=== PATIENT | female | born 1935 | race Caucasian/White ===

== ENCOUNTER → 2016-03-11 | Outpatient (CLI) | payer OTHER, BC ==
[~2016-03-11] MED LIST: ALLO1TAB51 PO; AMLO5TAB2 PO; ANAS1TAB6 PO; ASPI81TA28 PO; CALC0.2510 PO; CHOL1TAB2 PO; CLOP1TAB15 PO; DIPH-437 PO; FERR325T51 PO; INSU1INJ17 SC; LABE200T24 PO; MULT-190 PO; MULT1CHW42 PO; OXYC-57 PO; PRT/40 PO; ZCR40 PO; [UNRECOGNIZED DRUG - CODE] SC
[2016-03-11 13:28] LABS: HEMATOCRIT 26.2 % (37-47)
== END | disposition home or self-care (01) ==
LOC: C.LAB1850 13:05
PROVIDERS: ATTEND Internal Medicine Nephrology
DX: D64.9 Anemia, unspecified (principal); N18.5 Chronic kidney disease, stage 5

== ENCOUNTER → 2016-04-12 | Outpatient (CLI) | payer OTHER, BC ==
[2016-04-12 15:10] LABS: BLOOD UREA NITROGEN 53 mg/dl (7-18); CALCIUM 8.8 mg/dl (8.5-10.1); CARBON DIOXIDE 23 mmol/L (21-32); CHLORIDE 108 mmol/L (98-107); GLUCOSE 178 mg/dl (70-99); MAGNESIUM 1.7 mg/dl (1.8-2.4); PHOSPHORUS 4.6 mg/dl (2.5-4.9); POTASSIUM 4.4 mmol/L (3.5-5.1); SODIUM 139 mmol/L (136-145)
== END | disposition home or self-care (01) ==
LOC: C.LAB1850 13:40
PROVIDERS: ATTEND Internal Medicine Nephrology
DX: Z00.00 Encounter for general adult medical examination without abnormal findings (principal); D64.9 Anemia, unspecified

== ENCOUNTER → 2016-05-25 | Outpatient (CLI) | payer OTHER, BC ==
[~2016-05-25] MED LIST changes: +ALL100 PO; +ARM1 PO; +CALC1CAP36 PO; +CHOLCAP5 PO; +FERR325T5 PO; +LBT200 PO; +MULT60CA PO; +PANT40TA2 PO; +PLV75 PO; -PRT/40 PO; +SODI650T8 PO
[2016-05-25 14:03] VITALS: BP 164/67; PULSE 64; TEMP 36.6; O2SAT 96
--- NOTE | 2016-05-25 15:36 | Radiation Oncology Follow-Up ---
Radiation Oncology Follow-Up Date of Visit May 25, 2016. 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 Last Edited By: Holly Stoddard on Nov 03, 2015 14:09 History of Present Illness Ms. Farr is an 80-year-old female without a family history of breast cancer. She is undergone intermittent bilateral screening mammogram. Her most recent was on 07/10/2015. This showed possible spiculated 10 mm mass in the right upper-outer quadrant. Spot compression to most censuses fuse and breast ultrasound are recommended. Additionally there was a 6 mm mass in the right lower inner quadrant which does not appear to be significantly changed compared to prior study in 2009. On 07/22/2015 the patient underwent unilateral right digital diagnostic mammogram and targeted right breast ultrasound. In the lower inner posterior right breast a lobulated circumscribed 6.5 x 6.2 mm oval mass was noted. There was no architectural distortion or associated clustered microcalcifications. When comparing back to prior mammograms this is slightly increased in size compared to the 01/30/2009 mammogram. In the 9 to 10:00 middle one third of the right breast there was a spiculated mass with associated architectural distortion and adjacent vascular calcification. Ultrasound of these areas were performed. Real-time high- resolution sonographic evaluation was performed in the lower inner and upper outer quadrants of the right breast as well as the right axilla. At the 5 o'clock position of the right breast 1 cm from the nipple there was a lobulated circumscribed predominantly anechoic cystic mass with a few internal septations that measures 4.8 x 4.1 x 6.6 mm. This correlates well with the slowly increasing mammographic mass and is likely benign. In the adjacent 6 o'clock position of the right breast 1 cm from the nipple are 2 abutting cysts versus a single cyst with thin internal nonvascular septation measuring 3.8 x 2.7 x 3.0 mm also likely benign. At the 9 o'clock position of the right breast 2 cm from the nipple is a spiculated angular hypoechoic solid vascular mass measuring 8.5 x 7.0 x 9.0 mm that correlates with the mammographic abnormality. This was suspicious. Several morphologically normalappearing lymph nodes were appreciated with no suspicious adenopathy. This was given a BI- RADS Category 5: Highly suggestive of malignancy with biopsy recommended. On 08/01/2015 an ultrasound-guided biopsy of the right breast 9 o'clock position was performed along with biopsy marker placement. This revealed an invasive ductal carcinoma [place] grade 1 of 3. No lymphovascular invasion was identified. Estrogen receptors were positive (100%, strong intensity, H score 300). Estrogen receptors were positive (95% , intermediate to strongly intensity, each score 235). HER-2/mariia overexpression was negative and negative by FISH analysis. Ki-67 proliferation index was 4%, low). Case: [id number]. Patient met with Dr. Benedicto Finch to discuss surgical treatment options. The patient opted to proceed with breast conserving therapy. Therefore on 08/27/2015 the patient underwent a right sentinel node biopsy and right partial breast mastectomy. The sentinel node was negative. The lumpectomy specimen revealed residual infiltrating adenocarcinoma Fito grade 1 measuring 1.0 x 0.9 x 0.5 cm. No DCIS is identified however there was atypical intraductal hyperplasia adjacent to the infiltrative component. The margins were evaluated. The adenocarcinoma focally extended to the superior margin at the lateral aspect. The infiltrative component failed to extend all other margins. Additional superior breast tissue was taken and this margin was negative. Additional inferior breast tissue was taken and this was also negative. There was no lymphovascular invasion or perineural invasion identified. The final stage was [id number] pN0(sn-) ER positive, CA positive and HER-2/mariia negative. Case: [id number]. Patient has recovered well from her surgery. She was seen by Dr. Juve Chew who discussed the use of adjuvant antiestrogen therapy. We were also asked to see the patient in referral and it is for this reason the patient is being seen in referral. She underwent CT simulation was found to be a candidate for accelerated partial breast irradiation. Radiation was completed 10/23/2015. She received 3850 cGy Interim History The patient has had continued improvement in the fibrous changes of the breast since the completion of treatment. There is a firm area over the incision which is steadily become smaller. She has no associated pain. She has noted no redness or swelling. She has had no swelling of her arm. She has had follow -up mammography. She had a mammogram 01/28/2016. This was of right breast. This showed expected postsurgical changes in the right breast status post lumpectomy, with a 4.1 cm fluid collection at the lumpectomy bed consistent with postsurgical seroma/hematoma. Recommend bilateral diagnostic mammogram in 6 months, to evaluate the right breast postsurgical changes and for routine mammography of the left breast. She is on anastrozole and denies side effects. She has been followed closely by her primary care physician and is now being followed by Dr. Juárez due to her chronic renal disease. She is going to be having a AV fistula placed. This will be in preparation for future dialysis. This now has related issues with anemia. She is receiving injections through Dr. Juárez office to help improve the anemia. She does have fatigue. She also recently underwent Mohs procedure to lesions on her forehead, cheek, and chin. Allergies Coded Allergies: No Known Allergies (Unverified , 08/27/15) Home Medications Scheduled Acetaminophen/Diphenhydramine (Tylenol Pm), 1 TAB PO HS Allopurinol (Allopurinol), 100 MG PO QAM Amlodipine Besylate (Norvasc), 5 MG PO QAM Anastrozole (Anastrozole), 1 TAB PO DAILY Aspirin (Aspirin Ec), 81 MG PO QAM Calcitriol (Rocaltrol Cap), 0.25 MCG PO 3XWK Cholecalciferol (Vitamin D-3), 5,000 UNITS PO QAM Clopidogrel (Plavix), 75 MG PO Q2D Darbepoetin Migue-Polysorbate 8 (Aranesp Albumin Free), 100 MCG SC UD Ferrous Sulfate (Iron Supplement), 1 TAB PO QAM Insulin Isophane & Reg (Human) (Novolin 70/30 Relion), 55 UNITS SC QAM Insulin Isophane & Reg (Human) (Novolin 70/30 Relion), 35 UNITS SC QPM Labetalol Hcl (Labetalol Hcl), 200 MG PO TID Multiple Vitamins W/ Minerals (Centrum Multigummies Adul), 1 TAB PO DAILY Ocuvite Preservision (Ocuvite Preservision), 1 TAB PO BID Pantoprazole (Pantoprazole Sodium), 40 MG PO QAM Simvastatin (Simvastatin), 40 MG PO QPM Review of Systems Gastrointestinal: Symptoms: Ostomy GI Comments: Ileostomy with normal output; Oral: Symptoms: Scant Saliva/Dry Mouth, Mild Soreness Other Oral Symptoms: Using biotene for dry mouth; Respiratory: Symptoms: SOB With Exertion Other Respiratory: SOB w/exertion such as stairs and resolves quickly; Urinary: Symptoms: Nocturia Comments: 3 voids/night; Skin: Symptoms: No Problems Breast: Right Upper Arm Measurement: 31.8 Right Mid Arm Measurement: 27.0 Right Wrist Measurement: 16.3 Left Upper Arm Measurement: 32.5 Left Mid Arm Measurement: 27.0 Left Wrist Measurement: 16.5 Arm Dominence: Right Physical Exam Vital Signs Date Time Temp Pulse Resp B/P Pulse Ox O2 Delivery O2 Flow Rate FiO2 05/25/16 14:03 36.6 64 20 164/67 96 Fatigue: None General Appearance: no apparent distress, + pertinent finding (well-healed incisions are noted of her forehead, cheek, and chin from her Mohs procedures.) Eyes: normal inspection, EOMI ENT: normal ENT inspection, hearing grossly normal Neck: no adenopathy, thyroid normal Respiratory/Chest: lungs clear, no respiratory distress, no accessory muscle use Breast: Breast examination reveals well-healed incisions of the right breast. She does have palpable fibrous changes in the upper outer quadrant. The seroma is noted. There is no tenderness. She has no erythema or edema. She has no nipple changes or skin retractions. Using the Cayce score cosmesis she has a excellent outcome. The left breast showed no masses or tenderness no axillary adenopathy. Cardiovascular: regular rate, rhythm, no gallop, no murmur Abdomen: non tender, soft, no organomegaly Extremities: no pedal edema Neurologic/Psychiatric: no motor/sensory deficits, alert, normal mood/affect Skin: warm/dry Lymphatic: no adenopathy Laboratory Studies Test 04/12/16 13:42 04/29/16 14:08 05/17/16 12:37 Sodium Level 139 mmol/L (136-145) 142 mmol/L (136-145) Potassium Level 4.4 mmol/L (3.5-5.1) 4.8 mmol/L (3.5-5.1) Chloride Level 108 mmol/L (98-107) 111 mmol/L (98-107) Carbon Dioxide Level 23 mmol/L (21-32) 21 mmol/L (21-32) Anion Gap 8.0 mmol/L (3-11) 10.0 mmol/L (3-11) Blood Urea Nitrogen 53 mg/dl (7-18) 47 mg/dl (7-18) Creatinine 4.10 mg/dl (0.60-1.20) 5.20 mg/dl (0.60-1.20) Estimated GFR () 11.0 8.3 Estimated GFR (Non- 9.5 7.1 BUN/Creatinine Ratio 13.0 (10-20) 9.0 (10-20) Random Glucose 178 mg/dl (70-99) 249 mg/dl (70-99) Calcium Level 8.8 mg/dl (8.5-10.1) 8.7 mg/dl (8.5-10.1) Phosphorus Level 4.6 mg/dl (2.5-4.9) 4.3 mg/dl (2.5-4.9) Magnesium Level 1.7 mg/dl (1.8-2.4) 1.7 mg/dl (1.8-2.4) Albumin 3.3 gm/dl (3.4-5.0) 3.4 gm/dl (3.4-5.0) Hemoglobin 9.2 g/dL (12.0-16.0) 9.1 g/dL (12.0-16.0) Hematocrit 27.2 % (37-47) 26.7 % (37-47) White Blood Count 4.52 K/uL (4.8-10.8) Red Blood Count 3.12 M/uL (4.2-5.4) Mean Corpuscular Volume 85.6 fL (80-100) Mean Corpuscular Hemoglobin 29.2 pg (25-34) Mean Corpuscular Hemoglobin Concent 34.1 g/dl (32-36) Platelet Count 156 K/uL (130-400) Mean Platelet Volume 9.4 fL (7.4-10.4) Neutrophils (%) (Auto) 72.0 % Lymphocytes (%) (Auto) 16.8 % Monocytes (%) (Auto) 6.6 % Eosinophils (%) (Auto) 4.0 % Basophils (%) (Auto) 0.4 % Neutrophils # (Auto) 3.25 K/uL (1.4-6.5) Lymphocytes # (Auto) 0.76 K/uL (1.2-3.4) Monocytes # (Auto) 0.30 K/uL (0.11-0.59) Eosinophils # (Auto) 0.18 K/uL (0-0.5) Basophils # (Auto) 0.02 K/uL (0-0.2) RDW Standard Deviation 47.6 fL (36.4-46.3) RDW Coefficient of Variation 15.1 % (11.5-14.5) Immature Granulocyte % (Auto) 0.2 % Immature Granulocyte # (Auto) 0.01 K/uL (0.00-0.02) Iron Level 56 mcg/dl (35-150) Total Iron Binding Capacity 310 mcg/dl (250-450) Transferrin 251 mg/dl (200-360) Transferrin % Saturation 16 % (15-50) Ferritin 64.2 ng/ml (8.0-388.0) Additional Studies UNILATERAL RIGHT DIGITAL DIAGNOSTIC MAMMOGRAM TOMOSYNTHESIS AND TARGETED RIGHT ULTRASOUND: 01/28/2016 CLINICAL HISTORY: History of right breast cancer status post right lumpectomy August 2015 as well as radiation therapy. The patient reports a lump at the surgical bed which has decreased significantly since her surgery; she massages the area routinely. TECHNIQUE: Breast tomosynthesis in addition to standard 2D mammography was performed. Right CC and MLO 2-D and tomosynthesis images and spot magnification right cc and ML views were obtained. COMPARISON: Comparison is made to exams dated: 08/01/2015 ultrasound biopsy, mammogram, 07/22/2015 mammogram, and 07/10/2015 mammogram - [facility] BREAST COMPOSITION: There are scattered areas of fibroglandular density in the right breast. FINDINGS: There are new post surgical changes in the right breast from prior lumpectomy, including surgical clips as well as a round circumscribed 3.7 cm mass at the lumpectomy bed, which likely represents postsurgical seroma. The remainder of the right breast demonstrates no suspicious masses, calcifications , or areas of architectural distortion. The previously seen small mass in the right lower inner quadrant is no longer evident. Targeted ultrasound was performed of the surgical bed at the site of the mammographic mass as well as palpable lump. At the lumpectomy bed in the right breast at approximately 8:00, 2 cm from the nipple, there is an oval circumscribed mixed echogenicity fluid collection with multiple septations, which measures 4.1 x 2.8 x 3.1 cm. This corresponds with the mammographic mass and is most compatible with a postsurgical seroma/hematoma. Targeted ultrasound was performed of the right 5 to 6:00 breast, 1 cm from the nipple, at the site of the previously seen complicated cysts. The previously seen complicated cysts were no longer evident, and are therefore benign. IMPRESSION: ACR-BI-RADS CATEGORY 3: PROBABLY BENIGN, TARGETED ULTRASOUND ACR-BI -RADS CATEGORY 3: PROBABLY BENIGN Expected postsurgical changes in the right breast status post lumpectomy, with a 4.1 cm fluid collection at the lumpectomy bed consistent with a postsurgical seroma/hematoma. Recommend bilateral diagnostic mammograms in 6 months, to reevaluate the right breast postsurgical changes and for routine mammography of the left breast. The patient has been verbally notified of the results. Approximately 10% of breast cancers are not detected with mammography. A negative mammographic report should not delay biopsy if a clinically suggestive mass is present. Evy Mckeon M.D. ah/:01/28/2016 12:13:21 [employer] Plant Operator: Jemima HURD(Sofía)(Marylin), [facility] letter sent: Personal History 3 BI-RADS Code: ACR-BI-RADS Category 3: Probably Benign Ultrasound BI-RADS: ACR- BI-RADS Category 3: Probably Benign Dictated by: Evy Mckeon MD Signed by: Evy Mckeon MD Assessment & Plan Plan: Continue regular follow-up with her primary care physician and Dr. Jeevan. She continues on anastrozole. Continue with current schedule of mammography. She continues follow-up with nephrology. We asked her to return to our office in 1 year. She may call if she has any questions or concerns in the interim. Total Time In Follow-Up I spent 20 minutes speaking to the patient forming examination. I spent 15 minutes reviewing information in completing this note. Copy To Danielito Henley M.D.; Benedicto Finch M.D.; Marc Chew D.O.; Andrew Juárez D.O.
== END | disposition home or self-care (01) ==
LOC: C.ONC 13:57
PROVIDERS: ATTEND Physician Assistant Medical
DX: Z08 Encounter for follow-up examination after completed treatment for malignant neoplasm (principal); Z92.3 Personal history of irradiation; Z85.3 Personal history of malignant neoplasm of breast

== ENCOUNTER → 2016-06-09 | Outpatient (CLI) | payer OTHER, BC ==
[2016-06-09 13:56] LABS: ESTIMATED AVERAGE GLUCOSE 160 mg/dl; HA1C FLAG Normal (Normal)
[2016-06-09 14:38] LABS: CALCIUM 9.3 mg/dl (8.5-10.1)
[2016-06-09 14:53] LABS: BLOOD UREA NITROGEN 53 mg/dl (7-18); BUN/CREATININE RATIO 10.4 (10-20); CARBON DIOXIDE 20 mmol/L (21-32); CHLORIDE 112 mmol/L (98-107); CHOLESTEROL 129 mg/dl (0-200); CHOLESTEROL/HDL RATIO 3.7; GLUCOSE 167 mg/dl (70-99); HDL CHOLESTEROL 35 mg/dl; LDL CHOLESTEROL CALCULATED 53 mg/dl; POTASSIUM 4.7 mmol/L (3.5-5.1); SODIUM 141 mmol/L (136-145); TRIGLYCERIDES 207 mg/dl (0-150); VERY LOW DENSITY LIPOPROT CALC 41 mg/dl
== END | disposition home or self-care (01) ==
LOC: C.LABSPEC 12:36
PROVIDERS: ATTEND Internal Medicine
DX: E78.5 Hyperlipidemia, unspecified (principal); I10 Essential (primary) hypertension; E11.65 Type 2 diabetes mellitus with hyperglycemia

== ENCOUNTER → 2016-06-10 | Outpatient (CLI) | payer OTHER, BC | END | disposition home or self-care (01) | LOC: C.LABSPEC 14:37 | PROVIDERS: ATTEND Internal Medicine | DX: E11.9 Type 2 diabetes mellitus without complications (principal) ==

== ENCOUNTER → 2016-06-29 | Day surgery (SDC) | payer OTHER, BC ==
[2016-06-21 13:13] VITALS: BMI 31.0
--- NOTE | 2016-06-21 13:57 | PAT Medication Instructions ---
Service Date June 21, 2016. Current Home Medication List Acetaminophen/Diphenhydramine (Tylenol Pm), 1 TAB PO HS Allopurinol (Allopurinol), 100 MG PO QAM Amlodipine Besylate (Norvasc), 5 MG PO QAM Anastrozole (Anastrozole), 1 TAB PO QAM Aspirin (Aspirin Ec), 81 MG PO QAM Calcitriol (Rocaltrol Cap), 0.25 MCG PO 3XWK Cholecalciferol (Vitamin D-3), 5,000 UNITS PO QAM Clopidogrel (Plavix), 75 MG PO Q2D Darbepoetin Migue-Polysorbate 8 (Aranesp Albumin Free), 100 MCG SC UD Ferrous Sulfate (Iron Supplement), 1 TAB PO QAM Insulin Isophane & Reg (Human) (Novolin 70/30 Relion), 55 UNITS SC QAM Insulin Isophane & Reg (Human) (Novolin 70/30 Relion), 35 UNITS SC QPM Labetalol Hcl (Labetalol Hcl), 200 MG PO TID Multiple Vitamins W/ Minerals (Centrum Multigummies Adul), 1 TAB PO QAM Ocuvite Preservision (Ocuvite Preservision), 1 TAB PO BID Pantoprazole (Pantoprazole Sodium), 40 MG PO QAM Simvastatin (Simvastatin), 40 MG PO QPM Medication Instructions For Your Scheduled Surgery Anastrozole (Anastrozole), 1 TAB PO QAM (per surgeon instructions, continue as usual) Aspirin (Aspirin Ec), 81 MG PO QAM (per surgeon instructions, continue as usual) Clopidogrel (Plavix), 75 MG PO Q2D (per surgeon instructions, continue as usual ) Darbepoetin Migue-Polysorbate 8 (Aranesp Albumin Free), 100 MCG SC UD (continue as usual) - Hold the following medications the morning of surgery: Ocuvite Preservision (Ocuvite Preservision), 1 TAB PO BID Multiple Vitamins W/ Minerals (Centrum Multigummies Adul), 1 TAB PO QAM Ferrous Sulfate (Iron Supplement), 1 TAB PO QAM Cholecalciferol (Vitamin D-3), 5,000 UNITS PO QAM Calcitriol (Rocaltrol Cap), 0.25 MCG PO 3XWK - Take the following medications the morning of surgery with a sip of water: Pantoprazole (Pantoprazole Sodium), 40 MG PO QAM Labetalol Hcl (Labetalol Hcl), 200 MG PO TID Amlodipine Besylate (Norvasc), 5 MG PO QAM Allopurinol (Allopurinol), 100 MG PO QAM - Take the following medications as scheduled the night before surgery: Simvastatin (Simvastatin), 40 MG PO QPM Ocuvite Preservision (Ocuvite Preservision), 1 TAB PO BID Labetalol Hcl (Labetalol Hcl), 200 MG PO TID Insulin Isophane & Reg (Human) (Novolin 70/30 Relion), 35 UNITS SC QPM Acetaminophen/Diphenhydramine (Tylenol Pm), 1 TAB PO HS - For Insulin Dependent Diabetic patients: Test blood sugar A.M. of surgery. - If blood sugar is greater than 150, take half of your morning insulin dose: Novolin 70/30 Relion, 26 UNITS - If blood sugar is less than 150, do not take any: Novolin 70/30 If you have any questions please call us at [phone] or [phone] ( [place]) or [phone]
[2016-06-21 14:21] LABS: BASO % 0.6 %; BASO ABS # 0.03 K/uL (0-0.2); COMPLETE YES; EOS % 3.2 %; HEMATOCRIT 27.9 % (37-47); IG% 0.2 %; LYMPH % 12.5 %; LYMPH ABS # 0.66 K/uL (1.2-3.4); MEAN CELL VOLUME 88.9 fL (80-100); MEAN CORPUSCULAR HGB CONC 32.6 g/dl (32-36); MEAN PLATELET VOLUME 8.9 fL (7.4-10.4); MONO % 6.4 %; NEUT % 77.1 %; PLATELET COUNT 133 K/uL (130-400); RED BLOOD COUNT 3.14 M/uL (4.2-5.4); WHITE BLOOD COUNT 5.29 K/uL (4.8-10.8)
--- NOTE | 2016-06-21 14:22 | DIAGNOSTIC IMAGING REPORT ---
CHEST 2 VIEWS ROUTINE CLINICAL HISTORY: Preoperative chest COMPARISON STUDY: 04/23/2015 FINDINGS: The heart is mildly enlarged. There is mild interstitial thickening similar to the prior study. There is no lobar consolidation. There is no failure. There are no pleural effusions. Surgical clips project over the right breast.[ IMPRESSION: Mild cardiomegaly. No acute findings. Electronically signed by: Bryce Rodriguez M.D. 06/21/2016 2:21 PM Dictated Date/Time: 06/21/2016 2:20 PM
[2016-06-21 14:30] LABS: PARTIAL THROMBOPLASTIN RATIO 0.9; PROTHROMBIN TIME (PATIENT) 10.7 SECONDS (9.0-12.0)
[2016-06-21 15:48] LABS: BUN/CREATININE RATIO 10.8 (10-20); CALCIUM 8.7 mg/dl (8.5-10.1); CREATININE 4.8 mg/dl (0.60-1.20); POTASSIUM 5.2 mmol/L (3.5-5.1)
[2016-06-21 16:06] LABS: BETA-HYDROXYBUTYRATE 1.32 mg/dL (0.2-2.81)
[~2016-06-29] VITALS: Ht 157.5 cm; Wt 78.7 kg
[~2016-06-29] MED LIST changes: +ATROPINE SULFATE 0.1 MG/ML 5ML SYR IV PRN; +BUPIVACAINE/EPINEPHRINE 0.5% MPF 1:200,000 30 ML VIAL ONE; +CEFAZOLIN 1000MG/55 ML D5W IV SCH; +EpHEDrine SULFATE INJ 50 MG/ML AMP IV PRN; +FENTANYL CITRATE INJ 50 MCG/1 ML 2 ML VIAL ONE; +FLUMAZENIL 0.1 MG/1 ML 10 ML VIAL IV PRN; +GELATIN SPONGE 12-7MM ONE; +HEPARIN SOD (PORCINE) 1000 UNIT/ML 10 ML VIAL ONE; +LABETALOL HCL IV 5 MG/ML 20ML IV PRN; +LIDOCAINE HCL 1% 20 ML VIAL ONE; +LIDOCAINE HCL 2% 2 ML VIAL (20MG/ML) ONE; +MIDAZOLAM HCL 1 MG/ML 2ML VIAL ONE; +NALOXONE HCL 0.4 MG/1 ML VIAL/CARP IV PRN; +ONDANSETRON INJ 2 MG/ML 2 ML VIAL IV PRN; +PROMETHAZINE HCL INJ 12.5 MG in SODIUM CHLORIDE 0.9% 50ML 50 ML IV PRN; +PROPOFOL IV EMULSION 10 MG/ML 20 ML VIAL IV ONE; +SODIUM CHLORIDE 0.9% 1000ML 1,000 ML IV SCH; +SODIUM CHLORIDE 0.9% 1000ML IV SCH; +THROMBIN FOR SOLN 20000 UNIT KIT ONE
--- NOTE | 2016-06-29 06:02 | History and Physical ---
History & Physical Date of Service June 29, 2016. 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 Pt states that she was initially unwilling to move forward with hemodialysis but has since decided to pursue further treatment. At this time she notes that she is feeling well and is hopeful that she will not require hemodialysis. She denies recent sxs of TIA, numbness or weakness in the arms, or sxs of claudication with ambulation. 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 Allergies NKDA Social History: Lives at home with daughter who requires her care. Has another daughter that lives in [place]. Physical Exam General: Well Developed Well Nourished in no acute distress Cardiovascular: Regular Rhythm, Bradycardia, no murmurs. No Carotid Bruits Respiratory: Lungs clear to auscultation bilaterally. No wheezes or rhonchi Extremeties: 2+ Radial, DP and PT pulses bilaterally. Integumentary: Warm and Dry Psych: Approrpiate mood and affect Assessment and Plan: End stage renal disease Plan: Patient is admitted for a left antecubital vein fistula. I have discussed the risks options and benefits of the procedure with the patient. The patient understands the risks options and benefits and agrees to the procedure.
[2016-06-29 09:15] VITALS: BP 169/75; PULSE 64; TEMP 36.7; O2SAT 95; Ht 157.5 cm; Wt 78.7 kg
--- NOTE | 2016-06-29 09:44 | History & Physical Bridge Note ---
H&P Re-Evaluation Bridge Note: I have examined the patient, reviewed the History & Physical and in the interval since the performance of the History & Physical I have noted the following changes of clinical significance: No changes noted
[2016-06-29 09:46] LABS: BUN/CREATININE RATIO 9.2 (10-20); CALCIUM 9.1 mg/dl (8.5-10.1); CREATININE 5.6 mg/dl (0.60-1.20); POTASSIUM 4.3 mmol/L (3.5-5.1)
--- NOTE | 2016-06-29 11:57 | [facility] Post Operative Brief Note ---
Immediate Operative Summary Operative Date June 29, 2016. Pre-Operative Diagnosis End stage renal disease Post-Operative Diagnosis Same as preoperative diagnosis Procedure(s) Performed Left Antecubital Cephalic Vein Arteriovenous Fistula Surgeon Dr. Figueroa Torres Oyster Grader Surgeon(s) None Estimated Blood Loss 10 mL Findings good thrill Specimens No pathology specimens per surgeon Anesthesia MAC Complication(s) None Disposition Recovery Room / PACU
--- NOTE | 2016-06-29 12:00 | Discharge Instructions ---
Discharge Instructions Date of Service June 29, 2016. Visit Reason for Visit: End Stage Renal Disease Discharge Discharge Diagnosis / Problem: End stage renal disease Discharge Goals Goal(s): Therapeutic intervention Activity Recommendations Activity Limitations: per Instructions/Follow-up section Anesthesia . Post Anesthesia Instructions: If you have had General Anesthesia or IV Sedation: * Do not drive today. * Resume driving when surgeon permits. * Do not make important decisions or sign legal documents today. * Call surgeon for: 1. Temperature elevations greater than 101 degrees F. 2. Uncontrollable pain. 3. Excessive bleeding. 4. Persistent nausea and vomiting. 5. Medication intolerance (nausea, vomiting or rash). * For nausea and vomiting use only clear liquids such as: tea, soda, bouillon until nausea subsides, then gradually increase diet as tolerated. * If you have any concerns or questions, call your surgeon's office. If physician is unavailable and it is an emergency, call 911 or go to the nearest emergency room. . Instructions / Follow-Up Instructions / Follow-Up Call [phone] to schedule a follow up appointment if one not already scheduled. ACTIVITY RECOMMENDATIONS: See Above SPECIAL CARE INSTRUCTIONS: Call your doctor if: * Temperature above 101 degrees * Pain not relieved by pain medicine ordered * There is increased drainage or redness from any incision * You have any unanswered questions or concerns. Diet Recommendations Recommended Home Diet: resume previous diet Procedures Procedures Performed: Left Antecubital Cephalic Vein Arteriovenous Fistula Pending Studies Studies pending at discharge: no Medical Emergencies . Who to Call and When: Medical Emergencies: If at any time you feel your situation is an emergency, please call 911 immediately. . Non-Emergent Contact Non-Emergency issues call your: Surgeon . . "Provider Documentation" section prepared by Figueroa Torres. .
--- NOTE | 2016-06-29 12:35 | OPERATIVE REPORT ---
DATE OF OPERATION: 06/29/2016 PREOPERATIVE DIAGNOSIS: Endstage renal disease. POSTOPERATIVE DIAGNOSIS: Same. PROCEDURE: Left antecubital cephalic vein AV fistula creation. SURGEON: Dr. Torres. ANESTHETIC: MAC. PROCEDURE INDICATIONS: The patient is an 80-year-old female with end-stage renal disease in need of a permanent access. A left antecubital cephalic vein AV fistula was recommended. She understood the risks, options and benefits and agreed to have this procedure. The patient was taken to the operating room and placed in supine position. After the left arm was prepped and draped in a sterile manner, local anesthetic was administered. A transverse incision was made inferior to the antecubital crease on the left side. The dissection was carried down. The median, cubital, and cephalic vein were identified. Dissection was carried down below the fascia and the brachial artery was identified at the antecubital crease. The brachial artery was isolated for a short segment. The median cephalic vein was divided distally. It was then transected appropriate length. Clamps were placed on the proximal and distal brachial artery. Longitudinal arteriotomy was then made. The artery was of good size, approximately 3 mm in size. The vein was approximately 2.5 to 3. It dilated up nicely with heparinized saline. An end-to-side anastomosis was then accomplished using a 7-0 Prolene suture in the usual vascular fashion. Prior to completing the closure, backbleeding and forward bleeding was allowed to occur and the final few sutures were then placed and securely tied. Clamps were removed. There was a good thrill felt in the cephalic vein in the upper arm. At that point, adequate hemostasis was noted of the wound. The wound was then closed in the usual fashion using a running 3-0 Vicryl suture for the subcutaneous layer and running 4-0 subcuticular suture for the skin edges. Dermabond was used for a dressing. The patient had nice pink fingers at the end with a good palpable radial pulse. The patient left the operating room in satisfactory condition and tolerated the procedure well. Again, there was a good thrill in the cephalic vein in the upper arm. I attest to the content of the Intraoperative Record and any orders documented therein. Any exceptio ns are noted below.
[2016-06-29 12:40] VITALS: BP 167/62; PULSE 61; TEMP 36.5; O2SAT 92
--- NOTE | 2016-06-29 12:40 | Anesthesiology Progress Note ---
Anesthesia Post Op Note Date & Time June 29, 2016 at 12:40 Vital Signs Pain Intensity: 0 Vital Signs Past 12 Hours Date Time Temp Pulse Resp B/P Pulse Ox O2 Delivery O2 Flow Rate FiO2 06/29/16 12:25 36.2 63 16 171/64 91 Room Air 06/29/16 12:15 63 14 159/60 92 Room Air 06/29/16 12:08 36.3 67 14 166/60 94 Room Air 06/29/16 09:15 36.7 64 18 169/75 95 Room Air Notes Mental Status: alert / awake / arousable, participated in evaluation Pt Amnestic to Procedure: Yes Nausea / Vomiting: adequately controlled Pain: adequately controlled Airway Patency, RR, SpO2: stable & adequate BP & HR: stable & adequate Hydration State: stable & adequate Anesthetic Complications: no major complications apparent
[2016-06-29 13:10] VITALS: BP 160/54; PULSE 67; TEMP 36.6; O2SAT 95
== END | disposition home or self-care (01) ==
LOC: C.ACU 08:43
PROVIDERS: ATTEND Surgery Vascular Surgery
DX: N18.6 End stage renal disease (principal); I12.0 Hypertensive chronic kidney disease with stage 5 chronic kidney disease or end stage renal disease; D50.9 Iron deficiency anemia, unspecified; Z85.3 Personal history of malignant neoplasm of breast; N25.81 Secondary hyperparathyroidism of renal origin; E55.9 Vitamin D deficiency, unspecified; Z86.73 Personal history of transient ischemic attack (TIA), and cerebral infarction without residual deficits; Z87.442 Personal history of urinary calculi; Z79.82 Long term (current) use of aspirin; Z82.49 Family history of ischemic heart disease and other diseases of the circulatory system; Z83.3 Family history of diabetes mellitus; E78.00 Pure hypercholesterolemia, unspecified; Z79.4 Long term (current) use of insulin; Z90.11 Acquired absence of right breast and nipple; E66.9 Obesity, unspecified; Z90.49 Acquired absence of other specified parts of digestive tract; E11.21 Type 2 diabetes mellitus with diabetic nephropathy

== ENCOUNTER → 2016-07-28 | Outpatient (CLI) | payer OTHER, BC ==
[~2016-07-28] MED LIST changes: -ATROPINE SULFATE 0.1 MG/ML 5ML SYR IV PRN; -BUPIVACAINE/EPINEPHRINE 0.5% MPF 1:200,000 30 ML VIAL ONE; -CEFAZOLIN 1000MG/55 ML D5W IV SCH; -EpHEDrine SULFATE INJ 50 MG/ML AMP IV PRN; -FENTANYL CITRATE INJ 50 MCG/1 ML 2 ML VIAL ONE; -FLUMAZENIL 0.1 MG/1 ML 10 ML VIAL IV PRN; -GELATIN SPONGE 12-7MM ONE; -HEPARIN SOD (PORCINE) 1000 UNIT/ML 10 ML VIAL ONE; -LABETALOL HCL IV 5 MG/ML 20ML IV PRN; -LIDOCAINE HCL 1% 20 ML VIAL ONE; -LIDOCAINE HCL 2% 2 ML VIAL (20MG/ML) ONE; -MIDAZOLAM HCL 1 MG/ML 2ML VIAL ONE; -NALOXONE HCL 0.4 MG/1 ML VIAL/CARP IV PRN; -ONDANSETRON INJ 2 MG/ML 2 ML VIAL IV PRN; -PROMETHAZINE HCL INJ 12.5 MG in SODIUM CHLORIDE 0.9% 50ML 50 ML IV PRN; -PROPOFOL IV EMULSION 10 MG/ML 20 ML VIAL IV ONE; -SODIUM CHLORIDE 0.9% 1000ML 1,000 ML IV SCH; -SODIUM CHLORIDE 0.9% 1000ML IV SCH; -THROMBIN FOR SOLN 20000 UNIT KIT ONE
--- NOTE | 2016-07-28 13:28 | MAMMOGRAPHY REPORT ---
BILATERAL DIGITAL DIAGNOSTIC MAMMOGRAM TOMOSYNTHESIS WITH CAD: 07/28/2016 CLINICAL HISTORY: 1 year follow-up status post breast conservation treatment for right breast cancer. Annual bilateral screening exam. TECHNIQUE: Bilateral breast spot magnification right CC and ML views were also obtained. Tomosynthes is in addition to standard 2D mammography was performed. Current study was also evaluated with a Comp uter Aided Detection (CAD) system. COMPARISON: Comparison is made to exams dated: 01/28/2016 ultrasound, 01/28/2016 mammogram, 07/22/2015 mammogram, 07/10/2015 mammogram, 02/16/2012 mammogram, and 02/10/2011 mammogram - [facility]. BREAST COMPOSITION: There are scattered areas of fibroglandular density in both breasts. FINDINGS: There is evidence of prior treatment in the right breast. There is a dense 3.0 x 4.1 cm ma ss in the upper outer posterior right breast, at the site of prior lumpectomy. This has slightly dec reased in size compared to the prior mammograms, and most likely represents an evolving post surgical seroma and/or hematoma. There are moderate vascular calcifications bilaterally. No new suspicious mass, architectural distortion or cluster of microcalcifications is seen. IMPRESSION: ACR-BI-RADS CATEGORY 3: PROBABLY BENIGN 1. Expected posttreatment changes in the right breast, without definite mammographic evidence of mal ignancy. Another six-month follow-up diagnostic right mammogram and possible ultrasound is recommend ed to ensure longer stability after treatment. 2. Stable mammographic appearance of the left breast, without mammographic evidence of malignancy. Advise follow up in one year. These results and recommendations were discussed with the patient at the time of the exam. Approximately 10% of breast cancers are not detected with mammography. A negative mammographic report should not delay biopsy if a clinically suggestive mass is present. Meena Chou M.D. ay/:07/28/2016 11:40:47 Ball Thread Machine Tender: Marii HURD(Sofía)(M), [facility] letter sent: Follow Up Recommended 3 BI-RADS Code: ACR-BI-RADS Category 3: Probably Benign
== END | disposition home or self-care (01) ==
LOC: C.MAMM 10:29
PROVIDERS: ATTEND Physician Assistant Medical
DX: Z85.3 Personal history of malignant neoplasm of breast (principal); Z08 Encounter for follow-up examination after completed treatment for malignant neoplasm

== ENCOUNTER → 2016-08-19 | Outpatient (CLI) | payer OTHER, BC ==
[~2016-08-19] MED LIST changes: -PANT40TA2 PO; +PRT/40 PO
[2016-08-19 15:37] LABS: BLOOD UREA NITROGEN 60 mg/dl (7-18); BUN/CREATININE RATIO 12.2 (10-20); CALCIUM 8.7 mg/dl (8.5-10.1); CARBON DIOXIDE 20 mmol/L (21-32); CHLORIDE 112 mmol/L (98-107); GLUCOSE 244 mg/dl (70-99); PHOSPHORUS 5.3 mg/dl (2.5-4.9); POTASSIUM 5.2 mmol/L (3.5-5.1); SODIUM 140 mmol/L (136-145)
== END | disposition home or self-care (01) ==
LOC: C.LAB1850 13:14
PROVIDERS: ATTEND Internal Medicine Nephrology
DX: N18.5 Chronic kidney disease, stage 5 (principal); D64.9 Anemia, unspecified

== ENCOUNTER → 2016-09-01 | Outpatient (CLI) | payer OTHER, BC ==
[2016-09-01 17:31] LABS: BLOOD UREA NITROGEN 52 mg/dl (7-18); BUN/CREATININE RATIO 10.3 (10-20); CALCIUM 8.8 mg/dl (8.5-10.1); CARBON DIOXIDE 21 mmol/L (21-32); CHLORIDE 113 mmol/L (98-107); GLUCOSE 209 mg/dl (70-99); PHOSPHORUS 4.8 mg/dl (2.5-4.9); POTASSIUM 4.8 mmol/L (3.5-5.1); SODIUM 143 mmol/L (136-145)
== END | disposition home or self-care (01) ==
LOC: C.LAB1850 15:20
PROVIDERS: ATTEND Internal Medicine Nephrology
DX: N18.5 Chronic kidney disease, stage 5 (principal); D64.9 Anemia, unspecified

== ENCOUNTER → 2016-09-27 | Day surgery (SDC) | payer OTHER, BC ==
[~2016-09-27] VITALS: Ht 157.5 cm; Wt 76.5 kg
[~2016-09-27] MED LIST changes: +CEFAZOLIN 1000MG/55 ML D5W IV SCH; +D5W AND 1/4NSS 1,000 ML IV SCH
[2016-09-27 07:02] VITALS: BP 162/69; PULSE 67; TEMP 36.6; O2SAT 95; Ht 157.5 cm; Wt 76.5 kg
== END | disposition home or self-care (01) ==
LOC: C.ACU 06:28
PROVIDERS: ATTEND Surgery Vascular Surgery
DX: N18.6 End stage renal disease (principal); Z53.8 Procedure and treatment not carried out for other reasons

== ENCOUNTER → 2016-10-12 | Outpatient (CLI) | payer OTHER, BC ==
[~2016-10-12] MED LIST changes: -CEFAZOLIN 1000MG/55 ML D5W IV SCH; -D5W AND 1/4NSS 1,000 ML IV SCH
[2016-10-12 13:20] LABS: ESTIMATED AVERAGE GLUCOSE 180 mg/dl; HA1C FLAG Normal (Normal)
[2016-10-12 13:49] LABS: BLOOD UREA NITROGEN 61 mg/dl (7-18); BUN/CREATININE RATIO 11.6 (10-20); CALCIUM 9.1 mg/dl (8.5-10.1); CARBON DIOXIDE 21 mmol/L (21-32); CHLORIDE 114 mmol/L (98-107); CHOLESTEROL < 50 mg/dl (0-200); GLUCOSE 150 mg/dl (70-99); HDL CHOLESTEROL 36 mg/dl; POTASSIUM 4.7 mmol/L (3.5-5.1); SODIUM 144 mmol/L (136-145); TRIGLYCERIDES 199 mg/dl (0-150); VERY LOW DENSITY LIPOPROT CALC 40 mg/dl
== END | disposition home or self-care (01) ==
LOC: C.LABSPEC 12:23
PROVIDERS: ATTEND Internal Medicine
DX: N17.9 Acute kidney failure, unspecified (principal); E78.5 Hyperlipidemia, unspecified; E11.65 Type 2 diabetes mellitus with hyperglycemia; I10 Essential (primary) hypertension

== ENCOUNTER 2016-10-25 06:30 | Day surgery (SDC) | payer OTHER, BC ==
[~2016-10-25] VITALS: Ht 157.5 cm; Wt 77.5 kg
--- NOTE | 2016-10-25 06:03 | History and Physical ---
History & Physical Date of Service Oct 25, 2016. History & Physical CC: End stage renal disease, stenosis and nonmaturation of left arm av fistula HPI: Ms Farr is an 80 yo F with a PMH of T2DM, HTN, iron deficiency anemia, Breast Cancer and UC s/p total colectomy who presented for evaluation of AV fistula creation for HD for Stage V CKD likely 2/2 diabetic nephropathy. She had a left arm fistula created which has a large branch and is not maturing as it should, She denies recent sxs of TIA, numbness or weakness in the arms, or sxs of claudication with ambulation. 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 Allergies NKDA Social History: Lives at home with daughter who requires her care. Has another daughter that lives in [place]. Physical Exam General: Well Developed Well Nourished in no acute distress Cardiovascular: Regular Rhythm, Bradycardia, no murmurs. No Carotid Bruits Respiratory: Lungs clear to auscultation bilaterally. No wheezes or rhonchi Extremeties: 2+ Radial, DP and PT pulses bilaterally. Good thrill in proximal fistula Integumentary: Warm and Dry Psych: Approrpiate mood and affect Assessment and Plan: End stage renal disease Non maturing fistula left arm Plan: Patient is admitted for a left antecubital vein fistulogram with possible intervention. I have discussed the risks options and benefits of the procedure with the patient. The patient understands the risks options and benefits and agrees to the procedure.
[~2016-10-25 06:30] MED LIST changes: -ALL100 PO; -AMLO5TAB2 PO; -ARM1 PO; -ASPI81TA28 PO; -CALC1CAP36 PO; +CEFAZOLIN 1000MG/55 ML D5W IV SCH; -CHOLCAP5 PO; +D5W AND 1/4NSS 1000 ML IV SCH; -FERR325T5 PO; -INSU1INJ17 SC; -LBT200 PO; -MULT1CHW42 PO; -MULT60CA PO; -PLV75 PO; -PRT/40 PO; -SODI650T8 PO; -ZCR40 PO
[2016-10-25] MEDS ORDERED: OXYC-57 PO (07:09)
[2016-10-25 07:13] VITALS: BP 184/93; PULSE 72; TEMP 36.7; O2SAT 96; Ht 157.5 cm; Wt 77.5 kg
--- NOTE | 2016-10-25 07:46 | Procedure Note ---
Pre-Mod Sedation Assessment General Date of Moderate Sedation: Oct 25, 2016. Vital Signs: Vital Signs Past 12 Hours Date Time Temp Pulse Resp B/P (MAP) Pulse Ox O2 Delivery O2 Flow Rate FiO2 10/25/16 07:13 36.7 72 18 184/93 (123) 96 Room Air Pre-Sedation Airway Assessment Oral Cavity: WNL Hx of Sleep Apnea: No Smoking Status: Never Smoker Mallampati Classification: Class I ASA Classification: Class II Notes The planned sedation has been discussed with the patient and consent obtained. I have identified the patient, determined the appropriateness of sedation and have assessed the patient immediately prior to the procedure. All medicine(s) and interventions are by my order.
[2016-10-25] MEDS ORDERED: FENTANYL CITRATE INJ 50 MCG/1 ML 2 ML VIAL ONE (07:48)
[2016-10-25] MEDS ORDERED: MIDAZOLAM HCL 1 MG/ML 2ML VIAL ONE (07:48)
[2016-10-25 07:51] VITALS: BP 184/93; PULSE 72; TEMP 36.7; O2SAT 96
[2016-10-25] MEDS ORDERED: FENTANYL CITRATE INJ 50 MCG/1 ML 2 ML VIAL IV ONE (08:16)
[2016-10-25] MEDS ORDERED: LIDOCAINE HCL 1% 20 ML VIAL INJ ONE (08:16)
[2016-10-25] MEDS ORDERED: MIDAZOLAM HCL 1 MG/ML 2ML VIAL IV ONE (08:16)
[2016-10-25] MEDS ORDERED: IODIXANOL (VISIPAQUE) 270 MG/ML 50ML FLUSH ONE (08:31)
--- NOTE | 2016-10-25 08:39 | Procedure Note ---
Post-Moderate Sedation Plan General Date of Moderate Sedation Oct 25, 2016. Vital Signs: Vital Signs Past 12 Hours Date Time Temp Pulse Resp B/P (MAP) Pulse Ox O2 Delivery O2 Flow Rate FiO2 10/25/16 08:35 67 13 176/75 95 Room Air 10/25/16 07:51 36.7 72 18 184/93 96 Room Air 10/25/16 07:13 36.7 72 18 184/93 (123) 96 Room Air Review - Discharge Plan Post Moderate Sedation Plan: On clinical assessment, the patient appears to have tolerated the conscious sedation without complications. Patient is recovering as anticipated. Patient will continue to be monitored by nursing and may be discharged when conscious sedation discharge criteria are met.
--- NOTE | 2016-10-25 08:39 | [facility] Post Operative Brief Note ---
Immediate Operative Summary Operative Date Oct 25, 2016. Pre-Operative Diagnosis non maturing fistula left arm Post-Operative Diagnosis same Procedure(s) Performed Fistulogram, Moderate Concious Sedation [address] Torres Hot Metal Car Operator Surgeon(s) none Estimated Blood Loss 5 ml Findings occluded distal cephalic vein Specimens none Anesthesia Local with sedation Complication(s) None Disposition
--- NOTE | 2016-10-25 08:41 | Discharge Instructions ---
Discharge Instructions Date of Service Oct 25, 2016. Visit Reason for Visit: Stenosis Of Left Arm Fistula, Non-Maturing Discharge Discharge Diagnosis / Problem: Non maturing fistula Discharge Goals Goal(s): Diagnostic testing Activity Recommendations Activity Limitations: resume your previous activity Anesthesia . Post Anesthesia Instructions: If you have had General Anesthesia or IV Sedation: * Do not drive today. * Resume driving when surgeon permits. * Do not make important decisions or sign legal documents today. * Call surgeon for: 1. Temperature elevations greater than 101 degrees F. 2. Uncontrollable pain. 3. Excessive bleeding. 4. Persistent nausea and vomiting. 5. Medication intolerance (nausea, vomiting or rash). * For nausea and vomiting use only clear liquids such as: tea, soda, bouillon until nausea subsides, then gradually increase diet as tolerated. * If you have any concerns or questions, call your surgeon's office. If physician is unavailable and it is an emergency, call 911 or go to the nearest emergency room. . Instructions / Follow-Up Instructions / Follow-Up Call [phone] to schedule a follow up appointment if one not already scheduled. SPECIAL CARE INSTRUCTIONS: Medications: * Continue to take your medications as directed. If you have been given a prescription for Plavix, please fill it immediately and take as directed. Incision Care: * Your puncture site may have some bruising and minor swelling for about one week. * You will have a small dressing covering your puncture site. You may remove the dressing after 24 hours and shower. You may let the warm soapy water run over it, but be sure to dry the puncture site well and keep it dry. * DO NOT IMMERSE THE INCISION IN A TUB/POOL/etc. UNTIL HEALED. * Puncture sites should be kept covered with a band-aid until it begins to heal. Restrictions: * Depending on whether you leg or arm was punctured to access the arteries, you will be required to lay flat, hold your arm still, or both, for about 4 hours after the procedure to prevent bleeding. * Limit your activity for the first 48 hours. You may walk and go up and down steps. Avoid excessive bending or movement at the puncture site. Possible Complications: * Excessive Swelling - after blood flow is improved you may notice increased swelling in the lower legs. This is a normal response. This usually depends on the amount of blockages in the leg, how long they have been there prior to your procedure and how much blood flow was restored. Elevating your legs will help to improve this. Please notify our office ([phone] ) if the swelling does not go away after lying in bed overnight. * Infection/Drainage/Bleeding - Drainage or bleeding from the puncture site should be minimal. If you have excessive bleeding or drainage, call our office ([phone]) right away. * Pain - You may experience some mild pain or soreness at your puncture site. If your pain does not improve, please contact our office ([phone]). Call your doctor and seek emergent treatment if you develop: * Temperature above 101 degrees * Any fever or chills * Any redness or purulent drainage from the puncture site * Any new dusky/blue colored toes or feet with coolness or sharp or aching pain. SKIN IRRITATION: * You may experience some redness and/or swelling in the area where radiation was administered. If any skin irritation occurs, please contact your family physician. FOLLOW UP VISIT: Keep any scheduled doctor appointments. Diet Recommendations Recommended Home Diet: resume previous diet Procedures Procedures Performed: Fistulogram, Moderate Concious Sedation 0816 to 0834 Pending Studies Studies pending at discharge: no Medical Emergencies . Who to Call and When: Medical Emergencies: If at any time you feel your situation is an emergency, please call 911 immediately. . Non-Emergent Contact Non-Emergency issues call your: Surgeon . . "Provider Documentation" section prepared by Figueroa Torres. .
--- NOTE | 2016-10-25 08:48 | [facility] Operative Report ---
Operative Report Operative Date Oct 25, 2016. Pre-Operative Diagnosis non maturing fistula left arm Post-Operative Diagnosis same Procedure(s) Performed Fistulogram, Moderate Concious Sedation [address] Torres Pharm Tech Surgeon(s) none Estimated Blood Loss 5 ml Findings occluded distal cephalic vein Specimens none Anesthesia Local with sedation Complication(s) None Disposition Description of Procedure The patient was taken to the angiogram suite and placed in the supine position. The left arm was then prepped and draped in a sterile manner. Local anesthetic was administered and a percutaneous puncture was then made of the proximal portion of the left upper arm AV fistula using micropuncture technique. Micropuncture wire and sheath were then inserted. A fistulogram was then performed. the proximal portion of the fistula was widely patent and maturing nicely. The cephalic vein distally however was occluded at the mid upper arm level. There was a large branch present which fed the basilic vein in the upper arm. At that point we switched out the sheath from a micropuncture sheath to a 5 [place] sheath. Using an 035 alidewire and a quick cross catheter we tried to find the channel through the occluded vein. This was not successful. I managed to pass the wire and a quick cross catheter approximately care home through the lesion at which point there was small perforation of a branch of the vein. The wire and quick cross were then pulled. The final injection of contrast prior to pulling the sheath showed no extravasation of contrast. The sheath was then pulled and pressure was applied. Adequate hemostasis was obtained. The patient left the angiogram suite in good condition and tolerated the procedure well. I attest to the content of the Intraoperative Record and any orders documented therein. Any exceptions are noted below.
[2016-10-25 08:50] VITALS: BP 179/84; PULSE 71; TEMP 36.8; O2SAT 97
[2016-10-25 09:20] VITALS: BP 175/85; PULSE 66; O2SAT 99
[2016-11-20] MEDS ORDERED: AMLO5TAB2 PO (07:25)
[2016-11-20] MEDS ORDERED: MULT1CHW42 PO (14:56)
[2016-11-20] MEDS ORDERED: INSU1INJ17 SC ×2 (17:54)
[2016-11-20] MEDS ORDERED: ZCR40 PO (17:54)
[2016-11-20] MEDS ORDERED: PRT/40 PO (17:54)
== END 2016-10-25 09:50 | disposition home or self-care (01) ==
LOC: C.ACU 06:30
PROVIDERS: ATTEND Surgery Vascular Surgery
DX: N18.6 End stage renal disease (principal); I12.0 Hypertensive chronic kidney disease with stage 5 chronic kidney disease or end stage renal disease; I82.612 Acute embolism and thrombosis of superficial veins of left upper extremity; D50.9 Iron deficiency anemia, unspecified; N25.81 Secondary hyperparathyroidism of renal origin; E11.21 Type 2 diabetes mellitus with diabetic nephropathy; E55.9 Vitamin D deficiency, unspecified; Z90.11 Acquired absence of right breast and nipple; Z85.3 Personal history of malignant neoplasm of breast

== ENCOUNTER → 2016-10-28 | Outpatient (CLI) | payer OTHER, BC ==
[~2016-10-28] MED LIST changes: +ALL100 PO; +AMLO5TAB2 PO; +ARM1 PO; +ASPI81TA28 PO; +CALC1CAP36 PO; -CEFAZOLIN 1000MG/55 ML D5W IV SCH; +CHOLCAP5 PO; -D5W AND 1/4NSS 1000 ML IV SCH; +FERR325T5 PO; +INSU1INJ17 SC; +LBT200 PO; +MULT1CHW42 PO; +MULT60CA PO; +PLV75 PO; +PRT/40 PO; +SODI650T8 PO; +ZCR40 PO; -[UNRECOGNIZED DRUG - CODE] SC
--- NOTE | 2016-10-28 15:22 | DIAGNOSTIC IMAGING REPORT ---
CHEST 2 VIEWS ROUTINE CLINICAL HISTORY: 81 years-old Female presenting with BREAST CA, partial mastectomy one year ago, lower right breast discomfort. TECHNIQUE: PA and lateral views of the chest were obtained. COMPARISON: 06/21/2016. FINDINGS: Surgical clips project over the right lung, likely within the right breast. Atherosclerosis of the aortic arch. Cardiac silhouette mildly enlarged, unchanged. Obscuration of the left hemidiaphragm, unchanged. Apparent nodularity in the right mid lung may have been present on prior exam but is now more prominent. Additional nodularity noted elsewhere. No large effusion or pneumothorax. Osseous structures normal. Upper abdomen normal. IMPRESSION: 1. Nodularity in the right lung better demonstrated on nondiagnostic CT from 10/01/2015. In the setting of a breast cancer, metastatic disease cannot be excluded. Further evaluation with dedicated chest CT recommended. Electronically signed by: Mau Nunez M.D. 10/28/2016 3:21 PM Dictated Date/Time: 10/28/2016 3:18 PM
== END | disposition home or self-care (01) ==
LOC: C.RAD 14:53
PROVIDERS: ATTEND Nurse Practitioner Family
DX: C50.811 Malignant neoplasm of overlapping sites of right female breast (principal); R91.1 Solitary pulmonary nodule; D64.9 Anemia, unspecified; N18.5 Chronic kidney disease, stage 5

== ENCOUNTER 2016-11-20 19:36 | Inpatient (IN) | payer OTHER, BC ==
[~2016-11-20] VITALS: Ht 157.5 cm; Wt 72.7 kg
[~2016-11-20 19:36] MED LIST changes: -ALL100 PO; -ARM1 PO; -ASPI81TA28 PO; -CALC1CAP36 PO; -CHOLCAP5 PO; -FERR325T5 PO; -LBT200 PO; -MULT60CA PO; +PANT40TA2 PO; -PLV75 PO; -PRT/40 PO; -SODI650T8 PO
[2016-11-20] MEDS ORDERED: AMLODIPINE BESYLATE 5 MG TAB PO ONE (20:00)
[2016-11-20] MEDS ORDERED: LABETALOL HCL 100 MG TAB PO ONE (20:00)
[2016-11-20] MEDS ORDERED: ASPI81TA28 PO (20:00)
[2016-11-20 20:05] LABS: BASO % 0.2 %; BASO ABS # 0.02 K/uL (0-0.2); EOS % 0.4 %; HEMATOCRIT 23.8 % (37-47); IG% 0.8 %; LYMPH % 6.4 %; LYMPH ABS # 0.53 K/uL (1.2-3.4); MEAN CELL VOLUME 87.2 fL (80-100); MEAN CORPUSCULAR HEMOGLOBIN 29.7 pg (25-34); MEAN PLATELET VOLUME 8.7 fL (7.4-10.4); NEUT % 86.2 %; PLATELET COUNT 186 K/uL (130-400); RED BLOOD COUNT 2.73 M/uL (4.2-5.4); WHITE BLOOD COUNT 8.34 K/uL (4.8-10.8)
[2016-11-20 20:16] LABS: PROTHROMBIN TIME (PATIENT) 11.2 SECONDS (9.0-12.0)
[2016-11-20] MEDS ORDERED: PLV75 PO (20:24)
[2016-11-20] MEDS ORDERED: CALC1CAP36 PO (20:24)
[2016-11-20] MEDS ORDERED: LBT200 PO (20:24)
[2016-11-20] MEDS ORDERED: ALL100 PO (20:24)
[2016-11-20] MEDS ORDERED: ARM1 PO (20:24)
--- NOTE | 2016-11-20 20:24 | DIAGNOSTIC IMAGING REPORT ---
CHEST ONE VIEW PORTABLE HISTORY: 81 years-old Female EVALUATE RESPIRATORY DISTRESS.DYSPNEA acute respiratory distress COMPARISON: Chest radiograph 10/28/2016 TECHNIQUE: Portable upright AP view of the chest FINDINGS: Cardiac silhouette is mildly enlarged. There is atherosclerosis of the aorta. Mild nodularity of the right midlung redemonstrated. Patchy midlung and bibasilar alveolar opacities are present. Blunting of the left costophrenic angle suggests small pleural effusion. There is mild pulmonary vascular congestion. No pneumothorax. The bones are grossly intact. IMPRESSION: 1. Cardiomegaly with pulmonary vascular congestion and new hazy perihilar and bibasilar opacities, suspicious for pulmonary edema or less likely pneumonia. 2. Nodularity of the right midlung redemonstrated, suspicious for possible metastatic disease as described on comparison study. The above report was generated using voice recognition software. It may contain grammatical, syntax or spelling errors. Electronically signed by: Bright Márquez M.D. 11/20/2016 8:22 PM Dictated Date/Time: 11/20/2016 8:20 PM
[2016-11-20 20:27] LABS: ANISOCYTOSIS PRESENT; COMPLETE YES
[2016-11-20] MEDS ORDERED: FERR325T5 PO (20:28)
[2016-11-20] MEDS ORDERED: MULT60CA PO (20:28)
--- NOTE | 2016-11-20 20:29 | EMERGENCY ROOM VISIT NOTE ---
History Report prepared by [place]rette: Haim Wagoner Under the Supervision of: Dr. Noel Grissom M.D. First contact with patient: 19:46 Chief Complaint: SHORTNESS OF BREATH Stated Complaint: NAUSEA, SOB, History of Present Illness The patient is a 81 year old female who presents to the Emergency Room with complaints of worsening shortness of breath earlier today. She was 85% on room air for the EMS. The patient additionally is complaining of nausea which has been improving. The patient states that she has a history of stage 5 chronic kidney disease and is getting a fistula placed, and she has been having troubles with her hemoglobin. She notes that she has been getting Epogen shots for the past nine months every two weeks. Then, two weeks ago, she states that she was got her blood check and her hemoglobin dropped from 11 to 8.9, and then a week later it had dropped to 8. The patient states that she does not wear oxygen at home, though she feels better with it on. She additionally states that she has an ileostomy for ulcerative colitis. The patient states that she has missed the labetalol and her Norvasc this morning. Pt denies LOC, headache, fevers, chills, diaphoresis, visual changes, neck pain, chest pain, vomiting, abdominal pain, back pain, melena, hematochezia, urinary symptoms, numbness, weakness, lymphadenopathy, rash, or other complaints. Source of History: patient Onset: this morning Position: other (global) Quality: other (shortness) Timing: worsening Associated Symptoms: + nausea Review of Systems See HPI for pertinent positives and negatives. A total of ten systems were reviewed and were otherwise negative. Past Medical & Surgical Medical Problems: (1) ACUTE CHF, CKD STAGE 4,DM2 (2) Acute kidney injury (3) Breast cancer (4) Carcinoma of upper-outer quadrant of right female breast (5) Chronic ulcerative colitis (6) Dehydration (7) Diabetes (8) Kidney stones (9) Small bowel obstruction (10) Small bowel obstruction (11) TIA, DM2,ART.HTN,PAF, CKD (12) Vomiting Surgical Problems: (1) H/O ileostomy Family History Diabetes mellitus Hypertension Social History Smoking Status: Never Smoker Alcohol Use: none Drug Use: none Marital Status: Occupation Status: retired Current/Historical Medications Scheduled Allopurinol (Allopurinol), 100 MG PO QAM Amlodipine Besylate (Norvasc), 5 MG PO QAM Anastrozole (Anastrozole), 1 MG PO QAM Aspirin (Aspirin Ec), 81 MG PO QAM Calcitriol (Calcitriol), 0.25 MCG PO QAM Cholecalciferol (Vitamin D3), 5,000 INTER.UNIT PO QAM Clopidogrel Bisulfate (Clopidogrel), 75 MG PO QPM Ferrous Sulfate (Ferrous Sulfate), 325 MG PO QAM Insulin Isophane & Reg (Human) (Novolin 70/30 Relion), 55 UNITS SC QAM Insulin Isophane & Reg (Human) (Novolin 70/30 Relion), 35 UNITS SC QPM Labetalol HCl (Labetalol HCl), 200 MG PO TID Multiple Vitamins W/ Minerals (Centrum Multigummies Adul), 1 TAB PO QAM Multiple Vitamins W/ Minerals (Preservision Areds 2), 1 CAP PO BID Pantoprazole (Pantoprazole Sodium), 40 MG PO QAM Simvastatin (Simvastatin), 40 MG PO QPM Sodium Bicarbonate (Sodium Bicarbonate), 650 MG PO UD Allergies Coded Allergies: No Known Allergies (Unverified , 10/25/16) Physical Exam Vital Signs Date Time Temp Pulse Resp B/P (MAP) Pulse Ox O2 Delivery O2 Flow Rate FiO2 11/20/16 21:00 77 18 163/72 95 Nasal Cannula 3.0 11/20/16 20:58 79 20 163/72 95 Nasal Cannula 2.0 11/20/16 19:49 93 Nasal Cannula 3.0 11/20/16 19:47 85 Room Air 11/20/16 19:46 87 11/20/16 19:44 85 11/20/16 19:44 37.0 88 22 220/64 85 Room Air Physical Exam GENERAL: Awake, alert, tired appearing, in no distress HENT: Normocephalic, atraumatic. Oropharynx unremarkable. EYES: Pale conjunctiva. Sclera non-icteric. NECK: Supple. No nuchal rigidity. FROM. No JVD. RESPIRATORY: Mildly dyspneic. Clear to auscultation. CARDIAC: Regular rate, normal rhythm. Extremities warm and well perfused. Pulses equal. ABDOMEN: Soft, non-distended. No tenderness to palpation. No rebound or guarding. No masses. RECTAL: Deferred. MUSCULOSKELETAL: Chest examination reveals no tenderness. The back is symmetrical on inspection without obvious abnormality. There is no CVA tenderness to palpation. No joint edema. LOWER EXTREMITIES: Calves are equal size bilaterally and non-tender. No edema. No discoloration. NEURO: Normal sensorium. No sensory or motor deficits noted. SKIN: No rash or jaundice noted. Medical Decision & Procedures ER Provider Diagnostic Interpretation: Radiology results as stated below per my review and radiologist interpretation: CHEST ONE VIEW PORTABLE HISTORY: 81 years-old Female EVALUATE RESPIRATORY DISTRESS.DYSPNEA acute respiratory distress COMPARISON: Chest radiograph 10/28/2016 TECHNIQUE: Portable upright AP view of the chest FINDINGS: Cardiac silhouette is mildly enlarged. There is atherosclerosis of the aorta. Mild nodularity of the right midlung redemonstrated. Patchy midlung and bibasilar alveolar opacities are present. Blunting of the left costophrenic angle suggests small pleural effusion. There is mild pulmonary vascular congestion. No pneumothorax. The bones are grossly intact. IMPRESSION: 1. Cardiomegaly with pulmonary vascular congestion and new hazy perihilar and bibasilar opacities, suspicious for pulmonary edema or less likely pneumonia. 2. Nodularity of the right midlung redemonstrated, suspicious for possible metastatic disease as described on comparison study. The above report was generated using voice recognition software. It may contain grammatical, syntax or spelling errors. Electronically signed by: Bright Márquez M.D. 11/20/2016 8:22 PM Dictated Date/Time: 11/20/2016 8:20 PM Laboratory Results 11/20/16 19:30 Red Blood Count 2.73, Mean Corpuscular Volume 87.2, Mean Corpuscular Hemoglobin 29.7, Mean Corpuscular Hemoglobin Concent 34.0, Mean Platelet Volume 8.7, Neutrophils (%) (Auto) 86.2, Lymphocytes (%) (Auto) 6.4, Monocytes (%) (Auto) 6.0, Eosinophils (%) (Auto) 0.4, Basophils (%) (Auto) 0.2, Neutrophils # (Auto) 7.19, Lymphocytes # (Auto) 0.53, Monocytes # (Auto) 0.50, Eosinophils # (Auto) 0.03, Basophils # (Auto) 0.02 11/20/16 19:30 Test 11/20/16 19:30 White Blood Count 8.34 K/uL (4.8-10.8) Red Blood Count 2.73 M/uL (4.2-5.4) Hemoglobin 8.1 g/dL (12.0-16.0) Hematocrit 23.8 % (37-47) Mean Corpuscular Volume 87.2 fL (80-100) Mean Corpuscular Hemoglobin 29.7 pg (25-34) Mean Corpuscular Hemoglobin Concent 34.0 g/dl (32-36) Platelet Count 186 K/uL (130-400) Mean Platelet Volume 8.7 fL (7.4-10.4) Neutrophils (%) (Auto) 86.2 % Lymphocytes (%) (Auto) 6.4 % Monocytes (%) (Auto) 6.0 % Eosinophils (%) (Auto) 0.4 % Basophils (%) (Auto) 0.2 % Neutrophils # (Auto) 7.19 K/uL (1.4-6.5) Lymphocytes # (Auto) 0.53 K/uL (1.2-3.4) Monocytes # (Auto) 0.50 K/uL (0.11-0.59) Eosinophils # (Auto) 0.03 K/uL (0-0.5) Basophils # (Auto) 0.02 K/uL (0-0.2) RDW Standard Deviation 52.3 fL (36.4-46.3) RDW Coefficient of Variation 16.5 % (11.5-14.5) Immature Granulocyte % (Auto) 0.8 % Immature Granulocyte # (Auto) 0.07 K/uL (0.00-0.02) Anisocytosis PRESENT Prothrombin Time 11.2 SECONDS (9.0-12.0) Prothromb Time International Ratio 1.0 (0.9-1.1) Activated Partial Thromboplast Time 27.0 SECONDS (21.0-31.0) Partial Thromboplastin Ratio 1.0 Anion Gap 8.0 mmol/L (3-11) Est Creatinine Clear Calc Drug Dose 7.6 ml/min Estimated GFR () 7.9 Estimated GFR (Non- 6.8 BUN/Creatinine Ratio 10.7 (10-20) Calcium Level 9.6 mg/dl (8.5-10.1) Magnesium Level 1.9 mg/dl (1.8-2.4) Total Bilirubin 0.8 mg/dl (0.2-1) Aspartate Amino Transf (AST/SGOT) 11 U/L (15-37) Alanine Aminotransferase (ALT/SGPT) 10 U/L (12-78) Alkaline Phosphatase 69 U/L (45-117) Pro-B-Type Natriuretic Peptide 8913 pg/ml (0-1800) Total Protein 7.8 gm/dl (6.4-8.2) Albumin 3.4 gm/dl (3.4-5.0) Globulin 4.4 gm/dl (2.5-4.0) Albumin/Globulin Ratio 0.8 (0.9-2) Thyroid Stimulating Hormone (TSH) 2.050 uIu/ml (0.300-4.500) Thyroxine (T4) 7.8 mcg/dl (4.5-10.9) Laboratory results reviewed by me Medications Administered Medications (Trade) Dose Ordered Sig/Camilo Route Start Time Stop Time Status Last Admin Dose Admin Amlodipine Besylate (Norvasc Tab) 5 mg NOW ONCE PO 11/20/16 20:00 11/20/16 20:01 DC 11/20/16 20:13 5 MG Labetalol HCl (Normodyne Tab) 200 mg NOW ONCE PO 11/20/16 20:00 11/20/16 20:01 DC 11/20/16 20:14 200 MG Nitroglycerin (Nitroglycerin 2% Oint) 0.5 inch NOW ONCE EXT 11/20/16 20:45 11/20/16 20:46 DC 11/20/16 20:45 0.5 INCH Furosemide (Lasix Inj) 40 mg NOW STAT IV 11/20/16 20:40 11/20/16 20:41 DC 11/20/16 21:00 40 MG Furosemide 80 mg/ Syringe 8 ml @ 4 mls/min NOW STAT IV 11/20/16 21:40 11/20/16 21:41 DC 11/20/16 21:59 4 MLS/MIN ECG Indication: SOB/dyspnea Rate (beats per minute): 69 Rhythm: normal sinus Findings: no acute ischemic change, no ectopy ED Course 1955: The patient was evaluated in room B8. A complete history and physical exam was performed. 2000: Labetalol HCl 200mg PO, Norvasc Tab 5mg PO 2039: Lasix Inj 40mg IV 2044: Upon reexamination, the patient was doing well. I discussed the test results and treatment plan with her. The patient will be evaluated for further management. I ordered Nitroglycerin 2% Oint EXT 2050: Discussed the patient's case with Dr. Demar Ryan. The patient will be evaluated for further treatment and disposition. Medical Decision Triage Nursing notes reviewed. The patient's presentation and history were concerning for SOB. Etiologies such as symptomatic anemia, CHF, cardiac ischemia, pulmonary embolism, pneumonia, COPD, reactive airway disease, pneumothorax, musculoskeletal, infections, gastrointestinal, as well as others were entertained. The patient was evaluated. She appeared pale. Chest x-ray was performed. ECG was done. The patient was noted to be hypoxic for EMS but responded nicely to nasal cannula oxygen. She was feeling better with this. Her history is concerning for anemia. The patient had Nitropaste applied. She was given her oral antihypertensives which she did not take today. Chest x-ray was concerning for pulmonary edema. The patient had an moderate anemia but stable on CBC. The patient's chemistry panel was unremarkable. Troponin was negative. The patient's creatinine was significantly elevated but stable. The patient also was found to have a markedly elevated BNP. I suspect the patient is dealing with a component of fluid overload and CHF. She will need further evaluation and management in the hospital. I did consult with his primary physician, Dr. Danielito Rojas. He presented to the Emergency Room and evaluated for further management. Medication Reconcilliation Current Medication List: was personally reviewed by me Blood Pressure Screening Patient's blood pressure: Elevated blood pressure Referred to the hospitalist Consults Time Called: 2040 Consulting Physician: Dr. Demar Ryan Returned Call: 2050 Discussed the patient's case with Dr. Demar Ryan. The patient will be evaluated for further treatment and disposition. Impression Primary Impression: Hypoxia Additional Impressions: CHF (congestive heart failure) End stage renal disease Anemia Scribe Attestation The scribe's documentation has been prepared under my direction and personally reviewed by me in its entirety. I confirm that the note above accurately reflects all work, treatment, procedures, and medical decision making performed by me. Departure Information Dispostion Being Evaluated By Hospitalist Referrals Danielito Henley M.D. (PCP) Patient Instructions My [facility] Problem Qualifiers
[2016-11-20] MEDS ORDERED: CHOLCAP5 PO (20:30)
[2016-11-20] MEDS ORDERED: SODI650T8 PO (20:30)
[2016-11-20 20:37] LABS: ALB/GLOB RATIO 0.8 (0.9-2); BUN/CREATININE RATIO 10.7 (10-20); CALCIUM 9.6 mg/dl (8.5-10.1); CKMB/CK RATIO 3.1 (0-3.0); POTASSIUM 4.7 mmol/L (3.5-5.1)
[2016-11-20 20:38] LABS: CREATININE 5.4 mg/dl (0.60-1.20)
[2016-11-20] MEDS ORDERED: FUROSEMIDE 40 MG/4 ML VIAL IV STA (20:40)
[2016-11-20] MEDS ORDERED: NITROGLYCERIN OINT 2% 1GM PACKET EXT ONE (20:45)
[2016-11-20] MEDS ORDERED: FUROSEMIDE INJ 80 MG in SYRINGE 0 ML IV STA (21:40)
[2016-11-20 22:10] VITALS: BMI 31.5
[2016-11-20] MEDS ORDERED: DEXTROSE 50% 50 ML SYR IV PRN (22:30)
[2016-11-20] MEDS ORDERED: GLUCOSE 10 TABS/TUBE PO PRN (22:30)
[2016-11-20] MEDS ORDERED: GLUCAGON FOR INJ 1 MG VIAL SQ PRN (22:30)
[2016-11-20] MEDS ORDERED: GLUCOSE 40% GEL 15 GM TUBE PO PRN (22:30)
[2016-11-20 22:35] LABS: MAGNESIUM 1.9 mg/dl (1.8-2.4); THYROID STIMULATING HORMONE 2.05 uIu/ml (0.300-4.500)
[2016-11-20 22:37] LABS: URINE APPEARANCE CLEAR (CLEAR); URINE BILIRUBIN NEG (NEG); URINE COLOR YELLOW; URINE EPITHELIAL CELL AUTO >30 /lpf (0-5); URINE NITRITE NEG (NEG); UROBILINOGEN NEG (NEG)
[2016-11-20 22:43] LABS: MANUAL MICROSCOPIC REQUIRED? NO; REVIEW REQ? NO
[2016-11-20 22:56] VITALS: BP 171/66; PULSE 75; TEMP 36.7; O2SAT 92
--- NOTE | 2016-11-20 23:14 | History and Physical ---
History & Physical Date of Service Nov 20, 2016. History & Physical ADMISSION DATE : 11/20/2016 CHIEF COMPLAINT : 81-year-old female admitted through the emergency room with rapidly progressive shortness of breath and evidence of acute congestive heart failure. She was also complaining of nausea. PRESENT ILLNESS : Patient with an extensive medical history including arterial hypertension, type 2 diabetes mellitus on insulin, multiple diabetic complications including retinopathy and nephropathy and peripheral neuropathy, hyperlipidemia, gout, atherosclerotic vascular disease with history of TIA, chronic kidney disease stage IV anticipate can start of dialysis, paroxysmal atrial fibrillation, prior episode of diastolic congestive heart failure, remote history of ulcerative colitis she is status post total colectomy and has an ileostomy for over 45 years. Patient was at home. Yesterday she was feeling fine. Today she started complaining of shortness of breath. Her shortness of breath worsened during the day. She was markedly dyspneic whenever she got up and walked even 10 steps inside her house. She denied any associated headache or dizziness or lightheadedness. Did not experience any chest pain. No cough or sputum. No hemoptysis. She was feeling nauseous. No vomiting. No diarrhea. She insisted on staying home all day. Her sister visited her. She called her daughter in [place]. Her daughter called back and insisted that an ambulance be called and she was brought to the emergency room. On arrival to the emergency room she was markedly hypertensive. She did not take her medications today. She was also hypoxic. She was treated in the emergency room with oxygen and given 1 dose of IV Lasix 40 mg. She was given her oral medications. Her oxygenation improved. Her blood pressure is also improving. Her last echocardiogram was in 2013 and at that time she had hyperdynamic left ventricle with an ejection fraction of 70%. She did have diastolic dysfunction. I saw the patient in the emergency room. She was resting. She was not having any additional problems. Her dyspnea have subsided. She was on oxygen at 3 L/ m by nasal cannula. She is being admitted to PCU with telemetry for further evaluation and treatment. PAST MEDICAL HISTORY : * Type 2 diabetes mellitus. First diagnosed in the 1970s. She is now on insulin. * Multiple diabetic complications including retinopathy, nephropathy, neuropathy. * Chronic kidney disease stage IV prior to 2015 her creatinine was in the range of 2.5 but then over the course of last year and this year it has been increasing. It is now 5.4. She does see Dr. Serafin Juárez in nephrology. She is being prepared for dialysis initiation. She has an AV fistula in the left arm which was first established on 06/29/2016. It was occluded and it was revised on 10/23/2015. Now the fistula is still not adequate. She is scheduled for another revision on 11/29/2016 * Arterial hypertension. Long-standing. Requiring multiple medications for control * Hyperlipidemia. Long-standing. Treated. * Invasive right breast carcinoma underwent a right partial mastectomy and sentinel lymph node biopsy last year. She did complete the full course of radiation therapy on 10/23/2015. She is on anastrozole * History of gout. She is on allopurinol * Ulcerative colitis diagnosed over 40 years ago. She does have a permanent ileostomy. * History of acquired digital fibrokeratoma of both hands. Treated. * In August 2013 she was admitted with bowel obstruction. She did require surgery. She had extensive adhesions. * Paroxysmal atrial fibrillation. First episode was in 2013. No recently documented recurrence. * Hospitalization in May 2014 with gastroenteritis and dehydration * Hospitalization in March 2015 with a TIA manifested by numbness in her right arm and right side of her face. At that point she was on aspirin. Plavix was added to her regimen. * Her last Pneumovax was in 2007 * She had a Zostavax in 2009 * She does receive yearly influenza vaccination SOCIAL HISTORY : She is a . Had 2 daughters. No history of any smoking or alcohol or drugs. No excessive coffee tea or soft drinks. 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 She lives at home. Her daughter lives with her. FAMILY HISTORY : Her mother age 74. She was diabetic. Had a cardiac arrest. Her father in his 60s had coronary artery disease. She had 2 sisters. One sister is diabetic and hypertensive. One daughter had an ASD repair many years ago. She is also treated for paroxysmal atrial fibrillation and arterial hypertension. ALLERGIES : None CURRENT MEDICATIONS : As noted on her home medication list REVIEW OF SYSTEMS : At this point she denied any headache. No dizziness no lightheadedness. No chest pain. No pressure or tightness. She is not dyspneic at rest with her oxygen. No pain in her breasts. No abdominal pain. She was feeling nauseous. She was treated. Her nausea is now subsided. No vomiting. Has not had any problem with her stool output in her ileostomy. No problem urinating. She was urinating at home every 2 hours. Denied any pain in her back or extremities. Did not notice any leg edema. PHYSICAL EXAMINATION : She is well-developed. No acute distress at this point. Her recorded weight is 78.1 kg, height 157.5 cm, BMI 31.5 On arrival to the emergency room her blood pressure was 220/64, pulse 88, respiration 22, temperature 37, oxygen saturation 85% on room air. Since then her blood pressure has improved. 163/72. Her oxygen saturation is 95% on 3 L oxygen by nasal cannula Skin is warm and dry. No rash. Pale HEENT she usually wears glasses. Oxygen cannula in place. As noted she is treated for diabetic retinopathy. Neck is supple. Nontender. No lymph node or thyroid enlargement. No JVD. Normal cardiac pulses. No evident carotid bruit. Heart regular heart sounds with 1/6 systolic murmur. No rub no gallop. Lungs bilateral rales consistent with her congestive heart failure Axilla no adenopathy Breasts status post partial mastectomy right side Abdomen is soft nontender without organomegaly or masses. Ileostomy in place. Good bowel sounds. Back no spine or CVA tenderness Extremities no edema clubbing or cyanosis. No joint or muscle tenderness. Absent dorsalis pedis pulses. Serial tibialis pulses were positive. She does have an AV fistula in the left arm but it is not functionally yet. She does have a minimal thrill. Bruit noted. Neurological examination: She is awake alert and oriented without evidence of any deficit LABORATORY TESTS : WBC count 8340, hemoglobin 8.1, hematocrit 23.8, platelet count 186,000. Sodium 141, potassium 4.7, chloride 112, CO2 21, BU and 58, creatinine 5.4, glucose 176, calcium 9.6, magnesium 1.9, total protein 0.8, AST 11, AST 10, alkaline phosphatase 69, total protein 7.8, albumin 3.4, total CK 62, MB fraction 1.9, troponin I 0.074. Prothrombin time 11.2, INR 1.0, PTT 27. Chest x-ray showed cardiomegaly and evidence of acute congestive heart failure Electrocardiogram showed a sinus rhythm. No acute changes ASSESSMENT : * Acute congestive heart failure. * Chronic kidney disease stage IV * Arterial hypertension * Type 2 diabetes mellitus * Diabetic complications with retinopathy and nephropathy and neuropathy * Paroxysmal atrial fibrillation no documented recent episodes * Hyperlipidemia * Gout * History of ulcerative colitis status post colectomy and has a permanent ileostomy * Chronic anemia related to her chronic kidney disease * History of nephrolithiasis * Fistula left arm but not functionally yet. Anticipating revision later this month PLAN : In the emergency room patient was given a dose of Lasix 40 mg intravenously. She did not have immediate response. I gave her a second dose of Lasix 80 mg IV. She is on oxygen at 3 L/m by nasal cannula. She is also on topical nitrates. Patient is admitted to PCU with telemetry. Resuscitation level I. This was discussed with her. In the past she had a living will that stated that she did not want to be resuscitated as she tells me that at this point she wants to be resuscitated if needed. Cardiac enzymes were ordered. Echocardiogram was ordered. Serial electrocardiograms ordered. Will continue diuresis attempt with IV Lasix. Resume her oral medications. Place her on coverage for her diabetes. Nephrology consultation was requested. I did speak tonight with Dr. Chris. The main issue at this time is to determine the cause of her congestive heart failure. I'm suspecting that it is mostly renal. We'll see what her ejection fraction is. I am hoping that she will response to IV Lasix and we would be able to control her congestive heart failure. Otherwise she will need dialysis.
[2016-11-20] MEDS ORDERED: INFLUENZA ADMINISTRATION CHARGE ONE (23:30)
[2016-11-20] MEDS ORDERED: INFLUENZA VACCINE HIGH DOSE 65+ 0.5 ML SYR IM. ONE (23:30)
[2016-11-21] VITALS (12 sets, daily range): BP systolic 147–182; BP diastolic 58–77; PULSE 65–72; TEMP 36.6–37.1; O2SAT 92–97
[2016-11-21 01:00] LABS: CKMB/CK RATIO 3.4 (0-3.0)
[2016-11-21] MEDS: FUROSEMIDE INJ 80 MG in SYRINGE 0 ML IV SCH ×3 (03:30→20:37)
[2016-11-21 06:59] LABS: BASO % 0.1 %; BASO ABS # 0.01 K/uL (0-0.2); EOS % 0.7 %; IG% 0.7 %; LYMPH % 15.2 %; LYMPH ABS # 1.08 K/uL (1.2-3.4); MEAN CELL VOLUME 89.1 fL (80-100); MEAN CORPUSCULAR HEMOGLOBIN 28.3 pg (25-34); MEAN CORPUSCULAR HGB CONC 31.7 g/dl (32-36); MEAN PLATELET VOLUME 8.9 fL (7.4-10.4); MONO % 6.6 %; NEUT % 76.7 %; PLATELET COUNT 187 K/uL (130-400); RED BLOOD COUNT 2.58 M/uL (4.2-5.4); WHITE BLOOD COUNT 7.11 K/uL (4.8-10.8)
--- NOTE | 2016-11-21 07:34 | DIAGNOSTIC IMAGING REPORT ---
CHEST ONE VIEW PORTABLE CLINICAL HISTORY: 81 years-old Female presenting with CHF. TECHNIQUE: Portable upright AP view of the chest was obtained. COMPARISON: 11/20/2016. FINDINGS: Atherosclerosis of aortic arch. Cardiac silhouette remains enlarged. Calcified right hilar lymph nodes noted. Prominence of pulmonary vasculature unchanged. Hazy bibasilar opacities, greater on the left. Nodularity in the right mid lung unchanged. Blunting of the left costophrenic angle. No pneumothorax. Osseous structures normal. Upper abdomen normal. IMPRESSION: 1. Cardiomegaly with volume overload and mild pulmonary edema not significant changed from prior. 2. Possible small left pleural effusion. 3. Persistent right midlung nodularity, which given the history of breast cancer remains concerning for metastatic disease. Dedicated chest CT again recommended. The report will be called/faxed according to standard departmental protocol. Electronically signed by: Mau Nunez M.D. 11/21/2016 7:33 AM Dictated Date/Time: 11/21/2016 7:29 AM
[2016-11-21 07:38] LABS: COMPLETE YES; POLYCHROMASIA 1+
[2016-11-21 07:50] LABS: BUN/CREATININE RATIO 11.5 (10-20); CALCIUM 8.8 mg/dl (8.5-10.1); CKMB/CK RATIO 3.1 (0-3.0); CREATININE 5.7 mg/dl (0.60-1.20); POTASSIUM 4.7 mmol/L (3.5-5.1)
[2016-11-21] MEDS: PRESERVISION AREDS~ORDER AWAITING ACTION SCH ×3 (07:50→16:00)
[2016-11-21] MEDS: CEROVITE ADV FORMULA TAB PO SCH (07:52)
[2016-11-21] MEDS: ASPIRIN 81 MG ECTAB PO SCH (07:52)
[2016-11-21] MEDS: LABETALOL HCL 200 MG TAB PO SCH ×3 (07:52→20:40)
[2016-11-21] MEDS: FERROUS SULFATE 325 MG TAB PO SCH (07:52)
[2016-11-21] MEDS: PANTOprazole SOD 40 MG TAB PO SCH (07:52)
[2016-11-21] MEDS: CHOLECALCIFEROL 1000 INTER.UNIT TAB PO SCH (07:56)
[2016-11-21] MEDS: ANASTROZOLE 1 MG TAB PO SCH (07:56)
[2016-11-21] MEDS: CALCITRIOL 0.25 MCG CAP PO SCH (07:56)
[2016-11-21] MEDS: ALLOPURINOL 100 MG TAB PO SCH (07:57)
[2016-11-21] MEDS: AMLODIPINE BESYLATE 5 MG TAB PO SCH (07:57)
[2016-11-21] MEDS ORDERED: NURSING VERBAL MED ORDER ONE (08:00)
[2016-11-21] MEDS ORDERED: ACETAMINOPHEN 500 MG TAB PO PRN (08:00)
[2016-11-21] MEDS ORDERED: LORAZEPAM 0.5 MG TAB PO PRN (08:00)
[2016-11-21] MEDS: INSULIN ASPART 100 UNITS/ML 3 ML PEN SC SCH ×4 (08:09→20:53)
[2016-11-21] MEDS: ONDANSETRON INJ 8 MG in DEXTROSE 5% 50ML 50 ML IV PRN (08:44)
[2016-11-21] MEDS: SODIUM BICARBONATE 650 MG TAB PO SCH (08:44)
[2016-11-21] MEDS: NITROGLYCERIN OINT 2% 1GM PACKET EXT SCH ×3 (08:44→20:55)
--- NOTE | 2016-11-21 09:50 | ECHOCARDIOGRAM REPORT ---
*NOTICE TO RECEIVING [facility] This information is strictly Confidential and protected under [place] law. [place] law prohibits you from making any further disclosure of this information unless further disclosure is expressly permitted by the written consent of the person to whom it pertains or is authorized by law. A general authorization for the release of medical or other information is not sufficient for this purpose. Hospital accepts no responsibility if the information is made available to any other person, INCLUDING THE PATIENT. Interpretation Summary * Name: SAMEER FREIRE Study Date: 11/21/2016 07:10 AM BP: 158/67 mmHg * Patient Location: C.2T\S\S231\S\1 HR: 74 * : 1935 (M/d/yyyy) Gender: Female Height: 62 in * Age: 81 yrs Ethnicity: [place] Weight: 172 lb * Ordering Physician: Danielito Henley * Referring Physician: Self, Referred * Performed By: Lianet Boston R[facility] * * Reason For Study: CHF * BSA: 1.8 m2 * -- Conclusions -- * Mild to moderate concentric left ventricular hypertrophy * The left ventricle is hyperdynamic. * Grade I diastolic dysfunction, (abnormal relaxation pattern). * The left ventricular wall motion is normal. * The left atrium is moderately dilated. * The right atrium is mildly dilated. * There is mild to moderate mitral annular calcification. * There is mild mitral regurgitation. * Right ventricular systolic pressure is elevated at >60mmHg. * Compared to study performed on 04/06/2015, there is no evidence of regional wall motion abnormalities, but the estimated pulmonary pressures are higher. Procedure Details * A complete two-dimensional transthoracic echocardiogram was performed (2D, M-mode, Doppler and color flow Doppler). Left Ventricle * The left ventricle is normal in size. * Mild to moderate concentric left ventricular hypertrophy * The left ventricle is hyperdynamic. * Ejection Fraction = 65-70%. * Grade I diastolic dysfunction, (abnormal relaxation pattern). * The left ventricular wall motion is normal. Right Ventricle * The right ventricle is normal in size and function. Atria * The left atrium is moderately dilated. * The right atrium is mildly dilated. Mitral Valve * There is mild to moderate mitral annular calcification. * There is mild mitral regurgitation. Tricuspid Valve * The tricuspid valve is not well visualized. * There is mild tricuspid regurgitation. * Right ventricular systolic pressure is elevated at >60mmHg. Aortic Valve * The aortic valve is not well visualized. * No hemodynamically significant valvular aortic stenosis. * There is no significant aortic regurgitation. Great Vessels * The aortic root is normal size. Pericardium/Pleural * There is no pericardial effusion. Great Vessels * Normal inferior vena cava diameter and respiratory variation suggests normal central venous pressure. MMode 2D Measurements and Calculations IVSd 1.6 cm IVSs 2.0 cm LVIDd 4.7 cm LVIDs 2.9 cm LVPWd 1.4 cm LVPWs 1.5 cm IVS/LVPW 1.1 FS 38.5 % EDV(Teich) 103.8 ml ESV(Teich) 32.4 ml EF(Teich) 68.8 % EDV(cubed) 105.7 ml ESV(cubed) 24.6 ml EF(cubed) 76.8 % % IVS thick 24.6 % % LVPW thick 7.3 % LV mass(C)d 299.6 grams LV mass(C)dI 167.1 grams/m\S\2 LV mass(C)s 200.8 grams LV mass(C)sI 112.0 grams/m\S\2 SV(Teich) 71.4 ml SI(Teich) 39.8 ml/m\S\2 SV(cubed) 81.1 ml SI(cubed) 45.2 ml/m\S\2 Ao root diam 2.7 cm Ao root area 5.6 cm\S\2 LA dimension 4.6 cm LA/Ao 1.7 LVOT diam 2.0 cm LVOT area 3.2 cm\S\2 Doppler Measurements and Calculations MV E max joel 120.8 cm/sec MV A max joel 133.2 cm/sec MV E/A 0.91 MV P1/2t max joel 154.4 cm/sec MV P1/2t 90.5 msec MVA(P1/2t) 2.4 cm\S\2 MV dec slope 499.8 cm/sec\S\2 MV dec time 0.16 sec Ao V2 max 172.3 cm/sec Ao max PG 11.9 mmHg Ao max PG (full) 4.5 mmHg PRIMITIVO(V,A) 2.5 cm\S\2 PRIMITIVO(V,D) 2.5 cm\S\2 LV V1 max PG 7.4 mmHg LV V1 max 135.9 cm/sec MR max joel 499.8 cm/sec MR max PG 99.9 mmHg PA V2 max 132.9 cm/sec PA max PG 7.1 mmHg TR max joel 377.5 cm/sec
[2016-11-21] MEDS: CALCIUM CARBONATE 500 MG CHEWABLE PO SCH ×2 (11:49→17:17)
--- NOTE | 2016-11-21 12:57 | Nephrology Consultation ---
Nephrology Consultation Date & Providers Date of Consultation: Nov 21, 2016. Primary Care Provider: Danielito Henley M.D. Referring Provider: Reason for Consultation Evaluation management for end-stage renal disease and assessment for need for dialysis. History of Present Illness Bethany is a 81-year-old female with past medical history significant for hypertension, diabetes, stage 5 chronic kidney disease, history of prior breast cancer treated with lumpectomy and radiation therapy admitted to the hospital with CHF exacerbation and volume overload. Nephrologic consult was requested to manage end-stage renal disease and assess for need for dialysis. Electronic medical records including labs and imaging are reviewed in detail during patient 's visit. Bethany has stage 5 chronic kidney disease secondary to diabetic nephropathy and hypertensive nephrosclerosis, her primary shrimp peeler is Dr. Juárez. Baseline creatinine lately has been running around 5.0, She has left arm AV fistula placed before which needs transposition. Has anemia, secondary hyperparathyroidism and metabolic acidosis. She has been getting Aranesp. However, recently her hemoglobin has been dropping despite getting Aranesp, last hemoglobin was 8.1. She was getting short of breath with minimum exertion and overall just feeling drained and have no energy to do anything. Patient and her family became concerned and she presented to the emergency room yesterday for further evaluation. She was found to have further drop in her hemoglobin to 7.5. Chest x-ray showed pulmonary congestion. She was started initially on Lasix 40 IV with minimum response, received another dose of Lasix 80 IV last night however she made only 500 mL of urine. She reports normal voiding pattern at home and this morning she voided after she received Lasix. Currently she is getting 1 unit of blood transfusion. Troponins on admission was mildly elevated however no significant EKG changes. She had 2D echo done this morning showing EF 60-65 percent, no significant valvular abnormality, has moderate concentric LVH and grade 1 diastolic dysfunction. She has no history of GI bleeding, has high ileostomy since 1974. Recent iron study showed iron deficiency. Has history of breast cancer previously treated with lumpectomy, radiation therapy and hormone therapy. She gets easily short of breath with minimum exertion but denies any shortness of breath at rest, chest pain. Has been having nausea for last few days but denies any vomiting or abdominal pain. Allergies Coded Allergies: No Known Allergies (Unverified , 10/25/16) Inpatient Medications Current Inpatient Medications Medications (Trade) Dose Ordered Sig/Camilo Route Start Time Stop Time Status Last Admin Dose Admin Allopurinol (Zyloprim Tab) 100 mg QAM PO 11/21/16 09:00 12/21/16 08:59 11/21/16 07:57 100 MG Amlodipine Besylate (Norvasc Tab) 5 mg QAM PO 11/21/16 09:00 12/21/16 08:59 11/21/16 07:57 5 MG Anastrozole (Arimidex Tab) 1 mg QAM PO 11/21/16 09:00 12/21/16 08:59 11/21/16 07:56 1 MG Aspirin (Ecotrin Tab) 81 mg QAM PO 11/21/16 09:00 12/21/16 08:59 11/21/16 07:52 81 MG Calcitriol (Rocaltrol Cap) 0.25 mcg QAM PO 11/21/16 09:00 12/21/16 08:59 11/21/16 07:56 0.25 MCG Ferrous Sulfate (Feosol Tab) 325 mg QAM PO 11/21/16 09:00 12/21/16 08:59 11/21/16 07:52 325 MG Labetalol HCl (Normodyne Tab) 200 mg TID PO 11/21/16 09:00 12/21/16 08:59 11/21/16 07:52 200 MG Pantoprazole Sodium (Protonix Tab) 40 mg QAM PO 11/21/16 09:00 12/21/16 08:59 11/21/16 07:52 40 MG Simvastatin (Zocor Tab) 40 mg QPM PO 11/21/16 21:00 12/21/16 20:59 Cholecalciferol (Vitamin D Tab) 5,000 inter.unit QAM PO 11/21/16 09:00 12/21/16 08:59 11/21/16 07:56 5,000 INTER.UNIT Multivitamins/ Minerals (Multivitamin W/ Minerals Tab) 1 tab QAM PO 11/21/16 09:00 12/21/16 08:59 11/21/16 07:52 1 TAB Miscellaneous Information (Order Awaiting Action) 1 ea QS N/A 11/21/16 00:00 12/21/16 00:00 Insulin Aspart (novoLOG ASPART) SLIDING SCALE G... ACHS SC 11/21/16 07:00 12/21/16 06:59 11/21/16 11:56 7 UNITS Furosemide 80 mg/ Syringe 8 ml @ 4 mls/min Q8H IV 11/21/16 04:00 12/21/16 03:59 11/21/16 11:49 4 MLS/MIN Glucose (Glucose 40% Gel) 15-30 GRAMS 15 GRAMS... UD PRN PO 11/20/16 22:30 12/20/16 22:29 Glucose (Glucose Chew Tab) 4-8 Tablets 4 Tabl... UD PRN PO 11/20/16 22:30 12/20/16 22:29 Dextrose (Dextrose 50% 50ML Syringe) 25-50ML OF 50% DW IV FOR... UD PRN IV 11/20/16 22:30 12/20/16 22:29 Glucagon (Glucagon Inj) 1 mg UD PRN SQ 11/20/16 22:30 12/20/16 22:29 Ondansetron HCl 8 mg/Dextrose 54 ml @ 200 mls/hr Q4H PRN IV 11/21/16 08:00 12/21/16 07:59 11/21/16 08:44 200 MLS/HR Nitroglycerin (Nitroglycerin 2% Oint) 1 inch Q6H EXT 11/21/16 08:00 12/21/16 07:59 11/21/16 08:44 1 INCH Acetaminophen (Tylenol Tab) 500 mg Q4H PRN PO 11/21/16 08:00 12/21/16 07:59 Lorazepam (Ativan Tab) 0.5 mg Q6H PRN PO 11/21/16 08:00 12/21/16 07:59 Sodium Bicarbonate (Sodium Bicarbonate Tab) 650 mg QAM PO 11/21/16 09:00 12/21/16 08:59 11/21/16 08:44 650 MG Calcium Carbonate (Tums Chew Tab) 500 mg AC PO 11/21/16 11:00 12/21/16 10:59 11/21/16 11:49 500 MG Iron Sucrose 200 mg/Sodium Chloride 110 ml @ 420 mls/hr Q2D@1400 IV 11/21/16 14:00 11/29/16 14:16 Family History Diabetes mellitus Hypertension Social History Smoking Status: Never Smoker Drug Use: none Marital Status: Occupation: retired Review of Systems A complete review of systems was performed. Pertinent positives are noted above. All other systems are negative. Physical Exam Date Time Temp Pulse Resp B/P (MAP) Pulse Ox O2 Delivery O2 Flow Rate FiO2 11/21/16 11:00 36.6 70 18 178/71 96 11/21/16 11:00 37.0 72 18 182/77 94 11/21/16 10:00 37.0 69 18 167/77 97 11/21/16 09:31 36.9 68 20 164/71 97 3.0 11/21/16 09:19 36.7 70 18 158/62 96 3.0 11/21/16 08:00 Nasal Cannula 3.0 11/21/16 07:40 36.8 68 22 181/64 (103) 92 Nasal Cannula 2.0 11/21/16 04:07 94 Nasal Cannula 2.0 11/21/16 03:05 36.8 67 19 158/67 (97) 97 Nasal Cannula 3.0 11/21/16 00:00 94 Nasal Cannula 2.0 11/20/16 22:56 36.7 75 21 171/66 (101) 92 Nasal Cannula 2.0 11/20/16 22:34 74 22 154/62 94 11/20/16 22:10 Nasal Cannula 3.0 11/20/16 21:00 77 18 163/72 95 Nasal Cannula 3.0 11/20/16 20:58 79 20 163/72 95 Nasal Cannula 2.0 11/20/16 19:49 93 Nasal Cannula 3.0 11/20/16 19:47 85 Room Air 11/20/16 19:46 87 11/20/16 19:44 85 11/20/16 19:44 37.0 88 22 220/64 85 Room Air GENERAL: Elderly female, AAA x 3, pleasant, in mild respiratory distress while talking. HEENT: Atraumatic, normocephalic. NECK: Supple, no JVD, no carotid bruit appreciated. ENT: No sinus tenderness MOUTH and THROAT: Moist oral mucosa, no oral ulcer or pharyngeal erythema RESPIRATORY: Bibasilar rales CARDIOVASCULAR: S1, S2 normal, rate rhythm regular. ABDOMEN: Soft, nontender, positive bowel sound. MUSCULOSKELETAL: No CVA tenderness. No joint swelling, erythema or tenderness. Normal range of motion. SKIN: No skin rash EXTREMITY: No lower extremity edema NEURO: No gross focal neurological deficit, speech fluent. PSYCHIATRY: Normal mood and judgment Laboratory Results Last 24 Hours Test 11/20/16 19:30 11/20/16 22:20 11/21/16 00:13 11/21/16 06:25 White Blood Count 8.34 K/uL 7.11 K/uL Red Blood Count 2.73 M/uL 2.58 M/uL Hemoglobin 8.1 g/dL 7.3 g/dL Hematocrit 23.8 % 23.0 % Mean Corpuscular Volume 87.2 fL 89.1 fL Mean Corpuscular Hemoglobin 29.7 pg 28.3 pg Mean Corpuscular Hemoglobin Concent 34.0 g/dl 31.7 g/dl Platelet Count 186 K/uL 187 K/uL Mean Platelet Volume 8.7 fL 8.9 fL Neutrophils (%) (Auto) 86.2 % 76.7 % Lymphocytes (%) (Auto) 6.4 % 15.2 % Monocytes (%) (Auto) 6.0 % 6.6 % Eosinophils (%) (Auto) 0.4 % 0.7 % Basophils (%) (Auto) 0.2 % 0.1 % Neutrophils # (Auto) 7.19 K/uL 5.45 K/uL Lymphocytes # (Auto) 0.53 K/uL 1.08 K/uL Monocytes # (Auto) 0.50 K/uL 0.47 K/uL Eosinophils # (Auto) 0.03 K/uL 0.05 K/uL Basophils # (Auto) 0.02 K/uL 0.01 K/uL RDW Standard Deviation 52.3 fL 54.8 fL RDW Coefficient of Variation 16.5 % 16.8 % Immature Granulocyte % (Auto) 0.8 % 0.7 % Immature Granulocyte # (Auto) 0.07 K/uL 0.05 K/uL Anisocytosis PRESENT Prothrombin Time 11.2 SECONDS Prothromb Time International Ratio 1.0 Activated Partial Thromboplast Time 27.0 SECONDS Partial Thromboplastin Ratio 1.0 Sodium Level 141 mmol/L 142 mmol/L Potassium Level 4.7 mmol/L 4.7 mmol/L Chloride Level 112 mmol/L 111 mmol/L Carbon Dioxide Level 21 mmol/L 20 mmol/L Anion Gap 8.0 mmol/L 11.0 mmol/L Blood Urea Nitrogen 58 mg/dl 67 mg/dl Creatinine 5.40 mg/dl 5.70 mg/dl Est Creatinine Clear Calc Drug Dose 7.6 ml/min 7.2 ml/min Estimated GFR () 7.9 7.4 Estimated GFR (Non- 6.8 6.3 BUN/Creatinine Ratio 10.7 11.5 Random Glucose 176 mg/dl 154 mg/dl Calcium Level 9.6 mg/dl 8.8 mg/dl Magnesium Level 1.9 mg/dl Total Bilirubin 0.8 mg/dl Aspartate Amino Transf (AST/SGOT) 11 U/L Alanine Aminotransferase (ALT/SGPT) 10 U/L Alkaline Phosphatase 69 U/L Total Creatine Kinase 62 U/L 56 U/L 51 U/L Creatine Kinase MB 1.9 ng/ml 1.9 ng/ml 1.6 ng/ml Creatine Kinase MB Ratio 3.1 3.4 3.1 Troponin I 0.074 ng/ml 0.140 ng/ml 0.104 ng/ml Pro-B-Type Natriuretic Peptide 8913 pg/ml Total Protein 7.8 gm/dl Albumin 3.4 gm/dl 3.0 gm/dl Globulin 4.4 gm/dl Albumin/Globulin Ratio 0.8 Thyroid Stimulating Hormone (TSH) 2.050 uIu/ml Thyroxine (T4) 7.8 mcg/dl Urine Color YELLOW Urine Appearance CLEAR Urine pH 5.0 Urine Specific [place] 1.010 Urine Protein 4+ Urine Glucose (UA) TRACE Urine Ketones NEG Urine Occult Blood 1+ Urine Nitrite NEG Urine Bilirubin NEG Urine Urobilinogen NEG Urine Leukocyte Esterase NEG Urine WBC (Auto) 5-10 /hpf Urine RBC (Auto) 0-4 /hpf Urine Hyaline Casts (Auto) 1-5 /lpf Urine Epithelial Cells (Auto) >30 /lpf Urine Bacteria (Auto) NEG Polychromasia 1+ Phosphorus Level 6.0 mg/dl Test 11/21/16 06:28 11/21/16 12:00 11/21/16 12:15 Bedside Glucose 157 mg/dl Creatine Kinase MB Ratio Impression (1) End stage renal disease (2) Anemia (3) CHF (congestive heart failure) (4) Secondary hyperparathyroidism of renal origin (5) Metabolic acidosis (6) Diabetes (7) Nausea 81-year-old female with 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 Chest x-ray showed pulmonary congestion, on admission creatinine was 5.4 which worsened to 5.7 this morning, hemoglobin low at 7.5, has metabolic acidosis. She has been on IV Lasix with suboptimal response. Getting blood transfusion for drop in hemoglobin. Renal function overall worsening, with worsening volume status and electrolyte abnormality and anemia. Recommendations -- with progressive impairment of renal function, electrolyte abnormality, anemia and worsening volume status, looks like patient wrist end-stage renal disease and need to be started on dialysis as soon as possible to improve volume status and electrolyte abnormality -- discussed in detail with the patient and her primary care physician Dr. Demar Ryan, patient is agreeable to start on dialysis --she has AV fistula however the fistula is did not ready to be used and need transposition --will continue her on high dose IV diuretics today as she is still respond to it although suboptimally --plan for tunnel dialysis catheter tomorrow morning and 1st dialysis treatment after --will try to arrange for the transposition of AV fistula during this admission --will request social service to start processing for outpatient dialysis unit at [facility] --start on Venofer 200 milligram IV every other day for 5 doses --Epogen 2000 units with dialysis tomorrow --start on Tums 1 tablet with each meal, continue on sodium bicarb for now, will discontinue once we start patient dialysis --avoid further IV fluid, avoid nephrotoxic medications and continue on renal diet Thank you for allowing me to participate in your patient's care. It was a pleasure to see Bethany
[2016-11-21 12:58] LABS: CKMB/CK RATIO 2.3 (0-3.0)
[2016-11-21] MEDS: IRON SUCROSE INJ 200 MG in SODIUM CHLORIDE 0.9% 100ML 100 ML IV SCH (13:34)
[2016-11-21] MEDS ORDERED: BOOST VANILLA PO SCH ×2 (16:15)
--- NOTE | 2016-11-21 17:12 | Progress Note ---
Progress Note Date of Service Nov 21, 2016. Progress Note 81-year-old female admitted through the emergency room with: * acute congestive heart failure. Diastolic in nature. * Advanced chronic kidney disease. Patient was being prepared for dialysis. * Type 2 diabetes mellitus * Multiple diabetic complications including neuropathy, nephropathy, retinopathy. * Arterial hypertension * Paroxysmal atrial fibrillation Patient was admitted. Her troponin I was slightly elevated. This has decreased gradually. Her electrocardiogram did not show any acute changes. Her echocardiogram done today showed evidence of hyperdynamic left ventricle. Her ejection fraction is between 65 and 70%. No wall motion abnormal is noted. Patient was given IV Lasix. Her response has been poor as far as diuresis because of her kidney disease. She is on oxygen at 3 L per minute by nasal cannula. She is maintaining adequate saturation. She is feeling tired. Denied any headache or dizziness. Denied any chest pain. No shortness of breath at rest. No abdominal pain. She was complaining of nausea. No vomiting. No problems with her ileostomy output. She is able to urinate. No ankle edema. EXAMINATION: GENERAL : Well developed. Well nourished. No acute distress. VITAL SIGNS : Blood Pressure : 158/62, pulse 70, respiration 18, temperature 36.7, oxygen saturation 96% on 3 L oxygen by nasal cannula SKIN : Warm and dry. No rash. HEENT :wears glasses. Oxygen cannula in place. NECK : Supple. No adenopathy. No thyromegaly. No JVD. HEART: Regular heart tones with 1/6 systolic murmur. No rub no gallop. LUNGS: bilateral rales. Occasional wheezing. ABDOMEN: Soft nontender. No organomegaly or masses. Good bowel sounds.Ileostomy in place EXTREMITIES : No edema clubbing or cyanosis. No joint or muscle tenderness. absent dorsalis pedis pulses LABORATORY TESTS : WBC count 7110, hemoglobin 7.3, hematocrit 23%, platelet count 187,000. Sodium 142, potassium 4.7, chloride 111, CO2 20, BUN 67, creatinine 5.7, glucose 154, calcium 8.8, phosphorus 6.0, albumin 3.0. Total CK 51, MB fraction 1.6, troponin I 0.104 chest x-ray continues to show congestive heart failure. She also has a suspected nodule is on the right side. We will check that further with a CT scan of the chest without contrast once she is stable. ASSESSMENT: * acute congestive heart failure. Diastolic. * Advanced renal failure. Being prepared f * Type 2 diabetes mellitus with multiple complications * Hyperlipidemia * remote history of ulcerative colitis. Has a permanent ileostomy. PLAN: * transfuse one unit of packed RBCs * Continue her other medications * Nephrology consultation. Patient was seen today by Dr. Chris. * Her fistula is not ready to be used. Planning for dialysis catheter to be placed by Dr. Torres and proceed with dialysis tomorrow. * Monitoring her laboratory tests * Additional diuresis attempt with higher dose of Lasix as ordered by Dr. Chris.
[2016-11-21] MEDS: BOOST GLUCOSE CONTROL PO SCH (17:16)
[2016-11-21] MEDS: SIMVASTATIN 40 MG TAB PO SCH (20:38)
[2016-11-21] MEDS ORDERED: CLOPIDOGREL BISULFATE 75 MG TAB PO SCH (21:00)
[2016-11-22] VITALS (26 sets, daily range): BP systolic 140–184; BP diastolic 54–66; PULSE 61–72; TEMP 36.6–37.3; O2SAT 91–96
[2016-11-22] MEDS: NITROGLYCERIN OINT 2% 1GM PACKET EXT SCH ×4 (02:00→20:30)
[2016-11-22] MEDS: FUROSEMIDE INJ 80 MG in SYRINGE 0 ML IV SCH (04:13)
[2016-11-22] MEDS: ONDANSETRON INJ 8 MG in DEXTROSE 5% 50ML 50 ML IV PRN ×3 (04:33→21:05)
[2016-11-22 06:22] LABS: BASO % 0.5 %; BASO ABS # 0.04 K/uL (0-0.2); EOS % 1.2 %; HEMATOCRIT 24.7 % (37-47); IG% 1.6 %; LYMPH % 8.5 %; MEAN CELL VOLUME 89.2 fL (80-100); MEAN CORPUSCULAR HEMOGLOBIN 29.6 pg (25-34); MEAN CORPUSCULAR HGB CONC 33.2 g/dl (32-36); MEAN PLATELET VOLUME 8.6 fL (7.4-10.4); MONO % 6.8 %; NEUT % 81.4 %; PLATELET COUNT 167 K/uL (130-400); RED BLOOD COUNT 2.77 M/uL (4.2-5.4); WHITE BLOOD COUNT 8.25 K/uL (4.8-10.8)
[2016-11-22] MEDS: CALCIUM CARBONATE 500 MG CHEWABLE PO SCH ×3 (07:00→18:29)
[2016-11-22 07:06] LABS: COMPLETE YES; HYPERSEGMENTED POLYS 1+
[2016-11-22 07:07] LABS: BUN/CREATININE RATIO 11.9 (10-20); CALCIUM 8.8 mg/dl (8.5-10.1); POTASSIUM 4.7 mmol/L (3.5-5.1)
[2016-11-22 07:10] LABS: PHOSPHORUS 7.8 mg/dl (2.5-4.9)
[2016-11-22] MEDS: BOOST GLUCOSE CONTROL PO SCH ×3 (07:30→16:45)
[2016-11-22] MEDS: INSULIN ASPART 100 UNITS/ML 3 ML PEN SC SCH ×4 (07:50→20:31)
[2016-11-22] MEDS: PRESERVISION AREDS~ORDER AWAITING ACTION SCH ×4 (08:00→22:17)
[2016-11-22] MEDS ORDERED: EPOETIN ALFA 20,000 UNITS/ML VIAL IV SCH (08:00)
--- NOTE | 2016-11-22 08:07 | Medical Consult ---
Consultation Note Date of Service Nov 22, 2016. Consultation Note CC: End stage renal disease, congestive heart failure HPI: Ms Farr is an 80 yo F with a PMH of T2DM, HTN, iron deficiency anemia, Breast Cancer and UC s/p total colectomy who presented for evaluation of AV fistula creation for HD for Stage V CKD likely 2/2 diabetic nephropathy. She had a left arm fistula created which has a large branch and is not maturing as it should, She was scheduled for a revision with transposition of the basilic vein. She was now admitted with congestive heart failure. She denies recent sxs of TIA, numbness or weakness in the arms, or sxs of claudication with ambulation. 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 Allergies NKDA Social History: Lives at home with daughter who requires her care. Has another daughter that lives in [place]. Physical Exam General: Well Developed Well Nourished in no acute distress Cardiovascular: Regular Rhythm, Bradycardia, 1/6 AYAN. No Carotid Bruits Respiratory: Lungs with rales bilaterally. No wheezes or rhonchi Extremeties: 2+ Radial, DP and PT pulses bilaterally. Good thrill in proximal fistula Integumentary: Warm and Dry Psych: Approrpiate mood and affect Assessment and Plan: End stage renal disease Congestive heart failure Plan: It is recommended we place a permcath for dialysis at this time being the fistula is non useable at present. I have discussed the risks options and benefits of the procedure with the patient. The patient understands the risks options and benefits and agrees to the procedure.
[2016-11-22] MEDS ORDERED: MIDAZOLAM HCL 1 MG/ML 2ML VIAL ONE (08:55)
[2016-11-22] MEDS ORDERED: HEPARIN SOD (PORCINE) 5000 UNIT/ML 1 ML VIAL ONE (08:55)
[2016-11-22] MEDS ORDERED: FENTANYL CITRATE INJ 50 MCG/1 ML 2 ML VIAL ONE (08:55)
[2016-11-22] MEDS: CEFAZOLIN IV 1,000 MG in DEXTROSE 5% 50ML 50 ML IV SCH (09:00)
[2016-11-22] MEDS: ASPIRIN 81 MG ECTAB PO SCH (09:00)
[2016-11-22] MEDS: ANASTROZOLE 1 MG TAB PO SCH (09:00)
[2016-11-22] MEDS ORDERED: CEFAZOLIN SOD 1000MG/55 ML D5W IV ONE (09:02)
--- NOTE | 2016-11-22 09:18 | Procedure Note ---
Pre-Mod Sedation Assessment General Date of Moderate Sedation: Nov 22, 2016. Vital Signs: Vital Signs Past 12 Hours Date Time Temp Pulse Resp B/P (MAP) Pulse Ox O2 Delivery O2 Flow Rate FiO2 11/22/16 08:18 Nasal Cannula 2.0 11/22/16 08:07 36.9 72 20 174/66 94 Nasal Cannula 2.0 94 11/22/16 07:41 36.9 72 20 174/66 (102) 94 Nasal Cannula 2.0 11/22/16 04:00 36.9 72 20 164/55 (91) 95 Nasal Cannula 3.0 11/22/16 04:00 95 Nasal Cannula 3.0 11/22/16 01:59 167/61 (96) 146/54 (84) 11/22/16 00:01 95 Nasal Cannula 3.0 11/21/16 23:53 36.7 65 22 172/67 (102) 95 Nasal Cannula 3.0 Pre-Sedation Airway Assessment Oral Cavity: WNL Short Thick Neck: No Hx of Sleep Apnea: No Smoking Status: Never Smoker Mallampati Classification: Class I ASA Classification: Class IV Notes The planned sedation has been discussed with the patient and consent obtained. I have identified the patient, determined the appropriateness of sedation and have assessed the patient immediately prior to the procedure. All medicine(s) and interventions are by my order.
[2016-11-22] MEDS ORDERED: FENTANYL CITRATE INJ 50 MCG/1 ML 2 ML VIAL IV ONE (09:41)
[2016-11-22] MEDS ORDERED: MIDAZOLAM HCL 1 MG/ML 2ML VIAL IV ONE (09:41)
[2016-11-22] MEDS ORDERED: LIDOCAINE HCL 1% 20 ML VIAL INJ ONE ×2 (09:42→09:48)
[2016-11-22] MEDS ORDERED: HEPARIN SOD (PORCINE) 5000 UNIT/ML 1 ML VIAL IV ONE (09:48)
--- NOTE | 2016-11-22 10:07 | Procedure Note ---
Post-Moderate Sedation Plan General Date of Moderate Sedation Nov 22, 2016. Vital Signs: Vital Signs Past 12 Hours Date Time Temp Pulse Resp B/P (MAP) Pulse Ox O2 Delivery O2 Flow Rate FiO2 11/22/16 10:00 68 10 230/74 97 Nasal Cannula 6 11/22/16 08:18 Nasal Cannula 2.0 11/22/16 08:07 36.9 72 20 174/66 94 Nasal Cannula 2.0 94 11/22/16 07:41 36.9 72 20 174/66 (102) 94 Nasal Cannula 2.0 11/22/16 04:00 36.9 72 20 164/55 (91) 95 Nasal Cannula 3.0 11/22/16 04:00 95 Nasal Cannula 3.0 11/22/16 01:59 167/61 (96) 146/54 (84) 11/22/16 00:01 95 Nasal Cannula 3.0 11/21/16 23:53 36.7 65 22 172/67 (102) 95 Nasal Cannula 3.0 Review - Discharge Plan Post Moderate Sedation Plan: On clinical assessment, the patient appears to have tolerated the conscious sedation without complications. Patient is recovering as anticipated. Patient will continue to be monitored by nursing and may be discharged when conscious sedation discharge criteria are met.
--- NOTE | 2016-11-22 10:07 | [facility] Operative Report ---
Operative Report Operative Date Nov 22, 2016. Pre-Operative Diagnosis end stage renal disease Post-Operative Diagnosis same Procedure(s) Performed Insertion Of Perm Catheter, Right Internal Jugular Approach, Ultrasound Localization Of Right Internal Jugular Vein, Fluoroscopy For Positioning, Moderate Concious Sedation [id number] Torres Project Control Officer Surgeon(s) none Estimated Blood Loss 5 ml Findings tip in distal SVC Specimens none Anesthesia Local with sedation Complication(s) None Disposition Indications This is an 81-year-old female with end-stage renal disease. She has a fistula in place which is not mature enough to use. The patient was admitted with congestive heart failure and in need of dialysis. A PermCath was recommended for dialysis. I have discussed the risks options and benefits of the procedure with the patient. The patient understands the risks options and benefits and agrees to the procedure. Description of Procedure Patient was takent to the angio suite and placed in the supine position. The right side of the neck and chest wall were prepped and draped in a sterile manner. Local anesthesia was then administered to the appropriate areas of the neck and chest wall. Ultrasound was then used to locate the right internal jugular vein. The vein compressed easily, had no filing defects, and was patent. The vein was then punctured under direct ultrasound imaging. A guidewire was then passed centrally under fluoroscopic imaging. A stab wound was then made in the anterior chest wall and a 19 cm permcath was passed from the stab wound on the chest wall to the puncture site on the neck. The puncture site was then dilated till the 14Fr peel away sheath was inserted. The permcath was then inserted through the sheath to a central position in the distal superior vena cava. The peel away sheath was then removed. The catheter was then sutured in place using nylon sutures. The puncture was then closed using a 4-0 Vicryl subcuticular suture. Dermabond was used for a dressing on the puncture site. Both ports aspirated and flushed easily and were then packed with heparin. A sterile dressing was applied to the catheter. The patient left the angio suite in good condition and tolerated the procedure well. I attest to the content of the Intraoperative Record and any orders documented therein. Any exceptions are noted below.
[2016-11-22] MEDS ORDERED: NURSING VERBAL MED ORDER ONE (12:00)
[2016-11-22] MEDS: FERROUS SULFATE 325 MG TAB PO SCH (12:06)
[2016-11-22] MEDS: LABETALOL HCL 200 MG TAB PO SCH ×3 (12:07→20:30)
[2016-11-22] MEDS: CEROVITE ADV FORMULA TAB PO SCH (12:07)
[2016-11-22] MEDS: SODIUM BICARBONATE 650 MG TAB PO SCH (12:08)
[2016-11-22] MEDS: CHOLECALCIFEROL 1000 INTER.UNIT TAB PO SCH (12:08)
[2016-11-22] MEDS: ALLOPURINOL 100 MG TAB PO SCH (12:08)
[2016-11-22] MEDS: PANTOprazole SOD 40 MG TAB PO SCH (12:08)
[2016-11-22] MEDS: AMLODIPINE BESYLATE 5 MG TAB PO SCH (12:08)
[2016-11-22] MEDS: CALCITRIOL 0.25 MCG CAP PO SCH (12:08)
--- NOTE | 2016-11-22 12:39 | Nephrology Progress Note ---
Nephrology Progress Note Date of Service Nov 22, 2016. Chief Complaint F/U for end-stage renal disease. Subjective Went to see the patient in her room and in the PACU however could not reach patient as she was already in OR getting her tunnel dialysis catheter. Renal function worsened further creatinine 7 this morning, other electrolyte acceptable. Urine output remained low. Review of Systems A complete review of systems was performed. Pertinent positives are noted above. All other systems are negative. Vital Signs Last 8 Hrs Date Time Temp Pulse Resp B/P (MAP) Pulse Ox O2 Delivery O2 Flow Rate FiO2 11/22/16 08:18 Nasal Cannula 2.0 11/22/16 08:07 36.9 72 20 174/66 94 Nasal Cannula 2.0 94 11/22/16 07:41 36.9 72 20 174/66 (102) 94 Nasal Cannula 2.0 11/22/16 04:00 36.9 72 20 164/55 (91) 95 Nasal Cannula 3.0 11/22/16 04:00 95 Nasal Cannula 3.0 11/22/16 01:59 167/61 (96) 146/54 (84) Last Recorded Weight Weight (Kilograms): 76.300 Family History Diabetes mellitus Hypertension Social History Drug Use: none Marital Status: Occupation: retired Laboratory Results Past 24 Hours 11/22/16 05:57 Red Blood Count 2.77, Mean Corpuscular Volume 89.2, Mean Corpuscular Hemoglobin 29.6, Mean Corpuscular Hemoglobin Concent 33.2, Mean Platelet Volume 8.6, Neutrophils (%) (Auto) 81.4, Lymphocytes (%) (Auto) 8.5, Monocytes (%) (Auto) 6.8, Eosinophils (%) (Auto) 1.2, Basophils (%) (Auto) 0.5, Neutrophils # (Auto) 6.72, Lymphocytes # (Auto) 0.70, Monocytes # (Auto) 0.56, Eosinophils # (Auto) 0.10, Basophils # (Auto) 0.04 11/22/16 05:57 Test 11/21/16 11:10 11/21/16 12:15 11/21/16 16:12 11/21/16 20:12 Bedside Glucose 214 mg/dl (70-90) 190 mg/dl (70-90) 191 mg/dl (70-90) Total Creatine Kinase 56 U/L (26-192) Creatine Kinase MB 1.3 ng/ml (0.5-3.6) Creatine Kinase MB Ratio 2.3 (0-3.0) Troponin I 0.077 ng/ml (0-0.045) Test 11/22/16 05:57 11/22/16 06:50 White Blood Count 8.25 K/uL (4.8-10.8) Red Blood Count 2.77 M/uL (4.2-5.4) Hemoglobin 8.2 g/dL (12.0-16.0) Hematocrit 24.7 % (37-47) Mean Corpuscular Volume 89.2 fL (80-100) Mean Corpuscular Hemoglobin 29.6 pg (25-34) Mean Corpuscular Hemoglobin Concent 33.2 g/dl (32-36) Platelet Count 167 K/uL (130-400) Mean Platelet Volume 8.6 fL (7.4-10.4) Neutrophils (%) (Auto) 81.4 % Lymphocytes (%) (Auto) 8.5 % Monocytes (%) (Auto) 6.8 % Eosinophils (%) (Auto) 1.2 % Basophils (%) (Auto) 0.5 % Neutrophils # (Auto) 6.72 K/uL (1.4-6.5) Lymphocytes # (Auto) 0.70 K/uL (1.2-3.4) Monocytes # (Auto) 0.56 K/uL (0.11-0.59) Eosinophils # (Auto) 0.10 K/uL (0-0.5) Basophils # (Auto) 0.04 K/uL (0-0.2) RDW Standard Deviation 51.8 fL (36.4-46.3) RDW Coefficient of Variation 16.0 % (11.5-14.5) Immature Granulocyte % (Auto) 1.6 % Immature Granulocyte # (Auto) 0.13 K/uL (0.00-0.02) Hypersegmented Polys 1+ Basophilic Stippling 1+ Anion Gap 13.0 mmol/L (3-11) Est Creatinine Clear Calc Drug Dose 5.8 ml/min Estimated GFR () 5.7 Estimated GFR (Non- 5.0 BUN/Creatinine Ratio 11.9 (10-20) Calcium Level 8.8 mg/dl (8.5-10.1) Phosphorus Level 7.8 mg/dl (2.5-4.9) Albumin 3.0 gm/dl (3.4-5.0) Bedside Glucose 249 mg/dl (70-90) Allergies Coded Allergies: No Known Allergies (Unverified , 10/25/16) Medications Current Inpatient Medications Medications (Trade) Dose Ordered Sig/Camilo Route Start Time Stop Time Status Last Admin Dose Admin Allopurinol (Zyloprim Tab) 100 mg QAM PO 11/21/16 09:00 12/21/16 08:59 11/21/16 07:57 100 MG Amlodipine Besylate (Norvasc Tab) 5 mg QAM PO 11/21/16 09:00 12/21/16 08:59 11/21/16 07:57 5 MG Anastrozole (Arimidex Tab) 1 mg QAM PO 11/21/16 09:00 12/21/16 08:59 11/21/16 07:56 1 MG Aspirin (Ecotrin Tab) 81 mg QAM PO 11/21/16 09:00 12/21/16 08:59 11/21/16 07:52 81 MG Calcitriol (Rocaltrol Cap) 0.25 mcg QAM PO 11/21/16 09:00 12/21/16 08:59 11/21/16 07:56 0.25 MCG Ferrous Sulfate (Feosol Tab) 325 mg QAM PO 11/21/16 09:00 12/21/16 08:59 11/21/16 07:52 325 MG Labetalol HCl (Normodyne Tab) 200 mg TID PO 11/21/16 09:00 12/21/16 08:59 11/21/16 20:40 200 MG Pantoprazole Sodium (Protonix Tab) 40 mg QAM PO 11/21/16 09:00 12/21/16 08:59 11/21/16 07:52 40 MG Simvastatin (Zocor Tab) 40 mg QPM PO 11/21/16 21:00 12/21/16 20:59 11/21/16 20:38 40 MG Cholecalciferol (Vitamin D Tab) 5,000 inter.unit QAM PO 11/21/16 09:00 12/21/16 08:59 11/21/16 07:56 5,000 INTER.UNIT Multivitamins/ Minerals (Multivitamin W/ Minerals Tab) 1 tab QAM PO 11/21/16 09:00 12/21/16 08:59 11/21/16 07:52 1 TAB Miscellaneous Information (Order Awaiting Action) 1 ea QS N/A 11/21/16 00:00 12/21/16 00:00 Insulin Aspart (novoLOG ASPART) SLIDING SCALE G... ACHS SC 11/21/16 07:00 12/21/16 06:59 11/22/16 07:50 8 UNITS Furosemide 80 mg/ Syringe 8 ml @ 4 mls/min Q8H IV 11/21/16 04:00 12/21/16 03:59 11/22/16 04:13 4 MLS/MIN Glucose (Glucose 40% Gel) 15-30 GRAMS 15 GRAMS... UD PRN PO 11/20/16 22:30 12/20/16 22:29 Glucose (Glucose Chew Tab) 4-8 Tablets 4 Tabl... UD PRN PO 11/20/16 22:30 12/20/16 22:29 Dextrose (Dextrose 50% 50ML Syringe) 25-50ML OF 50% DW IV FOR... UD PRN IV 11/20/16 22:30 12/20/16 22:29 Glucagon (Glucagon Inj) 1 mg UD PRN SQ 11/20/16 22:30 12/20/16 22:29 Ondansetron HCl 8 mg/Dextrose 54 ml @ 200 mls/hr Q4H PRN IV 11/21/16 08:00 12/21/16 07:59 11/22/16 04:33 200 MLS/HR Nitroglycerin (Nitroglycerin 2% Oint) 1 inch Q6H EXT 11/21/16 08:00 12/21/16 07:59 11/22/16 07:51 1 INCH Acetaminophen (Tylenol Tab) 500 mg Q4H PRN PO 11/21/16 08:00 12/21/16 07:59 Lorazepam (Ativan Tab) 0.5 mg Q6H PRN PO 11/21/16 08:00 12/21/16 07:59 Sodium Bicarbonate (Sodium Bicarbonate Tab) 650 mg QAM PO 11/21/16 09:00 12/21/16 08:59 10/8/17 08:44 650 MG Calcium Carbonate (Tums Chew Tab) 500 mg AC PO 11/21/16 11:00 12/21/16 10:59 11/21/16 17:17 500 MG Iron Sucrose 200 mg/Sodium Chloride 110 ml @ 420 mls/hr Q2D@1400 IV 11/21/16 14:00 11/29/16 14:16 11/21/16 13:34 420 MLS/HR Epoetin Migue (Procrit Inj) 20,000 units TODAY@0800 IV 11/22/16 08:00 11/22/16 18:00 Enteral Nutritional Formula (Boost Glucose Control) 1 can TIDM PO 11/21/16 16:45 12/21/16 16:44 11/21/16 17:16 1 CAN Cefazolin Sodium 1000 mg/Dextrose 55 ml @ 100 mls/hr PREOP IV 11/22/16 09:00 11/23/16 08:59 Impression (1) End stage renal disease (2) Anemia (3) CHF (congestive heart failure) (4) Secondary hyperparathyroidism of renal origin (5) Metabolic acidosis (6) Diabetes (7) Nausea 81-year-old female with 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 Chest x-ray showed pulmonary congestion, on admission creatinine was 5.4 which worsened to 5.7 this morning, hemoglobin low at 7.5, has metabolic acidosis. She has been on IV Lasix with suboptimal response. Getting blood transfusion for drop in hemoglobin. Renal function overall worsening, with worsening volume status and electrolyte abnormality and anemia. Recommendations --did discuss with the dialysis nurses and gave the dialysis order, will do 2 hours dialysis today with UF 1-2 liters as possible, with 2 K bath --she will need transposition off AV fistula hopefully will be able to get it done during this admission --social service to start processing for outpatient dialysis unit at [facility] --continue on Venofer 200 milligram IV every other day for 5 doses --Epogen 2000 units with dialysis today, on Tums 1 tablet with each meal, continue on sodium bicarb for now, will discontinue once we start patient dialysis --avoid further IV fluid, avoid nephrotoxic medications and continue on renal diet Will follow
[2016-11-22 13:28] LABS: HEPATITIS B AB NEG
--- NOTE | 2016-11-22 13:46 | Progress Note ---
Progress Note Date of Service Nov 22, 2016. Progress Note 81-year-old female admitted with multiple problems including * Acute congestive heart failure * Advanced chronic kidney disease * Atherosclerotic vascular disease * Arterial hypertension * Hyperlipidemia * Remote history of ulcerative colitis has a permanent ileostomy Patient was admitted. Cardiac isoenzymes did not show any pattern consistent with acute myocardial infarction. Her troponin I was slightly elevated. Her echocardiogram did not show any wall motion abnormality. She had a hyperdynamic left ventricle. Her renal function has deteriorated. She was started on IV Lasix. She did have some response but not adequately enough to relieve her congestive heart failure. She was placed on oxygen. Her oxygen saturations are in good range with 3 L per minute by nasal cannula. Patient was seen in nephrology consultation by Dr. Chris. Arrangements were initiated to place a dialysis catheter and start dialysis. She has a fistula in the left arm but is not ready to be used yet. Yesterday she was markedly anemic with a hemoglobin down to 7.3. She was transfused one unit of packed RBCs over 4 hours which was tolerated. EXAMINATION: General : Well developed. No distress. she is resting comfortably in bed Vital Signs : Blood [id number]/66, pulse 72, respiration 20, temperature 36.9, oxygen saturation 94% on 2 L oxygen by nasal cannula. Skin : Warm and dry. No rash. HEENT :She usually wears glasses. Oxygen cannula in place. Neck : Supple. No adenopathy. No thyromegaly. No JVD. Normal carotid pulses. No carotid bruit. Heart : Regular heart sounds. 2/6 systolic murmur. No rub or gallop. PMI is not displaced. Lungs : Bilateral rales Abdomen : Soft nontender without any organomegaly or masses. Active bowel sounds.Ileostomy in place Back : No spinal or CVA tenderness. Extremities : No edema clubbing or cyanosis. No joint or muscle tenderness. fistula left arm LABORATORY TESTS: WBC count 8250, hemoglobin 8.2, hematocrit 24.7, platelet count 167,000. Sodium 139, potassium 4.7, chloride 105, CO2 21, BUN 84, creatinine 7.0, glucose 232, calcium 8.8, phosphorus 7.8. ASSESSMENT: * acute congestive heart failure most likely diastolic in nature and also related to her end-stage renal disease * End-stage renal disease will be initiated on dialysis * Type 2 diabetes mellitus * Arterial hypertension * Anemia PLAN: * patient is scheduled for placement of a dialysis catheter today by Dr. Torres. * Anticipating her first dialysis today * Her Lasix was discontinued since she is going to be dialyzed * Continuing to monitor her laboratory parameters * The patient had an abnormality on her chest x-ray and she needs a CT scan of the chest which will be done before discharge. * Will order physical and occupational therapy.
[2016-11-22] MEDS: SIMVASTATIN 40 MG TAB PO SCH (20:30)
[2016-11-23] VITALS (25 sets, daily range): BP systolic 111–177; BP diastolic 55–70; PULSE 61–80; TEMP 36.5–37.2; O2SAT 76–95; Ht 157.5 cm; Wt 72.7 kg
[2016-11-23] MEDS: NITROGLYCERIN OINT 2% 1GM PACKET EXT SCH ×4 (02:16→20:37)
[2016-11-23] MEDS: CEFAZOLIN IV 1,000 MG in DEXTROSE 5% 50ML 50 ML IV SCH (02:27)
[2016-11-23 06:37] LABS: BASO % 0.3 %; BASO ABS # 0.03 K/uL (0-0.2); EOS % 1.8 %; HEMATOCRIT 25.6 % (37-47); IG% 0.9 %; LYMPH % 8.7 %; LYMPH ABS # 0.75 K/uL (1.2-3.4); MEAN CELL VOLUME 88.3 fL (80-100); MEAN CORPUSCULAR HGB CONC 32.8 g/dl (32-36); MEAN PLATELET VOLUME 8.9 fL (7.4-10.4); MONO % 10.4 %; NEUT % 77.9 %; PLATELET COUNT 190 K/uL (130-400); WHITE BLOOD COUNT 8.65 K/uL (4.8-10.8)
--- NOTE | 2016-11-23 06:58 | DIAGNOSTIC IMAGING REPORT ---
CHEST ONE VIEW PORTABLE CLINICAL HISTORY: 81 years-old Female presenting with CHF. TECHNIQUE: Portable upright AP view of the chest was obtained. COMPARISON: 11/21/2016. FINDINGS: Tunneled right internal jugular dialysis catheter new from prior and terminates within the lower SVC. Atherosclerosis of the aortic arch. Mild prominence of the cardiac silhouette, unchanged. Minimal hazy bibasilar opacities not significant changed from prior. Potential nodularity in the right lung better seen on prior CT from 10/01/2015. Small left pleural effusion. No pneumothorax. Osseous structures normal. Upper abdomen normal. IMPRESSION: 1. Interval placement of a tunneled right IJ dialysis catheter, which terminates in the lower SVC. No pneumothorax. 2. Mild cardiomegaly. 3. Minimal bibasilar opacities, not significantly changed, possibly atelectasis or mild pulmonary edema. 4. Possible small left pleural effusion. Electronically signed by: Mau Nunez M.D. 11/23/2016 6:57 AM Dictated Date/Time: 11/23/2016 6:54 AM
[2016-11-23 07:00] LABS: COMPLETE YES
[2016-11-23 07:23] LABS: BUN/CREATININE RATIO 10.9 (10-20); CALCIUM 7.8 mg/dl (8.5-10.1); CREATININE 5.8 mg/dl (0.60-1.20); PHOSPHORUS 5.9 mg/dl (2.5-4.9); POTASSIUM 3.7 mmol/L (3.5-5.1)
[2016-11-23] MEDS: BOOST GLUCOSE CONTROL PO SCH ×3 (07:30→16:45)
[2016-11-23] MEDS: CALCIUM CARBONATE 500 MG CHEWABLE PO SCH ×3 (08:01→20:47)
[2016-11-23] MEDS: INSULIN ASPART 100 UNITS/ML 3 ML PEN SC SCH ×4 (08:01→20:43)
[2016-11-23] MEDS: ANASTROZOLE 1 MG TAB PO SCH (08:01)
[2016-11-23] MEDS: AMLODIPINE BESYLATE 5 MG TAB PO SCH (08:05)
[2016-11-23] MEDS: ALLOPURINOL 100 MG TAB PO SCH (08:05)
[2016-11-23] MEDS: CALCITRIOL 0.25 MCG CAP PO SCH (08:05)
[2016-11-23] MEDS: ASPIRIN 81 MG ECTAB PO SCH (08:05)
[2016-11-23] MEDS: LABETALOL HCL 200 MG TAB PO SCH ×3 (08:06→20:40)
[2016-11-23] MEDS: CHOLECALCIFEROL 1000 INTER.UNIT TAB PO SCH (08:06)
[2016-11-23] MEDS: CEROVITE ADV FORMULA TAB PO SCH (08:06)
[2016-11-23] MEDS: FERROUS SULFATE 325 MG TAB PO SCH (08:06)
[2016-11-23] MEDS: PANTOprazole SOD 40 MG TAB PO SCH (08:07)
--- NOTE | 2016-11-23 12:03 | Nephrology Progress Note ---
Nephrology Progress Note Date of Service Nov 23, 2016. Chief Complaint F/U for end-stage renal disease. Goldy Sims was seen and examined in her room this am. She has been overall feeling well, denies any shortness of breath or chest pain. Had right IJ tunnel dialysis catheter placed yesterday and had 2 hours dialysis treatment. She tolerated the treatment well, no episode of hypotension, tachycardia like cramps , dizziness or lightheadedness. Had 1.2 L ultra filtration. Review of Systems A complete review of systems was performed. Pertinent positives are noted above. All other systems are negative. Vital Signs Last 8 Hrs Date Time Temp Pulse Resp B/P (MAP) Pulse Ox O2 Delivery O2 Flow Rate FiO2 11/23/16 07:15 37.1 68 16 166/55 (92) 93 Nasal Cannula 2.0 11/23/16 04:18 37.1 72 20 176/65 (102) 95 Nasal Cannula 2.0 11/23/16 04:00 Nasal Cannula 2.0 11/23/16 02:17 80 164/70 (101) Last Recorded Weight Weight (Kilograms): 75.200 Physical Exam GENERAL: Elderly female, AAA x 3, pleasant, healthy-appearing, not in any distress. NECK: Supple, no JVD. Right IJ tunnel dialysis catheter area mildly tender, no active bleeding or it erythema, dressing dry. RESPIRATORY: rales at left base CARDIOVASCULAR: S1, S2 normal, rate rhythm regular. EXTREMITY: No lower extremity edema NEURO: speech fluent. PSYCHIATRY: Normal mood and judgment Family History Diabetes mellitus Hypertension Social History Drug Use: none Marital Status: Occupation: retired Laboratory Results Past 24 Hours 11/23/16 05:52 Red Blood Count 2.90, Mean Corpuscular Volume 88.3, Mean Corpuscular Hemoglobin 29.0, Mean Corpuscular Hemoglobin Concent 32.8, Mean Platelet Volume 8.9, Neutrophils (%) (Auto) 77.9, Lymphocytes (%) (Auto) 8.7, Monocytes (%) (Auto) 10.4, Eosinophils (%) (Auto) 1.8, Basophils (%) (Auto) 0.3, Neutrophils # (Auto ) 6.73, Lymphocytes # (Auto) 0.75, Monocytes # (Auto) 0.90, Eosinophils # (Auto ) 0.16, Basophils # (Auto) 0.03 11/23/16 05:52 Test 11/22/16 11:00 11/22/16 11:46 11/22/16 18:28 11/22/16 19:23 Bedside Glucose 173 mg/dl (70-90) 147 mg/dl (70-90) Hepatitis B Surface Antigen NEG (NEG) Hepatitis B Surface Antibody NEG Test 11/22/16 20:17 11/23/16 05:52 Bedside Glucose 272 mg/dl (70-90) White Blood Count 8.65 K/uL (4.8-10.8) Red Blood Count 2.90 M/uL (4.2-5.4) Hemoglobin 8.4 g/dL (12.0-16.0) Hematocrit 25.6 % (37-47) Mean Corpuscular Volume 88.3 fL (80-100) Mean Corpuscular Hemoglobin 29.0 pg (25-34) Mean Corpuscular Hemoglobin Concent 32.8 g/dl (32-36) Platelet Count 190 K/uL (130-400) Mean Platelet Volume 8.9 fL (7.4-10.4) Neutrophils (%) (Auto) 77.9 % Lymphocytes (%) (Auto) 8.7 % Monocytes (%) (Auto) 10.4 % Eosinophils (%) (Auto) 1.8 % Basophils (%) (Auto) 0.3 % Neutrophils # (Auto) 6.73 K/uL (1.4-6.5) Lymphocytes # (Auto) 0.75 K/uL (1.2-3.4) Monocytes # (Auto) 0.90 K/uL (0.11-0.59) Eosinophils # (Auto) 0.16 K/uL (0-0.5) Basophils # (Auto) 0.03 K/uL (0-0.2) RDW Standard Deviation 50.1 fL (36.4-46.3) RDW Coefficient of Variation 15.7 % (11.5-14.5) Immature Granulocyte % (Auto) 0.9 % Immature Granulocyte # (Auto) 0.08 K/uL (0.00-0.02) Nucleated RBC Absolute Count (auto) 0.04 K/uL (0-0) Nucleated Red Blood Cells % 0.5 % Red Blood Cell Morphology Unremarkable Anion Gap 10.0 mmol/L (3-11) Est Creatinine Clear Calc Drug Dose 7.0 ml/min Estimated GFR () 7.2 Estimated GFR (Non- 6.2 BUN/Creatinine Ratio 10.9 (10-20) Calcium Level 7.8 mg/dl (8.5-10.1) Phosphorus Level 5.9 mg/dl (2.5-4.9) Pro-B-Type Natriuretic Peptide 5868 pg/ml (0-1800) Albumin 2.9 gm/dl (3.4-5.0) Allergies Coded Allergies: No Known Allergies (Unverified , 10/25/16) Medications Current Inpatient Medications Medications (Trade) Dose Ordered Sig/Camilo Route Start Time Stop Time Status Last Admin Dose Admin Allopurinol (Zyloprim Tab) 100 mg QAM PO 11/21/16 09:00 12/21/16 08:59 11/23/16 08:05 100 MG Amlodipine Besylate (Norvasc Tab) 5 mg QAM PO 11/21/16 09:00 12/21/16 08:59 11/23/16 08:05 5 MG Anastrozole (Arimidex Tab) 1 mg QAM PO 11/21/16 09:00 12/21/16 08:59 11/23/16 08:01 1 MG Aspirin (Ecotrin Tab) 81 mg QAM PO 11/21/16 09:00 12/21/16 08:59 11/23/16 08:05 81 MG Calcitriol (Rocaltrol Cap) 0.25 mcg QAM PO 11/21/16 09:00 12/21/16 08:59 11/23/16 08:05 0.25 MCG Ferrous Sulfate (Feosol Tab) 325 mg QAM PO 11/21/16 09:00 12/21/16 08:59 11/23/16 08:06 325 MG Labetalol HCl (Normodyne Tab) 200 mg TID PO 11/21/16 09:00 12/21/16 08:59 11/23/16 08:06 200 MG Pantoprazole Sodium (Protonix Tab) 40 mg QAM PO 11/21/16 09:00 12/21/16 08:59 11/23/16 08:07 40 MG Simvastatin (Zocor Tab) 40 mg QPM PO 11/21/16 21:00 12/21/16 20:59 11/22/16 20:30 40 MG Cholecalciferol (Vitamin D Tab) 5,000 inter.unit QAM PO 11/21/16 09:00 12/21/16 08:59 11/23/16 08:06 5,000 INTER.UNIT Multivitamins/ Minerals (Multivitamin W/ Minerals Tab) 1 tab QAM PO 11/21/16 09:00 12/21/16 08:59 11/23/16 08:06 1 TAB Insulin Aspart (novoLOG ASPART) SLIDING SCALE G... ACHS SC 11/21/16 07:00 12/21/16 06:59 11/23/16 08:01 6 UNITS Glucose (Glucose 40% Gel) 15-30 GRAMS 15 GRAMS... UD PRN PO 11/20/16 22:30 12/20/16 22:29 Glucose (Glucose Chew Tab) 4-8 Tablets 4 Tabl... UD PRN PO 11/20/16 22:30 12/20/16 22:29 Dextrose (Dextrose 50% 50ML Syringe) 25-50ML OF 50% DW IV FOR... UD PRN IV 11/20/16 22:30 12/20/16 22:29 Glucagon (Glucagon Inj) 1 mg UD PRN SQ 11/20/16 22:30 12/20/16 22:29 Ondansetron HCl 8 mg/Dextrose 54 ml @ 200 mls/hr Q4H PRN IV 11/21/16 08:00 12/21/16 07:59 11/22/16 21:05 200 MLS/HR Nitroglycerin (Nitroglycerin 2% Oint) 1 inch Q6H EXT 11/21/16 08:00 12/21/16 07:59 11/23/16 08:02 1 INCH Acetaminophen (Tylenol Tab) 500 mg Q4H PRN PO 11/21/16 08:00 12/21/16 07:59 Lorazepam (Ativan Tab) 0.5 mg Q6H PRN PO 11/21/16 08:00 12/21/16 07:59 Calcium Carbonate (Tums Chew Tab) 500 mg AC PO 11/21/16 11:00 12/21/16 10:59 11/23/16 08:01 500 MG Iron Sucrose 200 mg/Sodium Chloride 110 ml @ 420 mls/hr Q2D@1400 IV 11/21/16 14:00 11/29/16 14:16 11/21/16 13:34 420 MLS/HR Enteral Nutritional Formula (Boost Glucose Control) 1 can TIDM PO 11/21/16 16:45 12/21/16 16:44 11/22/16 16:45 1 CAN Amino Acids/ Minerals/Vitamins (Preservision Areds 2) 1 cap BID PO 11/23/16 09:00 12/23/16 08:59 UNV Impression (1) End stage renal disease (2) Anemia (3) CHF (congestive heart failure) (4) Secondary hyperparathyroidism of renal origin (5) Metabolic acidosis (6) Diabetes (7) Nausea 81-year-old female with 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 Chest x-ray showed pulmonary congestion, on admission creatinine was 5.4 which worsened to 5.7 this morning, hemoglobin low at 7.5, has metabolic acidosis. She has been on IV Lasix with suboptimal response. Getting blood transfusion for drop in hemoglobin. Renal function overall worsening, with worsening volume status and electrolyte abnormality and anemia. Recommendations --plan for 3 hours dialysis today with UF 1-2 liters as possible, with 2 K bath --she will need transposition of AV fistula hopefully will be able to get it done during this admission, appreciate vascular surgery help with getting that transposition done during this admission --social service already started processing for outpatient dialysis unit at [facility] --continue on Venofer 200 milligram IV every other day for 5 doses ( started on 11/21/16 ) --received Epogen 2000 units on 11/22/16, on Tums 1 tablet with each meal --avoid further IV fluid, avoid nephrotoxic medications and continue on renal diet --can be discharged once outpatient dialysis schedule is setup Will follow
[2016-11-23] MEDS ORDERED: INSULIN GLARGINE SOLOSTAR 100 UNITS/ML 3 ML PEN SC SCH (13:00)
--- NOTE | 2016-11-23 13:31 | Progress Note ---
Progress Note Date of Service Nov 23, 2016. Progress Note Pt had been scheduled outpt for LUE AVF revision next week. Pt agreeable to having procedure while inpatient instead, so will reschedule procedure for tomorrow in OR. Pt understands and is agreeable.
[2016-11-23] MEDS: MULTIPLE VITAMINS PO SCH ×2 (13:59→20:39)
[2016-11-23] MEDS: MINERALS PO SCH ×2 (13:59→20:39)
[2016-11-23] MEDS: IRON SUCROSE INJ 200 MG in SODIUM CHLORIDE 0.9% 100ML 100 ML IV SCH (13:59)
--- NOTE | 2016-11-23 15:55 | Anesthesiology Progress Note ---
Pre-OP Anesthesia Assessment Date of Note Nov 23, 2016. Review patient information reviewed, chart reviewed, labs reviewed, acceptable for surgery Notes 81 yo female scheduled for AV fistula revision. PMH includes DM, HTN, hypercholesterolemia, anemia, breast cancer, gout, TIA, colitis, ileostomy. She has had GA in the past and MAC without problems. MAC with local anesthesia discussed. She expressed understanding and signed informed consent
--- NOTE | 2016-11-23 18:06 | Progress Note ---
Progress Note Date of Service Nov 23, 2016. Progress Note 81-year-old female admitted with multiple medical problems including acute congestive heart failure, end-stage renal disease, arterial hypertension, type 2 diabetes mellitus, anemia. Patient was admitted. Cardiac isoenzymes did not show evidence of acute myocardial infarction. Echocardiogram showed a hyperdynamic left ventricle. She was seen in nephrology consultation. Patient has an AV fistula in her left arm but it is not usable yet. A PermCath was placed. Dialysis was initiated. Her condition improved. She is resting comfortably. Denied any headache or dizziness or lightheadedness. No chest pain. No shortness of breath. No abdominal pain no nausea no vomiting. Poor appetite. No problem with her bowel movements. She still having some urine output. EXAMINATION : GENERAL: Well-developed in no distress VITAL SIGNS: Blood pressure 166/55, pulse 68, respirations 16, temperature 37.1 , oxygen saturation 93% on 2 L oxygen by nasal cannula SKIN: Warm and dry. No rash. HEENT: Oxygen cannula in place. NECK: Supple. Nontender. No lymph node or thyroid enlargement. No JVD. HEART: Regular heart sounds with 2/6 systolic murmur LUNGS: Minimal basilar rales ABDOMEN: Soft nontender without organomegaly or masses BACK: No spinal tenderness EXTREMITIES: No edema clubbing or cyanosis. AV fistula left arm. PermCath in place. LABORATORY TESTS : WBC count 8650, hemoglobin 8.4, hematocrit 25.6, platelet count 190,000. Sodium 137, potassium 3.7, chloride 98, CO2 29, BUNs 63, creatinine 5.8, glucose 181, calcium 7.8, phosphorus 5.9, albumin 2.9, pro BNP 5868. Chest x-ray showed minimal left basilar opacities. Cardiomegaly. ASSESSMENT : * Acute congestive heart failure * End-stage renal disease * Type 2 diabetes mellitus * Arterial hypertension * Anemia required transfusion of 1 unit of packed RBCs * Hyperlipidemia * Remote history of ulcerative colitis. Has a permanent ileostomy PLAN : * Dr. Torres is planning on taking the patient to the operating room tomorrow to revise her fistula. * Patient is receiving dialysis today. * Overall her condition is improved. * Continuing all her medications * Her blood sugar was elevated with a day and I did start her on Lantus insulin in addition to the coverage. * Will be planning for outpatient dialysis. Anticipating that the patient will go home after her acute illness.
[2016-11-23] MEDS: SIMVASTATIN 40 MG TAB PO SCH (20:40)
[2016-11-23] MEDS: INSULIN GLARGINE SOLOSTAR 100 UNITS/ML 3 ML PEN SC SCH (20:44)
[2016-11-24] MEDS: NITROGLYCERIN OINT 2% 1GM PACKET EXT SCH ×4 (02:37→20:39)
[2016-11-24 03:56] VITALS: BP 165/66; PULSE 68; TEMP 36.9; O2SAT 96
[2016-11-24] MEDS ORDERED: CEFAZOLIN 1000MG/55 ML D5W 55 ML IV SCH (06:00)
[2016-11-24 06:49] LABS: BASO % 0.6 %; BASO ABS # 0.05 K/uL (0-0.2); COMPLETE YES; EOS % 1.6 %; HEMATOCRIT 28.6 % (37-47); IG% 1.2 %; LYMPH ABS # 0.78 K/uL (1.2-3.4); MEAN CELL VOLUME 89.7 fL (80-100); MEAN CORPUSCULAR HEMOGLOBIN 29.2 pg (25-34); MEAN CORPUSCULAR HGB CONC 32.5 g/dl (32-36); MEAN PLATELET VOLUME 9.1 fL (7.4-10.4); MONO % 10.5 %; NEUT % 77.1 %; PLATELET COUNT 204 K/uL (130-400); RED BLOOD COUNT 3.19 M/uL (4.2-5.4); WHITE BLOOD COUNT 8.64 K/uL (4.8-10.8)
[2016-11-24] MEDS: CALCIUM CARBONATE 500 MG CHEWABLE PO SCH ×3 (07:00→16:15)
[2016-11-24] MEDS: BOOST GLUCOSE CONTROL PO SCH ×3 (07:30→17:22)
[2016-11-24 07:33] LABS: CREATININE 5.1 mg/dl (0.60-1.20)
[2016-11-24 07:34] LABS: CALCIUM 8.6 mg/dl (8.5-10.1); PHOSPHORUS 5.8 mg/dl (2.5-4.9); POTASSIUM 3.9 mmol/L (3.5-5.1)
[2016-11-24 07:43] VITALS: BP 154/63; PULSE 65; TEMP 37; O2SAT 97
[2016-11-24] MEDS: FERROUS SULFATE 325 MG TAB PO SCH (08:13)
[2016-11-24] MEDS: INSULIN ASPART 100 UNITS/ML 3 ML PEN SC SCH ×4 (08:23→20:41)
[2016-11-24] MEDS: ANASTROZOLE 1 MG TAB PO SCH (08:23)
[2016-11-24] MEDS: CEROVITE ADV FORMULA TAB PO SCH (08:26)
[2016-11-24] MEDS: CHOLECALCIFEROL 1000 INTER.UNIT TAB PO SCH (08:27)
[2016-11-24] MEDS: ALLOPURINOL 100 MG TAB PO SCH (08:28)
[2016-11-24] MEDS: LABETALOL HCL 200 MG TAB PO SCH ×3 (08:28→20:38)
[2016-11-24] MEDS: CALCITRIOL 0.25 MCG CAP PO SCH (08:28)
[2016-11-24] MEDS: ASPIRIN 81 MG ECTAB PO SCH (08:29)
[2016-11-24] MEDS: PANTOprazole SOD 40 MG TAB PO SCH (08:29)
[2016-11-24] MEDS: MINERALS PO SCH ×2 (08:29→20:37)
[2016-11-24] MEDS: AMLODIPINE BESYLATE 5 MG TAB PO SCH (08:29)
[2016-11-24] MEDS: MULTIPLE VITAMINS PO SCH ×2 (08:29→20:37)
[2016-11-24] MEDS: INSULIN GLARGINE SOLOSTAR 100 UNITS/ML 3 ML PEN SC SCH ×2 (08:41→20:42)
[2016-11-24] MEDS: ONDANSETRON INJ 8 MG in DEXTROSE 5% 50ML 50 ML IV PRN (08:49)
[2016-11-24] MEDS ORDERED: ONDANSETRON INJ 2 MG/ML 2 ML VIAL IV PRN (10:30)
[2016-11-24] MEDS ORDERED: MEPERIDINE HCL 25 MG/ML CARP IV PRN (10:30)
[2016-11-24] MEDS ORDERED: ATROPINE SULFATE 0.1 MG/ML 5ML SYR IV PRN (10:30)
[2016-11-24] MEDS ORDERED: HYDROmorphone INJ 1 MG/ML SYR IV PRN (10:30)
[2016-11-24] MEDS ORDERED: EpHEDrine SULFATE INJ 50 MG/ML AMP IV PRN (10:30)
[2016-11-24] MEDS ORDERED: FENTANYL CITRATE INJ 50 MCG/1 ML 2 ML VIAL IV PRN (10:30)
[2016-11-24] MEDS ORDERED: LABETALOL HCL IV 5 MG/ML 20ML IV PRN (10:30)
--- NOTE | 2016-11-24 10:33 | Nephrology Progress Note ---
Nephrology Progress Note Date of Service Nov 24, 2016. Chief Complaint F/U for end-stage renal disease. Goldy Sims was seen and examined in her room this am. She has been overall feeling well, denies any shortness of breath or chest pain. Had 3 hours dialysis treatment yesterday, tolerated well, no episode of hypotension, tachycardia, leg cramps, dizziness or lightheadedness. Had 1.2 L ultra filtration. Review of Systems A complete review of systems was performed. Pertinent positives are noted above. All other systems are negative. Vital Signs Last 8 Hrs Date Time Temp Pulse Resp B/P (MAP) Pulse Ox O2 Delivery O2 Flow Rate FiO2 11/24/16 07:43 37.0 65 20 154/63 (93) 97 Nasal Cannula 2.0 11/24/16 04:00 Nasal Cannula 2.0 11/24/16 03:56 36.9 68 20 165/66 (99) 96 Nasal Cannula 3.0 Last Recorded Weight Weight (Kilograms): 72.300 Physical Exam GENERAL: Elderly female, AAA x 3, pleasant, healthy-appearing, not in any distress. NECK: Supple, no JVD. Right IJ tunnel dialysis catheter area mildly tender, no active bleeding or erythema, dressing dry. RESPIRATORY: rales at left base CARDIOVASCULAR: S1, S2 normal, rate rhythm regular. EXTREMITY: No lower extremity edema NEURO: speech fluent. PSYCHIATRY: Normal mood and judgment Family History Diabetes mellitus Hypertension Social History Drug Use: none Marital Status: Occupation: retired Laboratory Results Past 24 Hours 11/24/16 05:55 Red Blood Count 3.19, Mean Corpuscular Volume 89.7, Mean Corpuscular Hemoglobin 29.2, Mean Corpuscular Hemoglobin Concent 32.5, Mean Platelet Volume 9.1, Neutrophils (%) (Auto) 77.1, Lymphocytes (%) (Auto) 9.0, Monocytes (%) (Auto) 10.5, Eosinophils (%) (Auto) 1.6, Basophils (%) (Auto) 0.6, Neutrophils # (Auto ) 6.66, Lymphocytes # (Auto) 0.78, Monocytes # (Auto) 0.91, Eosinophils # (Auto ) 0.14, Basophils # (Auto) 0.05 11/24/16 05:55 Test 11/23/16 11:23 11/23/16 11:33 11/23/16 12:55 11/23/16 20:20 Bedside Glucose 314 mg/dl (70-90) 311 mg/dl (70-90) 279 mg/dl (70-90) 270 mg/dl (70-90) Test 11/24/16 05:55 11/24/16 06:48 White Blood Count 8.64 K/uL (4.8-10.8) Red Blood Count 3.19 M/uL (4.2-5.4) Hemoglobin 9.3 g/dL (12.0-16.0) Hematocrit 28.6 % (37-47) Mean Corpuscular Volume 89.7 fL (80-100) Mean Corpuscular Hemoglobin 29.2 pg (25-34) Mean Corpuscular Hemoglobin Concent 32.5 g/dl (32-36) Platelet Count 204 K/uL (130-400) Mean Platelet Volume 9.1 fL (7.4-10.4) Neutrophils (%) (Auto) 77.1 % Lymphocytes (%) (Auto) 9.0 % Monocytes (%) (Auto) 10.5 % Eosinophils (%) (Auto) 1.6 % Basophils (%) (Auto) 0.6 % Neutrophils # (Auto) 6.66 K/uL (1.4-6.5) Lymphocytes # (Auto) 0.78 K/uL (1.2-3.4) Monocytes # (Auto) 0.91 K/uL (0.11-0.59) Eosinophils # (Auto) 0.14 K/uL (0-0.5) Basophils # (Auto) 0.05 K/uL (0-0.2) RDW Standard Deviation 50.8 fL (36.4-46.3) RDW Coefficient of Variation 15.9 % (11.5-14.5) Immature Granulocyte % (Auto) 1.2 % Immature Granulocyte # (Auto) 0.10 K/uL (0.00-0.02) Nucleated RBC Absolute Count (auto) 0.04 K/uL (0-0) Nucleated Red Blood Cells % 0.5 % Anion Gap 9.0 mmol/L (3-11) Est Creatinine Clear Calc Drug Dose 7.8 ml/min Estimated GFR () 8.4 Estimated GFR (Non- 7.3 BUN/Creatinine Ratio 8.0 (10-20) Calcium Level 8.6 mg/dl (8.5-10.1) Phosphorus Level 5.8 mg/dl (2.5-4.9) Albumin 3.0 gm/dl (3.4-5.0) Bedside Glucose 215 mg/dl (70-90) Allergies Coded Allergies: No Known Allergies (Unverified , 10/25/16) Medications Current Inpatient Medications Medications (Trade) Dose Ordered Sig/Camilo Route Start Time Stop Time Status Last Admin Dose Admin Allopurinol (Zyloprim Tab) 100 mg QAM PO 11/21/16 09:00 12/21/16 08:59 11/24/16 08:28 100 MG Amlodipine Besylate (Norvasc Tab) 5 mg QAM PO 11/21/16 09:00 12/21/16 08:59 11/24/16 08:29 5 MG Anastrozole (Arimidex Tab) 1 mg QAM PO 11/21/16 09:00 12/21/16 08:59 11/24/16 08:23 1 MG Aspirin (Ecotrin Tab) 81 mg QAM PO 11/21/16 09:00 12/21/16 08:59 11/24/16 08:29 81 MG Calcitriol (Rocaltrol Cap) 0.25 mcg QAM PO 11/21/16 09:00 12/21/16 08:59 11/24/16 08:28 0.25 MCG Ferrous Sulfate (Feosol Tab) 325 mg QAM PO 11/21/16 09:00 12/21/16 08:59 11/23/16 08:06 325 MG Labetalol HCl (Normodyne Tab) 200 mg TID PO 11/21/16 09:00 12/21/16 08:59 11/24/16 08:28 200 MG Pantoprazole Sodium (Protonix Tab) 40 mg QAM PO 11/21/16 09:00 12/21/16 08:59 11/24/16 08:29 40 MG Simvastatin (Zocor Tab) 40 mg QPM PO 11/21/16 21:00 12/21/16 20:59 11/23/16 20:40 40 MG Cholecalciferol (Vitamin D Tab) 5,000 inter.unit QAM PO 11/21/16 09:00 12/21/16 08:59 11/23/16 08:06 5,000 INTER.UNIT Multivitamins/ Minerals (Multivitamin W/ Minerals Tab) 1 tab QAM PO 11/21/16 09:00 12/21/16 08:59 11/23/16 08:06 1 TAB Insulin Aspart (novoLOG ASPART) SLIDING SCALE G... ACHS SC 11/21/16 07:00 12/21/16 06:59 11/24/16 08:23 5 UNITS Glucose (Glucose 40% Gel) 15-30 GRAMS 15 GRAMS... UD PRN PO 11/20/16 22:30 12/20/16 22:29 Glucose (Glucose Chew Tab) 4-8 Tablets 4 Tabl... UD PRN PO 11/20/16 22:30 12/20/16 22:29 Dextrose (Dextrose 50% 50ML Syringe) 25-50ML OF 50% DW IV FOR... UD PRN IV 11/20/16 22:30 12/20/16 22:29 Glucagon (Glucagon Inj) 1 mg UD PRN SQ 11/20/16 22:30 12/20/16 22:29 Ondansetron HCl 8 mg/Dextrose 54 ml @ 200 mls/hr Q4H PRN IV 11/21/16 08:00 12/21/16 07:59 11/24/16 08:49 200 MLS/HR Nitroglycerin (Nitroglycerin 2% Oint) 1 inch Q6H EXT 11/21/16 08:00 12/21/16 07:59 11/24/16 08:26 1 INCH Acetaminophen (Tylenol Tab) 500 mg Q4H PRN PO 11/21/16 08:00 12/21/16 07:59 Lorazepam (Ativan Tab) 0.5 mg Q6H PRN PO 11/21/16 08:00 12/21/16 07:59 Calcium Carbonate (Tums Chew Tab) 500 mg AC PO 11/21/16 11:00 12/21/16 10:59 11/23/16 20:47 500 MG Iron Sucrose 200 mg/Sodium Chloride 110 ml @ 420 mls/hr Q2D@1400 IV 11/21/16 14:00 11/29/16 14:16 11/23/16 13:59 420 MLS/HR Enteral Nutritional Formula (Boost Glucose Control) 1 can TIDM PO 11/21/16 16:45 12/21/16 16:44 11/22/16 16:45 1 CAN Amino Acids/ Minerals/Vitamins (Preservision Areds 2) 1 cap BID PO 11/23/16 12:00 12/23/16 11:59 11/24/16 08:29 1 CAP Insulin Glargine (Lantus Solostar Pen) 15 units BID SC 11/23/16 21:00 12/23/16 20:59 11/23/16 20:44 15 UNITS Cefazolin Sodium 55 ml @ 100 mls/hr PREOP IV 11/24/16 06:00 11/24/16 18:00 Impression (1) End stage renal disease (2) Anemia (3) CHF (congestive heart failure) (4) Secondary hyperparathyroidism of renal origin (5) Metabolic acidosis (6) Diabetes (7) Nausea 81-year-old female with 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 Chest x-ray showed pulmonary congestion, on admission creatinine was 5.4 which worsened to 5.7 this morning, hemoglobin low at 7.5, has metabolic acidosis. She has been on IV Lasix with suboptimal response. Getting blood transfusion for drop in hemoglobin. Renal function overall worsening, with worsening volume status and electrolyte abnormality and anemia. Started on HD via TDC, has been tolerating well. Getting transposition of AVF. Recommendations --plan for 4 hours dialysis today with UF 1-2 liters as possible, with 3 K bath --she is scheduled for transposition of AV fistula today --she is tentatively scheduled for outpatient dialysis at [facility] [place], has spot available for Tuesday second shift ( starts approximately around 10 to 11 am). --continue on Venofer 200 milligram IV every other day for 5 doses ( started on 11/21/16 ) --received Epogen 2000 units on 11/22/16, on Tums 1 tablet with each meal --avoid further IV fluid, avoid nephrotoxic medications and continue on renal diet can be discharged tomorrow if otherwise clinically stable Will follow
[2016-11-24 11:20] VITALS: BP 137/65; PULSE 63; TEMP 36.6; O2SAT 93
--- NOTE | 2016-11-24 13:28 | Progress Note ---
Progress Note Date of Service Nov 24, 2016. Progress Note Patient for revision of left arm fistula. I have discussed the risks options and benefits of the procedure with the patient. The patient understands the risks options and benefits and agrees to the procedure. I have examined the patient, reviewed the History & Physical and in the interval since the performance of the History & Physical I have noted the following changes of clinical significance: No changes noted
[2016-11-24] MEDS ORDERED: HEPARIN SOD (PORCINE) 1000 UNIT/ML 10 ML VIAL ONE (13:29)
[2016-11-24] MEDS ORDERED: LIDOCAINE HCL 1% 20 ML VIAL ONE ×2 (13:29→14:23)
[2016-11-24] MEDS ORDERED: GELATIN SPONGE 12-7MM ONE (13:29)
[2016-11-24] MEDS ORDERED: BUPIVACAINE/EPINEPHRINE 0.5% MPF 1:200,000 30 ML VIAL ONE ×2 (13:29→14:23)
[2016-11-24] MEDS ORDERED: THROMBIN FOR SOLN 20000 UNIT KIT ONE (13:29)
[2016-11-24] MEDS ORDERED: LIDOCAINE HCL 2% 2 ML VIAL (20MG/ML) ONE (13:44)
[2016-11-24] MEDS ORDERED: PROPOFOL IV EMULSION 10 MG/ML 20 ML VIAL IV ONE ×2 (13:45→15:47)
[2016-11-24] MEDS ORDERED: FENTANYL CITRATE INJ 50 MCG/1 ML 2 ML VIAL ONE (13:45)
[2016-11-24] MEDS ORDERED: MIDAZOLAM HCL 1 MG/ML 2ML VIAL ONE (13:45)
--- NOTE | 2016-11-24 15:49 | [facility] Post Operative Brief Note ---
Immediate Operative Summary Operative Date Nov 24, 2016. Pre-Operative Diagnosis End Stage Renal Disease Post-Operative Diagnosis Same as preop Procedure(s) Performed Left upper extremity basilic vein transposition to cephalic vein Surgeon Dr. Torres Resident Intern Surgeon(s) None Estimated Blood Loss 75ml Findings good thrill Specimens None per Surgeon Anesthesia MAC Complication(s) None Disposition Recovery Room / PACU
--- NOTE | 2016-11-24 16:30 | Anesthesiology Progress Note ---
Anesthesia Post Op Note Date & Time Nov 24, 2016 at 16:30 Vital Signs Pain Intensity: 0 Vital Signs Past 12 Hours Date Time Temp Pulse Resp B/P (MAP) Pulse Ox O2 Delivery O2 Flow Rate FiO2 11/24/16 16:20 63 18 165/68 98 Nasal Cannula 2 11/24/16 16:10 62 18 156/67 98 Nasal Cannula 2 11/24/16 16:00 36.2 62 16 152/42 99 Nasal Cannula 2 11/24/16 12:00 Nasal Cannula 3.0 11/24/16 11:20 36.6 63 18 137/65 (89) 93 Nasal Cannula 3.0 11/24/16 08:00 Nasal Cannula 2.0 11/24/16 07:43 37.0 65 20 154/63 (93) 97 Nasal Cannula 2.0 Notes Mental Status: alert / awake / arousable, participated in evaluation Pt Amnestic to Procedure: Yes Nausea / Vomiting: adequately controlled Pain: adequately controlled Airway Patency, RR, SpO2: stable & adequate BP & HR: stable & adequate Hydration State: stable & adequate Anesthetic Complications: no major complications apparent
--- NOTE | 2016-11-24 16:35 | OPERATIVE REPORT ---
DATE OF OPERATION: 11/24/2016 PREOPERATIVE DIAGNOSIS: Endstage renal disease. POSTOPERATIVE DIAGNOSIS: Same. PROCEDURE: Left upper arm basilic vein transposition. SURGEON: Dr. Torres. ANESTHETIC: MAC. PROCEDURE INDICATIONS: The patient is an 81-year-old female who had a cephalic vein fistula done in the antecubital fossa left arm. The cephalic vein in the upper half of the arm was occluded. This did not mature. It was recommended that we transpose the basilic vein to the cephalic vein stump. She understood the risks, options and benefits and agreed to have this procedure. OPERATION AND FINDINGS: The patient was taken to the operating room and placed in supine position. After left arm was prepped and draped in a sterile manner, local anesthetic was administered along the longitudinal incision was made in the anterior axillary line down to approximately 4 fingerbreadths above the elbow. The basilic vein was identified. It was freed up its entire length. The incision was then made over the cephalic vein in the mid portion of the upper arm. It was of good caliber. The basilic vein was then ligated distally and divided. Heparinized saline was used to dilate the basilic vein. It dilated up nicely to approximately 5-6 mm. Subcutaneous tunnel was then made from the incision over the cephalic vein to the incision on the medial aspect of the arm and the basilic vein was passed through this tunnel. The cephalic vein was then clamped proximally and distally. It was transected and beveled. The basilic vein was then beveled and an end-to-side anastomosis was accomplished. The cephalic vein at that level was slightly thickened but usable. Once anastomosis was done in the usual vascular fashion clamps were removed. I did not like the flow going through the anastomosis. I thought that the thickening of the cephalic vein was more than what could be appreciated in the transected portion. I did take down the anastomosis and bevelled the cephalic vein higher up. Once I got up another centimeter it was a much nicer vein with no sclerotic scar tissue present. This was then beveled at that level. The end-to-end anastomosis was then redone with 7-0 Prolene suture. This was done in the usual vascular fashion. Prior to completing the closure, backbleeding and forward bleeding was allowed to occur and final few sutures were then placed and securely tied. Once the clamps were removed the fistula had a good thrill instead of a thump. Adequate hemostasis was noted of the wounds and the anastomosis. The wounds were then closed in the usual fashion using running 3-0 Vicryl suture for the subcutaneous layer and afua for the skin. Sterile dressings were applied to the wound and patient left the operating room in satisfactory condition and tolerated the procedure well. I attest to the content of the Intraoperative Record and any orders documented therein. Any exception s are noted below.
[2016-11-24 16:52] VITALS: BP 168/52; PULSE 65; TEMP 36.3; O2SAT 95
[2016-11-24 17:52] VITALS: BP 155/60; PULSE 71; TEMP 36.5; O2SAT 94
[2016-11-24 18:45] VITALS: BP 157/63; PULSE 65; TEMP 36.4; O2SAT 92
[2016-11-24] MEDS: SIMVASTATIN 40 MG TAB PO SCH (20:39)
--- NOTE | 2016-11-24 21:47 | Progress Note ---
Progress Note Date of Service Nov 24, 2016. Progress Note 81-year-old female admitted with * Acute congestive heart failure * End-stage renal disease * Type 2 diabetes mellitus * Particular hypertension * History of paroxysmal atrial fibrillation * Chronic anemia Patient was admitted. She was started on IV Lasix. She had poor response. She was seen in nephrology consultation. A dialysis tunneled catheter was placed by Dr. Torres. Dialysis was initiated. Has been well tolerated. Her condition improved. She denied any headache or dizziness. No chest pain. No shortness of breath. She does have recurrent nausea. But her appetite is improving. No abdominal pain. No problems with her bowel movements. She does have residual urine output. EXAMINATION: GENERAL : Well developed. Well nourished. No acute distress. VITAL SIGNS : Blood Pressure : 154/63, pulse 65, respiration 20, temperature 37 , oxygen saturation 97% on 2 L oxygen SKIN : Warm and dry. No rash. HEENT :Oxygen cannula in place NECK : Supple. No adenopathy. No thyromegaly. No JVD. CHEST : dialysis catheter right side HEART: Regular heart tones with 2/6 systolic murmur. No rub no gallop. LUNGS: minimal basilar rales ABDOMEN: Soft nontender. No organomegaly or masses. ileostomy in place BACK: No spine or CVA tenderness. EXTREMITIES : No edema clubbing or cyanosis. No joint or muscle tenderness. fistula left arm. surgical dressing. Her fistula was revised today LABORATORY TESTS: WBC count 8640, hemoglobin 9.3, hematocrit 28.6, platelet count 2 40,000. Sodium 134, potassium 3.9, chloride 96, CO2 29, BUN 40, creatinine 5.1, glucose 202, calcium 8.6, phosphorus 5.8, albumin 3.0. ASSESSMENT: * acute congestive heart failure * End-stage renal disease * Type 2 diabetes mellitus with multiple complications * Arterial hypertension * AV fistula left arm. * Anemia required transfusion of one unit of packed RBCs PLAN: * her AV fistula was revised today * Continuing dialysis through her catheter * Because of the abnormality noted on her chest x-ray a CT scan without contrast was ordered for tomorrow * Physical and occupational therapies * Outpatient dialysis on a Tuesday, and Tuesday schedule * Anticipated that she will return home
[2016-11-25] VITALS (26 sets, daily range): BP systolic 92–153; BP diastolic 42–74; PULSE 58–75; TEMP 36.8–37.5; O2SAT 93–98
[2016-11-25] MEDS: NITROGLYCERIN OINT 2% 1GM PACKET EXT SCH ×4 (02:15→20:55)
[2016-11-25 06:07] LABS: BASO % 0.2 %; BASO ABS # 0.02 K/uL (0-0.2); COMPLETE YES; EOS % 2.6 %; HEMATOCRIT 27.8 % (37-47); IG% 0.7 %; LYMPH % 9.7 %; LYMPH ABS # 0.86 K/uL (1.2-3.4); MEAN CELL VOLUME 89.4 fL (80-100); MEAN CORPUSCULAR HEMOGLOBIN 28.9 pg (25-34); MEAN CORPUSCULAR HGB CONC 32.4 g/dl (32-36); MEAN PLATELET VOLUME 9.2 fL (7.4-10.4); MONO % 9.6 %; NEUT % 77.2 %; PLATELET COUNT 192 K/uL (130-400); RED BLOOD COUNT 3.11 M/uL (4.2-5.4); WHITE BLOOD COUNT 8.87 K/uL (4.8-10.8)
[2016-11-25 06:38] LABS: CREATININE 7.6 mg/dl (0.60-1.20)
[2016-11-25 06:39] LABS: BUN/CREATININE RATIO 8.4 (10-20); CALCIUM 8.3 mg/dl (8.5-10.1); PHOSPHORUS 7.9 mg/dl (2.5-4.9)
[2016-11-25] MEDS: BOOST GLUCOSE CONTROL PO SCH (07:30)
[2016-11-25] MEDS: CALCIUM CARBONATE 500 MG CHEWABLE PO SCH ×3 (07:41→16:09)
[2016-11-25] MEDS: LABETALOL HCL 200 MG TAB PO SCH ×3 (07:51→20:55)
[2016-11-25] MEDS: FERROUS SULFATE 325 MG TAB PO SCH (07:52)
[2016-11-25] MEDS: ALLOPURINOL 100 MG TAB PO SCH (07:52)
[2016-11-25] MEDS: CHOLECALCIFEROL 1000 INTER.UNIT TAB PO SCH (07:52)
--- NOTE | 2016-11-25 07:52 | Progress Note ---
Progress Note Date of Service: Nov 25, 2016. Subjective Mild incisional pain Problem List Medical Problems: (1) Anemia Status: Acute (2) CHF (congestive heart failure) Status: Acute (3) Chronic anemia Status: Acute (4) Chronic renal disease Status: Acute (5) End stage renal disease Status: Acute (6) Hypoxia Status: Acute (7) TIA (transient ischemic attack) Status: Acute (8) Uncontrolled diabetes mellitus Status: Acute Objective Vital Signs Vital Signs Past 12 Hours Date Time Temp Pulse Resp B/P (MAP) Pulse Ox O2 Delivery O2 Flow Rate FiO2 11/25/16 06:56 37.2 68 16 152/67 (95) 94 Nasal Cannula 2.0 11/25/16 04:21 36.8 75 18 147/64 (91) 96 Nasal Cannula 2.0 11/25/16 04:00 Nasal Cannula 3.0 11/25/16 00:20 37.5 69 20 148/62 (90) 94 Nasal Cannula 2.0 11/25/16 00:00 Nasal Cannula 3.0 11/24/16 20:00 Nasal Cannula 2.0 Exam VSS Afebrile Incision clean Good thrill in fistula Laboratory and Microbiology Results Past 24 Hours Test 11/24/16 11:22 11/24/16 16:06 11/24/16 20:15 11/25/16 02:17 Range/Units Bedside Glucose 204 197 305 198 70-90 mg/dl Test 11/25/16 05:54 11/25/16 06:40 Range/Units White Blood Count 8.87 4.8-10.8 K/uL Red Blood Count 3.11 4.2-5.4 M/uL Hemoglobin 9.0 12.0-16.0 g/dL Hematocrit 27.8 37-47 % Mean Corpuscular Volume 89.4 80-100 fL Mean Corpuscular Hemoglobin 28.9 25-34 pg Mean Corpuscular Hemoglobin Concent 32.4 32-36 g/dl Platelet Count 192 130-400 K/uL Mean Platelet Volume 9.2 7.4-10.4 fL Neutrophils (%) (Auto) 77.2 % Lymphocytes (%) (Auto) 9.7 % Monocytes (%) (Auto) 9.6 % Eosinophils (%) (Auto) 2.6 % Basophils (%) (Auto) 0.2 % Neutrophils # (Auto) 6.85 1.4-6.5 K/uL Lymphocytes # (Auto) 0.86 1.2-3.4 K/uL Monocytes # (Auto) 0.85 0.11-0.59 K/uL Eosinophils # (Auto) 0.23 0-0.5 K/uL Basophils # (Auto) 0.02 0-0.2 K/uL RDW Standard Deviation 51.1 36.4-46.3 fL RDW Coefficient of Variation 16.4 11.5-14.5 % Immature Granulocyte % (Auto) 0.7 % Immature Granulocyte # (Auto) 0.06 0.00-0.02 K/uL Nucleated RBC Absolute Count (auto) 0.03 0-0 K/uL Nucleated Red Blood Cells % 0.3 % Sodium Level 135 136-145 mmol/L Potassium Level 4.0 3.5-5.1 mmol/L Chloride Level 97 98-107 mmol/L Carbon Dioxide Level 28 21-32 mmol/L Anion Gap 10.0 3-11 mmol/L Blood Urea Nitrogen 64 7-18 mg/dl Creatinine 7.60 0.60-1.20 mg/dl Est Creatinine Clear Calc Drug Dose 5.2 ml/min Estimated GFR () 5.2 Estimated GFR (Non- 4.5 BUN/Creatinine Ratio 8.4 10-20 Random Glucose 190 70-99 mg/dl Calcium Level 8.3 8.5-10.1 mg/dl Phosphorus Level 7.9 2.5-4.9 mg/dl Albumin 2.8 3.4-5.0 gm/dl Bedside Glucose 193 70-90 mg/dl Imp: Post basilic vein transposition Plan: Will follow up in the office.
[2016-11-25] MEDS: PANTOprazole SOD 40 MG TAB PO SCH (07:53)
[2016-11-25] MEDS: ASPIRIN 81 MG ECTAB PO SCH (07:53)
[2016-11-25] MEDS: AMLODIPINE BESYLATE 5 MG TAB PO SCH (07:53)
[2016-11-25] MEDS: CALCITRIOL 0.25 MCG CAP PO SCH (07:53)
[2016-11-25] MEDS: MULTIPLE VITAMINS PO SCH ×2 (07:54→20:55)
[2016-11-25] MEDS: CEROVITE ADV FORMULA TAB PO SCH (07:54)
[2016-11-25] MEDS: MINERALS PO SCH ×2 (07:54→20:55)
[2016-11-25] MEDS: INSULIN GLARGINE SOLOSTAR 100 UNITS/ML 3 ML PEN SC SCH ×2 (07:57→20:58)
[2016-11-25] MEDS: INSULIN ASPART 100 UNITS/ML 3 ML PEN SC SCH ×4 (07:57→20:57)
[2016-11-25] MEDS: ANASTROZOLE 1 MG TAB PO SCH (07:58)
--- NOTE | 2016-11-25 08:09 | Anesthesiology Progress Note ---
Anesthesia Post Op Note Date & Time Nov 25, 2016 at 08:09 Vital Signs Pain Intensity: 0.0 Vital Signs Past 12 Hours Date Time Temp Pulse Resp B/P (MAP) Pulse Ox O2 Delivery O2 Flow Rate FiO2 11/25/16 06:56 37.2 68 16 152/67 (95) 94 Nasal Cannula 2.0 11/25/16 04:21 36.8 75 18 147/64 (91) 96 Nasal Cannula 2.0 11/25/16 04:00 Nasal Cannula 3.0 11/25/16 00:20 37.5 69 20 148/62 (90) 94 Nasal Cannula 2.0 11/25/16 00:00 Nasal Cannula 3.0 Notes Mental Status: alert / awake / arousable, participated in evaluation Pt Amnestic to Procedure: Yes Nausea / Vomiting: adequately controlled Pain: adequately controlled Airway Patency, RR, SpO2: stable & adequate BP & HR: stable & adequate Hydration State: stable & adequate Anesthetic Complications: no major complications apparent
--- NOTE | 2016-11-25 09:50 | Dialysis Progress Note ---
Hemodialysis Note Date of Service Nov 25, 2016. Chief Complaint F/U for end-stage renal disease. Goldy Sims was seen and examined during HD this morning. She has been tolerating HD well, BP stable, UO has been minimum. Denies any fever, significant pain at incision site or SOB. Review of Systems A complete review of systems was performed. Pertinent positives are noted above. All other systems are negative. Vital Signs Last 8 Hrs Date Time Temp Pulse Resp B/P (MAP) Pulse Ox O2 Delivery O2 Flow Rate FiO2 11/25/16 09:30 68 112/49 11/25/16 09:15 66 128/54 11/25/16 09:06 68 138/47 11/25/16 09:00 37.0 66 139/62 (87) 11/25/16 08:00 Nasal Cannula 2.0 11/25/16 06:56 37.2 68 16 152/67 (95) 94 Nasal Cannula 2.0 11/25/16 04:21 36.8 75 18 147/64 (91) 96 Nasal Cannula 2.0 11/25/16 04:00 Nasal Cannula 3.0 Last Recorded Weight Weight (Kilograms): 74.100 Physical Exam GENERAL: Elderly female, AAA x 3, pleasant, healthy-appearing, not in any distress. NECK: Supple, no JVD. Right IJ tunnel dialysis catheter area non tender, no active bleeding or erythema, dressing dry. RESPIRATORY: rales at left base CARDIOVASCULAR: S1, S2 normal, rate rhythm regular. EXTREMITY: No lower extremity edema, dressing dry at left arm AVF site. NEURO: speech fluent. PSYCHIATRY: Normal mood and judgment Social History Drug Use: none Marital Status: Occupation: retired Laboratory Results Past 24 Hours 11/25/16 05:54 Red Blood Count 3.11, Mean Corpuscular Volume 89.4, Mean Corpuscular Hemoglobin 28.9, Mean Corpuscular Hemoglobin Concent 32.4, Mean Platelet Volume 9.2, Neutrophils (%) (Auto) 77.2, Lymphocytes (%) (Auto) 9.7, Monocytes (%) (Auto) 9.6, Eosinophils (%) (Auto) 2.6, Basophils (%) (Auto) 0.2, Neutrophils # (Auto) 6.85, Lymphocytes # (Auto) 0.86, Monocytes # (Auto) 0.85, Eosinophils # (Auto) 0.23, Basophils # (Auto) 0.02 11/25/16 05:54 Test 11/24/16 11:22 11/24/16 16:06 11/24/16 20:15 11/25/16 02:17 Bedside Glucose 204 mg/dl (70-90) 197 mg/dl (70-90) 305 mg/dl (70-90) 198 mg/dl (70-90) Test 11/25/16 05:54 11/25/16 06:40 White Blood Count 8.87 K/uL (4.8-10.8) Red Blood Count 3.11 M/uL (4.2-5.4) Hemoglobin 9.0 g/dL (12.0-16.0) Hematocrit 27.8 % (37-47) Mean Corpuscular Volume 89.4 fL (80-100) Mean Corpuscular Hemoglobin 28.9 pg (25-34) Mean Corpuscular Hemoglobin Concent 32.4 g/dl (32-36) Platelet Count 192 K/uL (130-400) Mean Platelet Volume 9.2 fL (7.4-10.4) Neutrophils (%) (Auto) 77.2 % Lymphocytes (%) (Auto) 9.7 % Monocytes (%) (Auto) 9.6 % Eosinophils (%) (Auto) 2.6 % Basophils (%) (Auto) 0.2 % Neutrophils # (Auto) 6.85 K/uL (1.4-6.5) Lymphocytes # (Auto) 0.86 K/uL (1.2-3.4) Monocytes # (Auto) 0.85 K/uL (0.11-0.59) Eosinophils # (Auto) 0.23 K/uL (0-0.5) Basophils # (Auto) 0.02 K/uL (0-0.2) RDW Standard Deviation 51.1 fL (36.4-46.3) RDW Coefficient of Variation 16.4 % (11.5-14.5) Immature Granulocyte % (Auto) 0.7 % Immature Granulocyte # (Auto) 0.06 K/uL (0.00-0.02) Nucleated RBC Absolute Count (auto) 0.03 K/uL (0-0) Nucleated Red Blood Cells % 0.3 % Anion Gap 10.0 mmol/L (3-11) Est Creatinine Clear Calc Drug Dose 5.2 ml/min Estimated GFR () 5.2 Estimated GFR (Non- 4.5 BUN/Creatinine Ratio 8.4 (10-20) Calcium Level 8.3 mg/dl (8.5-10.1) Phosphorus Level 7.9 mg/dl (2.5-4.9) Albumin 2.8 gm/dl (3.4-5.0) Bedside Glucose 193 mg/dl (70-90) Allergies Coded Allergies: No Known Allergies (Unverified , 10/25/16) Medications Current Inpatient Medications Medications (Trade) Dose Ordered Sig/Camilo Route Start Time Stop Time Status Last Admin Dose Admin Allopurinol (Zyloprim Tab) 100 mg QAM PO 11/21/16 09:00 12/21/16 08:59 11/25/16 07:52 100 MG Amlodipine Besylate (Norvasc Tab) 5 mg QAM PO 11/21/16 09:00 12/21/16 08:59 11/25/16 07:53 5 MG Anastrozole (Arimidex Tab) 1 mg QAM PO 11/21/16 09:00 12/21/16 08:59 11/25/16 07:58 1 MG Aspirin (Ecotrin Tab) 81 mg QAM PO 11/21/16 09:00 12/21/16 08:59 11/25/16 07:53 81 MG Calcitriol (Rocaltrol Cap) 0.25 mcg QAM PO 11/21/16 09:00 12/21/16 08:59 11/25/16 07:53 0.25 MCG Ferrous Sulfate (Feosol Tab) 325 mg QAM PO 11/21/16 09:00 12/21/16 08:59 11/25/16 07:52 325 MG Labetalol HCl (Normodyne Tab) 200 mg TID PO 11/21/16 09:00 12/21/16 08:59 11/25/16 07:51 200 MG Pantoprazole Sodium (Protonix Tab) 40 mg QAM PO 11/21/16 09:00 12/21/16 08:59 11/25/16 07:53 40 MG Simvastatin (Zocor Tab) 40 mg QPM PO 11/21/16 21:00 12/21/16 20:59 11/24/16 20:39 40 MG Cholecalciferol (Vitamin D Tab) 5,000 inter.unit QAM PO 11/21/16 09:00 12/21/16 08:59 11/25/16 07:52 5,000 INTER.UNIT Multivitamins/ Minerals (Multivitamin W/ Minerals Tab) 1 tab QAM PO 11/21/16 09:00 12/21/16 08:59 11/23/16 08:06 1 TAB Insulin Aspart (novoLOG ASPART) SLIDING SCALE G... ACHS SC 11/21/16 07:00 12/21/16 06:59 11/25/16 07:57 7 UNITS Glucose (Glucose 40% Gel) 15-30 GRAMS 15 GRAMS... UD PRN PO 11/20/16 22:30 12/20/16 22:29 Glucose (Glucose Chew Tab) 4-8 Tablets 4 Tabl... UD PRN PO 11/20/16 22:30 12/20/16 22:29 Dextrose (Dextrose 50% 50ML Syringe) 25-50ML OF 50% DW IV FOR... UD PRN IV 11/20/16 22:30 12/20/16 22:29 Glucagon (Glucagon Inj) 1 mg UD PRN SQ 11/20/16 22:30 12/20/16 22:29 Ondansetron HCl 8 mg/Dextrose 54 ml @ 200 mls/hr Q4H PRN IV 11/21/16 08:00 12/21/16 07:59 11/24/16 08:49 200 MLS/HR Nitroglycerin (Nitroglycerin 2% Oint) 1 inch Q6H EXT 11/21/16 08:00 12/21/16 07:59 11/25/16 07:54 1 INCH Acetaminophen (Tylenol Tab) 500 mg Q4H PRN PO 11/21/16 08:00 12/21/16 07:59 Lorazepam (Ativan Tab) 0.5 mg Q6H PRN PO 11/21/16 08:00 12/21/16 07:59 Calcium Carbonate (Tums Chew Tab) 500 mg AC PO 11/21/16 11:00 12/21/16 10:59 11/25/16 07:41 500 MG Iron Sucrose 200 mg/Sodium Chloride 110 ml @ 420 mls/hr Q2D@1400 IV 11/21/16 14:00 11/29/16 14:16 11/23/16 13:59 420 MLS/HR Amino Acids/ Minerals/Vitamins (Preservision Areds 2) 1 cap BID PO 11/23/16 12:00 12/23/16 11:59 11/25/16 07:54 1 CAP Insulin Glargine (Lantus Solostar Pen) 15 units BID SC 11/23/16 21:00 12/23/16 20:59 11/25/16 07:57 15 UNITS Enteral Nutritional Formula (Boost) 1 can AC PO 11/25/16 11:00 12/25/16 10:59 Impression (1) End stage renal disease (2) Anemia (3) CHF (congestive heart failure) (4) Secondary hyperparathyroidism of renal origin (5) Metabolic acidosis (6) Diabetes (7) Nausea 81-year-old female with 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 Chest x-ray showed pulmonary congestion, on admission creatinine was 5.4 which worsened to 5.7 this morning, hemoglobin low at 7.5, has metabolic acidosis. She has been on IV Lasix with suboptimal response. Getting blood transfusion for drop in hemoglobin. Renal function overall worsening, with worsening volume status and electrolyte abnormality and anemia. Started on HD via TDC, has been tolerating well. Getting transposition of AVF. Recommendations --plan for 4 hours dialysis today with UF 1-2 liters as possible, with 2 K bath via TDC, had transposition of AV fistula on 11/24/16 --she is tentatively scheduled for outpatient dialysis on MWF at [facility] [place], second shift ( starts approximately around 10 to 11 am). --continue on Venofer 200 milligram IV every other day for 5 doses ( started on 11/21/16 ) --received Epogen 2000 units on 11/22/16, on Tums 1 tablet with each meal --avoid further IV fluid, avoid nephrotoxic medications and continue on renal diet --plan to have HD on Tuesday morning to transition to MWF schedule can be discharged tomorrow if otherwise clinically stable Will follow
[2016-11-25] MEDS: BOOST VANILLA PO SCH ×4 (11:00→16:07)
[2016-11-25] MEDS: IRON SUCROSE INJ 200 MG in SODIUM CHLORIDE 0.9% 100ML 100 ML IV SCH (14:37)
--- NOTE | 2016-11-25 18:04 | Progress Note ---
Progress Note Date of Service Nov 25, 2016. Progress Note 81-year-old female admitted with * Acute congestive heart failure * End-stage renal disease * Type 2 diabetes mellitus with triopathy * Arterial hypertension * Hyperlipidemia * Remote history of ulcerative colitis has a permanent ileostomy Patient was admitted. Given IV Lasix. Response was not adequate. She was seen in nephrology consultation. A tunneled dialysis catheter was placed by Dr. Torres. Dialysis was initiated. She was markedly anemic. She required transfusion of 1 unit of packed RBCs. Her condition started to improve. She denied any headache. No dizziness. No chest pain. No shortness of breath. No abdominal pain. Her appetite was poor. There was no problem with her ileostomy output. She does have residual urine output. Denied any pain in her back or extremities. Yesterday her AV fistula in the left arm was revised. EXAMINATION She is well-developed. No distress. Vital signs blood pressure 152/67, pulse 68, respirations 16, temperature 37.2. Oxygen saturation 94% on 2 L oxygen by nasal cannula. Skin is warm and dry. No rash. HEENT no mucosal abnormality Neck is supple without lymph node or thyroid enlargement. No JVD. Chest tunneled dialysis catheter right side Heart regular heart sounds Lungs are clear decreased breath sounds at the bases Abdomen is soft nontender. Ileostomy in place Extremities no edema clubbing or cyanosis. Fistula left arm. LABORATORY TESTS WBC count 8870, hemoglobin 9, hematocrit 27.8, platelet count 1 92,000. Sodium 135, potassium 4.0, chloride 97, carbon dioxide 28, BUN 64, creatinine 7.6, glucose 190, calcium 8.3, phosphorus 7.9, albumin 2.8. ASSESSMENT * Acute congestive heart failure * End-stage renal disease * Initiation of hemodialysis * Arterial hypertension * Type 2 diabetes mellitus * Multiple diabetic complications with the triopathy * Revision of left arm AV fistula * Insertion of a tunneled dialysis catheter PLAN * Continue all her medications * Dialyzed today * Checking a CT scan of the chest without contrast because of the finding on her chest x-ray with suspected nodularity in the mid lung field * Physical and Occupational Therapy * Working on discharge planning * She will be dialyzed as an outpatient but the schedule is Tuesday and Tuesday * Will check a two-step test to make sure that she is oxygenating adequately
--- NOTE | 2016-11-25 18:35 | DIAGNOSTIC IMAGING REPORT ---
CT OF THE CHEST WITHOUT IV CONTRAST CLINICAL HISTORY: Abnormal chest radiograph. Right lung nodularity. Acute congestive heart failure. COMPARISON STUDY: Chest radiograph November 23, [address] October 01, [address] of the abdomen and pelvis September 06, 2013. CT DOSE: 845.29 mGy.cm TECHNIQUE: Axial images of the chest were obtained without IV contrast. Images were reviewed in the axial, sagittal, and coronal planes. IV contrast was not administered for this examination. A dose lowering technique was utilized adhering to the principles of ALARA. FINDINGS: A right internal jugular dual-lumen dialysis catheter is in place. The heart is moderately enlarged. No pericardial effusion is present. A right breast seroma cavity is noted. There are trace bilateral pleural effusions with no pneumothorax. Mild groundglass opacities are noted within the lungs. There are multiple calcified and noncalcified pulmonary nodules. The noncalcified nodules within the lower lungs are unchanged from earlier abdominal CT of September 06, 2013 consistent with a benign etiology. These include a 1.3 x 0.5 cm right lower lobe nodule shown image 30 of 60 and a 7 mm left lower lobe nodule shown image 33. Additional pulmonary nodules are unchanged since a CT of October 01, 2015. There are no new pulmonary nodules. The central airways are patent. Calcified subcarinal and right hilar lymph nodes indicate a prior granulomatous process. A 1.3 cm sclerotic lesion within the left posterior aspect of the T4 vertebral body is unchanged since exam of October 01, 2015. This is likely benign. Postoperative findings within the left upper extremity are partially imaged with skin afua and soft tissue gas. Upper abdomen is unremarkable on this unenhanced exam. There are calcified granulomas within the spleen. IMPRESSION: 1. No change in multiple pulmonary nodules since earlier CT exams. Stability over this time period is consistent with a benign etiology and likely related to a granulomatous process. 2. No evidence of metastatic disease within the chest. 3. Mild ground glass opacities within the lungs which favor mild pulmonary edema. An infectious process could appear similar although is considered less likely. 4. Trace bilateral pleural effusions. Electronically signed by: Pardeep Barth M.D. 11/25/2016 6:34 PM Dictated Date/Time: 11/25/2016 6:00 PM
[2016-11-25] MEDS ORDERED: NITROGLYCERIN OINT 2% 1GM PACKET ONE (20:51)
[2016-11-25] MEDS: SIMVASTATIN 40 MG TAB PO SCH (20:55)
[2016-11-26] VITALS (20 sets, daily range): BP systolic 121–156; BP diastolic 53–70; PULSE 63–74; TEMP 36.5–37; O2SAT 91–97
[2016-11-26] MEDS: NITROGLYCERIN OINT 2% 1GM PACKET EXT SCH ×4 (02:28→20:21)
[2016-11-26] MEDS: BOOST VANILLA PO SCH ×6 (07:58→16:15)
[2016-11-26] MEDS: INSULIN ASPART 100 UNITS/ML 3 ML PEN SC SCH ×4 (07:59→20:42)
[2016-11-26] MEDS: MULTIPLE VITAMINS PO SCH ×2 (08:00→20:21)
[2016-11-26] MEDS: INSULIN GLARGINE SOLOSTAR 100 UNITS/ML 3 ML PEN SC SCH ×2 (08:00→20:42)
[2016-11-26] MEDS: MINERALS PO SCH ×2 (08:00→20:21)
[2016-11-26] MEDS: ANASTROZOLE 1 MG TAB PO SCH (08:00)
[2016-11-26] MEDS: ALLOPURINOL 100 MG TAB PO SCH (08:01)
[2016-11-26] MEDS: CALCIUM CARBONATE 500 MG CHEWABLE PO SCH ×3 (08:01→16:15)
[2016-11-26] MEDS: PANTOprazole SOD 40 MG TAB PO SCH (08:01)
[2016-11-26] MEDS: AMLODIPINE BESYLATE 5 MG TAB PO SCH (08:02)
[2016-11-26] MEDS: ASPIRIN 81 MG ECTAB PO SCH (08:02)
[2016-11-26] MEDS: CHOLECALCIFEROL 1000 INTER.UNIT TAB PO SCH (08:02)
[2016-11-26] MEDS: CEROVITE ADV FORMULA TAB PO SCH (08:02)
[2016-11-26] MEDS: CALCITRIOL 0.25 MCG CAP PO SCH (08:02)
[2016-11-26] MEDS: FERROUS SULFATE 325 MG TAB PO SCH (08:02)
[2016-11-26 08:15] LABS: BASO % 0.5 %; BASO ABS # 0.04 K/uL (0-0.2); EOS % 2.3 %; HEMATOCRIT 26.4 % (37-47); IG% 0.9 %; LYMPH % 11.5 %; LYMPH ABS # 0.86 K/uL (1.2-3.4); MEAN CELL VOLUME 90.4 fL (80-100); MEAN CORPUSCULAR HEMOGLOBIN 29.5 pg (25-34); MEAN CORPUSCULAR HGB CONC 32.6 g/dl (32-36); MEAN PLATELET VOLUME 8.9 fL (7.4-10.4); MONO % 11.1 %; NEUT % 73.7 %; PLATELET COUNT 212 K/uL (130-400); RED BLOOD COUNT 2.92 M/uL (4.2-5.4); WHITE BLOOD COUNT 7.47 K/uL (4.8-10.8)
[2016-11-26 08:36] LABS: COMPLETE YES; POLYCHROMASIA 1+
[2016-11-26 08:55] LABS: BUN/CREATININE RATIO 6.2 (10-20); CALCIUM 8.5 mg/dl (8.5-10.1); CREATININE 5.7 mg/dl (0.60-1.20); PHOSPHORUS 5.8 mg/dl (2.5-4.9); POTASSIUM 3.9 mmol/L (3.5-5.1)
[2016-11-26] MEDS: LABETALOL HCL 200 MG TAB PO SCH ×3 (09:00→20:21)
--- NOTE | 2016-11-26 10:52 | Nephrology Progress Note ---
Nephrology Progress Note Date of Service Nov 26, 2016. Chief Complaint ESRD Subjective Bethany was seen and evaluated during HD this morning. Qb appropriate via TDC. BP normotensive. She is tolerating 1 L UF goal. Bethany had no complaints or concerns about treatment. She expressed that she will be comfortable going home tomorrow. Activity tolerance remains slightly limited by dyspnea. Appetite is fair. She denies chest pain or palpitations. She denies significant orthopnea. She has minimal pain in her left UE at the surgical site and incision appears to be healing well. She has been out of bed and ambulating in the [place]. Review of Systems A complete review of systems was performed. Pertinent positives are noted above. All other systems are negative. Vital Signs Last 8 Hrs Date Time Temp Pulse Resp B/P (MAP) Pulse Ox O2 Delivery O2 Flow Rate FiO2 11/26/16 09:30 37.0 67 141/56 (84) 11/26/16 08:00 Nasal Cannula 2.0 11/26/16 06:50 36.8 64 17 153/66 (95) 91 Nasal Cannula 1.0 11/26/16 04:00 Nasal Cannula 2.0 11/26/16 03:53 36.9 70 20 156/62 (93) 94 2.0 Last Recorded Weight Weight (Kilograms): 74.200 Physical Exam General Appearance: WD/WN, no apparent distress Head: normocephalic, atraumatic Eyes: normal inspection, sclerae normal ENT: normal ENT inspection, pharynx normal Neck: supple, no JVD, + pertinent finding (RIJ TDC) Respiratory/Chest: lungs clear, no respiratory distress, no accessory muscle use Cardiovascular: regular rate, rhythm, no gallop Abdomen/GI: non tender, soft Extremities/Musculoskelatal: normal inspection, no pedal edema, + pertinent finding (LUE with incision well approximated with afua intact, no significant erthema or bruising) Neurologic/Psych: alert, oriented x 3 Family History Diabetes mellitus Hypertension Social History Drug Use: none Marital Status: Occupation: retired Laboratory Results Past 24 Hours 11/26/16 07:47 Red Blood Count 2.92, Mean Corpuscular Volume 90.4, Mean Corpuscular Hemoglobin 29.5, Mean Corpuscular Hemoglobin Concent 32.6, Mean Platelet Volume 8.9, Neutrophils (%) (Auto) 73.7, Lymphocytes (%) (Auto) 11.5, Monocytes (%) (Auto) 11.1, Eosinophils (%) (Auto) 2.3, Basophils (%) (Auto) 0.5, Neutrophils # (Auto ) 5.50, Lymphocytes # (Auto) 0.86, Monocytes # (Auto) 0.83, Eosinophils # (Auto ) 0.17, Basophils # (Auto) 0.04 11/26/16 07:47 Test 11/25/16 13:41 11/25/16 15:54 11/25/16 20:16 11/26/16 06:35 Bedside Glucose 124 mg/dl (70-90) 211 mg/dl (70-90) 260 mg/dl (70-90) 180 mg/dl (70-90) Test 11/26/16 07:47 White Blood Count 7.47 K/uL (4.8-10.8) Red Blood Count 2.92 M/uL (4.2-5.4) Hemoglobin 8.6 g/dL (12.0-16.0) Hematocrit 26.4 % (37-47) Mean Corpuscular Volume 90.4 fL (80-100) Mean Corpuscular Hemoglobin 29.5 pg (25-34) Mean Corpuscular Hemoglobin Concent 32.6 g/dl (32-36) Platelet Count 212 K/uL (130-400) Mean Platelet Volume 8.9 fL (7.4-10.4) Neutrophils (%) (Auto) 73.7 % Lymphocytes (%) (Auto) 11.5 % Monocytes (%) (Auto) 11.1 % Eosinophils (%) (Auto) 2.3 % Basophils (%) (Auto) 0.5 % Neutrophils # (Auto) 5.50 K/uL (1.4-6.5) Lymphocytes # (Auto) 0.86 K/uL (1.2-3.4) Monocytes # (Auto) 0.83 K/uL (0.11-0.59) Eosinophils # (Auto) 0.17 K/uL (0-0.5) Basophils # (Auto) 0.04 K/uL (0-0.2) RDW Standard Deviation 52.4 fL (36.4-46.3) RDW Coefficient of Variation 16.7 % (11.5-14.5) Immature Granulocyte % (Auto) 0.9 % Immature Granulocyte # (Auto) 0.07 K/uL (0.00-0.02) Polychromasia 1+ Anion Gap 11.0 mmol/L (3-11) Est Creatinine Clear Calc Drug Dose 7.0 ml/min Estimated GFR () 7.4 Estimated GFR (Non- 6.3 BUN/Creatinine Ratio 6.2 (10-20) Calcium Level 8.5 mg/dl (8.5-10.1) Phosphorus Level 5.8 mg/dl (2.5-4.9) Albumin 2.9 gm/dl (3.4-5.0) Allergies Coded Allergies: No Known Allergies (Unverified , 10/25/16) Medications Current Inpatient Medications Medications (Trade) Dose Ordered Sig/Camilo Route Start Time Stop Time Status Last Admin Dose Admin Allopurinol (Zyloprim Tab) 100 mg QAM PO 11/21/16 09:00 12/21/16 08:59 11/26/16 08:01 100 MG Amlodipine Besylate (Norvasc Tab) 5 mg QAM PO 11/21/16 09:00 12/21/16 08:59 11/26/16 08:02 5 MG Anastrozole (Arimidex Tab) 1 mg QAM PO 11/21/16 09:00 12/21/16 08:59 11/26/16 08:00 1 MG Aspirin (Ecotrin Tab) 81 mg QAM PO 11/21/16 09:00 12/21/16 08:59 11/26/16 08:02 81 MG Calcitriol (Rocaltrol Cap) 0.25 mcg QAM PO 11/21/16 09:00 12/21/16 08:59 11/26/16 08:02 0.25 MCG Ferrous Sulfate (Feosol Tab) 325 mg QAM PO 11/21/16 09:00 12/21/16 08:59 11/26/16 08:02 325 MG Labetalol HCl (Normodyne Tab) 200 mg TID PO 11/21/16 09:00 12/21/16 08:59 11/25/16 20:55 200 MG Pantoprazole Sodium (Protonix Tab) 40 mg QAM PO 11/21/16 09:00 12/21/16 08:59 11/26/16 08:01 40 MG Simvastatin (Zocor Tab) 40 mg QPM PO 11/21/16 21:00 12/21/16 20:59 11/25/16 20:55 40 MG Cholecalciferol (Vitamin D Tab) 5,000 inter.unit QAM PO 11/21/16 09:00 12/21/16 08:59 11/26/16 08:02 5,000 INTER.UNIT Multivitamins/ Minerals (Multivitamin W/ Minerals Tab) 1 tab QAM PO 11/21/16 09:00 12/21/16 08:59 11/26/16 08:02 1 TAB Insulin Aspart (novoLOG ASPART) SLIDING SCALE G... ACHS SC 11/21/16 07:00 12/21/16 06:59 11/26/16 07:59 6 UNITS Glucose (Glucose 40% Gel) 15-30 GRAMS 15 GRAMS... UD PRN PO 11/20/16 22:30 12/20/16 22:29 Glucose (Glucose Chew Tab) 4-8 Tablets 4 Tabl... UD PRN PO 11/20/16 22:30 12/20/16 22:29 Dextrose (Dextrose 50% 50ML Syringe) 25-50ML OF 50% DW IV FOR... UD PRN IV 11/20/16 22:30 12/20/16 22:29 Glucagon (Glucagon Inj) 1 mg UD PRN SQ 11/20/16 22:30 12/20/16 22:29 Ondansetron HCl 8 mg/Dextrose 54 ml @ 200 mls/hr Q4H PRN IV 11/21/16 08:00 12/21/16 07:59 11/24/16 08:49 200 MLS/HR Nitroglycerin (Nitroglycerin 2% Oint) 1 inch Q6H EXT 11/21/16 08:00 12/21/16 07:59 11/26/16 08:01 1 INCH Acetaminophen (Tylenol Tab) 500 mg Q4H PRN PO 11/21/16 08:00 12/21/16 07:59 Lorazepam (Ativan Tab) 0.5 mg Q6H PRN PO 11/21/16 08:00 12/21/16 07:59 Calcium Carbonate (Tums Chew Tab) 500 mg AC PO 11/21/16 11:00 12/21/16 10:59 11/26/16 08:01 500 MG Iron Sucrose 200 mg/Sodium Chloride 110 ml @ 420 mls/hr Q2D@1400 IV 11/21/16 14:00 11/29/16 14:16 11/25/16 14:37 420 MLS/HR Amino Acids/ Minerals/Vitamins (Preservision Areds 2) 1 cap BID PO 11/23/16 12:00 12/23/16 11:59 11/26/16 08:00 1 CAP Insulin Glargine (Lantus Solostar Pen) 15 units BID SC 11/23/16 21:00 12/23/16 20:59 11/26/16 08:00 15 UNITS Enteral Nutritional Formula (Boost) 1 can AC PO 11/25/16 11:00 12/25/16 10:59 Impression (1) End stage renal disease (2) Anemia (3) CHF (congestive heart failure) (4) Secondary hyperparathyroidism of renal origin (5) Metabolic acidosis (6) Diabetes (7) Nausea Bethany is an 81-year-old female with 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 She started on hemodialysis on Tuesday via a TDC. AVF was intact but had not matured to use. Medical history is notable for anemia, metabolic acidosis and secondary hyperparathyroidism. She was admitted to the hospital with CHF exacerbation with diastolic dysfunction and anemia. She did receive a PRBC transfusion for anemia. Clinically, she has improved well with HD and improvement of anemia. UF appropriate. Third dialysis treatment completed yesterday with adequate Qb Bethany was evaluated during HD this morning. Catheter functioning well. BP and volume status are appropriate. I spoke with Lissette Crisostomo PA-C regarding AVF. Recommendations -- HD today: 3 hrs, Qb 400/Qd 600. 3K bath. UF goal 1 kg. -- s/p transposition of AV fistula on 11/24/16 -- Scheduled for outpatient dialysis on MWF at [facility]. She has instructions for Tuesday morning (9:30 AM). She has made arrangements for transportation on Tuesday. She plans on using [facility] in the future. -- Venofer 200 milligram with HD (may stop oral FeSO4) -- Epogen 4000 QHD -- Tums 1 tablet with each meal -- D3 and calcitriol as Rx -- Medications are appropriately dosed for renal function -- Discharge home when medically stable
[2016-11-26] MEDS: ONDANSETRON INJ 8 MG in DEXTROSE 5% 50ML 50 ML IV PRN (13:26)
--- NOTE | 2016-11-26 17:43 | Progress Note ---
Progress Note Date of Service Nov 26, 2016. Progress Note 81-year-old female with * Acute congestive heart failure * End-stage renal disease * Type 2 diabetes mellitus * Multiple diabetic complications with the triopathy * Arterial hypertension * History of nephrolithiasis * History of ulcerative colitis has a permanent ileostomy * AV fistula which required revision Patient did not respond to IV Lasix. A tunneled dialysis catheter was placed. Hemodialysis was initiated. Her left arm fistula was revised during her hospitalization. She did not have evidence of any myocardial infarction. She had a normal hyperdynamic left ventricular ejection fraction. There was some abnormality on her chest x-ray and a CT scan of the chest was done without contrast. There was no evidence of any metastatic disease as suspected initially. Today she has been doing quite well. She tolerated her dialysis without any problem. She has been out of bed. She ambulated. She had a two-step test done. She will not need home oxygen. EXAMINATION She is well-developed. No distress. Her condition has markedly improved Vital signs blood pressure 153/66, pulse 64, respirations 17, temperature 36.8, oxygen saturation 91% on 1 L oxygen by nasal cannula. Now her oxygen saturation is 92% on room air skin is warm and dry. No rash HEENT she does have known macular degeneration also diabetic complications Neck is supple without adenopathy or thyromegaly. No JVD. Chest tunneled dialysis catheter in place on the right side Heart regular heart sounds. Lungs are clear. Abdomen is soft nontender. Ileostomy in place. Back no spinal tenderness. Extremities fistula left arm. Was advised. LABORATORY TESTS WBC count 7470, hemoglobin 8.6, hematocrit 26.4, platelet count 212,000. Sodium 136, potassium 3.9, chloride 100, CO2 25, BUN 36, creatinine 5.7, glucose 160, calcium 8.5, phosphorus 5.8, albumin 2.9 ASSESSMENT * Acute congestive heart failure * End-stage renal disease * Initiation of dialysis * Revision of AV fistula * Type 2 diabetes mellitus * Arterial hypertension * History of SVT * History of gout * History of ulcerative colitis has a permanent ileostomy PLAN * Her condition has markedly improved. Her congestive heart failure resolved. She is tolerating dialysis. * Continuing her medications * She is doing well with ambulation * She would not need home oxygen * Arrangements already made for her for outpatient dialysis starting Tuesday * If her condition remains stable tonight without any problems I anticipate discharging her tomorrow
[2016-11-26] MEDS: SIMVASTATIN 40 MG TAB PO SCH (20:22)
[2016-11-27 00:02] VITALS: BP 133/71; PULSE 70; TEMP 37.7; O2SAT 90
[2016-11-27] MEDS: NITROGLYCERIN OINT 2% 1GM PACKET EXT SCH ×2 (01:52→07:33)
[2016-11-27 04:09] VITALS: BP 130/61; PULSE 67; TEMP 36.7; O2SAT 93
[2016-11-27] MEDS: CALCIUM CARBONATE 500 MG CHEWABLE PO SCH (07:33)
[2016-11-27] MEDS: BOOST VANILLA PO SCH ×2 (07:45)
[2016-11-27 07:54] VITALS: BP 175/71; PULSE 71; TEMP 36.8; O2SAT 91
[2016-11-27 08:06] LABS: BASO % 0.3 %; BASO ABS # 0.02 K/uL (0-0.2); COMPLETE YES; EOS % 2.5 %; HEMATOCRIT 28.1 % (37-47); IG% 0.4 %; LYMPH ABS # 0.98 K/uL (1.2-3.4); MEAN CELL VOLUME 88.9 fL (80-100); MEAN CORPUSCULAR HEMOGLOBIN 30.4 pg (25-34); MEAN CORPUSCULAR HGB CONC 34.2 g/dl (32-36); MEAN PLATELET VOLUME 8.8 fL (7.4-10.4); MONO % 9.9 %; NEUT % 73.9 %; PLATELET COUNT 198 K/uL (130-400); RED BLOOD COUNT 3.16 M/uL (4.2-5.4); WHITE BLOOD COUNT 7.54 K/uL (4.8-10.8)
[2016-11-27 08:42] LABS: CALCIUM 8.9 mg/dl (8.5-10.1); CREATININE 5.2 mg/dl (0.60-1.20); PHOSPHORUS 5.2 mg/dl (2.5-4.9); POTASSIUM 3.7 mmol/L (3.5-5.1)
--- NOTE | 2016-11-27 08:48 | Discharge Instructions ---
Discharge Instructions Date of Service Nov 27, 2016. Admission Reason for Admission: ACUTE CONGESTIVE HEART FAILURE END-STAGE RENAL FAILURE INITIATION OF HEMODIALYSIS TYPE 2 DIABETES MELLITUS MULTIPLE DIABETIC COMPLICATIONS WITH TRIOPATHY ARTERIAL HYPERTENSION HYPERLIPIDEMIA GOUT AV FISTULA REVISION Discharge Discharge Diagnosis / Problem: ACUTE CONGESTIVE HEART FAILURE, ENDSTAGE RENAL FAILURE Discharge Goals Goal(s): Decrease discomfort, Improve function, Increase independence, Improve disease control, Improve nutritional status Activity Recommendations Activity Limitations: resume your previous activity . Instructions / Follow-Up Instructions / Follow-Up DIALYSIS SCHEDULED ON TUESDAY DR THOR DRIVER IN ONE WEEK DR WILEY Current Hospital Diet Patient's current hospital diet: Renal Diet, Diabetes Type 2 Diet Discharge Diet Recommended Diet: Diabetes Type 2 Diet, Renal Diet Procedures Procedures Performed: Left upper extremity basilic vein transposition to cephalic vein Pending Studies Studies pending at discharge: no Laboratory Results Hemoglobin A1c Test 10/12/16 08:50 Range/Units Estimated Average Glucose 180 mg/dl Hemoglobin A1c 7.9 H 4.5-5.6 % Lipid Panel Test 10/12/16 08:50 Range/Units Triglycerides Level 199 H 0-150 mg/dl Cholesterol Level < 50 0-200 mg/dl HDL Cholesterol 36 mg/dl LDL Cholesterol Direct 76 mg/dl Cholesterol/HDL Ratio LDL Cholesterol, Calculated mg/dl Medical Emergencies . Who to Call and When: Medical Emergencies: If at any time you feel your situation is an emergency, please call 911 immediately. . Non-Emergent Contact Non-Emergency issues call your: Primary Care Provider . . "Provider Documentation" section prepared by Danielito Driver. . VTE Core Measure Inpt VTE Proph given/why not?: Treatment not indicated
[2016-11-27] MEDS: CHOLECALCIFEROL 1000 INTER.UNIT TAB PO SCH (08:59)
[2016-11-27] MEDS: AMLODIPINE BESYLATE 5 MG TAB PO SCH (08:59)
[2016-11-27] MEDS: ALLOPURINOL 100 MG TAB PO SCH (08:59)
[2016-11-27] MEDS: ASPIRIN 81 MG ECTAB PO SCH (08:59)
[2016-11-27] MEDS: CEROVITE ADV FORMULA TAB PO SCH (08:59)
[2016-11-27] MEDS: CALCITRIOL 0.25 MCG CAP PO SCH (08:59)
[2016-11-27] MEDS: PANTOprazole SOD 40 MG TAB PO SCH (08:59)
[2016-11-27] MEDS: ANASTROZOLE 1 MG TAB PO SCH (09:03)
[2016-11-27] MEDS: INSULIN ASPART 100 UNITS/ML 3 ML PEN SC SCH (09:04)
[2016-11-27] MEDS: INSULIN GLARGINE SOLOSTAR 100 UNITS/ML 3 ML PEN SC SCH (09:05)
[2016-11-27] MEDS: LABETALOL HCL 200 MG TAB PO SCH (09:06)
[2016-11-27] MEDS: MULTIPLE VITAMINS PO SCH (09:06)
[2016-11-27] MEDS: MINERALS PO SCH (09:06)
[2016-11-27 09:57] VITALS: BP 175/71; PULSE 71; TEMP 36.8; O2SAT 91
--- NOTE | 2016-11-27 11:53 | Nephrology Progress Note ---
Nephrology Progress Note Date of Service Nov 27, 2016. Chief Complaint ESRD Goldy Sims was seen and evaluated this morning. She was feeling well and looking forward to returning home. She reported confidence in her support at home. She expressed an understanding of the plan of care. She denied significant pain. She denied shortness of breath. Appetite is good. Review of Systems A complete review of systems was performed. Pertinent positives are noted above. All other systems are negative. Vital Signs Last 8 Hrs Date Time Temp Pulse Resp B/P (MAP) Pulse Ox O2 Delivery O2 Flow Rate FiO2 11/27/16 09:57 36.8 71 16 91 Room Air 11/27/16 07:54 36.8 71 16 175/71 (105) 91 Room Air 11/27/16 04:09 36.7 67 17 130/61 (84) 93 Room Air 11/27/16 04:00 Room Air Last Recorded Weight Weight (Kilograms): 72.700 Physical Exam General Appearance: WD/WN, no apparent distress Head: normocephalic, atraumatic Eyes: normal inspection, sclerae normal ENT: normal ENT inspection, pharynx normal Neck: supple, no JVD, + pertinent finding (RIJ TDC intact) Cardiovascular: regular rate, rhythm, no gallop, no murmur Abdomen/GI: non tender, soft Extremities/Musculoskelatal: normal inspection, no pedal edema, + pertinent finding (LUE AVF with afua intact, incision well apprioximated and healing appropriately without significant surrounding eryhtema or bruising) Neurologic/Psych: alert, normal mood/affect Family History Diabetes mellitus Hypertension Social History Drug Use: none Marital Status: Occupation: retired Laboratory Results Past 24 Hours 11/27/16 07:56 Red Blood Count 3.16, Mean Corpuscular Volume 88.9, Mean Corpuscular Hemoglobin 30.4, Mean Corpuscular Hemoglobin Concent 34.2, Mean Platelet Volume 8.8, Neutrophils (%) (Auto) 73.9, Lymphocytes (%) (Auto) 13.0, Monocytes (%) (Auto) 9.9, Eosinophils (%) (Auto) 2.5, Basophils (%) (Auto) 0.3, Neutrophils # (Auto) 5.57, Lymphocytes # (Auto) 0.98, Monocytes # (Auto) 0.75, Eosinophils # (Auto) 0.19, Basophils # (Auto) 0.02 11/27/16 07:56 Test 11/26/16 13:17 11/26/16 16:31 11/26/16 20:36 11/27/16 06:23 Bedside Glucose 115 mg/dl (70-90) 244 mg/dl (70-90) 294 mg/dl (70-90) 174 mg/dl (70-90) Test 11/27/16 07:56 White Blood Count 7.54 K/uL (4.8-10.8) Red Blood Count 3.16 M/uL (4.2-5.4) Hemoglobin 9.6 g/dL (12.0-16.0) Hematocrit 28.1 % (37-47) Mean Corpuscular Volume 88.9 fL (80-100) Mean Corpuscular Hemoglobin 30.4 pg (25-34) Mean Corpuscular Hemoglobin Concent 34.2 g/dl (32-36) Platelet Count 198 K/uL (130-400) Mean Platelet Volume 8.8 fL (7.4-10.4) Neutrophils (%) (Auto) 73.9 % Lymphocytes (%) (Auto) 13.0 % Monocytes (%) (Auto) 9.9 % Eosinophils (%) (Auto) 2.5 % Basophils (%) (Auto) 0.3 % Neutrophils # (Auto) 5.57 K/uL (1.4-6.5) Lymphocytes # (Auto) 0.98 K/uL (1.2-3.4) Monocytes # (Auto) 0.75 K/uL (0.11-0.59) Eosinophils # (Auto) 0.19 K/uL (0-0.5) Basophils # (Auto) 0.02 K/uL (0-0.2) RDW Standard Deviation 52.0 fL (36.4-46.3) RDW Coefficient of Variation 16.7 % (11.5-14.5) Immature Granulocyte % (Auto) 0.4 % Immature Granulocyte # (Auto) 0.03 K/uL (0.00-0.02) Anion Gap 11.0 mmol/L (3-11) Est Creatinine Clear Calc Drug Dose 7.7 ml/min Estimated GFR () 8.2 Estimated GFR (Non- 7.1 BUN/Creatinine Ratio 6.0 (10-20) Calcium Level 8.9 mg/dl (8.5-10.1) Phosphorus Level 5.2 mg/dl (2.5-4.9) Albumin 2.9 gm/dl (3.4-5.0) Allergies Coded Allergies: No Known Allergies (Unverified , 10/25/16) Medications Current Inpatient Medications Medications (Trade) Dose Ordered Sig/Camilo Route Start Time Stop Time Status Last Admin Dose Admin Allopurinol (Zyloprim Tab) 100 mg QAM PO 11/21/16 09:00 12/21/16 08:59 11/27/16 08:59 100 MG Amlodipine Besylate (Norvasc Tab) 5 mg QAM PO 11/21/16 09:00 12/21/16 08:59 11/27/16 08:59 5 MG Anastrozole (Arimidex Tab) 1 mg QAM PO 11/21/16 09:00 12/21/16 08:59 11/27/16 09:03 1 MG Aspirin (Ecotrin Tab) 81 mg QAM PO 11/21/16 09:00 12/21/16 08:59 11/27/16 08:59 81 MG Calcitriol (Rocaltrol Cap) 0.25 mcg QAM PO 11/21/16 09:00 12/21/16 08:59 11/27/16 08:59 0.25 MCG Labetalol HCl (Normodyne Tab) 200 mg TID PO 11/21/16 09:00 12/21/16 08:59 11/27/16 09:06 200 MG Pantoprazole Sodium (Protonix Tab) 40 mg QAM PO 11/21/16 09:00 12/21/16 08:59 11/27/16 08:59 40 MG Simvastatin (Zocor Tab) 40 mg QPM PO 11/21/16 21:00 12/21/16 20:59 11/26/16 20:22 40 MG Cholecalciferol (Vitamin D Tab) 5,000 inter.unit QAM PO 11/21/16 09:00 12/21/16 08:59 11/27/16 08:59 5,000 INTER.UNIT Multivitamins/ Minerals (Multivitamin W/ Minerals Tab) 1 tab QAM PO 11/21/16 09:00 12/21/16 08:59 11/27/16 08:59 1 TAB Insulin Aspart (novoLOG ASPART) SLIDING SCALE G... ACHS SC 11/21/16 07:00 12/21/16 06:59 11/27/16 09:04 6 UNITS Glucose (Glucose 40% Gel) 15-30 GRAMS 15 GRAMS... UD PRN PO 11/20/16 22:30 12/20/16 22:29 Glucose (Glucose Chew Tab) 4-8 Tablets 4 Tabl... UD PRN PO 11/20/16 22:30 12/20/16 22:29 Dextrose (Dextrose 50% 50ML Syringe) 25-50ML OF 50% DW IV FOR... UD PRN IV 11/20/16 22:30 12/20/16 22:29 Glucagon (Glucagon Inj) 1 mg UD PRN SQ 11/20/16 22:30 12/20/16 22:29 Ondansetron HCl 8 mg/Dextrose 54 ml @ 200 mls/hr Q4H PRN IV 11/21/16 08:00 12/21/16 07:59 11/26/16 13:26 200 MLS/HR Nitroglycerin (Nitroglycerin 2% Oint) 1 inch Q6H EXT 11/21/16 08:00 12/21/16 07:59 11/27/16 07:33 1 INCH Acetaminophen (Tylenol Tab) 500 mg Q4H PRN PO 11/21/16 08:00 12/21/16 07:59 11/27/16 10:43 500 MG Lorazepam (Ativan Tab) 0.5 mg Q6H PRN PO 11/21/16 08:00 12/21/16 07:59 Calcium Carbonate (Tums Chew Tab) 500 mg AC PO 11/21/16 11:00 12/21/16 10:59 11/27/16 07:33 500 MG Iron Sucrose 200 mg/Sodium Chloride 110 ml @ 420 mls/hr Q2D@1400 IV 11/21/16 14:00 11/29/16 14:16 11/25/16 14:37 420 MLS/HR Amino Acids/ Minerals/Vitamins (Preservision Areds 2) 1 cap BID PO 11/23/16 12:00 12/23/16 11:59 11/27/16 09:06 1 CAP Insulin Glargine (Lantus Solostar Pen) 15 units BID SC 11/23/16 21:00 12/23/16 20:59 11/27/16 09:05 15 UNITS Enteral Nutritional Formula (Boost) 1 can AC PO 11/25/16 11:00 12/25/16 10:59 Impression (1) End stage renal disease (2) Anemia (3) CHF (congestive heart failure) (4) Secondary hyperparathyroidism of renal origin (5) Metabolic acidosis (6) Diabetes (7) Nausea Bethany is an 81-year-old female with 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 She started on hemodialysis on November 22 via a TDC. AVF has not matured to use. Medical history is notable for anemia, metabolic acidosis and secondary hyperparathyroidism. She was admitted to the hospital with CHF exacerbation with diastolic dysfunction and anemia. She did receive a PRBC transfusion for anemia. Clinically, she has improved well with HD and improvement of anemia. UF appropriate. She completed a complete HD treatment with Qb 400 yesterday without complications. Her weight following treatment ~ 72 kg. JoCatheter functioning well. BP and volume status are appropriate. Recommendations -- s/p transposition of AV fistula on 11/24/16 -- Scheduled for outpatient dialysis on MWF at [facility] [place]. She has instructions for Tuesday morning (9:30 AM). She has made arrangements for transportation on Tuesday. She plans on using [facility] in the future. -- Tums 1 tablet with each meal -- D3 and calcitriol as Rx -- Medications are appropriately dosed for renal function -- Discharge home today
--- NOTE | 2016-11-27 17:48 | Progress Note ---
Progress Note Date of Service Nov 27, 2016. Progress Note 81-year-old female admitted with acute congestive heart failure. She has end-stage kidney disease. Type 2 diabetes mellitus with multiple complications, arterial hypertension, hyperlipidemia. Patient was admitted. She was started on dialysis through a tunneled to dialysis catheter. She also had a revision of her AV fistula in the left arm. Her condition improved. Her congestive heart failure resolved. There was no evidence of myocardial infarction. Her echocardiogram showed a hyperdynamic left ventricle she was markedly anemic. She did require transfusion of one unit of packed RBCs. She denied any headaches. No dizziness no lightheadedness. No chest pain. No shortness of breath. Poor appetite but improving. No nausea no vomiting. No problem with her bowel movements. She does have residual urine output. No pain in her back. Some discomfort in the left arm the site of her AV fistula which was revised. EXAMINATION GENERAL : Well developed. Well nourished. No acute distress. VITAL SIGNS : Blood Pressure : 175/71, pulse 71, respiration 16, temperature 36.8, oxygen saturation 91% on room air. SKIN : Warm and dry. No rash. HEENT :No mucosal abnormalities. Known diabetic retinopathy NECK : Supple. No adenopathy. No thyromegaly. No JVD. CHEST: Tunneled right-sided dialysis catheter HEART: Regular heart tones with 2/6 systolic murmur. No rub no gallop. LUNGS: Clear. Normal breath sounds. ABDOMEN: Soft nontender. No organomegaly or masses.ileostomy in place EXTREMITIES: No edema. AV fistula left arm. Cinthia in place. LABORATORY TESTS : WBC count 7548, hemoglobin 9.6, hematocrit 28.1, platelet count 198,000. Sodium 133, potassium 3.7, chloride 99, CO2 24, BUN 31, creatinine 5.2, glucose 163, calcium 8.9, phosphorus 5.2, albumin 2.9. ASSESSMENT: * acute congestive heart failure * End-stage kidney disease * Initiation of dialysis * Type 2 diabetes mellitus with triopathy * Arterial hypertension * AV fistula left arm required revision PLAN * All arrangements have been made for her to have outpatient dialysis on Tuesday and Tuesday * Patient was discharged today * Followup in the office in one week * Followup with Dr. Torres * Nephrology followup
--- NOTE | 2016-12-09 21:35 | Discharge Summary ---
Discharge Summary Date of Service Dec 09, 2016. Discharge Summary ADMISSION DATE:11/20/2016 DISCHARGE DATE:11/27/2016 DISCHARGE DIAGNOSES: * acute congestive heart failure * End-stage renal disease * Initiation of hemodialysis * Type 2 diabetes mellitus with multiple complications including nephropathy, neuropathy, retinopathy. * Arterial hypertension * Hyperlipidemia * Revision of AV fistula * History of nephrolithiasis * History of ulcerative colitis status post total colectomy * breast carcinoma DISCHARGE MEDICATIONS: * allopurinol 100 mg daily * amlodipine 5 mg daily * Anastrozole 1 mg daily * Aspirin 81 mg daily * Calcitriol 0.25 mcg daily * Vitamin D 3 5000 units daily * Ferrous sulfate 325 mg daily * Novolin insulin 70/30 55 units in the morning and 35 units in the evening * Labetalol 200 mg 3 times a day * Multivitamin with minerals one daily * PreserVision one capsule twice a day * Pantoprazole 40 mg daily * Simvastatin 40 mg daily CONSULTATION: * Dr Annemarie Chris in nephrology * Dr. Figueroa Torres in vascular surgery PROCEDURES : * Placement of a tunneled dialysis catheter * Revision of left AV fistula * Initiation of hemodialysis 81-year-old female admitted through the emergency room with rapidly progressive shortness of breath and evidence of acute congestive heart failure. She was also complaining of nausea. Patient with an extensive medical history including chronic kidney disease, arterial hypertension, paroxysmal atrial fibrillation, type 2 diabetes mellitus with multiple complications, atherosclerotic vascular disease, remote history of ulcerative colitis. Patient does live at home. The day prior to her admission she was treated fine. On the day of admission she started complaining of shortness of breath. It did worsen throughout the day. She was markedly dyspneic. Even when she got up and walk 10 steps in her how with. She denied any associated headache or dizziness or lightheadedness. She did not experience any chest pain. No cough no sputum. No hemoptysis. She was feeling nauseous. No vomiting. She insisted on staying home. Her sister visited her. She called her daughter who lives in [place]. Her daughter called back and insisted that an ambulance because and she is brought to the emergency room. She was evaluated. She was found to be in congestive heart failure. She was given one dose of IV Lasix 40 mg. Her blood pressure was markedly elevated. After evaluation in the emergency room patient was admitted to PCU with telemetry. PAST MEDICAL HISTORY, SOCIAL HISTORY, FAMILY HISTORY: As noted on admission history and physical ALLERGIES: NONE ADMISSION MEDICATIONS: As noted on the home medication list PHYSICAL EXAMINATION AND LABORATORY TESTS ARE NOTED ON ADMISSION HITORY AND PHYSICAL HOSPITAL COURSE: as noted in the emergency room she was given the first dose of Lasix 40 mg IV. She did not have an adequate response. She was given a second dose of 80 mg of IV Lasix. She was given oxygen by nasal cannula. She was started on topical nitrates. Patient was admitted to PCU with telemetry. Resuscitation level I. All her laboratory tests were ordered. Echocardiogram was ordered. Cardiac isoenzymes and electrocardiograms were ordered. Nephrology consultation was requested. Her response to IV Lasix was not adequate. Patient was seen in nephrology consultation. Vascular surgery consultation was requested. Dr. Torres placed a tunneled dialysis catheter. Dialysis was initiated. It was very well tolerated. Her condition started to improve. Her congestive heart failure started to resolve. She did not have any evidence of myocardial infarction. Her echocardiogram showed a normal left ventricular ejection fraction. Patient had an AV fistula in her left arm but it was not adequate. Dr. Torres was able to do a revision of the fistula do not hospitalization. Her condition started to improve. Her appetite was poor. It did start to improve. She was tolerating her dialysis. Physical and occupational therapies were ordered. Her activity was increased. She was tolerating that. Her chest x-ray was normal. There was suspicion of nodular lesions. CT scan of the chest without contrast was done. She did have multiple pulmonary nodules. But they have been stable compared to prior studies. The prior CT scan was back in 2013. Given the interval between the [address] scans malignancy was not suspected. Because of severe anemia patient was transfused one unit of packed RBCs over 4 hours. This was prior to the initiation of her dialysis. Her condition stabilized. She tolerated dialysis without any problem. Her condition improved. She was tolerating her diet. She was ambulating. She was discharged home. Patient was to followup with Dr. Torres in vascular surgery. Her dialysis schedule was on Tuesday and Tuesday. She was to see me in the office for followup.
== END 2016-11-27 14:25 | disposition home or self-care (01) | DRG 252 ==
LOC: EDBD 19:36 → C.EDB 19:38 → C.2T 22:01 → ENRESERV 22:23
PROVIDERS: ADMIT Internal Medicine; ATTEND Internal Medicine
PROC: 05HM33Z Insertion of Infusion Device into Right Internal Jugular Vein, Percutaneous Approach (ICD-10-PCS; principal; 2016-11-22 09:00)
PROC: 051C0ZY Bypass Left Basilic Vein to Upper Vein, Open Approach (ICD-10-PCS; 2016-11-24)
DX: I13.2 Hypertensive heart and chronic kidney disease with heart failure and with stage 5 chronic kidney disease, or end stage renal disease (principal); I50.31 Acute diastolic (congestive) heart failure; N18.6 End stage renal disease; E87.2 Acidosis; N25.81 Secondary hyperparathyroidism of renal origin; T82.590A Other mechanical complication of surgically created arteriovenous fistula, initial encounter; E11.319 Type 2 diabetes mellitus with unspecified diabetic retinopathy without macular edema; E11.21 Type 2 diabetes mellitus with diabetic nephropathy; E11.40 Type 2 diabetes mellitus with diabetic neuropathy, unspecified; E78.5 Hyperlipidemia, unspecified; M10.9 Gout, unspecified; I70.90 Unspecified atherosclerosis; I48.0 Paroxysmal atrial fibrillation; E11.22 Type 2 diabetes mellitus with diabetic chronic kidney disease; Z90.49 Acquired absence of other specified parts of digestive tract; Z83.3 Family history of diabetes mellitus; Z85.3 Personal history of malignant neoplasm of breast; Z93.2 Ileostomy status; Z86.73 Personal history of transient ischemic attack (TIA), and cerebral infarction without residual deficits; Z82.49 Family history of ischemic heart disease and other diseases of the circulatory system; Z79.4 Long term (current) use of insulin; Z79.82 Long term (current) use of aspirin; D63.1 Anemia in chronic kidney disease

== ENCOUNTER → 2017-01-27 | Outpatient (CLI) | payer OTHER, BC ==
[~2017-01-27] MED LIST changes: +ALL100 PO; -ALLO1TAB51 PO; -ANAS1TAB6 PO; +ARM1 PO; +ASPI81TA28 PO; -CALC0.2510 PO; +CALC1CAP36 PO; -CHOL1TAB2 PO; +CHOLCAP5 PO; -CLOP1TAB15 PO; -DIPH-437 PO; +FERR325T5 PO; -FERR325T51 PO; -LABE200T24 PO; +LBT200 PO; -MULT-190 PO; +MULT60CA PO; -OXYC-57 PO
--- NOTE | 2017-01-27 14:28 | MAMMOGRAPHY REPORT ---
UNILATERAL RIGHT DIGITAL DIAGNOSTIC MAMMOGRAM TOMOSYNTHESIS WITH CAD: 01/27/2017 CLINICAL HISTORY: History right breast cancer status post lumpectomy August 2015. The patient had a re cent dialysis catheter placed while her AV fistula matures, and she is unsure when it will be removed . She denies any palpable lumps or other complaints. TECHNIQUE: Breast tomosynthesis in addition to standard 2D mammography was performed. Current study was also evaluated with a Computer Aided Detection (CAD) system. Right CC and MLO 2-D and tomosynthe sis images were obtained. COMPARISON: Comparison is made to exams dated: 07/28/2016 mammogram, 01/28/2016 ultrasound, 6 mammogram, 07/22/2015 mammogram, 07/10/2015 mammogram, and 02/16/2012 mammogram - [facility]. BREAST COMPOSITION: There are scattered areas of fibroglandular density in the right breast. FINDINGS: Note that the images are suboptimal as the dialysis catheter overlies the right breast and obscures portions of the right breast and degrades the images. Note that the lumpectomy bed is also not completely included on the images due to difficulties with positioning due to the catheter. Sp ot magnification views were not performed of the lumpectomy bed due to the dialysis catheter. Again n oted is a oval mass at the lumpectomy bed in the right lateral breast, compatible with a postsurgical fluid collection. The mass is decreased compared to the prior exam, previously measuring approximat jayson 4.2 cm, currently measuring approximately 3.1 cm when measuring in a similar fashion. There are no suspicious masses, calcifications, or areas of architectural distortion noted in the right breast, within the limitations of the exam. Scattered benign calcifications, predominantly vascular calcifi cations, are again noted. IMPRESSION: ACR-BI-RADS CATEGORY 3: PROBABLY BENIGN Markedly limited exam as described above due to the dialysis catheter overlying the right chest. Wit hin the limitations of the exam, there is no mammographic evidence of malignancy in the right breast. The post surgical fluid collection at the lumpectomy bed has decreased in size. Recommend bilatera l diagnostic tomosynthesis mammograms in 6 months, to reevaluate right breast posttreatment changes a nd for routine mammography of the left breast. The patient has been verbally notified of the results. Approximately 10% of breast cancers are not detected with mammography. A negative mammographic report should not delay biopsy if a clinically suggestive mass is present. Evy Mckeon M.D. ah/:01/27/2017 11:03:51 Electro Mechanic: Ena ARRIAZA)([place]lin), [facility] letter sent: Personal History 3 BI-RADS Code: ACR-BI-RADS Category 3: Probably Benign
== END | disposition home or self-care (01) ==
LOC: C.MAMM 10:25
PROVIDERS: ATTEND Nurse Practitioner Family
DX: Z85.3 Personal history of malignant neoplasm of breast (principal); Z08 Encounter for follow-up examination after completed treatment for malignant neoplasm

== ENCOUNTER → 2017-02-17 | Outpatient (CLI) | payer OTHER, BC ==
[~2017-02-17] MED LIST changes: +B-COCAP21 PO; +CALC667C4 PO; +CHOL1TAB46 PO; +COLC0.6T54 PO; -INSU1INJ17 SC; +INSU1INJ17 SQ; +LABE1TAB28 PO; +MRLP17 PO; +ONDA-170 PO; +ONDA4TAB46 PO; +PRD10 PO; +SODIUM BICARBONATE PO; +[UNRECOGNIZED DRUG - REMARK]
--- NOTE | 2017-02-17 11:05 | DIAGNOSTIC IMAGING REPORT ---
CT SCAN OF THE CHEST WITHOUT IV CONTRAST CLINICAL HISTORY: Breast cancer. COMPARISON STUDY: Chest CT scan dated 11/25/2016. Abdominal CT dated 12/13/2013. TECHNIQUE: CT scan of the thorax was performed from the thoracic inlet to the upper abdomen. Images are reviewed in the axial, sagittal, and coronal planes. IV contrast was not administered for this examination. A dose lowering technique was utilized adhering to the principles of ALARA. CT DOSE: 309.12 mGycm FINDINGS: Thyroid: Imaged portions of the thyroid gland are normal in size and attenuation. Thoracic aorta: There is atherosclerotic calcification of the thoracic aorta, which is normal in caliber and demonstrates standard 3-vessel arch anatomy. A right internal jugular central venous catheter is in place. Heart: The heart is mildly enlarged and without pericardial effusion. The coronary arteries are densely calcified. Lungs and pleural spaces: There is no airspace consolidation typical for pneumonia. A trace right pleural effusion persists. Foci of scarring versus atelectasis are noted at the lung bases. The trachea and central airways are clear. Scattered calcified granulomas are observed. There are numerous (at least 10) pulmonary nodules identified. The largest is located in the right lower lobe on image 167 and measures 1.4 cm. Lesions in the left lower lobe on images #191 and #182 measure up to 0.8 cm. Additional smaller nodules are identified. These are similar in size and distribution to the 11/25/2016 examination. Mediastinum: There is no pathologically enlarged mediastinal lymph nodes. Calcified mediastinal nodes are identified. Kya: There are calcified right hilar lymph nodes. No hilar adenopathy is seen. The kya are not well assessed without IV contrast. Axillae: There is no axillary lymphadenopathy. Upper abdomen: There is a tiny hiatal hernia. Numerous calcified granulomas are identified in the liver and spleen. Skeletal structures: The skeletal structures are osteopenic. Mild degenerative change is noted in the shoulders and thoracic spine. No lytic or blastic bony lesions are seen. There are healed right-sided rib fractures. Soft tissues: There is a 2.9 cm cystic structure identified in the right breast on image #148, likely representing a postoperative seroma. Surgical clips are seen in this region. IMPRESSION: 1. There is no definite evidence of intrathoracic metastatic disease. 2. A small fluid collection in the right breast likely represents a postoperative seroma. 3. There is a trace residual right pleural effusion. No airspace consolidation is seen typical for pneumonia. 4. There are numerous (at least 10) pulmonary nodules scattered throughout both lungs measuring up to 1.4 cm. The visualized nodules at the lung bases have not significantly changed dating back to 10/03/[address] and these are of low suspicion. No new pulmonary lesion is identified. 5. Mild cardiomegaly. 6. Additional findings as above. Electronically signed by: Lico Chance M.D. 02/17/2017 11:03 AM Dictated Date/Time: 02/17/2017 10:54 AM
== END | disposition home or self-care (01) ==
LOC: C.CTS 10:10
PROVIDERS: ATTEND Nurse Practitioner Family
DX: C50.811 Malignant neoplasm of overlapping sites of right female breast (principal)

== ENCOUNTER 2017-03-22 06:10 | Day surgery (SDC) | payer OTHER, BC ==
[2017-03-11 08:38] VITALS: BMI 29.0
[~2017-03-22] VITALS: Ht 157.5 cm; Wt 72.7 kg
--- NOTE | 2017-03-22 05:49 | History and Physical ---
History & Physical Date of Service Mar 22, 2017. History & Physical CC: End stage renal disease, malfunctioning of left arm av fistula HPI: Ms Farr is an 80 yo F with a PMH of T2DM, HTN, iron deficiency anemia, Breast Cancer and UC s/p total colectomy who is having difficulty at dialysis with her fistula. She had a left arm fistula created which had a large branch and wass not maturing as it should, The was treated endovascularly with good results. She now is having difficulty with the fistula. She denies recent sxs of TIA, numbness or weakness in the arms, or sxs of claudication with ambulation. 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 Allergies NKDA Social History: Lives at home with daughter who requires her care. Has another daughter that lives in [place]. Physical Exam General: Well Developed Well Nourished in no acute distress Cardiovascular: Regular Rhythm, Bradycardia, no murmurs. No Carotid Bruits Respiratory: Lungs clear to auscultation bilaterally. No wheezes or rhonchi Extremeties: 2+ Radial, DP and PT pulses bilaterally. Good thrill in proximal fistula Integumentary: Warm and Dry Psych: Appropriate mood and affect Assessment and Plan: End stage renal disease Malfunctioning fistula left arm Plan: Patient is admitted for a left antecubital vein fistulogram with possible intervention. I have discussed the risks options and benefits of the procedure with the patient. The patient understands the risks options and benefits and agrees to the procedure.
[~2017-03-22 06:10] MED LIST changes: -CALC1CAP36 PO; +CEFAZOLIN 1000MG IV PUSH 7.5 ML IV SCH; -CHOL1TAB46 PO; -CHOLCAP5 PO; -COLC0.6T54 PO; +D5W AND 1/4NSS 1000 ML IV SCH; +INSU1INJ17 SC; -INSU1INJ17 SQ; -LABE1TAB28 PO; -MRLP17 PO; -ONDA-170 PO; -ONDA4TAB46 PO; -PRD10 PO; -SODIUM BICARBONATE PO; +SODIUM CHLORIDE 0.9% 1000ML 1,000 ML IV SCH; -[UNRECOGNIZED DRUG - REMARK]
[2017-03-22 06:40] VITALS: BP 92/47; PULSE 79; TEMP 36.8; O2SAT 93; Ht 157.5 cm; Wt 72.7 kg
[2017-03-22] MEDS ORDERED: FENTANYL CITRATE INJ 50 MCG/1 ML 2 ML VIAL ONE (07:43)
[2017-03-22] MEDS ORDERED: MIDAZOLAM HCL 1 MG/ML 2ML VIAL ONE (07:43)
--- NOTE | 2017-03-22 07:46 | Pre Sedation Assessment ---
Pre Sedation Assessment General Date of Sedation: Mar 22, 2017. Vital Signs Past 12 Hours Date Time Temp Pulse Resp B/P (MAP) Pulse Ox O2 Delivery O2 Flow Rate FiO2 03/22/17 06:40 36.8 79 20 92/47 (62) 93 Room Air Review Cardiovascular: regular rate, rhythm Lungs: lungs clear Pre-Sedation Airway Assessment Smoking Status: Never Smoker Hx of Sleep Apnea: No Short Thick Neck: No Oral Cavity: Capped Teeth, WNL Mallampati Classification: Class I ASA Classification: Class III NPO Status Date of Last Intake of Fluids: Mar 21, 2017 Time of Last Intake of Fluids: 2100 Date of Last Intake of Solids: Mar 21, 2017 Time of Last Intake of Solids: 2099 Notes The planned sedation has been discussed with the patient. Informed Consent was obtained. I have identified the patient, determined the appropriateness of sedation and have assessed the patient immediately prior to the procedure. All medicine(s) and interventions are by my order.
--- NOTE | 2017-03-22 09:00 | [facility] Post Operative Brief Note ---
Immediate Operative Summary Operative Date Mar 22, 2017. Pre-Operative Diagnosis End Stage Renal Disease, Malfunctioning left arm fistula Post-Operative Diagnosis Venous stenosis Procedure(s) Performed Fistulogram left arm [employer] venous Surgeon Dr. Torres Promotions Intern Surgeon(s) Shalini Herrera MD Estimated Blood Loss 3 Findings Consistent with Post-Op Diagnosis Specimens none per surgeon Drains None Anesthesia Type IV Sedat Cons RN Only Complication(s) none Disposition Accompanied Pt To Recover: no Disposition:
--- NOTE | 2017-03-22 09:01 | Discharge Instructions ---
Discharge Instructions Date of Service Mar 22, 2017. Visit Reason for Visit: End Stage Renal Disease Discharge Discharge Diagnosis / Problem: stenosis of fistula Discharge Goals Goal(s): Therapeutic intervention Activity Recommendations Activity Limitations: per Instructions/Follow-up section Anesthesia . Post Anesthesia Instructions: If you have had General Anesthesia or IV Sedation: * Do not drive today. * Resume driving when surgeon permits. * Do not make important decisions or sign legal documents today. * Call surgeon for: 1. Temperature elevations greater than 101 degrees F. 2. Uncontrollable pain. 3. Excessive bleeding. 4. Persistent nausea and vomiting. 5. Medication intolerance (nausea, vomiting or rash). * For nausea and vomiting use only clear liquids such as: tea, soda, bouillon until nausea subsides, then gradually increase diet as tolerated. * If you have any concerns or questions, call your surgeon's office. If physician is unavailable and it is an emergency, call 911 or go to the nearest emergency room. . Instructions / Follow-Up Instructions / Follow-Up Call [phone] with any questions or concerns. SPECIAL CARE INSTRUCTIONS: Medications: * Continue to take your medications as directed. If you have been given a prescription for Plavix, please fill it immediately and take as directed. Incision Care: * Your puncture site may have some bruising and minor swelling for about one week. * You will have a small dressing covering your puncture site. You may remove the dressing after 24 hours and shower. You may let the warm soapy water run over it, but be sure to dry the puncture site well and keep it dry. * DO NOT IMMERSE THE INCISION IN A TUB/POOL/etc. UNTIL HEALED. * Puncture sites should be kept covered with a band-aid until it begins to heal. Restrictions: * Depending on whether you leg or arm was punctured to access the arteries, you will be required to lay flat, hold your arm still, or both, for about 4 hours after the procedure to prevent bleeding. * Limit your activity for the first 48 hours. You may walk and go up and down steps. Avoid excessive bending or movement at the puncture site. Possible Complications: * Excessive Swelling - after blood flow is improved you may notice increased swelling in the lower legs. This is a normal response. This usually depends on the amount of blockages in the leg, how long they have been there prior to your procedure and how much blood flow was restored. Elevating your legs will help to improve this. Please notify our office ([phone] ) if the swelling does not go away after lying in bed overnight. * Infection/Drainage/Bleeding - Drainage or bleeding from the puncture site should be minimal. If you have excessive bleeding or drainage, call our office ([phone]) right away. * Pain - You may experience some mild pain or soreness at your puncture site. If your pain does not improve, please contact our office ([phone]). Call your doctor and seek emergent treatment if you develop: * Temperature above 101 degrees * Any fever or chills * Any redness or purulent drainage from the puncture site * Any new dusky/blue colored toes or feet with coolness or sharp or aching pain. SKIN IRRITATION: * You may experience some redness and/or swelling in the area where radiation was administered. If any skin irritation occurs, please contact your family physician. FOLLOW UP VISIT: Keep any scheduled doctor appointments. Diet Recommendations Recommended Home Diet: resume previous diet Procedures Procedures Performed: Fistulogram left arm [employer] venous Pending Studies Studies pending at discharge: no Medical Emergencies . Who to Call and When: Medical Emergencies: If at any time you feel your situation is an emergency, please call 911 immediately. . Non-Emergent Contact Non-Emergency issues call your: Surgeon . . "Provider Documentation" section prepared by Figueroa Torres. .
--- NOTE | 2017-03-22 09:34 | DIAGNOSTIC IMAGING REPORT ---
DATE OF PROCEDURE: 03/22/2017 PREOPERATIVE DIAGNOSIS: Left arm arteriovenous fistula dysfunction. POSTOPERATIVE DIAGNOSIS: Left arm arteriovenous fistula dysfunction. PROCEDURE: Left arm fistulogram. ANESTHESIA: Local. SURGEON: Dr. Figueroa Torres. SENIOR PRODUCT MARKETING MANAGER: Dr. Shalini Herrera. BLOOD LOSS: 2 mL INDICATIONS: Mrs. Bethany Farr is an 81-year-old woman with history of end-stage renal disease, on hemodialysis. She has a left AV fistula with decreased thrill in the fistula. For this reason, she was recommended to undergo left arm fistulogram. The risks, benefits and alternatives were discussed with the patient and she consented to the procedure. DESCRIPTION OF PROCEDURE: The patient was taken to the operating room and placed in supine position. Her left arm was prepped and draped in the usual sterile fashion. A safety timeout was performed, and the patient, procedure and sidedness were correctly identified. Local anesthesia was used to anesthetize the skin overlying the AV fistula close to the antecubital fossa. Micropuncture needle was used to access the AV fistula, followed by a micropuncture wire and micropuncture sheath. A fistulogram was obtained and showed the portion of the fistula close to the shoulder and centrally appeared patent without any stenosis. Manual compression was held over the fistula on upper humerus and retrograde fistulogram was obtained. This showed a focal area of stenosis approximately 2 cm beyond the AV anastomosis within the venous portion of the fistula. Given the proximity to our access site, we felt that it was best to puncture into retrograde. Local anesthesia was used to anesthetize the skin at the level of the mid humerus. Micropuncture needle was again used to access the fistula and our catheter was directed toward the arteriovenous anastomosis. A 6-Yi sheath was placed. Angled Glidewire was used to cross the lesion. A 6 x 20 cm balloon was then advanced over the wire into the area of stenosis and inflated. Fistulogram was again obtained and showed that the lesion had not resolved. For this reason, an 8 x 20 mm balloon was then chosen and advanced over the wire to the area of stenosis. This was again inflated. Completion fistulogram was obtained following withdrawal of the balloon which showed resolution of the stenosis. All wires, catheters and sheaths were removed, and manual pressure was held over 2 access sites for approximately 5 minutes with good hemostasis. Sterile dressings were applied. The patient was transferred to the recovery area in stable condition. There were no immediate complications. Dr. Figueroa Torres was present for the entire procedure.
[2017-03-22 09:38] VITALS: BP 116/54; PULSE 73; TEMP 37; O2SAT 95
[2017-03-22 09:45] VITALS: BP 123/54; PULSE 80; TEMP 36.4; O2SAT 96
[2017-03-22 10:15] VITALS: BP 118/55; PULSE 80; TEMP 36.4; O2SAT 97
== END 2017-03-22 10:30 | disposition home or self-care (01) ==
LOC: C.ACU 06:10
PROVIDERS: ATTEND Surgery Vascular Surgery
DX: T82.858A Stenosis of other vascular prosthetic devices, implants and grafts, initial encounter (principal); Y84.8 Other medical procedures as the cause of abnormal reaction of the patient, or of later complication, without mention of misadventure at the time of the procedure; N18.6 End stage renal disease; Z99.2 Dependence on renal dialysis; E11.22 Type 2 diabetes mellitus with diabetic chronic kidney disease; I12.0 Hypertensive chronic kidney disease with stage 5 chronic kidney disease or end stage renal disease; D50.9 Iron deficiency anemia, unspecified; C50.911 Malignant neoplasm of unspecified site of right female breast; Z90.89 Acquired absence of other organs; N25.81 Secondary hyperparathyroidism of renal origin; E55.9 Vitamin D deficiency, unspecified; Z86.73 Personal history of transient ischemic attack (TIA), and cerebral infarction without residual deficits; N20.0 Calculus of kidney; Z90.11 Acquired absence of right breast and nipple; Z79.82 Long term (current) use of aspirin; Z79.899 Other long term (current) drug therapy; Z82.49 Family history of ischemic heart disease and other diseases of the circulatory system; Z83.3 Family history of diabetes mellitus

== ENCOUNTER → 2017-04-11 | Outpatient (CLI) | payer OTHER, BC ==
[~2017-04-11] MED LIST changes: -CEFAZOLIN 1000MG IV PUSH 7.5 ML IV SCH; -D5W AND 1/4NSS 1000 ML IV SCH; -SODIUM CHLORIDE 0.9% 1000ML 1,000 ML IV SCH
--- NOTE | 2017-04-11 16:37 | DIAGNOSTIC IMAGING REPORT ---
PELVIC ULTRASOUND, TRANSABDOMINAL AND TRANSVAGINAL HISTORY: VAGINAL BLEEDING COMPARISON: None. FINDINGS: Uterus: 9.6 x 5.2 x 5.7 cm. Heterogeneous area posterior to the uterus likely represents a bowel loop. Endometrial stripe: Abnormally thickened measuring up to 2.9 cm. There is fluid and a 3.7 x 1.9 cm heterogeneous area within the endometrium. This demonstrates minimal color flow and is highly suspicious for an endometrial mass. Right ovary: Obscured by overlying bowel gas. Left ovary: Normal in size and demonstrates normal color flow. Miscellaneous:Minimal pelvic free fluid. IMPRESSION: 1. A 3.7 x 1.9 cm heterogeneous area within the thickened endometrium which demonstrates minimal color flow. Therefore, this is highly suspicious for an endometrial mass. Gynecologic consultation is recommended. 2. Normal left ovary. The right ovary was not visualized. 3. Minimal pelvic free fluid. Electronically signed by: Mitesh Puga M.D. 04/11/2017 4:36 PM Dictated Date/Time: 04/11/2017 4:33 PM
== END | disposition home or self-care (01) ==
LOC: C.ULTR 15:39
PROVIDERS: ATTEND Internal Medicine
DX: N93.9 Abnormal uterine and vaginal bleeding, unspecified (principal)

== ENCOUNTER 2017-05-10 06:27 | Day surgery (SDC) | payer OTHER, BC ==
[~2017-05-10] VITALS: Ht 157.5 cm; Wt 73.0 kg
--- NOTE | 2017-05-10 05:59 | History and Physical ---
History & Physical Date of Service May 10, 2017. History & Physical CC: End stage renal disease, functioning left arm av fistula HPI: Ms Farr is an 80 yo F with a PMH of T2DM, HTN, iron deficiency anemia, Breast Cancer and UC s/p total colectomy who is having difficulty at dialysis with her fistula. She had a left arm fistula created which had a large branch and was not maturing as it should, The was treated endovascularly with good results. She had difficulty with the fistula. She underwent PROCESS MANUFACTURING ENGINEER of the fistula with good results and now is running well at dialysis. She is here today for a permcath removal. She denies recent sxs of TIA, numbness or weakness in the arms, or sxs of claudication with ambulation. 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 Allergies NKDA Social History: Lives at home with daughter who requires her care. Has another daughter that lives in [place]. Physical Exam General: Well Developed Well Nourished in no acute distress Cardiovascular: Regular Rhythm, Bradycardia, no murmurs. No Carotid Bruits Respiratory: Lungs clear to auscultation bilaterally. No wheezes or rhonchi Extremeties: 2+ Radial, DP and PT pulses bilaterally. Good thrill in fistula Integumentary: Warm and Dry Psych: Appropriate mood and affect Assessment and Plan: End stage renal disease Functioning fistula left arm Plan: Patient is admitted for removal of her permcath. I have discussed the risks options and benefits of the procedure with the patient. The patient understands the risks options and benefits and agrees to the procedure.
[~2017-05-10 06:27] MED LIST changes: +CEFAZOLIN 1000MG IV PUSH 7.5 ML IV SCH; +D5W AND 1/4NSS 1,000 ML IV SCH; -INSU1INJ17 SC; +INSU1INJ17 SQ
[2017-05-10 07:05] VITALS: BP 105/43; PULSE 79; TEMP 36.9; O2SAT 96; Ht 157.5 cm; Wt 73.0 kg
--- NOTE | 2017-05-10 07:43 | Pre Sedation Assessment ---
Pre Sedation Assessment General Date of Sedation: May 10, 2017. Vital Signs Past 12 Hours Date Time Temp Pulse Resp B/P (MAP) Pulse Ox O2 Delivery O2 Flow Rate FiO2 05/10/17 07:05 36.9 79 18 105/43 (63) 96 Room Air Review Cardiovascular: regular rate, rhythm Lungs: lungs clear Pre-Sedation Airway Assessment Smoking Status: Never Smoker Hx of Sleep Apnea: No Short Thick Neck: No Oral Cavity: WNL Mallampati Classification: Class III ASA Classification: Class III NPO Status Date of Last Intake of Fluids: May 10, 2017 Time of Last Intake of Fluids: 0000 Date of Last Intake of Solids: May 10, 2017 Time of Last Intake of Solids: 0000 Procedure Planning Contraindications for Sedation: None Current Medications Reviewed: Yes Notes The planned sedation has been discussed with the patient. Informed Consent was obtained. I have identified the patient, determined the appropriateness of sedation and have assessed the patient immediately prior to the procedure. All medicine(s) and interventions are by my order.
[2017-05-10] MEDS ORDERED: MIDAZOLAM HCL 1 MG/ML 2ML VIAL ONE (07:51)
[2017-05-10] MEDS ORDERED: FENTANYL CITRATE INJ 50 MCG/1 ML 2 ML VIAL ONE (07:51)
[2017-05-10] MEDS ORDERED: LIDOCAINE HCL 1% 20 ML VIAL ONE ×2 (08:06→08:21)
[2017-05-10] MEDS ORDERED: LIDOCAINE HCL 1% 20 ML VIAL SQ ONE (08:22)
--- NOTE | 2017-05-10 08:25 | [facility] Post Operative Brief Note ---
Immediate Operative Summary Operative Date May 10, 2017. Pre-Operative Diagnosis Functioning Fistula Post-Operative Diagnosis Functioning Fistula Procedure(s) Performed Removal of Perm Catheter Surgeon Dr. Torres Loan Servicing Representative Surgeon(s) Dr. Zaragoza Estimated Blood Loss 2cc Findings Consistent with Post-Op Diagnosis Specimens a: Explant Perm Catheter Drains None Anesthesia Type None Complication(s) none Disposition Accompanied Pt To Recover: no Disposition:
--- NOTE | 2017-05-10 08:27 | Discharge Instructions ---
Discharge Instructions Date of Service May 10, 2017. Visit Reason for Visit: End Stage Renal Disease, Functioning Fistula Discharge Discharge Diagnosis / Problem: Functioning fistula Discharge Goals Goal(s): Therapeutic intervention Activity Recommendations Activity Limitations: resume your previous activity Shower/Bathe: tomorrow Anesthesia . Post Anesthesia Instructions: If you have had General Anesthesia or IV Sedation: * Do not drive today. * Resume driving when surgeon permits. * Do not make important decisions or sign legal documents today. * Call surgeon for: 1. Temperature elevations greater than 101 degrees F. 2. Uncontrollable pain. 3. Excessive bleeding. 4. Persistent nausea and vomiting. 5. Medication intolerance (nausea, vomiting or rash). * For nausea and vomiting use only clear liquids such as: tea, soda, bouillon until nausea subsides, then gradually increase diet as tolerated. * If you have any concerns or questions, call your surgeon's office. If physician is unavailable and it is an emergency, call 911 or go to the nearest emergency room. . Instructions / Follow-Up Instructions / Follow-Up Call [phone] with any questions or concerns. SPECIAL CARE INSTRUCTIONS: Medications: * Continue to take your medications as directed. If you have been given a prescription for Plavix, please fill it immediately and take as directed. Incision Care: * Your puncture site may have some bruising and minor swelling for about one week. * You will have a small dressing covering your puncture site. You may remove the dressing after 24 hours and shower. You may let the warm soapy water run over it, but be sure to dry the puncture site well and keep it dry. * DO NOT IMMERSE THE INCISION IN A TUB/POOL/etc. UNTIL HEALED. * Puncture sites should be kept covered with a band-aid until it begins to heal. Restrictions: * Depending on whether you leg or arm was punctured to access the arteries, you will be required to lay flat, hold your arm still, or both, for about 4 hours after the procedure to prevent bleeding. * Limit your activity for the first 48 hours. You may walk and go up and down steps. Avoid excessive bending or movement at the puncture site. Possible Complications: * Excessive Swelling - after blood flow is improved you may notice increased swelling in the lower legs. This is a normal response. This usually depends on the amount of blockages in the leg, how long they have been there prior to your procedure and how much blood flow was restored. Elevating your legs will help to improve this. Please notify our office ([phone] ) if the swelling does not go away after lying in bed overnight. * Infection/Drainage/Bleeding - Drainage or bleeding from the puncture site should be minimal. If you have excessive bleeding or drainage, call our office ([phone]) right away. * Pain - You may experience some mild pain or soreness at your puncture site. If your pain does not improve, please contact our office ([phone]). Call your doctor and seek emergent treatment if you develop: * Temperature above 101 degrees * Any fever or chills * Any redness or purulent drainage from the puncture site * Any new dusky/blue colored toes or feet with coolness or sharp or aching pain. SKIN IRRITATION: * You may experience some redness and/or swelling in the area where radiation was administered. If any skin irritation occurs, please contact your family physician. FOLLOW UP VISIT: Keep any scheduled doctor appointments. Diet Recommendations Recommended Home Diet: resume previous diet Procedures Procedures Performed: Removal of Perm Catheter Pending Studies Studies pending at discharge: no Medical Emergencies . Who to Call and When: Medical Emergencies: If at any time you feel your situation is an emergency, please call 911 immediately. . Non-Emergent Contact Non-Emergency issues call your: Surgeon . . "Provider Documentation" section prepared by Figueroa Torres. .
--- NOTE | 2017-05-10 08:30 | [facility] Operative Report ---
Operative Report Operative Date May 10, 2017. Pre-Operative Diagnosis Functioning Fistula Post-Operative Diagnosis Functioning Fistula Procedure(s) Performed Removal of Perm Catheter Surgeon Dr. Torres Loan Supervisor Surgeon(s) Dr. Zaragoza Estimated Blood Loss 2cc Specimens a: Explant Perm Catheter Drains None Anesthesia Type None Complication(s) none Disposition no Indications Ms. Farr is an 81 y/o female with ESRD on HD via a left upper extremity fistula. This has been functioning well and she was recommended to have the removal of her tunnelled hemodialysis line. She was advised of the risk an benefits of the above procedure and agreed to undergo the procedure. Description of Procedure The patient was taken to the angio suite and placed in the supine position. The right side of the neck, chest wall and catheter were prepped and draped in a sterile manner. Local anesthesia was then accomplished. Using sharp and blunt dissection, the cuff of the permcath was freed up from the surrounding fibrous tissue. The permcath and cuff were completely removed. Pressure was then applied and adequate hemostasis was obtained. A sterile dressing was then applied. The patient left the angio suite in good condition and tolerated the procedure well. I, Dr. Torres was present and scrubbed for the entire procedure. I attest to the content of the Intraoperative Record and any orders documented therein. Any exceptions are noted below.
[2017-05-10 08:35] VITALS: BP 130/56; PULSE 72; TEMP 36.7; O2SAT 96
[2017-05-10 08:54] VITALS: BP 134/56; PULSE 75; TEMP 36.7; O2SAT 96
[2017-05-10 09:05] VITALS: BP 126/56; PULSE 73; TEMP 36.9; O2SAT 96
== END 2017-05-10 09:15 | disposition home or self-care (01) ==
LOC: C.ACU 06:27
PROVIDERS: ATTEND Surgery Vascular Surgery
DX: Z45.2 Encounter for adjustment and management of vascular access device (principal); E11.9 Type 2 diabetes mellitus without complications; I13.2 Hypertensive heart and chronic kidney disease with heart failure and with stage 5 chronic kidney disease, or end stage renal disease; N18.5 Chronic kidney disease, stage 5; N25.81 Secondary hyperparathyroidism of renal origin; D50.9 Iron deficiency anemia, unspecified; E55.9 Vitamin D deficiency, unspecified; Z85.3 Personal history of malignant neoplasm of breast; Z99.2 Dependence on renal dialysis; Z79.899 Other long term (current) drug therapy; Z90.49 Acquired absence of other specified parts of digestive tract; Z86.73 Personal history of transient ischemic attack (TIA), and cerebral infarction without residual deficits; Z79.82 Long term (current) use of aspirin; Z90.11 Acquired absence of right breast and nipple; Z79.4 Long term (current) use of insulin; Z79.02 Long term (current) use of antithrombotics/antiplatelets

== ENCOUNTER 2017-05-14 05:33 | Inpatient (IN) | payer OTHER, BC ==
[~2017-05-14] VITALS: Ht 157.5 cm; Wt 69.1 kg
[2017-05-14] VITALS (22 sets, daily range): BP systolic 83–179; BP diastolic 47–79; PULSE 71–110; TEMP 36.6–36.8; O2SAT 93–99; BMI 32.8
[~2017-05-14 05:33] MED LIST changes: -CEFAZOLIN 1000MG IV PUSH 7.5 ML IV SCH; -D5W AND 1/4NSS 1,000 ML IV SCH
[2017-05-14] MEDS ORDERED: ONDANSETRON INJ 2 MG/ML 2 ML VIAL ONE (05:57)
[2017-05-14] MEDS ORDERED: SODIUM CHLORIDE 0.9% 500ML 500 ML IV STA (06:00)
--- NOTE | 2017-05-14 06:05 | EMERGENCY ROOM VISIT NOTE ---
History Report prepared by Everette: Yasmine Monson Under the Supervision of: Dr. Priyanka Francis D.O. First contact with patient: 05:53 Chief Complaint: VOMITING Stated Complaint: VOMITING Nursing Triage Summary: pt has had nausea and vomiting for 2 days and decreased output in her ostomy bag. pt gets dialysis 3x per week and skipped yesterday because she was ill. pt denies pain. abdomen tender with palpation. History of Present Illness The patient is an 81 year old female who presents to the Emergency Room with complaints of episodes of vomiting starting 2 days ago. The patient complains of nausea and loss of appetite. The patient denies diarrhea, fevers, chills, chest pain, and abdominal pain. She notes that she is on dialysis that she attends Mondays, Wednesdays, and Fridays. She notes that she didn't go yesterday because she was not feeling well and had significant nausea. She made plans to have it done today. She notes that she has an ileostomy from ulcerative colitis. Source of History: patient Onset: 2 days ago Position: other (global) Quality: other (vomiting) Timing: other (episodes) Associated Symptoms: + nausea, No fevers, No chills, No chest pain, No abdominal pain, No diarrhea Note: The patient complains of loss of appetite. Review of Systems See HPI for pertinent positives & negatives. A total of 10 systems reviewed and were otherwise negative. Past Medical & Surgical Medical Problems: (1) ACUTE CHF, CKD STAGE 4,DM2 (2) Acute kidney injury (3) Breast cancer (4) Carcinoma of upper-outer quadrant of right female breast (5) Chronic ulcerative colitis (6) Dehydration (7) Diabetes (8) ESRD on dialysis (9) Hx of ulcerative colitis (10) Hyperkalemia, diminished renal excretion (11) Kidney stones (12) Metabolic acidosis (13) Secondary hyperparathyroidism of renal origin (14) Small bowel obstruction (15) Small bowel obstruction (16) TIA, DM2,ART.HTN,PAF, CKD (17) Vomiting (18) Vomiting Surgical Problems: (1) H/O ileostomy Family History Diabetes mellitus Hypertension Social History Smoking Status: Never Smoker Alcohol Use: none Drug Use: none Marital Status: Housing Status: lives alone Occupation Status: retired Current/Historical Medications Scheduled Allopurinol (Allopurinol), 100 MG PO QAM Amlodipine Besylate (Norvasc), 5 MG PO QAM Anastrozole (Anastrozole), 1 MG PO QAM Aspirin (Aspirin Ec), 81 MG PO QAM B-Complex W/ C & Folic Acid (Gianni Caps), 1 TAB PO QAM Calcium Acetate (Phoslo 667 Mg), 1 CAP PO TIDM Cholecalciferol (Vitamin D3), 5,000 UNITS PO DAILY Ferrous Sulfate (Ferrous Sulfate), 325 MG PO TIDM Insulin Isophane & Reg (Human) (Novolin 70/30 Relion), 60 UNITS SQ QAM Insulin Isophane & Reg (Human) (Novolin 70/30 Relion), 35 UNITS SQ QPM Labetalol HCl (Labetalol HCl), 200 MG PO TID Multiple Vitamins W/ Minerals (Centrum Multigummies Adul), 1 TAB PO QAM Multiple Vitamins W/ Minerals (Preservision Areds 2), 1 CAP PO BID Pantoprazole (Pantoprazole Sodium), 40 MG PO QAM Simvastatin (Simvastatin), 40 MG PO QPM Scheduled PRN Ondansetron Hcl (Zofran), 8 MG PO Q6H PRN for Nausea Allergies Coded Allergies: No Known Allergies (Unverified , 05/10/17) Physical Exam Vital Signs Date Time Temp Pulse Resp B/P (MAP) Pulse Ox O2 Delivery O2 Flow Rate FiO2 05/14/17 07:50 87 24 158/56 93 Room Air 05/14/17 07:00 79 20 139/57 93 Room Air 05/14/17 06:51 82 05/14/17 06:31 80 18 138/71 91 Room Air 05/14/17 05:40 36.9 86 20 136/58 94 Room Air Physical Exam HEENT: Head - normocephalic and atraumatic Pupils are equal, round, and reactive to light. Extraocular eye muscles are intact, and sclera are anicteric. Nose - moist nasal mucosa without discharge. Mouth - moist buccal mucosa. Oropharynx is nonerythematous and there is no tonsillar exudate or edema noted. Neck: Supple; no JVD, nuchal rigidity, cervical lymphadenopathy. Heart: Regular rate and rhythm. There is a normal S1 and S2 with no murmurs, clicks, or gallops appreciated. Lungs: Clear to auscultation bilaterally with no wheezes, rales, or rhonchi. Abdomen: Soft, completely nontender, slightly distended, with good bowel sounds. There are no palpable pulsatile masses or hepatosplenomegaly. There is no guarding, rigidity, or rebound noted. Extremities: No evidence of cyanosis, clubbing, or edema. There are easily palpable peripheral pulses. Skin: warm and dry with good turgor and no rashes. Medical Decision & Procedures Laboratory Results Test 05/14/17 06:05 Immature Granulocyte % (Auto) 0.3 % White Blood Count 9.58 K/uL (4.8-10.8) Red Blood Count 4.13 M/uL (4.2-5.4) Hemoglobin 13.9 g/dL (12.0-16.0) Hematocrit 41.2 % (37-47) Mean Corpuscular Volume 99.8 fL (80-100) Mean Corpuscular Hemoglobin 33.7 pg (25-34) Mean Corpuscular Hemoglobin Concent 33.7 g/dl (32-36) Platelet Count 217 K/uL (130-400) Mean Platelet Volume 9.2 fL (7.4-10.4) Neutrophils (%) (Auto) 84.0 % Lymphocytes (%) (Auto) 7.5 % Monocytes (%) (Auto) 7.8 % Eosinophils (%) (Auto) 0.3 % Basophils (%) (Auto) 0.1 % Neutrophils # (Auto) 8.04 K/uL (1.4-6.5) Lymphocytes # (Auto) 0.72 K/uL (1.2-3.4) Monocytes # (Auto) 0.75 K/uL (0.11-0.59) Eosinophils # (Auto) 0.03 K/uL (0-0.5) Basophils # (Auto) 0.01 K/uL (0-0.2) Immature Granulocyte # (Auto) 0.03 K/uL (0.00-0.02) Total Bilirubin 0.8 mg/dl (0.2-1) Direct Bilirubin 0.2 mg/dl (0-0.2) Aspartate Amino Transf (AST/SGOT) 19 U/L (15-37) Alanine Aminotransferase (ALT/SGPT) 11 U/L (12-78) Alkaline Phosphatase 76 U/L (45-117) Troponin I < 0.015 ng/ml (0-0.045) Total Protein 9.0 gm/dl (6.4-8.2) Albumin 4.0 gm/dl (3.4-5.0) Lipase 360 U/L (73-393) Hepatitis B Surface Antigen NEG (NEG) Hepatitis B Surface Antibody NEG Laboratory results per my review. Medications Administered Medications (Trade) Dose Ordered Sig/Camilo Route Start Time Stop Time Status Last Admin Dose Admin Ondansetron HCl (Zofran Inj) 4 mg STK-MED ONCE .ROUTE 05/14/17 05:57 05/14/17 05:58 DC 05/14/17 06:00 4 MG Sodium Chloride 500 ml @ 999 mls/hr Q31M STAT IV 05/14/17 06:00 05/14/17 06:30 DC 05/14/17 06:08 999 MLS/HR Ondansetron HCl (Zofran Inj) 4 mg NOW STAT IV 05/14/17 06:40 05/14/17 06:41 DC 05/14/17 06:57 4 MG Sodium Chloride 1,000 ml @ 200 mls/hr Q5H STAT IV 05/14/17 06:40 05/14/17 09:46 DC 05/14/17 06:58 200 MLS/HR Calcium Gluconate (Calcium Gluconate 10%) 1,000 mg NOW STAT IV 05/14/17 06:57 05/14/17 06:58 DC 05/14/17 07:05 1,000 MG Insulin Human Regular 5 units/ Dextrose 250.05 ml @ 500 mls/ hr Q30M IV 05/14/17 07:45 05/14/17 08:44 DC 05/14/17 07:55 500 MLS/HR Sodium Polystyrene Sulfonate (Kayexalate Susp) 15 gm NOW STAT PO 05/14/17 08:05 05/14/17 08:07 DC 05/14/17 08:12 15 GM Procedure 0557: Ordered Zofran Inj 4 mg IV. 0600: Ordered NSS 500 ml @ 999 mls/hr IV. 0640: Ordered NSS 1000 ml @ 200 mls/hr IV, Zofran Inj 4 mg IV. 0657: Ordered Calcium Gluconate 1000 mg IV. 0715: 10 units of IV insulin and 500 mL of 10% dextrose. ECG Per My Interpretation Indication: vomiting Rate (beats per minute): 84 Rhythm: normal sinus Findings: no ectopy, other (Peaked T waves) Comparison ECG Date: 11/22/2016, REPEAT Change: Peaked T waves are new. REPEAT: Normal sinus rhythm with a 1st degree heart block at a rate of 79 with increased peaked T waves. ED Course 0555: Past medical records reviewed. The patient was evaluated in room A10. A complete history and physical exam was performed. An IV lock was initiated and labs were drawn as above. A 12-lead EKG was obtained. 0557: Ordered Zofran Inj 4 mg IV. 0600: Ordered NSS 500 ml @ 999 mls/hr IV. 0634: I reevaluated the patient and she is still nauseated. 0640: Ordered NSS 1000 ml @ 200 mls/hr IV, Zofran Inj 4 mg IV. The patient was noted to be significantly hyperkalemic. A repeat 12-lead was obtained and showed increased peak T waves. 0657: Ordered Calcium Gluconate 1000 mg IV. 0715: Ordered Dextrose 500 ml @ 500 mls/hr IV, Insulin Human Regular 10 units/ Syringe 10 ml @ 30 mls/min IV. 0725: Discussed the patient's case with Dr. Ilya RUDD Hospitalist. The patient will be evaluated for further management. Medical Decision The patient is an 81 year old female who presents to the Emergency Room with complaints of episodes of vomiting starting 2 days ago. Differential diagnoses include cardiac ischemia, viral illness, electrolyte abnormality, sepsis. LABS: No leukocytosis Stable H&H Creatine 11 BUN 64 Sodium 126 Potassium 7.1 Glucose 216 Normal LFTs Negative Troponin Normal Lipase This is an 81-year-old female dialysis patient who presents to the emergency department with a 24-48 hour history of nausea and vomiting. The patient could not attend dialysis yesterday because she did not feel well. It was noted today that her potassium was greater than 7. She received IV calcium gluconate , IV insulin, and IV dextrose. I made multiple attempts to contact Dr. Mason her public works supervisor for emergent dialysis but was unsuccessful. I discussed the case with the hospitalist and may will evaluate the patient for further management. The patient remained hemodynamically stable. The second dose of IV Zofran seemed to help with the nausea. Medication Reconcilliation Current Medication List: was personally reviewed by me Blood Pressure Screening Patient's blood pressure: Normal blood pressure Blood pressure disposition: Did not require urgent referral Consults Time Called: 653 Consulting Physician: Dr. Maty KELLY Nuclear Supervising Operator Additional Consults: Time Called: 653 Consulted Physician: Dr. Ilya RUDD [facility] Returned Call: 0725 Additional Comments: Discussed the patient's case with Dr. Ilya RUDD Hospitalist. The patient will be evaluated for further management. Impression Primary Impression: Hyperkalemia Additional Impression: Nausea Critical Care I have personally spent greater than 45 minutes of critical care time in the direct management of this patient. This includes bedside care, interpretation of diagnostic studies, and testing, discussion with consultants, patient, and family members, and other required patient management activities. This 45 minutes is in excess of all separately billable procedures. Scribe Attestation The scribe's documentation has been prepared under my direction and personally reviewed by me in its entirety. I confirm that the note above accurately reflects all work, treatment, procedures, and medical decision making performed by me. Departure Information Dispostion Being Evaluated By Hospitalist Referrals Danielito Henley M.D. (PCP) Patient Instructions My [facility] Problem Qualifiers
[2017-05-14] MEDS ORDERED: ONDA-170 PO (06:11)
[2017-05-14] MEDS ORDERED: ONDA4TAB46 PO (06:11)
[2017-05-14] MEDS ORDERED: CHOL1TAB46 PO (06:13)
[2017-05-14 06:18] LABS: BASO % 0.1 %; BASO ABS # 0.01 K/uL (0-0.2); EOS % 0.3 %; EOS ABS # 0.03 K/uL (0-0.5); HEMATOCRIT 41.2 % (37-47); HEMOGLOBIN 13.9 g/dL (12.0-16.0); IG# 0.03 K/uL (0.00-0.02); LYMPH % 7.5 %; LYMPH ABS # 0.72 K/uL (1.2-3.4); MEAN CELL VOLUME 99.8 fL (80-100); MEAN CORPUSCULAR HEMOGLOBIN 33.7 pg (25-34); MEAN CORPUSCULAR HGB CONC 33.7 g/dl (32-36); MEAN PLATELET VOLUME 9.2 fL (7.4-10.4); MONO % 7.8 %; MONO ABS # 0.75 K/uL (0.11-0.59); NEUT ABS # 8.04 K/uL (1.4-6.5); PLATELET COUNT 217 K/uL (130-400); RED CELL DISTRIBUTION WIDTH CV 15.9 % (11.5-14.5); RED CELL DISTRIBUTION WIDTH SD 57.7 fL (36.4-46.3); WHITE BLOOD COUNT 9.58 K/uL (4.8-10.8)
[2017-05-14] MEDS ORDERED: ONDANSETRON INJ 2 MG/ML 2 ML VIAL IV STA (06:40)
[2017-05-14] MEDS ORDERED: SODIUM CHLORIDE 0.9% 1000ML 1,000 ML IV STA (06:40)
[2017-05-14 06:47] LABS: ALKALINE PHOSPHATASE 76 U/L (45-117); ALT/SGPT 11 U/L (12-78); AST/SGOT 19 U/L (15-37); BLOOD UREA NITROGEN 64 mg/dl (7-18); CALCIUM 9.8 mg/dl (8.5-10.1); CARBON DIOXIDE 21 mmol/L (21-32); GLUCOSE 206 mg/dl (70-99); LIPASE 360 U/L (73-393); SODIUM 126 mmol/L (136-145)
[2017-05-14] MEDS ORDERED: CALCIUM GLUCONATE 10% 10 ML VIAL IV STA (06:57)
[2017-05-14] MEDS ORDERED: INSULIN HUMAN REGULAR PER UNIT 10 UNITS in SYRINGE 9.9 ML IV SCH (07:15)
[2017-05-14] MEDS ORDERED: DEXTROSE 10% 500 ML IV ONE (07:15)
[2017-05-14 07:21] LABS: POTASSIUM 7.1 mmol/L (3.5-5.1)
[2017-05-14] MEDS: INSULIN REGULAR IV SCH ×2 (07:45→07:55)
[2017-05-14] MEDS: DEXTROSE 10% IV SCH ×2 (07:45→07:55)
[2017-05-14] MEDS ORDERED: SODIUM POLYST. SULF SUSP 15G/60ML PO STA (08:05)
[2017-05-14] MEDS ORDERED: ONDANSETRON 8 MG TAB PO PRN (08:15)
[2017-05-14] MEDS ORDERED: HEPARIN SOD (PORCINE) 1000 UNIT/ML 10 ML VIAL IV ONE (08:45)
[2017-05-14] MEDS ORDERED: MULTIPLE VITAMINS PO SCH (09:00)
[2017-05-14] MEDS ORDERED: [UNRECOGNIZED DRUG - OTHER] PO SCH (09:00)
[2017-05-14] MEDS ORDERED: MINERALS PO SCH (09:00)
[2017-05-14] MEDS: HEPARIN SOD (PORCINE) 1000 UNIT/ML 10 ML VIAL IV SCH ×3 (09:10→10:02)
--- NOTE | 2017-05-14 09:26 | History and Physical ---
History & Physical Date & Time of Service: May 14, 2017 at 09:21 Chief Complaint: Vomiting Primary Care Physician: Danielito Henley M.D. History of Present Illness Source: patient 81 yo female with ESRD since NOV 2016, missed her dialysis yesterday due to severe nausea and vomiting. Patient reports she has never missed dialysis in the past 6 months she has required it. She reports that she has been having worsening fatigue and generalized weakness and decided to go to the ER. In the ER, she was found to be hyperkalemici with potassium of 7.1. She had been treated with calcium, insulin dextrose. Patient currently denies nausea, vomiting, chest pain. Past Medical/Surgical History Type 2 diabetes mellitus. First diagnosed in the 1970s. She is now on insulin. * Multiple diabetic complications including retinopathy, nephropathy, neuropathy. * Chronic kidney disease stage IV prior to 2015 her creatinine was in the range of 2.5 but then over the course of last year and this year it has been increasing. It is now 5.4. She does see Dr. Serafin Juárez in nephrology. She is being prepared for dialysis initiation. She has an AV fistula in the left arm which was first established on 06/29/2016. It was occluded and it was revised on 10/23/2015. Now the fistula is still not adequate. She is scheduled for another revision on 11/29/2016 * Arterial hypertension. Long-standing. Requiring multiple medications for control * Hyperlipidemia. Long-standing. Treated. * Invasive right breast carcinoma underwent a right partial mastectomy and sentinel lymph node biopsy last year. She did complete the full course of radiation therapy on 10/23/2015. She is on anastrozole * History of gout. She is on allopurinol * Ulcerative colitis diagnosed over 40 years ago. She does have a permanent ileostomy. * History of acquired digital fibrokeratoma of both hands. Treated. * In August 2013 she was admitted with bowel obstruction. She did require surgery. She had extensive adhesions. * Paroxysmal atrial fibrillation. First episode was in 2013. No recently documented recurrence. * Hospitalization in May 2014 with gastroenteritis and dehydration * Hospitalization in March 2015 with a TIA manifested by numbness in her right arm and right side of her face. At that point she was on aspirin. Plavix was added to her regimen. * Her last Pneumovax was in 2007 * She had a Zostavax in 2009 * She does receive yearly influenza vaccination Family History Diabetes mellitus Hypertension She is a . Had 2 daughters. No history of any smoking or alcohol or drugs. No excessive coffee tea or soft drinks. 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 She lives at home. Her daughter lives with her. Social History Her mother age 74. She was diabetic. Had a cardiac arrest. Her father in his 60s had coronary artery disease. She had 2 sisters. One sister is diabetic and hypertensive. One daughter had an ASD repair many years ago. She is also treated for paroxysmal atrial fibrillation and arterial hypertension. Smoking Status: Never Smoker Drug Use: none Marital Status: Occupational Status: retired Immunizations History of Influenza Vaccine: Yes History of Tetanus Vaccine?: Unknown History of Pneumococcal: Yes History of Hepatitis B Vaccine: Unknown Allergies Coded Allergies: No Known Allergies (Unverified , 05/10/17) Home Medications Scheduled Allopurinol (Allopurinol), 100 MG PO QAM Amlodipine Besylate (Norvasc), 5 MG PO QAM Anastrozole (Anastrozole), 1 MG PO QAM Aspirin (Aspirin Ec), 81 MG PO QAM B-Complex W/ C & Folic Acid (Meagher Caps), 1 TAB PO QAM Calcium Acetate (Phoslo 667 Mg), 1 CAP PO TIDM Cholecalciferol (Vitamin D3), 5,000 UNITS PO DAILY Ferrous Sulfate (Ferrous Sulfate), 325 MG PO TIDM Insulin Isophane & Reg (Human) (Novolin 70/30 Relion), 60 UNITS SQ QAM Insulin Isophane & Reg (Human) (Novolin 70/30 Relion), 35 UNITS SQ QPM Labetalol HCl (Labetalol HCl), 200 MG PO TID Multiple Vitamins W/ Minerals (Centrum Multigummies Adul), 1 TAB PO QAM Multiple Vitamins W/ Minerals (Preservision Areds 2), 1 CAP PO BID Pantoprazole (Pantoprazole Sodium), 40 MG PO QAM Simvastatin (Simvastatin), 40 MG PO QPM Scheduled PRN Ondansetron Hcl (Zofran), 8 MG PO Q6H PRN for Nausea Review of Systems Constitutional: No fever, No chills Eyes: No worsening of vision ENT: No hearing loss Respiratory: No cough Cardiovascular: No chest pain Abdomen: + nausea, + vomiting, No pain Musculoskeletal: No joint pain Neurologic: No weakness Psychiatric: No depression symptoms Endocrine: + fatigue Hematologic / Lymphatic: No abnormal bleeding/bruising Integumentary: No rash Allergic / Immunologic: No environmental allergies Physical Exam Vital Signs Date Time Temp Pulse Resp B/P (MAP) Pulse Ox O2 Delivery O2 Flow Rate FiO2 05/14/17 07:50 87 24 158/56 93 Room Air 05/14/17 07:00 79 20 139/57 93 Room Air 05/14/17 06:51 82 05/14/17 06:31 80 18 138/71 91 Room Air 05/14/17 05:40 36.9 86 20 136/58 94 Room Air General Appearance: WD/WN, no apparent distress Head: normocephalic Eyes: normal inspection ENT: normal ENT inspection Neck: supple Respiratory/Chest: chest non-tender, lungs clear, normal breath sounds Cardiovascular: regular rate, rhythm, no edema Abdomen/GI: normal bowel sounds (Ileostomy in place. ), non tender, + pertinent finding (mildly distended) Back: no CVA tenderness Extremities/Musculoskelatal: normal capillary refill, no pedal edema Neurologic/Psych: alert, oriented x 3 Skin: normal color Lymphatic: no adenopathy Diagnostics Laboratory Results Results Past 24 Hours Test 05/14/17 05:49 05/14/17 06:05 Range/Units Bedside Glucose 216 70-90 mg/dl White Blood Count 9.58 4.8-10.8 K/uL Red Blood Count 4.13 4.2-5.4 M/uL Hemoglobin 13.9 12.0-16.0 g/dL Hematocrit 41.2 37-47 % Mean Corpuscular Volume 99.8 80-100 fL Mean Corpuscular Hemoglobin 33.7 25-34 pg Mean Corpuscular Hemoglobin Concent 33.7 32-36 g/dl Platelet Count 217 130-400 K/uL Mean Platelet Volume 9.2 7.4-10.4 fL Neutrophils (%) (Auto) 84.0 % Lymphocytes (%) (Auto) 7.5 % Monocytes (%) (Auto) 7.8 % Eosinophils (%) (Auto) 0.3 % Basophils (%) (Auto) 0.1 % Neutrophils # (Auto) 8.04 1.4-6.5 K/uL Lymphocytes # (Auto) 0.72 1.2-3.4 K/uL Monocytes # (Auto) 0.75 0.11-0.59 K/uL Eosinophils # (Auto) 0.03 0-0.5 K/uL Basophils # (Auto) 0.01 0-0.2 K/uL RDW Standard Deviation 57.7 36.4-46.3 fL RDW Coefficient of Variation 15.9 11.5-14.5 % Immature Granulocyte % (Auto) 0.3 % Immature Granulocyte # (Auto) 0.03 0.00-0.02 K/uL Sodium Level 126 136-145 mmol/L Potassium Level 7.1 3.5-5.1 mmol/L Chloride Level 90 98-107 mmol/L Carbon Dioxide Level 21 21-32 mmol/L Anion Gap 15.0 3-11 mmol/L Blood Urea Nitrogen 64 7-18 mg/dl Creatinine 11.00 0.60-1.20 mg/dl Est Creatinine Clear Calc Drug Dose 3.8 ml/min Estimated GFR () 3.3 Estimated GFR (Non- 2.9 BUN/Creatinine Ratio 5.9 10-20 Random Glucose 206 70-99 mg/dl Calcium Level 9.8 8.5-10.1 mg/dl Total Bilirubin 0.8 0.2-1 mg/dl Direct Bilirubin 0.2 0-0.2 mg/dl Aspartate Amino Transf (AST/SGOT) 19 15-37 U/L Alanine Aminotransferase (ALT/SGPT) 11 12-78 U/L Alkaline Phosphatase 76 45-117 U/L Troponin I < 0.015 0-0.045 ng/ml Total Protein 9.0 6.4-8.2 gm/dl Albumin 4.0 3.4-5.0 gm/dl Lipase 360 73-393 U/L EKG Sinus rhythm with 1st degree A-V block Non-specific intra-ventricular conduction block Abnormal ECG When compared with ECG of 14-MAY-2017 05:51, (unconfirmed) QRS duration has increased Confirmed by TYRON PURDY ([id number]) on 05/14/2017 9:58:56 AM Impression Assessment and Plan 81 year-old female with adult onset diabetes mellitus, hypertension, hyperlipidemia, diastolic CHF, history of nephrolithiasis and ulcerative colitis status post total colectomy with permanent ileostomy, 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 Hyperkalemia in a 81 yo female with ESRD She missed HD yesterday, normally on MWF. Will be admitted to ICU Patient received Insulin+dextrose Calcium IV Ordered kaylexalate D/W ER, Critical care, and Nephro Patient will obtain emergent dialysis Nausea, vomting Ileostomy bag in place. will monitor output. If patient does not have normal output. May need to see if patient has small bowel obstruction. may need to consult gen surg and place NG tube Diabetes 2 Placed on home regimen. Held oral meds HTN resumed home meds H/O CHF volume status appears euvolemic will continue to monitor. dyslipidemia will continue statin Spent 30 minutes of critcal care time in addition to the admission. Advanced Directives Existing Living Will: Yes Existing Power of Public Health Advisor: Yes Resuscitation Status VTE Prophylaxis Will order VTE Prophylaxis: Yes
--- NOTE | 2017-05-14 09:43 | Critical Care Consultation ---
Critical Care Consultation Date of Consultation: May 14, 2017. Attending Physician: Rosalino Caraballo M.D. Reason for Consultation: Hyperkalemia, potassium greater than 7 History of Present Illness Patient is an 81-year-old female who has end-stage renal disease on hemodialysis since November 2016 who normally gets her dialysis Tuesday, she missed yesterday secondary to nausea and vomiting. She became increasingly weak secondary to the nausea and vomiting and presented to the emergency department for further evaluation and management. Her original plan was to follow-up with the outpatient dialysis clinic today at 11 for her dialysis treatment. In the emergency department she was found to have a potassium level of 7.1, she was treated with calcium gluconate, insulin dextrose and was admitted to the hospital for further evaluation and management. During my evaluation she is very pleasant, denies nausea and vomiting at this time she feels better after receiving some nausea medication about 15 minutes prior. She denies chest pain shortness of breath and diarrhea. Past Medical/Surgical History Diabetes History of breast cancer End-stage renal disease dialysis dependent History of ileostomy Family History Diabetes mellitus Hypertension Social History Smoking Status: Never Smoker Drug Use: none Marital Status: Housing Status: lives alone Occupation Status: retired Allergies Coded Allergies: No Known Allergies (Unverified , 05/10/17) Home Medications Scheduled Allopurinol (Allopurinol), 100 MG PO QAM Amlodipine Besylate (Norvasc), 5 MG PO QAM Anastrozole (Anastrozole), 1 MG PO QAM Aspirin (Aspirin Ec), 81 MG PO QAM B-Complex W/ C & Folic Acid (Gianni Caps), 1 TAB PO QAM Calcium Acetate (Phoslo 667 Mg), 1 CAP PO TIDM Cholecalciferol (Vitamin D3), 5,000 UNITS PO DAILY Ferrous Sulfate (Ferrous Sulfate), 325 MG PO TIDM Insulin Isophane & Reg (Human) (Novolin 70/30 Relion), 60 UNITS SQ QAM Insulin Isophane & Reg (Human) (Novolin 70/30 Relion), 35 UNITS SQ QPM Labetalol HCl (Labetalol HCl), 200 MG PO TID Multiple Vitamins W/ Minerals (Centrum Multigummies Adul), 1 TAB PO QAM Multiple Vitamins W/ Minerals (Preservision Areds 2), 1 CAP PO BID Pantoprazole (Pantoprazole Sodium), 40 MG PO QAM Simvastatin (Simvastatin), 40 MG PO QPM Scheduled PRN Ondansetron Hcl (Zofran), 8 MG PO Q6H PRN for Nausea Current Inpatient Medications Current Inpatient Medications Medications (Trade) Dose Ordered Sig/Camilo Route Start Time Stop Time Status Last Admin Dose Admin Sodium Chloride 1,000 ml @ 200 mls/hr Q5H STAT IV 05/14/17 06:40 05/14/17 11:39 05/14/17 06:58 200 MLS/HR Heparin Sodium (Porcine) (Heparin Iv Bolus) 800 unit Q1H IV 05/14/17 08:45 05/14/17 10:46 Allopurinol (Zyloprim Tab) 100 mg QAM PO 05/14/17 09:00 06/13/17 08:59 UNV Amlodipine Besylate (Norvasc Tab) 5 mg QAM PO 05/14/17 09:00 06/13/17 08:59 UNV Anastrozole (Arimidex Tab) 1 mg QAM PO 05/14/17 09:00 06/13/17 08:59 UNV Aspirin (Ecotrin Tab) 81 mg QAM PO 05/14/17 09:00 06/13/17 08:59 UNV Vitamin B Complex/ Vit C/Folic Acid (Nephrocaps) 1 cap QAM PO 05/14/17 09:00 06/13/17 08:59 UNV Calcium Acetate (Phoslo Cap) 667 mg TIDM PO 05/14/17 12:00 06/13/17 11:59 UNV Ferrous Sulfate (Feosol Tab) 325 mg TIDM PO 05/14/17 12:00 06/13/17 11:59 UNV Insulin Human Isoph/Insulin Regular (novoLIN 70/30 REGULAR) 35 units QPM SQ 05/14/17 21:00 06/13/17 20:59 UNV Insulin Human Isoph/Insulin Regular (novoLIN 70/30 REGULAR) 60 units QAM SQ 05/14/17 09:00 06/13/17 08:59 UNV Labetalol HCl (Normodyne Tab) 200 mg TID PO 05/14/17 09:00 06/13/17 08:59 UNV Ondansetron HCl (Zofran Tab) 8 mg Q6H PRN PO 05/14/17 08:15 06/13/17 08:14 UNV Pantoprazole Sodium (Protonix Tab) 40 mg QAM PO 05/14/17 09:00 06/13/17 08:59 UNV Simvastatin (Zocor Tab) 40 mg QPM PO 05/14/17 21:00 06/13/17 20:59 UNV Non-Formulary Medication (Cholecalciferol (Vitamin D3)) 5,000 units DAILY PO 05/14/17 09:00 06/13/17 08:59 UNV Non-Formulary Medication (Multiple Vitamins W/ Minerals (Centrum Multigummies Adul)) 1 tab QAM PO 05/14/17 09:00 06/13/17 08:59 UNV Non-Formulary Medication (Multiple Vitamins W/ Minerals (Preservision Areds 2)) 1 cap BID PO 05/14/17 09:00 06/13/17 08:59 UNV Review of Systems As per the HPI A 10 point review of systems has been obtained and is otherwise negative. Constitutional: + weakness Respiratory: No cough, No sputum, No wheezing, No shortness of breath, No dyspnea on exertion, No dyspnea at rest, No hemoptysis, No problem reported Abdomen: + nausea, + vomiting, No diarrhea Physical Exam Date Time Temp Pulse Resp B/P (MAP) Pulse Ox O2 Delivery O2 Flow Rate FiO2 05/14/17 09:10 36.6 87 18 155/60 (91) 93 Room Air 05/14/17 08:46 86 18 139/53 93 05/14/17 08:20 93 Room Air 05/14/17 07:50 87 24 158/56 93 Room Air 05/14/17 07:00 79 20 139/57 93 Room Air 05/14/17 06:51 82 05/14/17 06:31 80 18 138/71 91 Room Air 05/14/17 05:40 36.9 86 20 136/58 94 Room Air General: Alert. nontoxic. Skin: Warm, dry, Head: Atraumatic Ears, nose, mouth and throat: airway patent Cardiovascular: Normal peripheral perfusion, S1-S2 Respiratory: no respiratory distress, lungs clear to auscultation Gastrointestinal: Non distended Musculoskeletal: No deformity, palpable thrill in the left upper extremity Chest: Ecchymoses in the right anterior chest, this is where the patient had a port removed a couple of days ago Laboratory Results Last 24 Hours Test 05/14/17 05:49 05/14/17 06:05 Bedside Glucose 216 mg/dl White Blood Count 9.58 K/uL Red Blood Count 4.13 M/uL Hemoglobin 13.9 g/dL Hematocrit 41.2 % Mean Corpuscular Volume 99.8 fL Mean Corpuscular Hemoglobin 33.7 pg Mean Corpuscular Hemoglobin Concent 33.7 g/dl Platelet Count 217 K/uL Mean Platelet Volume 9.2 fL Neutrophils (%) (Auto) 84.0 % Lymphocytes (%) (Auto) 7.5 % Monocytes (%) (Auto) 7.8 % Eosinophils (%) (Auto) 0.3 % Basophils (%) (Auto) 0.1 % Neutrophils # (Auto) 8.04 K/uL Lymphocytes # (Auto) 0.72 K/uL Monocytes # (Auto) 0.75 K/uL Eosinophils # (Auto) 0.03 K/uL Basophils # (Auto) 0.01 K/uL RDW Standard Deviation 57.7 fL RDW Coefficient of Variation 15.9 % Immature Granulocyte % (Auto) 0.3 % Immature Granulocyte # (Auto) 0.03 K/uL Sodium Level 126 mmol/L Potassium Level 7.1 mmol/L Chloride Level 90 mmol/L Carbon Dioxide Level 21 mmol/L Anion Gap 15.0 mmol/L Blood Urea Nitrogen 64 mg/dl Creatinine 11.00 mg/dl Est Creatinine Clear Calc Drug Dose 3.8 ml/min Estimated GFR () 3.3 Estimated GFR (Non- 2.9 BUN/Creatinine Ratio 5.9 Random Glucose 206 mg/dl Calcium Level 9.8 mg/dl Total Bilirubin 0.8 mg/dl Direct Bilirubin 0.2 mg/dl Aspartate Amino Transf (AST/SGOT) 19 U/L Alanine Aminotransferase (ALT/SGPT) 11 U/L Alkaline Phosphatase 76 U/L Troponin I < 0.015 ng/ml Total Protein 9.0 gm/dl Albumin 4.0 gm/dl Lipase 360 U/L Hepatitis B Surface Antibody NEG Assessment & Plan Impression: 1. End-stage renal disease on hemodialysis 2. Hyperkalemia 3. Nausea vomiting 4. History of breast cancer Plan: #1 urgent hemodialysis 2. Nausea medication as needed #3 likely downgrade out of ICU after hemodialysis today I reviewed the EKGs, there is no lengthening of the QRS complex, continue current management started in the emergency department I have personally spent 35 minutes of critical care time in the direct management of this patient. This is a life/limb threatening event. This includes time spent evaluating patient, direct bedside care, chart review, placing orders, interpretation of diagnostic studies, discussion with consultants, patient, and/or family members regarding treatment decisions, as well as other required patient management activities. This time is exclusive of all separately billable procedures, and teaching time and separate from and in addition to any other critical care service time.
--- NOTE | 2017-05-14 10:21 | Nephrology Consultation ---
Nephrology Consultation Date & Providers Date of Consultation: May 14, 2017. Primary Care Provider: Danielito Henley M.D. Referring Provider: Reason for Consultation ESRD, hyperkalemia History of Present Illness Mrs. Bethany Farr is a very pleasant 81-year-old female with adult onset diabetes mellitus, hypertension, hyperlipidemia, diastolic CHF, history of nephrolithiasis and ulcerative colitis status post total colectomy with permanent ileostomy who has ESRD attributed to diabetic nephropathy and small vessel disease. Bethany is on hemodialysis on a Tuesday, Tuesday, Tuesday schedule at [facility]. I saw Bethany during her dialysis treatment on Tuesday. She tolerated the treatment well. There have not been any recent complications with hemodialysis. Bethany started dialysis in November of 2016. She started with a permcath. At this time, AVF has been mature and functional. Permcath was removed by Dr. Torres earlier this month on the . The fistula has been used successfully for dialysis for over a month. The patient's laboratory studies have been within goal. She has not had a recent history of hyperkalemia while on treatment. Bethany unfortunately missed her dialysis treatment on Tuesday. She woke with nausea and vomiting. She denies abdominal pain or diarrhea. Ostomy output had been normal on and Bethany had been eating well. She has had similar episodes of nausea and vomiting in the past. She denies any sick contacts. symptoms persisted. Bethany became increasingly fatigued. She developed anorexia. She has not had anything to eat in >24 hours. She notes that she has not had any ostomy output in the past 24 hours. There is minimal gas in the ostomy. Her abdomen is increasingly distended. In the ED, laboratory studies were notable for hyperkalemia. This was treated with insulin and Kayexalate. EKG was personally reviewed. She denies high ostomy output but has had pre-renal azotemia from dehydration at least once in the past 2 years. Medical history is notable for a history of diastolic CHF. Diabetes mellitus was diagnosed over 20 years ago. Most recent A1c 8.5. She describes recurrent episodes of asymptomatic hypoglycemia with blood glucose of 70 regardless of changes made to her medications over the past several years. She has microvascular complications including retinopathy, neuropathy and nephropathy. She has a remote history of nephrolithiasis. She has an ileostomy with history of Crohn's disease. Bethany also has a history of SBO. Past Medical/Surgical History Medical: ESRD on HD Anemia of CKD Diabetic nephropathy Breast cancer, right Diabetes mellitus Diabetic neuropathy Diabetic retinopathy Gout History of nephrolithiasis Hyperlipidemia Macular degeneration Secondary hyperparathyroidism Small bowel obstruction History of Diastolic congestive heart failure History of transient cerebral ischemia History of ulcerative colitis History of Paroxysmal atrial fibrillation Bethany completed partial breast radiation treatments on 10/23/15. She was started on anti-estrogen therapy for a low-grade infiltrating ductal carcinoma ER and [place] positive. Surgical: History of cystoscopy with direct removal of calculus History of hemorrhoidectomy History of ileostomy History of right breast partial mastectomy History of sentinel lymph node biopsy History of small bowel resection History of total abdominal colectomy Allergies Coded Allergies: No Known Allergies (Unverified , 05/10/17) Inpatient Medications Current Inpatient Medications Medications (Trade) Dose Ordered Sig/Camilo Route Start Time Stop Time Status Last Admin Dose Admin Heparin Sodium (Porcine) (Heparin Iv Bolus) 800 unit Q1H IV 05/14/17 08:45 05/14/17 10:46 Allopurinol (Zyloprim Tab) 100 mg QAM PO 05/14/17 09:00 06/13/17 08:59 UNV Amlodipine Besylate (Norvasc Tab) 5 mg QAM PO 05/14/17 09:00 06/13/17 08:59 UNV Anastrozole (Arimidex Tab) 1 mg QAM PO 05/14/17 09:00 06/13/17 08:59 UNV Aspirin (Ecotrin Tab) 81 mg QAM PO 05/14/17 09:00 06/13/17 08:59 UNV Vitamin B Complex/ Vit C/Folic Acid (Nephrocaps) 1 cap QAM PO 05/14/17 09:00 06/13/17 08:59 UNV Calcium Acetate (Phoslo Cap) 667 mg TIDM PO 05/14/17 12:00 06/13/17 11:59 UNV Ferrous Sulfate (Feosol Tab) 325 mg TIDM PO 05/14/17 12:00 06/13/17 11:59 UNV Insulin Human Isoph/Insulin Regular (novoLIN 70/30 REGULAR) 35 units QPM SQ 05/14/17 21:00 06/13/17 20:59 UNV Insulin Human Isoph/Insulin Regular (novoLIN 70/30 REGULAR) 60 units QAM SQ 05/14/17 09:00 06/13/17 08:59 UNV Labetalol HCl (Normodyne Tab) 200 mg TID PO 05/14/17 09:00 06/13/17 08:59 UNV Ondansetron HCl (Zofran Tab) 8 mg Q6H PRN PO 05/14/17 08:15 06/13/17 08:14 UNV Pantoprazole Sodium (Protonix Tab) 40 mg QAM PO 05/14/17 09:00 06/13/17 08:59 UNV Simvastatin (Zocor Tab) 40 mg QPM PO 05/14/17 21:00 06/13/17 20:59 UNV Non-Formulary Medication (Cholecalciferol (Vitamin D3)) 5,000 units DAILY PO 05/14/17 09:00 06/13/17 08:59 UNV Non-Formulary Medication (Multiple Vitamins W/ Minerals (Centrum Multigummies Adul)) 1 tab QAM PO 05/14/17 09:00 06/13/17 08:59 UNV Non-Formulary Medication (Multiple Vitamins W/ Minerals (Preservision Areds 2)) 1 cap BID PO 05/14/17 09:00 06/13/17 08:59 UNV Family History Diabetes mellitus Hypertension Social History Smoking Status: Never Smoker Drug Use: none Marital Status: Occupation: retired Review of Systems A complete review of systems was performed. Pertinent positives are noted above. All other systems are negative. Physical Exam Date Time Temp Pulse Resp B/P (MAP) Pulse Ox O2 Delivery O2 Flow Rate FiO2 05/14/17 09:10 36.6 87 18 155/60 (91) 93 Room Air 05/14/17 08:46 86 18 139/53 93 05/14/17 08:20 93 Room Air 05/14/17 07:50 87 24 158/56 93 Room Air 05/14/17 07:00 79 20 139/57 93 Room Air 05/14/17 06:51 82 05/14/17 06:31 80 18 138/71 91 Room Air 05/14/17 05:40 36.9 86 20 136/58 94 Room Air General Appearance: + pertinent finding (Bethany is a frail, elderly female, she appears ill but in no acute distress) Head: normocephalic, atraumatic Eyes: normal inspection, sclerae normal ENT: normal ENT inspection, pharynx normal, + pertinent finding (oral mucosa slightly dry) Neck: supple, no JVD Respiratory/Chest: lungs clear, no respiratory distress, no accessory muscle use Cardiovascular: regular rate, rhythm, no gallop Abdomen/GI: non tender, + distended, + pertinent finding (hypoactive bowel sounds, no stool in ostomy bag) Extremities/Musculoskelatal: normal inspection, + pedal edema Neurologic/Psych: alert, normal mood/affect Laboratory Results Last 24 Hours Test 05/14/17 05:49 05/14/17 06:05 Bedside Glucose 216 mg/dl White Blood Count 9.58 K/uL Red Blood Count 4.13 M/uL Hemoglobin 13.9 g/dL Hematocrit 41.2 % Mean Corpuscular Volume 99.8 fL Mean Corpuscular Hemoglobin 33.7 pg Mean Corpuscular Hemoglobin Concent 33.7 g/dl Platelet Count 217 K/uL Mean Platelet Volume 9.2 fL Neutrophils (%) (Auto) 84.0 % Lymphocytes (%) (Auto) 7.5 % Monocytes (%) (Auto) 7.8 % Eosinophils (%) (Auto) 0.3 % Basophils (%) (Auto) 0.1 % Neutrophils # (Auto) 8.04 K/uL Lymphocytes # (Auto) 0.72 K/uL Monocytes # (Auto) 0.75 K/uL Eosinophils # (Auto) 0.03 K/uL Basophils # (Auto) 0.01 K/uL RDW Standard Deviation 57.7 fL RDW Coefficient of Variation 15.9 % Immature Granulocyte % (Auto) 0.3 % Immature Granulocyte # (Auto) 0.03 K/uL Sodium Level 126 mmol/L Potassium Level 7.1 mmol/L Chloride Level 90 mmol/L Carbon Dioxide Level 21 mmol/L Anion Gap 15.0 mmol/L Blood Urea Nitrogen 64 mg/dl Creatinine 11.00 mg/dl Est Creatinine Clear Calc Drug Dose 3.8 ml/min Estimated GFR () 3.3 Estimated GFR (Non- 2.9 BUN/Creatinine Ratio 5.9 Random Glucose 206 mg/dl Calcium Level 9.8 mg/dl Total Bilirubin 0.8 mg/dl Direct Bilirubin 0.2 mg/dl Aspartate Amino Transf (AST/SGOT) 19 U/L Alanine Aminotransferase (ALT/SGPT) 11 U/L Alkaline Phosphatase 76 U/L Troponin I < 0.015 ng/ml Total Protein 9.0 gm/dl Albumin 4.0 gm/dl Lipase 360 U/L Hepatitis B Surface Antigen NEG Hepatitis B Surface Antibody NEG Impression (1) Vomiting (2) Hyperkalemia (3) ESRD on dialysis (4) Diabetes (5) Nausea (6) Anemia Bethany is an 81 year-old female with adult onset diabetes mellitus, hypertension , hyperlipidemia, diastolic CHF, history of nephrolithiasis and ulcerative colitis status post total colectomy with permanent ileostomy, 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 She is on HD MWF via an AVF. 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 She is hyperkalemic requiring emergent dialysis. I reviewed the plan of care with the ICU attending and hospitalist this morning. Dialysis nurse was called to the bedside. I was present when dialysis was started. Volume status is acceptable. The cause of her nausea and vomiting is unclear. Bethany has received Kayexalate as well. I encourage Bethany to complete HD with close monitoring. She is anxious to return home for the but I encouraged her to monitor her GI symptoms with close follow up prior to discharge. Recommendations ESRD: -- Emergent dialysis, 3.5 hrs -- K bath 2-3 K -- 1.5 L UF -- AVF with appropriate Qb Hyperkalemia: -- Tele during HD -- Dialysis orders reviewed with nurse Nausea and vomiting: -- Symptoms improving -- Serial abdominal exams
--- NOTE | 2017-05-14 10:24 | Dialysis Progress Note ---
Hemodialysis Note Date of Service May 14, 2017. Chief Complaint ESRD, hyperkalemia Goldy Sims was seen and evaluated during HD. She was tolerating treatment well. She remains on monitoring and evaluation advisor (NSR @ 85, normal QRS). BP acceptable. Qb 400 Review of Systems A complete review of systems was performed. Pertinent positives are noted above. All other systems are negative. Vital Signs Last 8 Hrs Date Time Temp Pulse Resp B/P (MAP) Pulse Ox O2 Delivery O2 Flow Rate FiO2 05/14/17 09:10 36.6 87 18 155/60 (91) 93 Room Air 05/14/17 08:46 86 18 139/53 93 05/14/17 08:20 93 Room Air 05/14/17 07:50 87 24 158/56 93 Room Air 05/14/17 07:00 79 20 139/57 93 Room Air 05/14/17 06:51 82 05/14/17 06:31 80 18 138/71 91 Room Air 05/14/17 05:40 36.9 86 20 136/58 94 Room Air Last Recorded Weight Weight (Kilograms): 81.300 Social History Drug Use: none Marital Status: Occupation: retired Laboratory Results Past 24 Hours 05/14/17 06:05 Red Blood Count 4.13, Mean Corpuscular Volume 99.8, Mean Corpuscular Hemoglobin 33.7, Mean Corpuscular Hemoglobin Concent 33.7, Mean Platelet Volume 9.2, Neutrophils (%) (Auto) 84.0, Lymphocytes (%) (Auto) 7.5, Monocytes (%) (Auto) 7.8, Eosinophils (%) (Auto) 0.3, Basophils (%) (Auto) 0.1, Neutrophils # (Auto) 8.04, Lymphocytes # (Auto) 0.72, Monocytes # (Auto) 0.75, Eosinophils # (Auto) 0.03, Basophils # (Auto) 0.01 05/14/17 06:05 Test 05/14/17 05:49 05/14/17 06:05 Bedside Glucose 216 mg/dl (70-90) White Blood Count 9.58 K/uL (4.8-10.8) Red Blood Count 4.13 M/uL (4.2-5.4) Hemoglobin 13.9 g/dL (12.0-16.0) Hematocrit 41.2 % (37-47) Mean Corpuscular Volume 99.8 fL (80-100) Mean Corpuscular Hemoglobin 33.7 pg (25-34) Mean Corpuscular Hemoglobin Concent 33.7 g/dl (32-36) Platelet Count 217 K/uL (130-400) Mean Platelet Volume 9.2 fL (7.4-10.4) Neutrophils (%) (Auto) 84.0 % Lymphocytes (%) (Auto) 7.5 % Monocytes (%) (Auto) 7.8 % Eosinophils (%) (Auto) 0.3 % Basophils (%) (Auto) 0.1 % Neutrophils # (Auto) 8.04 K/uL (1.4-6.5) Lymphocytes # (Auto) 0.72 K/uL (1.2-3.4) Monocytes # (Auto) 0.75 K/uL (0.11-0.59) Eosinophils # (Auto) 0.03 K/uL (0-0.5) Basophils # (Auto) 0.01 K/uL (0-0.2) RDW Standard Deviation 57.7 fL (36.4-46.3) RDW Coefficient of Variation 15.9 % (11.5-14.5) Immature Granulocyte % (Auto) 0.3 % Immature Granulocyte # (Auto) 0.03 K/uL (0.00-0.02) Anion Gap 15.0 mmol/L (3-11) Est Creatinine Clear Calc Drug Dose 3.8 ml/min Estimated GFR () 3.3 Estimated GFR (Non- 2.9 BUN/Creatinine Ratio 5.9 (10-20) Calcium Level 9.8 mg/dl (8.5-10.1) Total Bilirubin 0.8 mg/dl (0.2-1) Direct Bilirubin 0.2 mg/dl (0-0.2) Aspartate Amino Transf (AST/SGOT) 19 U/L (15-37) Alanine Aminotransferase (ALT/SGPT) 11 U/L (12-78) Alkaline Phosphatase 76 U/L (45-117) Troponin I < 0.015 ng/ml (0-0.045) Total Protein 9.0 gm/dl (6.4-8.2) Albumin 4.0 gm/dl (3.4-5.0) Lipase 360 U/L (73-393) Hepatitis B Surface Antigen NEG (NEG) Hepatitis B Surface Antibody NEG Allergies Coded Allergies: No Known Allergies (Unverified , 05/10/17) Medications Current Inpatient Medications Medications (Trade) Dose Ordered Sig/Camilo Route Start Time Stop Time Status Last Admin Dose Admin Heparin Sodium (Porcine) (Heparin Iv Bolus) 800 unit Q1H IV 05/14/17 08:45 05/14/17 10:46 Allopurinol (Zyloprim Tab) 100 mg QAM PO 05/14/17 09:00 06/13/17 08:59 UNV Amlodipine Besylate (Norvasc Tab) 5 mg QAM PO 05/14/17 09:00 06/13/17 08:59 UNV Anastrozole (Arimidex Tab) 1 mg QAM PO 05/14/17 09:00 06/13/17 08:59 UNV Aspirin (Ecotrin Tab) 81 mg QAM PO 05/14/17 09:00 06/13/17 08:59 UNV Vitamin B Complex/ Vit C/Folic Acid (Nephrocaps) 1 cap QAM PO 05/14/17 09:00 06/13/17 08:59 UNV Calcium Acetate (Phoslo Cap) 667 mg TIDM PO 05/14/17 12:00 06/13/17 11:59 UNV Ferrous Sulfate (Feosol Tab) 325 mg TIDM PO 05/14/17 12:00 06/13/17 11:59 UNV Insulin Human Isoph/Insulin Regular (novoLIN 70/30 REGULAR) 35 units QPM SQ 05/14/17 21:00 06/13/17 20:59 UNV Insulin Human Isoph/Insulin Regular (novoLIN 70/30 REGULAR) 60 units QAM SQ 05/14/17 09:00 06/13/17 08:59 UNV Labetalol HCl (Normodyne Tab) 200 mg TID PO 05/14/17 09:00 06/13/17 08:59 UNV Ondansetron HCl (Zofran Tab) 8 mg Q6H PRN PO 05/14/17 08:15 06/13/17 08:14 UNV Pantoprazole Sodium (Protonix Tab) 40 mg QAM PO 05/14/17 09:00 06/13/17 08:59 UNV Simvastatin (Zocor Tab) 40 mg QPM PO 05/14/17 21:00 06/13/17 20:59 UNV Non-Formulary Medication (Cholecalciferol (Vitamin D3)) 5,000 units DAILY PO 05/14/17 09:00 06/13/17 08:59 UNV Non-Formulary Medication (Multiple Vitamins W/ Minerals (Centrum Multigummies Adul)) 1 tab QAM PO 05/14/17 09:00 06/13/17 08:59 UNV Non-Formulary Medication (Multiple Vitamins W/ Minerals (Preservision Areds 2)) 1 cap BID PO 05/14/17 09:00 06/13/17 08:59 UNV Impression (1) Vomiting (2) Hyperkalemia (3) ESRD on dialysis (4) Diabetes (5) Nausea (6) Anemia Patient is tolerating hemodialysis well. Current Rx appropriate. UF goal dropped to 1.5 L. Volume status acceptable. Nausea improved. No vomiting. Denies abdominal pain. 3.5 hrs, 180 dialyzer, Qb 400, 2K, 32 HCO3
[2017-05-14] MEDS ORDERED: GLUCAGON FOR INJ 1 MG VIAL SQ PRN (11:45)
[2017-05-14] MEDS ORDERED: GLUCOSE 40% GEL 15 GM TUBE PO PRN (11:45)
[2017-05-14] MEDS ORDERED: DEXTROSE 50% 50 ML SYR IV PRN (11:45)
[2017-05-14] MEDS ORDERED: GLUCOSE 10 TABS/TUBE PO PRN (11:45)
[2017-05-14] MEDS: CHOLECALCIFEROL 1000 INTER.UNIT TAB PO SCH ×2 (13:12→14:48)
[2017-05-14] MEDS: LABETALOL HCL 200 MG TAB PO SCH ×2 (13:13→20:47)
[2017-05-14] MEDS: ANASTROZOLE 1 MG TAB PO SCH ×2 (13:14→14:49)
[2017-05-14] MEDS: PANTOprazole SOD 40 MG TAB PO SCH (13:14)
[2017-05-14] MEDS: CALCIUM ACETATE 667MG GELCAP PO SCH ×2 (13:15→14:48)
[2017-05-14] MEDS: NEPHROCAPS PO SCH ×2 (13:15→14:48)
[2017-05-14] MEDS: FERROUS SULFATE 325 MG TAB PO SCH ×2 (13:15→14:48)
[2017-05-14] MEDS: AMLODIPINE BESYLATE 5 MG TAB PO SCH (13:16)
[2017-05-14] MEDS: ASPIRIN 81 MG ECTAB PO SCH ×2 (13:16→14:48)
[2017-05-14] MEDS: INSULIN ASPART 100 UNITS/ML 3 ML PEN SC SCH ×3 (13:24→20:46)
[2017-05-14] MEDS: ALLOPURINOL 100 MG TAB PO SCH ×2 (13:24→14:48)
[2017-05-14] MEDS: INSULIN HUMAN NPH SC SCH ×2 (13:26→20:46)
[2017-05-14] MEDS ORDERED: ICU PROTOCOL FOR HYPERGLYCEMIA PRN (15:15)
[2017-05-14] MEDS ORDERED: INSULIN HUMAN 70% NPH/30% REGULAR SQ SCH (16:30)
--- NOTE | 2017-05-14 19:37 | DIAGNOSTIC IMAGING REPORT ---
CT SCAN OF THE ABDOMEN AND PELVIS WITHOUT IV CONTRAST CLINICAL HISTORY: Generalized abdominal pain. Nausea and vomiting. COMPARISON STUDY: Abdominal CT dated 12/13/2013. Chest CT dated 11/25/2016. TECHNIQUE: CT scan of the abdomen and pelvis is performed from the lung bases to the proximal femora. Images are reviewed in the axial, sagittal, and coronal planes. IV contrast was not administered for this examination as per the referring clinician. Note that the examination was performed in significantly suboptimal fashion without oral and IV contrast. A dose lowering technique was utilized adhering to the principles of ALARA. CT DOSE: 686.37 mGy.cm FINDINGS: Lung bases: The heart is normal in size and without pericardial effusion. There are coronary artery calcifications. A tiny hiatal hernia is identified. Calcified mediastinal and hilar nodes are partially imaged. Facet linear atelectasis versus scarring are present both lung bases. No airspace consolidation or pleural effusion is identified. There are least 6 noncalcified pulmonary nodules present at both lung bases. The largest is in the left lower lobe seen on image #4 and measures 7 mm. Small calcified granulomas are observed. Postoperative change is seen in the right breast. There is a 2.9 cm cystic collection in the right breast seen on image #32. Liver: The unenhanced liver is normal in size, contour, and attenuation. There is no intrahepatic biliary ductal dilatation. There are numerous calcified hepatic granulomas. Gallbladder: Calcified gallstones are identified. There is no CT evidence of acute cholecystitis.. Spleen: Normal in size and attenuation. There are numerous calcified splenic granulomas. Pancreas: The unenhanced pancreas is atrophic and grossly unremarkable. Adrenal glands: Unremarkable. Kidneys: The unenhanced kidneys are atrophic and without hydronephrosis. Punctate nonobstructing right renal calculi are seen on image #196. No left renal calculi are Identified. There is no evidence of contour deforming renal mass lesion. Surgical concern noted medial to the right kidney. Abdominal vasculature: The abdominal aorta is normal in course and caliber noting advanced atherosclerotic calcification. Bowel: There are postoperative changes from colectomy with right lower quadrant ileostomy. The stomach and proximal small bowel distended and fluid-filled. Small bowel measure up to 4.9 cm in transverse diameter. This gradually tapers to relatively decompressed small bowel loops at the right lower quadrant ostomy. No discrete transition point is identified although there is mild kinking at the ostomy site. There is fecalization of the distal small bowel loops. No focally thick walled bowel identified. There is no pneumatosis intestinalis or portal venous gas. Peritoneum: There is no intraperitoneal free air or abdominal ascites. Lymphadenopathy: None. Pelvic viscera: The bladder is decompressed and not well evaluated. No adnexal lesion is seen. There is a 5.0 x 2 point centimeter low-attenuation lesion seen posterior to the uterine fundus on image #362. This is new from 12/13/2013. Skeletal structures: The skeletal structures are osteopenic. There is [id number] lumbosacral spondylosis. No lytic or blastic lesions are seen. IMPRESSION: 1. Suboptimal examination without oral and IV contrast. 2. There are postoperative changes from proctocolectomy with right lower quadrant ileostomy. 3. Findings are consistent with a small bowel obstruction. No discrete transition point is identified, and the distended fluid-filled loops of proximal small bowel gradually taper to more normal caliber distal loops of fecalized small bowel above the ostomy site. There is mild kinking at the ostomy itself which could potentially represent a site of obstruction. Clinical correlation will be required. 4. No focally thick walled bowel identified. There is no pneumatosis intestinalis, portal venous gas, or abdominal ascites. 5. Cholelithiasis. 6. There are numerous noncalcified pulmonary nodules present at both lung bases measuring up to 6 mm. These are pathologically indeterminant, and if there is a cancer history of metastatic disease is not excluded. These are similar in size and distribution to the 11/25/[address] 7. There is a 2.9 cm fluid collection identified in the right breast, possibly representing a seroma. Clinical correlation will be required. 8. There is a new low-attenuation structure seen posterior to the uterus. This is pathologically indeterminant, and this was not clearly seen on the 2014 examination. Consider pelvic ultrasound in follow-up for further assessment. 9. Additional findings as above. Electronically signed by: Lico Chance M.D. 05/14/2017 7:35 PM Dictated Date/Time: 05/14/2017 7:18 PM
[2017-05-14] MEDS: SIMVASTATIN 40 MG TAB PO SCH (20:47)
--- NOTE | 2017-05-14 20:53 | Critical Care Progress Note ---
Critical Care Progress Note Date of Service May 14, 2017. Critical Care Progress Note Bethany Farr is a 81yo female that presented to the ICU today for emergent HD due to K of > 7 and Cr > 11. Pt was dialyzed for 700mL. She reported nausea and vomitting x 2 days. No outpt has been noted in her ileostomy bag today. CT Abd scan was ordered by nephrology which was consistent with small bowel obstruction. Pt continues with nausea despite HD and treatment with Zofran. Repeat Labs to monitor prior hyperkalemia among other sings of small bowel obstruction. No leukocytosis and afebrile at this time. Insertion of NG tube was attempted and placement could not be verified via auscultation. She desaturated and became tachycardic. * NG Tube was removed * Pt refused to have it re-inserted. She states she will take her chances of worsening and possibly needing surgery. * Pt was advised that it is in her best interest to have NG tube to decompress her GI tract. I asked that she at a minimum alert staff is she begins to have abd pain or if nausea worsens. She agreed. * Repeat Labs: PRP, Mag and Phos Pending * Will continue to monitor * Will consult surgery if acute changes are noted Imaging: Bowel: There are postoperative changes from colectomy with right lower quadrant ileostomy. The stomach and proximal small bowel distended and fluid-filled. Small bowel measure up to 4.9 cm in transverse diameter. This gradually tapers to relatively decompressed small bowel loops at the right lower quadrant ostomy. No discrete transition point is identified although there is mild kinking at the ostomy site. There is fecalization of the distal small bowel loops. No focally thick walled bowel identified. There is no pneumatosis intestinalis or portal venous gas. Findings are consistent with a small bowel obstruction. No discrete transition point is identified, and the distended fluid-filled loops of proximal small bowel gradually taper to more normal caliber distal loops of fecalized small bowel above the ostomy site. There is mild kinking at the ostomy itself which could potentially represent a site of obstruction. Clinical correlation will be required. Additional Critical Care Time: 35 Minutes
[2017-05-14 21:14] LABS: HEMATOCRIT 39.6 % (37-47); HEMOGLOBIN 13.3 g/dL (12.0-16.0); MEAN CELL VOLUME 99.5 fL (80-100); MEAN CORPUSCULAR HEMOGLOBIN 33.4 pg (25-34); MEAN PLATELET VOLUME 9.4 fL (7.4-10.4); PLATELET COUNT 238 K/uL (130-400); WHITE BLOOD COUNT 7.29 K/uL (4.8-10.8)
[2017-05-14 21:23] LABS: MEAN CORPUSCULAR HGB CONC 33.6 g/dl (32-36)
[2017-05-14 21:27] LABS: CALCIUM 8.8 mg/dl (8.5-10.1); CREATININE 6.79 mg/dl (0.60-1.20); PHOSPHORUS 6.9 mg/dl (2.5-4.9); POTASSIUM 5.7 mmol/L (3.5-5.1)
[2017-05-15] VITALS (15 sets, daily range): BP systolic 114–173; BP diastolic 44–96; PULSE 76–89; TEMP 36.6–37.1; O2SAT 91–95
[2017-05-15] MEDS ORDERED: LABETALOL HCL IV 5 MG/ML 20ML IV STA (01:05)
[2017-05-15] MEDS ORDERED: LABETALOL HCL IV 5 MG/ML 20ML IV ONE (01:11)
[2017-05-15 05:47] LABS: BASO % 0.2 %; BASO ABS # 0.01 K/uL (0-0.2); EOS % 0.5 %; EOS ABS # 0.03 K/uL (0-0.5); HEMATOCRIT 38.4 % (37-47); HEMOGLOBIN 13.1 g/dL (12.0-16.0); IG# 0.01 K/uL (0.00-0.02); LYMPH % 7.1 %; MEAN CORPUSCULAR HEMOGLOBIN 33.8 pg (25-34); MEAN CORPUSCULAR HGB CONC 34.1 g/dl (32-36); MEAN PLATELET VOLUME 9.2 fL (7.4-10.4); MONO % 13.4 %; MONO ABS # 0.75 K/uL (0.11-0.59); NEUT % 78.6 %; NEUT ABS # 4.41 K/uL (1.4-6.5); PLATELET COUNT 225 K/uL (130-400); RED CELL DISTRIBUTION WIDTH CV 15.9 % (11.5-14.5); RED CELL DISTRIBUTION WIDTH SD 57.6 fL (36.4-46.3); WHITE BLOOD COUNT 5.61 K/uL (4.8-10.8)
[2017-05-15 06:28] LABS: ALBUMIN 3.6 gm/dl (3.4-5.0); CALCIUM 8.9 mg/dl (8.5-10.1); CREATININE 7.86 mg/dl (0.60-1.20); POTASSIUM 5.4 mmol/L (3.5-5.1)
[2017-05-15 06:39] LABS: PHOSPHORUS 8.6 mg/dl (2.5-4.9)
[2017-05-15] MEDS ORDERED: INSULIN HUMAN 70% NPH/30% REGULAR SQ SCH (07:15)
--- NOTE | 2017-05-15 07:56 | Critical Care Progress Note ---
Critical Care Progress Note Date of Service May 15, 2017. ICU Day ICU Day Number: [address] Gallego Subjective Denies nausea, vomiting, no chest pain no shortness of breath has not had bowel movement Objective General: Alert. nontoxic. Skin: Warm, dry, Head: Atraumatic Ears, nose, mouth and throat: airway patent Cardiovascular: Normal peripheral perfusion Respiratory: no respiratory distress Gastrointestinal: No tenderness to deep palpation, no stool in ostomy, soft, very mild distention Musculoskeletal: No deformity Assessment & Plan Impression: 1. End-stage renal disease on hemodialysis 2. Hyperkalemia: Resolved 3. Partial small bowel obstruction 4. History of breast cancer 5. Pulmonary nodules 6. Indeterminant lower intra-abdominal structure found on CT Plan: #1 Attempted NG tube placement -This was unsuccessful and patient refused additional attempts -Continue to await return of bowel function -Patient not experiencing significant pain, no vomiting: Nonoperative management at this time 2. Follow-up with nephrology for routine dialysis #3 Placed consult for pulmonary nodule follow-up #4 Follow-up with primary care physician regarding intra-abdominal structure as noted on CT. #5 stable for downgrade out of ICU today Data Medications: Current Inpatient Medications Medications (Trade) Dose Ordered Sig/Camilo Route Start Time Stop Time Status Last Admin Dose Admin Allopurinol (Zyloprim Tab) 100 mg QAM PO 05/14/17 09:00 06/13/17 08:59 Amlodipine Besylate (Norvasc Tab) 5 mg QAM PO 05/14/17 09:00 06/13/17 08:59 Anastrozole (Arimidex Tab) 1 mg QAM PO 05/14/17 09:00 06/13/17 08:59 Aspirin (Ecotrin Tab) 81 mg QAM PO 05/14/17 09:00 06/13/17 08:59 Vitamin B Complex/ Vit C/Folic Acid (Nephrocaps) 1 cap QAM PO 05/14/17 09:00 06/13/17 08:59 Calcium Acetate (Phoslo Cap) 667 mg TIDM PO 05/14/17 11:30 06/13/17 11:29 Ferrous Sulfate (Feosol Tab) 325 mg TIDM PO 05/14/17 11:30 06/13/17 11:29 Labetalol HCl (Normodyne Tab) 200 mg TID PO 05/14/17 14:00 06/13/17 13:59 05/14/17 20:47 200 MG Ondansetron HCl (Zofran Tab) 8 mg Q6H PRN PO 05/14/17 08:15 06/13/17 08:14 05/14/17 20:56 8 MG Pantoprazole Sodium (Protonix Tab) 40 mg QAM PO 05/14/17 09:00 06/13/17 08:59 05/14/17 13:14 40 MG Simvastatin (Zocor Tab) 40 mg QPM PO 05/14/17 21:00 06/13/17 20:59 05/14/17 20:47 40 MG Cholecalciferol (Vitamin D Tab) 5,000 inter.unit DAILY PO 05/14/17 11:00 06/13/17 10:59 Multivitamins/ Minerals (Multivitamin W/ Minerals Tab) 1 tab BID PO 05/15/17 11:30 06/14/17 11:29 Insulin Human NPH (novoLIN-N NPH) 24 units BID SC 05/14/17 12:00 06/13/17 11:59 05/14/17 20:46 24 UNITS Glucose (Glucose 40% Gel) 15-30 GRAMS 15 GRAMS... UD PRN PO 05/14/17 11:45 06/13/17 11:44 Glucose (Glucose Chew Tab) 4-8 Tablets 4 Tabl... UD PRN PO 05/14/17 11:45 06/13/17 11:44 Dextrose (Dextrose 50% 50ML Syringe) 25-50ML OF 50% DW IV FOR... UD PRN IV 05/14/17 11:45 06/13/17 11:44 Glucagon (Glucagon Inj) 1 mg UD PRN SQ 05/14/17 11:45 06/13/17 11:44 Insulin Aspart (novoLOG ASPART) SLIDING SCALE ACHS SC 05/14/17 11:00 06/13/17 10:59 05/14/17 20:46 3 UNITS Miscellaneous Information (Icu Protocol For Hyperglycemia) 1 ea PRN PRN N/A 05/14/17 15:15 05/16/17 15:14 Vital Signs: Date Time Temp Pulse Resp B/P (MAP) Pulse Ox O2 Delivery O2 Flow Rate FiO2 05/15/17 06:00 77 20 167/67 (100) 92 Room Air 05/15/17 04:00 93 Room Air 05/15/17 04:00 83 18 163/63 (96) 93 Room Air 05/15/17 03:01 89 134/96 (109) 94 05/15/17 03:00 85 93 05/15/17 02:01 84 169/60 (123) 92 05/15/17 02:00 81 92 05/15/17 00:01 36.8 82 18 173/67 (102) 92 Room Air 05/14/17 23:59 Room Air 05/14/17 22:00 80 20 179/79 (112) 94 Room Air 05/14/17 20:00 95 Room Air 05/14/17 20:00 36.8 90 18 174/65 (101) 95 Room Air 05/14/17 18:00 83 20 148/58 (88) 93 Room Air 05/14/17 16:00 36.7 81 20 145/57 (86) 93 Room Air 05/14/17 16:00 Room Air 05/14/17 13:23 36.6 73 144/52 (82) 05/14/17 13:15 72 99/52 05/14/17 13:15 73 99/52 (68) 99 05/14/17 13:00 74 94/63 (73) 97 05/14/17 13:00 75 94/63 05/14/17 12:45 74 104/56 05/14/17 12:30 74 111/51 05/14/17 12:15 74 83/47 05/14/17 12:00 Room Air 05/14/17 12:00 72 108/54 05/14/17 12:00 36.8 71 18 108/54 (72) 97 Room Air 05/14/17 11:45 76 110/52 05/14/17 11:30 75 85/48 05/14/17 11:15 80 95/51 05/14/17 11:00 85 93/55 05/14/17 10:45 85 109/62 05/14/17 10:30 110 109/52 05/14/17 10:15 83 139/57 05/14/17 10:00 84 18 146/52 (83) 95 Room Air 05/14/17 10:00 79 146/52 05/14/17 09:37 36.6 89 153/61 (91) 05/14/17 09:10 36.6 87 18 155/60 (91) 93 Room Air 05/14/17 08:46 86 18 139/53 93 05/14/17 08:20 93 Room Air 05/14/17 07:50 87 24 158/56 93 Room Air Laboratory Results: Last 24 Hours Test 05/14/17 11:23 05/14/17 13:23 05/14/17 16:04 05/14/17 20:40 Bedside Glucose 152 mg/dl 137 mg/dl 191 mg/dl 199 mg/dl Test 05/14/17 20:51 05/14/17 20:52 05/15/17 05:25 White Blood Count 7.29 K/uL 5.61 K/uL Red Blood Count 3.98 M/uL 3.88 M/uL Hemoglobin 13.3 g/dL 13.1 g/dL Hematocrit 39.6 % 38.4 % Mean Corpuscular Volume 99.5 fL 99.0 fL Mean Corpuscular Hemoglobin 33.4 pg 33.8 pg Mean Corpuscular Hemoglobin Concent 33.6 g/dl 34.1 g/dl RDW Standard Deviation 58.0 fL 57.6 fL RDW Coefficient of Variation 16.0 % 15.9 % Platelet Count 238 K/uL 225 K/uL Mean Platelet Volume 9.4 fL 9.2 fL Venous Blood pH 7.37 Venous Blood Partial Pressure CO2 36 mmHg Venous Blood Partial Pressure O2 52 mmHg Venous Blood HCO3 21 mmol/L Venous Blood Oxygen Saturation 83.5 % Venous Blood Base Excess -4.2 mEq/L Sodium Level 124 mmol/L 125 mmol/L Potassium Level 5.7 mmol/L 5.4 mmol/L Chloride Level 91 mmol/L 89 mmol/L Carbon Dioxide Level 21 mmol/L 23 mmol/L Anion Gap 11.0 mmol/L 13.0 mmol/L Blood Urea Nitrogen 32 mg/dl 44 mg/dl Creatinine 6.79 mg/dl 7.86 mg/dl Est Creatinine Clear Calc Drug Dose 6.2 ml/min 5.4 ml/min Estimated GFR () 6.0 5.0 Estimated GFR (Non- 5.1 4.3 BUN/Creatinine Ratio 4.8 5.5 Random Glucose 203 mg/dl 177 mg/dl Calcium Level 8.8 mg/dl 8.9 mg/dl Phosphorus Level 6.9 mg/dl 8.6 mg/dl Magnesium Level 2.0 mg/dl 2.1 mg/dl Neutrophils (%) (Auto) 78.6 % Lymphocytes (%) (Auto) 7.1 % Monocytes (%) (Auto) 13.4 % Eosinophils (%) (Auto) 0.5 % Basophils (%) (Auto) 0.2 % Neutrophils # (Auto) 4.41 K/uL Lymphocytes # (Auto) 0.40 K/uL Monocytes # (Auto) 0.75 K/uL Eosinophils # (Auto) 0.03 K/uL Basophils # (Auto) 0.01 K/uL Immature Granulocyte % (Auto) 0.2 % Immature Granulocyte # (Auto) 0.01 K/uL Albumin 3.6 gm/dl
[2017-05-15] MEDS ORDERED: PHARMACY GLYCEMIC MGMT CONSULT PRN (08:21)
[2017-05-15] MEDS: FERROUS SULFATE 325 MG TAB PO SCH (08:23)
[2017-05-15] MEDS: LABETALOL HCL 200 MG TAB PO SCH (08:24)
[2017-05-15] MEDS: PANTOprazole SOD 40 MG TAB PO SCH (08:24)
[2017-05-15] MEDS: AMLODIPINE BESYLATE 5 MG TAB PO SCH (08:24)
[2017-05-15] MEDS: CALCIUM ACETATE 667MG GELCAP PO SCH (08:24)
[2017-05-15] MEDS: INSULIN ASPART 100 UNITS/ML 3 ML PEN SC SCH ×4 (08:30→23:23)
[2017-05-15] MEDS: INSULIN HUMAN NPH SC SCH ×2 (08:33→20:53)
[2017-05-15] MEDS ORDERED: NURSING VERBAL MED ORDER ONE (09:15)
--- NOTE | 2017-05-15 09:18 | Progress Note ---
Subjective Date of Service: May 15, 2017. Subjective Pt evaluation today including: conversation w/ patient 81 yo female received emergent HD yesterday Patient today however continues to have lo out put via ileostomy and notes nausea and more distention. D/W night team. Patient did not tolerate NG tube. Patient currently refuses retrial. Problem List Medical Problems: (1) CHF (congestive heart failure) Status: Acute (2) Chronic anemia Status: Acute (3) Chronic renal disease Status: Acute (4) End stage renal disease Status: Acute (5) Hyperkalemia Status: Acute (6) Hypoxia Status: Acute (7) Nausea Status: Acute (8) TIA (transient ischemic attack) Status: Acute (9) Uncontrolled diabetes mellitus Status: Acute Review of Systems Constitutional: No fever, No chills Eyes: No worsening of vision Respiratory: No cough Cardiac: No chest pain Abdomen: + pain, + nausea Musculoskeletal: No joint pain Neurologic: No memory loss Psychiatric: No depression symptoms Heme: No abnormal bleeding/bruising Endo: No fatigue Skin: No rash All Other Systems: Reviewed and Negative Objective Vital Signs Date Time Temp Pulse Resp B/P (MAP) Pulse Ox O2 Delivery O2 Flow Rate FiO2 05/15/17 08:00 Room Air 05/15/17 08:00 36.6 76 18 143/55 (84) 94 Room Air 05/15/17 06:00 77 20 167/67 (100) 92 Room Air 05/15/17 04:00 93 Room Air 05/15/17 04:00 83 18 163/63 (96) 93 Room Air 05/15/17 03:01 89 134/96 (109) 94 05/15/17 03:00 85 93 05/15/17 02:01 84 169/60 (123) 92 05/15/17 02:00 81 92 05/15/17 00:01 36.8 82 18 173/67 (102) 92 Room Air 05/14/17 23:59 Room Air 05/14/17 22:00 80 20 179/79 (112) 94 Room Air 05/14/17 20:00 95 Room Air 05/14/17 20:00 36.8 90 18 174/65 (101) 95 Room Air 05/14/17 18:00 83 20 148/58 (88) 93 Room Air 05/14/17 16:00 36.7 81 20 145/57 (86) 93 Room Air 05/14/17 16:00 Room Air 05/14/17 13:23 36.6 73 144/52 (82) 05/14/17 13:15 72 99/52 05/14/17 13:15 73 99/52 (68) 99 05/14/17 13:00 74 94/63 (73) 97 05/14/17 13:00 75 94/63 05/14/17 12:45 74 104/56 05/14/17 12:30 74 111/51 05/14/17 12:15 74 83/47 05/14/17 12:00 Room Air 05/14/17 12:00 72 108/54 05/14/17 12:00 36.8 71 18 108/54 (72) 97 Room Air 05/14/17 11:45 76 110/52 05/14/17 11:30 75 85/48 05/14/17 11:15 80 95/51 05/14/17 11:00 85 93/55 05/14/17 10:45 85 109/62 05/14/17 10:30 110 109/52 05/14/17 10:15 83 139/57 05/14/17 10:00 84 18 146/52 (83) 95 Room Air 05/14/17 10:00 79 146/52 05/14/17 09:37 36.6 89 153/61 (91) Physical Exam Comments: General Appearance: WD/WN, no apparent distress Head: normocephalic Eyes: normal inspection ENT: normal ENT inspection Neck: supple Respiratory/Chest: chest non-tender, lungs clear, normal breath sounds Cardiovascular: regular rate, rhythm, no edema Abdomen/GI: normal bowel sounds (Ileostomy in place. ), non tender, + pertinent finding (more distention today) Back: no CVA tenderness Extremities/Musculoskelatal: normal capillary refill, no pedal edema Neurologic/Psych: alert, oriented x 3 Skin: normal color Lymphatic: no adenopathy Laboratory Results Last 24 Hours Test 05/14/17 11:23 05/14/17 13:23 05/14/17 16:04 05/14/17 20:40 Bedside Glucose 152 mg/dl 137 mg/dl 191 mg/dl 199 mg/dl Test 05/14/17 20:51 05/14/17 20:52 4/1/18 05:25 White Blood Count 7.29 K/uL 5.61 K/uL Red Blood Count 3.98 M/uL 3.88 M/uL Hemoglobin 13.3 g/dL 13.1 g/dL Hematocrit 39.6 % 38.4 % Mean Corpuscular Volume 99.5 fL 99.0 fL Mean Corpuscular Hemoglobin 33.4 pg 33.8 pg Mean Corpuscular Hemoglobin Concent 33.6 g/dl 34.1 g/dl RDW Standard Deviation 58.0 fL 57.6 fL RDW Coefficient of Variation 16.0 % 15.9 % Platelet Count 238 K/uL 225 K/uL Mean Platelet Volume 9.4 fL 9.2 fL Venous Blood pH 7.37 Venous Blood Partial Pressure CO2 36 mmHg Venous Blood Partial Pressure O2 52 mmHg Venous Blood HCO3 21 mmol/L Venous Blood Oxygen Saturation 83.5 % Venous Blood Base Excess -4.2 mEq/L Sodium Level 124 mmol/L 125 mmol/L Potassium Level 5.7 mmol/L 5.4 mmol/L Chloride Level 91 mmol/L 89 mmol/L Carbon Dioxide Level 21 mmol/L 23 mmol/L Anion Gap 11.0 mmol/L 13.0 mmol/L Blood Urea Nitrogen 32 mg/dl 44 mg/dl Creatinine 6.79 mg/dl 7.86 mg/dl Est Creatinine Clear Calc Drug Dose 6.2 ml/min 5.4 ml/min Estimated GFR () 6.0 5.0 Estimated GFR (Non- 5.1 4.3 BUN/Creatinine Ratio 4.8 5.5 Random Glucose 203 mg/dl 177 mg/dl Calcium Level 8.8 mg/dl 8.9 mg/dl Phosphorus Level 6.9 mg/dl 8.6 mg/dl Magnesium Level 2.0 mg/dl 2.1 mg/dl Neutrophils (%) (Auto) 78.6 % Lymphocytes (%) (Auto) 7.1 % Monocytes (%) (Auto) 13.4 % Eosinophils (%) (Auto) 0.5 % Basophils (%) (Auto) 0.2 % Neutrophils # (Auto) 4.41 K/uL Lymphocytes # (Auto) 0.40 K/uL Monocytes # (Auto) 0.75 K/uL Eosinophils # (Auto) 0.03 K/uL Basophils # (Auto) 0.01 K/uL Immature Granulocyte % (Auto) 0.2 % Immature Granulocyte # (Auto) 0.01 K/uL Albumin 3.6 gm/dl Assessment and Plan 81 year-old female with adult onset diabetes mellitus, hypertension, hyperlipidemia, diastolic CHF, history of nephrolithiasis and ulcerative colitis status post total colectomy with permanent ileostomy, 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 Hyperkalemia in a 81 yo female with ESRD Improved. Received HD yesterday. will transfer to tele Patient received Insulin+dextrose Calcium IV Kaylexalete was given prior to HD D/W ER, Critical care, and Nephro Nausea, vomiting Ileostomy bag in place. worsening distention today will continue with bowel rest. imaging showed possible SBO. Patient refuses NG TUBE placement will need to consult surge. so they are aware of case if patient does not imprvoe conservatively Diabetes 2 Placed on home regimen. Held oral meds HTN held oral meds will convert to IV H/O CHF volume status appears euvolemic will continue to monitor. dyslipidemia will hold statin Spent 30 minutes of critcal care time in addition to the admission.
--- NOTE | 2017-05-15 09:53 | Nephrology Progress Note ---
Nephrology Progress Note Date of Service May 15, 2017. Chief Complaint ESRD, hyperkalemia Subjective No acute events overnight. CT scan consistent with SBO. No ostomy output overnight. Abdomen remains distended and uncomfortable. Bethany denies abdominal pain. Nausea persists. No vomiting this morning. Bethany also reports some reflux. She did not tolerate NGT placement. Bethany is breathing comfortably. Dialysis was completed yesterday without complications. Bethany tolerated HD well. Review of Systems A complete review of systems was performed. Pertinent positives are noted above. All other systems are negative. Vital Signs Last 8 Hrs Date Time Temp Pulse Resp B/P (MAP) Pulse Ox O2 Delivery O2 Flow Rate FiO2 05/15/17 08:00 Room Air 05/15/17 08:00 36.6 76 18 143/55 (84) 94 Room Air 05/15/17 06:00 77 20 167/67 (100) 92 Room Air 05/15/17 04:00 93 Room Air 05/15/17 04:00 83 18 163/63 (96) 93 Room Air 05/15/17 03:01 89 134/96 (109) 94 05/15/17 03:00 85 93 05/15/17 02:01 84 169/60 (123) 92 05/15/17 02:00 81 92 Last Recorded Weight Weight (Kilograms): 81.300 Physical Exam General Appearance: no apparent distress, + pertinent finding (frail) Head: normocephalic, atraumatic Eyes: normal inspection, sclerae normal ENT: normal ENT inspection, pharynx normal Neck: supple, no JVD Respiratory/Chest: no respiratory distress, no accessory muscle use, + decreased breath sounds Cardiovascular: no gallop, + tachycardia Abdomen/GI: + distended, + pertinent finding (minimal high pitched bowel sounds , no guarding, no ostomy output with minimal air in the bag) Extremities/Musculoskelatal: normal inspection, no pedal edema Neurologic/Psych: alert, + depressed affect Family History Diabetes mellitus Hypertension Social History Drug Use: none Marital Status: Occupation: retired Laboratory Results Past 24 Hours 05/14/17 20:51 05/15/17 05:25 Red Blood Count 3.88, Mean Corpuscular Volume 99.0, Mean Corpuscular Hemoglobin 33.8, Mean Corpuscular Hemoglobin Concent 34.1, Mean Platelet Volume 9.2, Neutrophils (%) (Auto) 78.6, Lymphocytes (%) (Auto) 7.1, Monocytes (%) (Auto) 13.4, Eosinophils (%) (Auto) 0.5, Basophils (%) (Auto) 0.2, Neutrophils # (Auto ) 4.41, Lymphocytes # (Auto) 0.40, Monocytes # (Auto) 0.75, Eosinophils # (Auto ) 0.03, Basophils # (Auto) 0.01 05/14/17 20:52 05/15/17 05:25 Test 05/14/17 11:23 05/14/17 13:23 05/14/17 16:04 05/14/17 20:40 Bedside Glucose 152 mg/dl (70-90) 137 mg/dl (70-90) 191 mg/dl (70-90) 199 mg/dl (70-90) Test 05/14/17 20:51 05/14/17 20:52 05/15/17 05:25 05/15/17 09:26 Red Blood Count 3.98 M/uL (4.2-5.4) 3.88 M/uL (4.2-5.4) Mean Corpuscular Volume 99.5 fL (80-100) 99.0 fL (80-100) Mean Corpuscular Hemoglobin 33.4 pg (25-34) 33.8 pg (25-34) Mean Corpuscular Hemoglobin Concent 33.6 g/dl (32-36) 34.1 g/dl (32-36) RDW Standard Deviation 58.0 fL (36.4-46.3) 57.6 fL (36.4-46.3) RDW Coefficient of Variation 16.0 % (11.5-14.5) 15.9 % (11.5-14.5) Mean Platelet Volume 9.4 fL (7.4-10.4) 9.2 fL (7.4-10.4) Venous Blood pH 7.37 (7.36-7.41) Venous Blood Partial Pressure CO2 36 mmHg (38.0-50.0) Venous Blood Partial Pressure O2 52 mmHg Venous Blood HCO3 21 mmol/L Venous Blood Oxygen Saturation 83.5 % Venous Blood Base Excess -4.2 mEq/L Anion Gap 11.0 mmol/L (3-11) 13.0 mmol/L (3-11) Est Creatinine Clear Calc Drug Dose 6.2 ml/min 5.4 ml/min Estimated GFR () 6.0 5.0 Estimated GFR (Non- 5.1 4.3 BUN/Creatinine Ratio 4.8 (10-20) 5.5 (10-20) Calcium Level 8.8 mg/dl (8.5-10.1) 8.9 mg/dl (8.5-10.1) Phosphorus Level 6.9 mg/dl (2.5-4.9) 8.6 mg/dl (2.5-4.9) Magnesium Level 2.0 mg/dl (1.8-2.4) 2.1 mg/dl (1.8-2.4) White Blood Count 5.61 K/uL (4.8-10.8) Hemoglobin 13.1 g/dL (12.0-16.0) Hematocrit 38.4 % (37-47) Platelet Count 225 K/uL (130-400) Neutrophils (%) (Auto) 78.6 % Lymphocytes (%) (Auto) 7.1 % Monocytes (%) (Auto) 13.4 % Eosinophils (%) (Auto) 0.5 % Basophils (%) (Auto) 0.2 % Neutrophils # (Auto) 4.41 K/uL (1.4-6.5) Lymphocytes # (Auto) 0.40 K/uL (1.2-3.4) Monocytes # (Auto) 0.75 K/uL (0.11-0.59) Eosinophils # (Auto) 0.03 K/uL (0-0.5) Basophils # (Auto) 0.01 K/uL (0-0.2) Immature Granulocyte % (Auto) 0.2 % Immature Granulocyte # (Auto) 0.01 K/uL (0.00-0.02) Albumin 3.6 gm/dl (3.4-5.0) Date/Time Source Procedure Growth Status 05/14/17 10:12 Nasal MRSA DNA Surveillance Screen - Final Specimen Negative for MRSA by DNA Probe Complete Allergies Coded Allergies: No Known Allergies (Unverified , 05/10/17) Medications Current Inpatient Medications Medications (Trade) Dose Ordered Sig/Camilo Route Start Time Stop Time Status Last Admin Dose Admin Allopurinol (Zyloprim Tab) 100 mg QAM PO 05/14/17 09:00 06/13/17 08:59 Future Hold Amlodipine Besylate (Norvasc Tab) 5 mg QAM PO 05/14/17 09:00 06/13/17 08:59 Future Hold Anastrozole (Arimidex Tab) 1 mg QAM PO 05/14/17 09:00 06/13/17 08:59 Future Hold Aspirin (Ecotrin Tab) 81 mg QAM PO 05/14/17 09:00 06/13/17 08:59 Future Hold Vitamin B Complex/ Vit C/Folic Acid (Nephrocaps) 1 cap QAM PO 05/14/17 09:00 06/13/17 08:59 Future Hold Calcium Acetate (Phoslo Cap) 667 mg TIDM PO 05/14/17 11:30 06/13/17 11:29 Future Hold Ferrous Sulfate (Feosol Tab) 325 mg TIDM PO 05/14/17 11:30 06/13/17 11:29 Future Hold Labetalol HCl (Normodyne Tab) 200 mg TID PO 05/14/17 14:00 06/13/17 13:59 Future Hold 05/14/17 20:47 200 MG Ondansetron HCl (Zofran Tab) 8 mg Q6H PRN PO 05/14/17 08:15 06/13/17 08:14 Future Hold 05/14/17 20:56 8 MG Pantoprazole Sodium (Protonix Tab) 40 mg QAM PO 05/14/17 09:00 06/13/17 08:59 Future Hold 05/14/17 13:14 40 MG Simvastatin (Zocor Tab) 40 mg QPM PO 05/14/17 21:00 06/13/17 20:59 Future Hold 05/14/17 20:47 40 MG Cholecalciferol (Vitamin D Tab) 5,000 inter.unit DAILY PO 05/14/17 11:00 06/13/17 10:59 Future Hold Multivitamins/ Minerals (Multivitamin W/ Minerals Tab) 1 tab BID PO 05/15/17 11:30 06/14/17 11:29 Future Hold Insulin Human NPH (novoLIN-N NPH) 24 units BID SC 05/14/17 12:00 06/13/17 11:59 05/15/17 08:33 24 UNITS Glucose (Glucose 40% Gel) 15-30 GRAMS 15 GRAMS... UD PRN PO 05/14/17 11:45 06/13/17 11:44 Glucose (Glucose Chew Tab) 4-8 Tablets 4 Tabl... UD PRN PO 05/14/17 11:45 06/13/17 11:44 Dextrose (Dextrose 50% 50ML Syringe) 25-50ML OF 50% DW IV FOR... UD PRN IV 05/14/17 11:45 06/13/17 11:44 Glucagon (Glucagon Inj) 1 mg UD PRN SQ 05/14/17 11:45 06/13/17 11:44 Miscellaneous Information (Consult Glycemic Management Pharmacy) 1 ea UD PRN N/A 05/15/17 08:21 06/14/17 08:20 Insulin Aspart (novoLOG ASPART) SLIDING SCALE Q6 SC 05/15/17 12:00 06/14/17 11:59 Heparin Sodium (Porcine) (Heparin Sq 5000 Unit/0.5ml) 5,000 unit Q8 SQ 05/15/17 14:00 06/14/17 13:59 UNV Pantoprazole Sodium 40 mg/ Syringe 10 ml @ 5 mls/min DAILY@11 IV 05/15/17 11:00 06/14/17 10:59 Impression (1) Vomiting (2) Hyperkalemia (3) ESRD on dialysis (4) Diabetes (5) Nausea (6) Anemia Bethany is an 81 year-old female with adult onset diabetes mellitus, hypertension , hyperlipidemia, diastolic CHF, history of nephrolithiasis and ulcerative colitis status post total colectomy with permanent ileostomy, 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 She is on HD MWF. 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 Bethany presented with nausea and vomiting. She had hyperkalemia requiring emergent dialysis (patient had missed her scheduled treatment the day prior). Evaluation notable for SBO and pulmonary nodules. Recommendations ESRD: -- BP, volume status are appropriate -- Metabolic profile acceptable -- No need for HD at this time, plan next treatment tomorrow -- Protect AVF Anemia: -- Hold PO iron -- Hgb acceptable, no need for EPO at this time CKD/MBD: -- Hold CaAcetate Hypertension: -- Patient unable to tolerate PO medications; amlodipine held -- Tolerate some permissive hypertension SBO: -- Patient unable to tolerate NGT placement -- Surgery consult pending
[2017-05-15 09:59] LABS: INR 1.1 (0.9-1.1)
[2017-05-15] MEDS ORDERED: HydrALAZINE HCL 20 MG/ML VIAL IV. PRN (10:00)
--- NOTE | 2017-05-15 10:03 | Pharmacy Progress Note ---
Glycemic Control Intl Consult Date of Service May 15, 2017. Scope Glycemic Pharmacist consulted by Dr Caraballo on 05/15/17 for glycemic control and to write orders per [facility] inpatient glycemic control protocol Objective Weight (Kilograms): 81.300 Accuchecks BSG (last 24hrs): Test 05/14/17 11:23 05/14/17 13:23 05/14/17 16:04 05/14/17 20:40 Bedside Glucose 152 mg/dl (70-90) 137 mg/dl (70-90) 191 mg/dl (70-90) 199 mg/dl (70-90) Test 05/14/17 20:52 05/15/17 05:25 Random Glucose 203 mg/dl (70-99) 177 mg/dl (70-99) Laboratory Data (last 24hrs) Test 05/14/17 20:51 05/14/17 20:52 05/15/17 05:25 White Blood Count 7.29 K/uL 5.61 K/uL Anion Gap 11.0 mmol/L 13.0 mmol/L BUN/Creatinine Ratio 4.8 5.5 Blood Urea Nitrogen 32 mg/dl 44 mg/dl Creatinine 6.79 mg/dl 7.86 mg/dl Potassium Level 5.7 mmol/L 5.4 mmol/L Sodium Level 124 mmol/L 125 mmol/L Red Blood Count 3.88 M/uL Hemoglobin 13.1 g/dL Hematocrit 38.4 % Mean Corpuscular Volume 99.0 fL Mean Corpuscular Hemoglobin 33.8 pg Mean Corpuscular Hemoglobin Concent 34.1 g/dl Platelet Count 225 K/uL Mean Platelet Volume 9.2 fL Neutrophils (%) (Auto) 78.6 % Lymphocytes (%) (Auto) 7.1 % Monocytes (%) (Auto) 13.4 % Eosinophils (%) (Auto) 0.5 % Basophils (%) (Auto) 0.2 % Neutrophils # (Auto) 4.41 K/uL Lymphocytes # (Auto) 0.40 K/uL Monocytes # (Auto) 0.75 K/uL Eosinophils # (Auto) 0.03 K/uL Basophils # (Auto) 0.01 K/uL HbA1c * Patient's A1c = N/A * this result is likely somewhat unreliable in ESRD patients d/t interactions between the A1c analyzing technique and high levels of urea in ESRD, reduced RBC life span, iron deficiency anemia, and EPO administration. HbA1c > 7.5% in ESRD patient may overestimate the extent of hyperglycemia in ESRD patients. Recent Pertinent Medications Outpatient Anti-diabetic Regimen: * ReliOn Premixed Insulin in 70%/30% distribution * 60 units in AM + 35 units SQ PM * Total daily dose = 96 units The patient is currently receiving: * Basal insulin: NPH 24 units every 12 hours * Correctional Insulin: Novolog Correction per scale ACHS Goal Range: Low 120 mg/dL - High 160 mg/dL Correction Factor: 15 mg/dL/unit * Prandial insulin: Per carb ratio of 1 unit per 6 grams CHO consumed Assessment & Plan ASSESSMENT: * 81yo T2DM female with unknown degree of outpatient control. A1c is unreliable d/t ESRD/HD. Trending POC BSG is preferred way to determine level of control in ESRD/HD. * Outpatient regimen is premixed basal/prandial insulin of ReliON 70/30 mix insulin. * Pre-mixed insulin is difficult to titrate since it is already in a fixed distribution of basal:prandial insulin. Continuing pre-mixed insulin for admission typically lead to hypoglycemia d/t changing PO status but rapid acting insulin is unable to be held. * Premixed regimen will be held for admission. Will continue to utilize recommended regimen of SQ basal bolus insulin regimen with NPH + NovoLog (CF+CR) * Total daily outpatient dose of 95 units/day was converted to NPH+NovoLog on admission in a 50%:50% distribution of basal:prandial insulin. * AM Fasting BSG = 177 mg/dl this morning. No changes needed to basal insulin * Pt NPO, no changes needed to CF/CR as CR will be held. Current parameters are c/w total daily dose of 95 units. PLAN FOR INPATIENT GLYCEMIC CONTROL: No changes needed at this time. Will continue to titrate insulin dosing based on BSG trends. * Basal insulin * NPH 24 units SQ BID * OK to give if NPO * Bolus insulin * NovoLog per scale ACHS or Q6hrs while NPO * Goal Range: Low 120 mg/dL - High 160 mg/dL * Correction Factor: 15 mg/dL/unit * Nutritional / Prandial insulin per carb ratio of 1 unit per 6 grams CHO consumed * Please note that the plan above was derived based on current level of insulin resistance and hospital stress. These recommendations are appropriate for inpatient admission only. Plan of care upon discharge will need to be reassessed to avoid potential outpatient hypo/hyperglycemia. Thank you.
[2017-05-15] MEDS: METOPROLOL TARTRATE 1 MG/ML VIAL IV. SCH ×3 (11:11→23:18)
[2017-05-15] MEDS: PANTOprazole INJ 40 MG in SYRINGE 0 ML IV SCH (11:11)
--- NOTE | 2017-05-15 11:47 | HISTORY & PHYSICAL EXAMINATION ---
DATE OF ADMISSION: 05/15/2017 REASON FOR CONSULTATION: Small-bowel obstruction on 05/15/[address] Caraballo. HISTORY OF PRESENT ILLNESS: The patient is an 81-year-old female with 24-48 hours of nausea and vomiting, admitted through the Emergency Room yesterday morning with the same. At that time, she had undergone a CAT scan examination showing dilated small bowel to the area of her ileostomy with no specific transition point prior to that. Her history does include a total colectomy for ulcerative colitis many, many years ago and then subsequent small-bowel obstruction in 2013 requiring exploration and lysis of adhesions apparently by Dr. Marrufo and at that time, she required a wound VAC. Other history is significant for history of end-stage renal disease on hemodialysis. Apparently, they did try to place an NG tube, which she did not tolerate and was somewhat combative and is essentially refusing an NG tube at the present time. She did not complain of any pain and has not vomited since she has been admitted to the hospital. Her ileostomy has had minimal output. Apparently, she does have some difficulty with her ileostomy bag. However, it is relatively secured at the present time. Her other history includes diabetes, ileostomy for ulcerative colitis, end-stage renal disease on hemodialysis, hypertension, history of right breast cancer with partial mastectomy with lymph node biopsy in August 2015, history of TIA. FAMILY AND SOCIAL HISTORY: Noncontributory. ALLERGIES: She has no known allergies. MEDICATIONS: Include Norvasc, anastrozole, insulin. REVIEW OF SYSTEMS: Ten other systems essentially negative. Please see HPI. PHYSICAL EXAMINATION: HEENT: Grossly normal. NECK: Supple. GENERAL: She is well nourished, but is chronically ill appearing, secondary to renal failure. LUNGS: Respiratory status shows no respiratory distress. HEART: Regular rate and rhythm in her heart. ABDOMEN: Very mildly distended. She does have some bowel sounds. She has no tenderness. EXTREMITIES: Without edema. SKIN: Normal color and warm. She is alert. I did review her CT scan. ASSESSMENT AND PLAN: An 81-year-old female with history of end-stage renal disease on hemodialysis with recent nausea and vomiting and evidence of small-bowel obstruction, which may be at the ileostomy site on her CAT scan. Normal treatment would be NG tube decompression, but the patient refuses NG tube. She is not complaining of any abdominal symptoms at the present time. I would like to have her ileostomy irrigated; however, with the difficulty in her stoma bag, I think that she is stable today until the stoma nurse is available for help, which would be most likely tomorrow morning. We will monitor her closely. I have told her that refusing an NG tube may increase her risk of surgery and even life threatening risks associated with surgery in her situation. She does understand.
--- NOTE | 2017-05-15 12:47 | Surgery Progress Note ---
Surgery Progress Note Date of Service May 15, 2017. Subjective see A/P Objective Vital Signs: Date Time Temp Pulse Resp B/P (MAP) Pulse Ox O2 Delivery O2 Flow Rate FiO2 05/15/17 11:11 88 141/62 05/15/17 10:00 88 141/62 (88) 92 Room Air 05/15/17 08:00 Room Air 05/15/17 08:00 36.6 76 18 143/55 (84) 94 Room Air 05/15/17 06:00 77 20 167/67 (100) 92 Room Air 05/15/17 04:00 93 Room Air 05/15/17 04:00 83 18 163/63 (96) 93 Room Air 05/15/17 03:01 89 134/96 (109) 94 05/15/17 03:00 85 93 05/15/17 02:01 84 169/60 (123) 92 05/15/17 02:00 81 92 05/15/17 00:01 36.8 82 18 173/67 (102) 92 Room Air 05/14/17 23:59 Room Air 05/14/17 22:00 80 20 179/79 (112) 94 Room Air 05/14/17 20:00 95 Room Air 05/14/17 20:00 36.8 90 18 174/65 (101) 95 Room Air 05/14/17 18:00 83 20 148/58 (88) 93 Room Air 05/14/17 16:00 36.7 81 20 145/57 (86) 93 Room Air 05/14/17 16:00 Room Air 05/14/17 13:23 36.6 73 144/52 (82) 05/14/17 13:15 72 99/52 05/14/17 13:15 73 99/52 (68) 99 05/14/17 13:00 74 94/63 (73) 97 05/14/17 13:00 75 94/63 05/14/17 12:45 74 104/56 Laboratory Results: Results Past 24 Hours Test 05/14/17 13:23 05/14/17 16:04 05/14/17 20:40 05/14/17 20:51 Range/Units Bedside Glucose 137 191 199 70-90 mg/dl White Blood Count 7.29 4.8-10.8 K/uL Red Blood Count 3.98 4.2-5.4 M/uL Hemoglobin 13.3 12.0-16.0 g/dL Hematocrit 39.6 37-47 % Mean Corpuscular Volume 99.5 80-100 fL Mean Corpuscular Hemoglobin 33.4 25-34 pg Mean Corpuscular Hemoglobin Concent 33.6 32-36 g/dl RDW Standard Deviation 58.0 36.4-46.3 fL RDW Coefficient of Variation 16.0 11.5-14.5 % Platelet Count 238 130-400 K/uL Mean Platelet Volume 9.4 7.4-10.4 fL Test 05/14/17 20:52 05/15/17 05:25 05/15/17 09:38 05/15/17 11:21 Range/Units Venous Blood pH 7.37 7.36-7.41 Venous Blood Partial Pressure CO2 36 38.0-50.0 mmHg Venous Blood Partial Pressure O2 52 mmHg Venous Blood HCO3 21 mmol/L Venous Blood Oxygen Saturation 83.5 % Venous Blood Base Excess -4.2 mEq/L Sodium Level 124 125 136-145 mmol/L Potassium Level 5.7 5.4 3.5-5.1 mmol/L Chloride Level 91 89 98-107 mmol/L Carbon Dioxide Level 21 23 21-32 mmol/L Anion Gap 11.0 13.0 3-11 mmol/L Blood Urea Nitrogen 32 44 7-18 mg/dl Creatinine 6.79 7.86 0.60-1.20 mg/dl Est Creatinine Clear Calc Drug Dose 6.2 5.4 ml/min Estimated GFR () 6.0 5.0 Estimated GFR (Non- 5.1 4.3 BUN/Creatinine Ratio 4.8 5.5 10-20 Random Glucose 203 177 70-99 mg/dl Calcium Level 8.8 8.9 8.5-10.1 mg/dl Phosphorus Level 6.9 8.6 2.5-4.9 mg/dl Magnesium Level 2.0 2.1 1.8-2.4 mg/dl White Blood Count 5.61 4.8-10.8 K/uL Red Blood Count 3.88 4.2-5.4 M/uL Hemoglobin 13.1 12.0-16.0 g/dL Hematocrit 38.4 37-47 % Mean Corpuscular Volume 99.0 80-100 fL Mean Corpuscular Hemoglobin 33.8 25-34 pg Mean Corpuscular Hemoglobin Concent 34.1 32-36 g/dl Platelet Count 225 130-400 K/uL Mean Platelet Volume 9.2 7.4-10.4 fL Neutrophils (%) (Auto) 78.6 % Lymphocytes (%) (Auto) 7.1 % Monocytes (%) (Auto) 13.4 % Eosinophils (%) (Auto) 0.5 % Basophils (%) (Auto) 0.2 % Neutrophils # (Auto) 4.41 1.4-6.5 K/uL Lymphocytes # (Auto) 0.40 1.2-3.4 K/uL Monocytes # (Auto) 0.75 0.11-0.59 K/uL Eosinophils # (Auto) 0.03 0-0.5 K/uL Basophils # (Auto) 0.01 0-0.2 K/uL RDW Standard Deviation 57.6 36.4-46.3 fL RDW Coefficient of Variation 15.9 11.5-14.5 % Immature Granulocyte % (Auto) 0.2 % Immature Granulocyte # (Auto) 0.01 0.00-0.02 K/uL Albumin 3.6 3.4-5.0 gm/dl Prothrombin Time 11.2 9.0-12.0 SECONDS Prothromb Time International Ratio 1.1 0.9-1.1 Bedside Glucose 170 70-90 mg/dl Assessment & Plan 05/15/17- called Elizabeth (sister) [phone] and Robinson (daughter)-[phone]- she lives in [place] discussed current situation- potential for surgery - will keep them informed.
[2017-05-15] MEDS: HEPARIN SOD 5000 UNIT/0.5 ML CARP SQ SCH ×2 (14:00→20:52)
[2017-05-16] VITALS (29 sets, daily range): BP systolic 85–151; BP diastolic 43–62; PULSE 75–92; TEMP 36.5–37.4; O2SAT 90–95; Ht 157.5 cm; Wt 69.1 kg
[2017-05-16] MEDS: INSULIN ASPART 100 UNITS/ML 3 ML PEN SC SCH ×3 (06:00→21:00)
[2017-05-16] MEDS: METOPROLOL TARTRATE 1 MG/ML VIAL IV. SCH ×3 (06:01→17:53)
[2017-05-16] MEDS: HEPARIN SOD 5000 UNIT/0.5 ML CARP SQ SCH ×3 (06:04→21:21)
--- NOTE | 2017-05-16 06:17 | Surgery Progress Note ---
Surgery Progress Note Date of Service May 16, 2017. Subjective very nauseous- no emesis since adm no significant ileo output Objective Vital Signs: Date Time Temp Pulse Resp B/P (MAP) Pulse Ox O2 Delivery O2 Flow Rate FiO2 05/16/17 06:01 79 136/62 05/16/17 04:00 91 Room Air 05/16/17 03:44 37.2 79 17 136/62 (86) 91 Room Air 05/16/17 00:01 91 Room Air 05/15/17 23:18 85 138/55 05/15/17 23:15 37.1 81 18 138/55 (82) 91 Room Air 05/15/17 20:00 92 Room Air 05/15/17 19:21 37.1 82 20 155/71 (99) 92 Room Air 05/15/17 18:22 88 05/15/17 15:51 36.6 86 20 131/62 (85) 91 Room Air 05/15/17 15:50 95 Room Air 05/15/17 12:10 Room Air 05/15/17 12:10 86 19 146/72 (96) 95 Room Air 05/15/17 11:11 88 141/62 05/15/17 10:00 88 141/62 (88) 92 Room Air 05/15/17 08:00 Room Air 05/15/17 08:00 36.6 76 18 143/55 (84) 94 Room Air General Appearance: no apparent distress Respiratory/Chest: no respiratory distress Abdomen: + pertinent finding (mild abd distention , diminished bowel sounds, min tenderness) Laboratory Results: Results Past 24 Hours Test 05/15/17 09:38 05/15/17 11:21 05/15/17 18:15 05/15/17 20:51 Range/Units Prothrombin Time 11.2 9.0-12.0 SECONDS Prothromb Time International Ratio 1.1 0.9-1.1 Bedside Glucose 170 140 138 70-90 mg/dl Test 05/15/17 23:20 05/16/17 06:02 05/16/17 06:04 Range/Units Bedside Glucose 121 70-90 mg/dl Assessment & Plan 05/16/17- will try to irrigate/ intubate ileostomy- suspect obstructive site at ileostomy and just proximal. I'm not encouraged she will resolve this without surgery- she refuses NG but may not resolve even with NG. Will likely be more difficult operation than normal, if necessary, because of prior significant surgery and wound vac. Will ask GI to see- Ileostomy endo ? 05/15/17- called Elizabeth (sister) [phone] and Robinson (daughter)-[phone]- she lives in [place] discussed current situation- potential for surgery - will keep them informed. 05/15/17- called Elizabeth (sister) [phone] and Robinson (daughter)-[phone]- she lives in [place] discussed current situation- potential for surgery - will keep them informed.
[2017-05-16 07:06] LABS: ALBUMIN 3.4 gm/dl (3.4-5.0); CALCIUM 8.8 mg/dl (8.5-10.1); CREATININE 10.3 mg/dl (0.60-1.20)
[2017-05-16] MEDS ORDERED: NURSING VERBAL MED ORDER ONE ×3 (07:15→17:45)
[2017-05-16] MEDS ORDERED: ONDANSETRON INJ 2 MG/ML 2 ML VIAL ONE (07:22)
[2017-05-16 07:26] LABS: PHOSPHORUS 9.1 mg/dl (2.5-4.9)
--- NOTE | 2017-05-16 07:29 | DIAGNOSTIC IMAGING REPORT ---
ABDOMEN 2VIEW W/PA CHEST RTN CLINICAL HISTORY: 81 years-old Female presenting with sbo. TECHNIQUE: PA view of the chest and supine and decubitus views of the abdomen were obtained. COMPARISON: CT of the abdomen and pelvis from 05/14/2017, CT chest from 02/17/2017, chest x-ray on 11/23/2016. FINDINGS: Atherosclerosis of the aortic arch. Cardiac silhouette normal in size. Minimal left basilar opacity. Previously noted pulmonary nodules on chest CT from 02/17/2017 are minimally apparent on this radiograph. Surgical clips in the right breast noted. Persistent small bowel distention and apparent small bowel diameter up to 6.3 cm though this is affected by magnification. Surgical clips project over the right mid abdomen and right pelvis. No gross pneumoperitoneum. Prominent splenic arterial calcification. Osteopenia suspected. IMPRESSION: 1. Minimal left basilar opacity may represent atelectasis. 2. Persistent abnormal small bowel gaseous distention, which could be compatible with small bowel obstruction. No gross free air. Electronically signed by: Mau Nunez M.D. 05/16/2017 7:27 AM Dictated Date/Time: 05/16/2017 7:21 AM
[2017-05-16 08:44] LABS: HEMATOCRIT 38.2 % (37-47); HEMOGLOBIN 12.8 g/dL (12.0-16.0); MEAN CELL VOLUME 97.2 fL (80-100); MEAN CORPUSCULAR HEMOGLOBIN 32.6 pg (25-34); MEAN CORPUSCULAR HGB CONC 33.5 g/dl (32-36); PLATELET COUNT 271 K/uL (130-400); RED CELL DISTRIBUTION WIDTH CV 15.7 % (11.5-14.5); RED CELL DISTRIBUTION WIDTH SD 55.4 fL (36.4-46.3); WHITE BLOOD COUNT 4.95 K/uL (4.8-10.8)
--- NOTE | 2017-05-16 08:54 | Nephrology Progress Note ---
Nephrology Progress Note Date of Service May 16, 2017. Chief Complaint ESRD, hyperkalemia Subjective No acute events overnight. Bethany is feeling tired and weak this morning. She continues to have abdominal discomfort and distention but denies pain. She reports nausea but no vomiting. No fevers or chills. No shortness of breath. Review of Systems A complete review of systems was performed. Pertinent positives are noted above. All other systems are negative. Vital Signs Last 8 Hrs Date Time Temp Pulse Resp B/P (MAP) Pulse Ox O2 Delivery O2 Flow Rate FiO2 05/16/17 08:00 Room Air 05/16/17 07:04 37.3 86 20 151/59 (89) 91 Room Air 05/16/17 06:01 79 136/62 05/16/17 04:00 91 Room Air 05/16/17 03:44 37.2 79 17 136/62 (86) 91 Room Air Last Recorded Weight Weight (Kilograms): 72.300 Physical Exam General Appearance: WD/WN, no apparent distress Head: normocephalic, atraumatic Eyes: normal inspection, sclerae normal ENT: normal ENT inspection, pharynx normal Neck: supple, no JVD Respiratory/Chest: no respiratory distress, no accessory muscle use, + decreased breath sounds Cardiovascular: regular rate, rhythm, no gallop Abdomen/GI: + distended, + pertinent finding (unable to appreciate bowel sounds this morning, no ostomy output, no guarding) Extremities/Musculoskelatal: normal inspection, no pedal edema Neurologic/Psych: alert Family History Diabetes mellitus Hypertension Social History Drug Use: none Marital Status: Occupation: retired Laboratory Results Past 24 Hours 05/16/17 06:03 05/16/17 06:04 Test 05/15/17 09:38 05/15/17 11:21 05/15/17 18:15 05/15/17 20:51 Prothrombin Time 11.2 SECONDS (9.0-12.0) Prothromb Time International Ratio 1.1 (0.9-1.1) Bedside Glucose 170 mg/dl (70-90) 140 mg/dl (70-90) 138 mg/dl (70-90) Test 05/15/17 23:20 05/16/17 06:02 05/16/17 06:03 05/16/17 06:04 Bedside Glucose 121 mg/dl (70-90) 79 mg/dl (70-90) Red Blood Count 3.93 M/uL (4.2-5.4) Mean Corpuscular Volume 97.2 fL (80-100) Mean Corpuscular Hemoglobin 32.6 pg (25-34) Mean Corpuscular Hemoglobin Concent 33.5 g/dl (32-36) RDW Standard Deviation 55.4 fL (36.4-46.3) RDW Coefficient of Variation 15.7 % (11.5-14.5) Mean Platelet Volume 10.0 fL (7.4-10.4) Anion Gap 18.0 mmol/L (3-11) Est Creatinine Clear Calc Drug Dose 3.9 ml/min Estimated GFR () 3.6 Estimated GFR (Non- 3.1 BUN/Creatinine Ratio 7.0 (10-20) Calcium Level 8.8 mg/dl (8.5-10.1) Phosphorus Level 9.1 mg/dl (2.5-4.9) Albumin 3.4 gm/dl (3.4-5.0) Allergies Coded Allergies: No Known Allergies (Unverified , 05/10/17) Medications Current Inpatient Medications Medications (Trade) Dose Ordered Sig/Camilo Route Start Time Stop Time Status Last Admin Dose Admin Allopurinol (Zyloprim Tab) 100 mg QAM PO 05/14/17 09:00 06/13/17 08:59 Future Hold Amlodipine Besylate (Norvasc Tab) 5 mg QAM PO 05/14/17 09:00 06/13/17 08:59 Future Hold Anastrozole (Arimidex Tab) 1 mg QAM PO 05/14/17 09:00 06/13/17 08:59 Future Hold Aspirin (Ecotrin Tab) 81 mg QAM PO 05/14/17 09:00 06/13/17 08:59 Future Hold Vitamin B Complex/ Vit C/Folic Acid (Nephrocaps) 1 cap QAM PO 05/14/17 09:00 06/13/17 08:59 Future Hold Calcium Acetate (Phoslo Cap) 667 mg TIDM PO 05/14/17 11:30 06/13/17 11:29 Future Hold Ferrous Sulfate (Feosol Tab) 325 mg TIDM PO 05/14/17 11:30 06/13/17 11:29 Future Hold Labetalol HCl (Normodyne Tab) 200 mg TID PO 05/14/17 14:00 06/13/17 13:59 Future Hold 05/14/17 20:47 200 MG Ondansetron HCl (Zofran Tab) 8 mg Q6H PRN PO 05/14/17 08:15 06/13/17 08:14 Future Hold 05/14/17 20:56 8 MG Pantoprazole Sodium (Protonix Tab) 40 mg QAM PO 05/14/17 09:00 06/13/17 08:59 Future Hold 05/14/17 13:14 40 MG Simvastatin (Zocor Tab) 40 mg QPM PO 05/14/17 21:00 06/13/17 20:59 Future Hold 05/14/17 20:47 40 MG Cholecalciferol (Vitamin D Tab) 5,000 inter.unit DAILY PO 05/14/17 11:00 06/13/17 10:59 Future Hold Multivitamins/ Minerals (Multivitamin W/ Minerals Tab) 1 tab BID PO 05/15/17 11:30 06/14/17 11:29 Future Hold Glucose (Glucose 40% Gel) 15-30 GRAMS 15 GRAMS... UD PRN PO 05/14/17 11:45 06/13/17 11:44 Glucose (Glucose Chew Tab) 4-8 Tablets 4 Tabl... UD PRN PO 05/14/17 11:45 06/13/17 11:44 Dextrose (Dextrose 50% 50ML Syringe) 25-50ML OF 50% DW IV FOR... UD PRN IV 05/14/17 11:45 06/13/17 11:44 Glucagon (Glucagon Inj) 1 mg UD PRN SQ 05/14/17 11:45 06/13/17 11:44 Miscellaneous Information (Consult Glycemic Management Pharmacy) 1 ea UD PRN N/A 05/15/17 08:21 06/14/17 08:20 Insulin Aspart (novoLOG ASPART) SLIDING SCALE Q6 SC 05/15/17 12:00 06/14/17 11:59 05/15/17 11:23 1 UNITS Heparin Sodium (Porcine) (Heparin Sq 5000 Unit/0.5ml) 5,000 unit Q8 SQ 05/15/17 14:00 06/14/17 13:59 05/16/17 06:04 5,000 UNIT Pantoprazole Sodium 40 mg/ Syringe 10 ml @ 5 mls/min DAILY@11 IV 05/15/17 11:00 06/14/17 10:59 05/15/17 11:11 5 MLS/MIN Metoprolol Tartrate (Lopressor Iv) 2.5 mg Q6 IV. 05/15/17 12:00 06/14/17 11:59 05/16/17 06:01 2.5 MG Hydralazine HCl (HydrALAZINE INJ) 10 mg Q6H PRN IV. 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 She is on HD MWF. 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 Bethany presented with nausea and vomiting. She had hyperkalemia requiring emergent dialysis (patient had missed her scheduled treatment the day prior). Evaluation notable for SBO and pulmonary nodules. Recommendations ESRD: -- HD today per TTS schedule -- Orders entered into EMR and discussed with dialysis nurse -- Low K bath for hyperkalemia -- Protect AVF Anemia: -- Hgb acceptable, no need for EPO at this time CKD/MBD: -- Hold CaAcetate Hypertension: -- Patient unable to tolerate PO medications; amlodipine held -- Tolerate some permissive hypertension SBO: -- Patient unable to tolerate NGT placement -- Surgery consult appreciated -- GI consult pending
[2017-05-16] MEDS ORDERED: INSULIN HUMAN NPH SC SCH ×3 (09:00→21:00)
--- NOTE | 2017-05-16 10:05 | Hospitalist Progress Note ---
Hospitalist Progress Note Date of Service May 16, 2017. Subjective Pt evaluation today including: conversation w/ patient, physical exam, chart review, lab review, conversation w/ consultant intern, review of inpatient medication list Pain: None PO Intake: NPO Voiding: no voiding problems Patient complains of nausea but denies any vomiting. She denies any abdominal pain currently. She remains NPO due to small bowel obstruction. The patient denies fevers, chills, sweats, chest pain, palpitations, claudication, cough, wheezing, shortness of breath, vomiting, abdominal pain, dysuria, hematuria, urinary retention, paralysis, weakness, numbness and tingling. Additional Comments: See HPI for pertinent positives and negatives. All other systems reviewed and negative. Objective Vital Signs Date Time Temp Pulse Resp B/P (MAP) Pulse Ox O2 Delivery O2 Flow Rate FiO2 05/16/17 08:00 Room Air 05/16/17 07:04 37.3 86 20 151/59 (89) 91 Room Air 05/16/17 06:01 79 136/62 05/16/17 04:00 91 Room Air 05/16/17 03:44 37.2 79 17 136/62 (86) 91 Room Air 05/16/17 00:01 91 Room Air 05/15/17 23:18 85 138/55 05/15/17 23:15 37.1 81 18 138/55 (82) 91 Room Air 05/15/17 20:00 92 Room Air 05/15/17 19:21 37.1 82 20 155/71 (99) 92 Room Air 05/15/17 18:22 88 05/15/17 15:51 36.6 86 20 131/62 (85) 91 Room Air 05/15/17 15:50 95 Room Air 05/15/17 12:10 Room Air 05/15/17 12:10 86 19 146/72 (96) 95 Room Air 05/15/17 11:11 88 141/62 05/15/17 10:00 88 141/62 (88) 92 Room Air Physical Exam Notes: General appearance: Well-developed, well-nourished, no apparent distress Head: Normocephalic, atraumatic Eyes: Normal inspection, PERRL, EOMI ENT: Normal ENT inspection, hearing grossly normal, pharynx normal Neck: Supple, no JVD, trachea midline Respiratory/Chest: +Decreased breath sounds. Lungs clear to auscultation, no respiratory distress Cardiovascular: +Systolic murmur. Regular rate & rhythm, no gallop Abdomen/GI: +Hypoactive bowel sounds. Ileostomy RLQ, no output. Mild, diffuse tenderness to palpation. Distention. Soft Extremities/Musculoskeletal: Normal inspection, no calf tenderness, no pedal edema Neurological/Psych: Alert, normal mood/affect, oriented x 3 Skin: Normal color, warm/dry, no rash Laboratory Results Last 24 Hours Test 05/15/17 11:21 05/15/17 18:15 05/15/17 20:51 05/15/17 23:20 Bedside Glucose 170 mg/dl 140 mg/dl 138 mg/dl 121 mg/dl Test 05/16/17 06:02 05/16/17 06:03 05/16/17 06:04 Bedside Glucose 79 mg/dl White Blood Count 4.95 K/uL Red Blood Count 3.93 M/uL Hemoglobin 12.8 g/dL Hematocrit 38.2 % Mean Corpuscular Volume 97.2 fL Mean Corpuscular Hemoglobin 32.6 pg Mean Corpuscular Hemoglobin Concent 33.5 g/dl RDW Standard Deviation 55.4 fL RDW Coefficient of Variation 15.7 % Platelet Count 271 K/uL Mean Platelet Volume 10.0 fL Sodium Level 128 mmol/L Potassium Level 6.0 mmol/L Chloride Level 93 mmol/L Carbon Dioxide Level 17 mmol/L Anion Gap 18.0 mmol/L Blood Urea Nitrogen 72 mg/dl Creatinine 10.30 mg/dl Est Creatinine Clear Calc Drug Dose 3.9 ml/min Estimated GFR () 3.6 Estimated GFR (Non- 3.1 BUN/Creatinine Ratio 7.0 Random Glucose 81 mg/dl Calcium Level 8.8 mg/dl Phosphorus Level 9.1 mg/dl Albumin 3.4 gm/dl Assessment and Plan 81 y/o female with a history of HTN, HLD, chronic diastolic CHF, DM II, ESRD on HD, ulcerative colitis s/p total colectomy w/ileostomy, and h/o ductal stage I breast cancer who presents to the ED on 05/14 w/nausea, vomiting, weakness and fatigue. Pt had missed dialysis session 05/13, found to be hyperkalemic on admission Hyperkalemia, ESRD on HD--ongoing -Admitted to ICU. Stable, transferred to tele. No acute events overnight. Pt in SR with HR 70s-90s -Received insulin+dextrose, calcium, Kayexalate -Emergent dialysis 05/14 -Potassium 6.0 on 05/16, up from 5.4. Pt to receive dialysis today -Nephrology consulted, appreciate recs: Low K bath today for hyperkalemia. No EPO needed, Hgb acceptable. Hold Ca Acetate Small bowel obstruction--ongoing -Still w/nausea, no output in ileostomy -NPO -Attempted NGT placement, pt refuses further attempts. Aware of risks -General surgery consulted, appreciate recs: Will try to irrigate/intubate ileostomy as suspect this is obstructive site. Refuses NGT but may need surgery anyway. Will ask GI to see for possible ileostomy endoscopy -GI consulted, appreciate recs: Spoke with Dr. Barton. Will order CT abdomen/ pelvis w/oral contrast following dialysis. No endoscopy planned at this time. -Wound care/ostomy nurse consulted for ileostomy irrigation HTN, HLD--stable -Home PO meds held -Lopressor 2.5 mg IV q6h -Cover with hydralazine 10 mg IV q6h prn SBP >170 Chronic diastolic CHF--stable, no exacerbation -For dialysis today -Beta courtney as above DM II--stable -On 30 at home -NPH 19 units SC BID -BSG 79 this am, NPH held -Insulin sliding scale q6h while NPO -Check BSGs q6h while NPO
--- NOTE | 2017-05-16 10:57 | Gastrointestinal Consultation ---
Gastrointestinal Consultation Date of Consultation: May 16, 2017 Attending Physician: Dr. Benedicto Finch Consulting Physician: Dr. Barton Reason for Consultation: SBO History of Present Illness Patient is a 81 year old female patient of Demar Sanford with a hx of ESRD on dialysis, DM-2 on insulin, TIA, HTN, right breast cncer S/P partial mastectomy, radiaion and continued chemotherapy (anastrozole). She also carries a hx of Ulcerative Colitis, having been dx'ed in the and underwent permanent ileostomy around that time. In 2013, she experienced bowel obstruction and underwent exp lap with lysis of adhesions. She began with abdominal pain and distention then nausea and vomiting on 05/13. Early on 05/14, she presented to the ED for continued symptoms. On arrival, she was hyperkalemic and CT scan w/o IV or po contrast suggested a small bowel obstruction. The pt tells us that she started eating protein bars with nuts and possibly with fiber about 2 weeks ago. This morning, the ostomy nurse with my assistance, placed a urinary catheter through the ostomy. Initially there was slight resistance both with placing the catheter and with flushing tap water. Soon, a large amt of thick, seedy fecal material returned as well as the 300cc of water used to irrigate. The pt tells us that her pain was better on wakening this morning compared to yesterday and that the irrigation did not cause any discomfort. Past Medical/Surgical History Medical Problems: (1) CHF (congestive heart failure) Status: Acute (2) Chronic anemia Status: Acute (3) Chronic renal disease Status: Acute (4) End stage renal disease Status: Acute (5) Hyperkalemia Status: Acute (6) Hypoxia Status: Acute (7) Nausea Status: Acute (8) TIA (transient ischemic attack) Status: Acute (9) Uncontrolled diabetes mellitus Status: Acute Past Medical History: 1. CHF 2. DM-2 3. HTN 4. ESRD on dialysis x 6 months 5. TIA 6. Right breast cancer, S/P partial mastectomy 7. Ulcerative Colitis S/P permanent ileostomy 8. Prior Small Bowel Obstruction from adhesions 9. 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 Gout Past Surgical History: 1. Partial right breast mastectomy 2. Ileostomy for UC 3. Exp Lap with lysis of adhesions in 2013 Family History Diabetes mellitus Hypertension Social History Smoking Status: Never Smoker Alcohol Use: none Drug Use: none Marital Status: Housing Status: lives alone Occupation Status: retired Allergies Coded Allergies: No Known Allergies (Unverified , 05/10/17) Current Medications Home Meds and Scripts Medications Dose Route/Sig Max Daily Dose Days Date Category Vitamin D3 (Cholecalciferol) 5,000 Unit Tab 5,000 Units PO DAILY 05/14/17 Reported Zofran (Ondansetron HCl) 8 Mg Tab 8 Mg PO Q6H PRN 05/14/17 Reported Phoslo 667 Mg (Calcium Acetate) 667 Mg Cap 1 Cap PO TIDM 03/11/17 Reported [place] Caps (B-Complex W/ C & Folic Acid) 1 Cap Cap 1 Tab PO QAM 03/11/17 Reported Ferrous Sulfate 325 Mg Tab 325 Mg PO TIDM 11/20/16 Reported Preservision Areds 2 (Multiple Vitamins W/ Minerals) 1 Cap Cap 1 Cap PO BID 11/20/16 Reported Labetalol HCl 200 Mg Tab 200 Mg PO TID 11/20/16 Reported Allopurinol 100 Mg Tab 100 Mg PO QAM 11/20/16 Reported Anastrozole 1 Mg Tab 1 Mg PO QAM 11/20/16 Reported Centrum Multigummies Adul (Multiple Vitamins W/ Minerals) 1 Chw Chw 1 Tab PO QAM 11/26/15 Reported Norvasc (Amlodipine Besylate) 5 Mg Tab 5 Mg PO QAM 04/23/15 Reported Aspirin Ec (Aspirin) 81 Mg Tab 81 Mg PO QAM 04/05/15 Reported Novolin 70/30 Relion (Insulin Isophane & Reg (Human)) 1 Inj Inj 35 Units SQ QPM 05/27/14 Reported Novolin 70/30 Relion (Insulin Isophane & Reg (Human)) 1 Inj Inj 60 Units SQ QAM 05/27/14 Reported Pantoprazole Sodium (Pantoprazole) 40 Mg Tab 40 Mg PO QAM 05/27/14 Reported Simvastatin 40 Mg Tab 40 Mg PO QPM 05/27/14 Reported Review of Systems Constitutional: No fever, No chills, No sweats, No weight loss, No weakness Eyes: No eye pain, No redness ENT: No sore throat, No trouble swallowing, No pain on swallowing Respiratory: No cough, No wheezing, No shortness of breath, No dyspnea on exertion Cardiac: No chest pain, No edema, No palpitations Abdomen: + see HPI, + pain, + nausea, + vomiting Neuro: No memory loss, No weakness, No numbness/tingling, No vertigo, No balance problems Psych: No depression symptoms, No anxiety, No insomnia Heme: No abnormal bleeding/bruising, No night sweats Endo: No excessive thirst, No excessive urination Skin: No rash, No itch, No new/changing skin lesions, No jaundice Physical Exam Date Time Temp Pulse Resp B/P (MAP) Pulse Ox O2 Delivery O2 Flow Rate FiO2 05/16/17 08:00 Room Air 05/16/17 07:04 37.3 86 20 151/59 (89) 91 Room Air 05/16/17 06:01 79 136/62 05/16/17 04:00 91 Room Air 05/16/17 03:44 37.2 79 17 136/62 (86) 91 Room Air 05/16/17 00:01 91 Room Air 05/15/17 23:18 85 138/55 05/15/17 23:15 37.1 81 18 138/55 (82) 91 Room Air 05/15/17 20:00 92 Room Air 05/15/17 19:21 37.1 82 20 155/71 (99) 92 Room Air 05/15/17 18:22 88 05/15/17 15:51 36.6 86 20 131/62 (85) 91 Room Air 05/15/17 15:50 95 Room Air 05/15/17 12:10 Room Air 05/15/17 12:10 86 19 146/72 (96) 95 Room Air 05/15/17 11:11 88 141/62 General Appearance: no apparent distress Eyes: normal inspection, EOMI Neck: supple, no adenopathy, thyroid normal, no JVD Respiratory/Chest: chest non-tender, lungs clear, normal breath sounds, no accessory muscle use Cardiovascular: regular rate, rhythm, no JVD, no murmur Abdomen: normal bowel sounds, non tender, soft, no organomegaly, + distended ( minimal), + pertinent finding (abdomen is slightly firm on palpation near the ostomy) Extremities: normal inspection, no pedal edema, normal capillary refill Neurologic/Psych: alert, normal mood/affect, oriented x 3 Skin: normal color, no jaundice, warm/dry, no rash Laboratory Results Last 24 Hours Test 05/15/17 11:21 05/15/17 18:15 05/15/17 20:51 05/15/17 23:20 Bedside Glucose 170 mg/dl 140 mg/dl 138 mg/dl 121 mg/dl Test 05/16/17 06:02 05/16/17 06:03 05/16/17 06:04 Bedside Glucose 79 mg/dl White Blood Count 4.95 K/uL Red Blood Count 3.93 M/uL Hemoglobin 12.8 g/dL Hematocrit 38.2 % Mean Corpuscular Volume 97.2 fL Mean Corpuscular Hemoglobin 32.6 pg Mean Corpuscular Hemoglobin Concent 33.5 g/dl RDW Standard Deviation 55.4 fL RDW Coefficient of Variation 15.7 % Platelet Count 271 K/uL Mean Platelet Volume 10.0 fL Sodium Level 128 mmol/L Potassium Level 6.0 mmol/L Chloride Level 93 mmol/L Carbon Dioxide Level 17 mmol/L Anion Gap 18.0 mmol/L Blood Urea Nitrogen 72 mg/dl Creatinine 10.30 mg/dl Est Creatinine Clear Calc Drug Dose 3.9 ml/min Estimated GFR () 3.6 Estimated GFR (Non- 3.1 BUN/Creatinine Ratio 7.0 Random Glucose 81 mg/dl Calcium Level 8.8 mg/dl Phosphorus Level 9.1 mg/dl Albumin 3.4 gm/dl Impression Patient is a 81 year old female with likely partial SBO near her ostomy, w/o area of transition on imaging (less likely a complete obstruction), likely caused by adhesive disease and eating a diet with (recently) increased roughage. Plan 1. CT abd/pelvis with oral, no IV contrast to more clearly define the location and severity of the area of obstruction. 2. Other than the oral contrast would keep NPO for now. 3. Would avoid endoscopy atleast until after CT scan. Further recommendations to follow CT. I have seen , examined and agree with the plan as outlined by ADRIAN Goldman as above. -exam reveals soft abd -Normo-active bowel sounds -CT review shows dilated bowel loops but no transition point, down to ostomy that does not look stenosed. -Not sure of role of endoscopy, no signs of Crohn's -Will await oral contrasted CT scan for further recs, she is quite comfortable now without pain, but not passing air from ostomy. -Also await wound care nurse meng
[2017-05-16] MEDS: PANTOprazole INJ 40 MG in SYRINGE 0 ML IV SCH (13:21)
--- NOTE | 2017-05-16 14:48 | Pharmacy Progress Note ---
Glycemic: Assessment & Plan Date of Service May 16, 2017. Assessment & Plan The patient is currently receiving 51 units of insulin per day. BSGs ranging 65 - 170 mg/dl over the past 24hrs. BSG continues to downtrend today despite holding of AM NPH and HD. I will place an order for 10 units NPH on hold pending two BSGs >120. Patient continues to be NPO. Of note patient appears to have declined treatment with d50. * Basal insulin: NPH 10 units tonight if prior two BSGs > 120 * Correctional Insulin: Novolog Correction per scale q6h Goal Range: Low 120 mg/dL - High 160 mg/dL Correction Factor: 15 mg/dL/unit * Prandial insulin: Per carb ratio of 1 unit per 6 grams CHO consumed Pharmacy will continue to monitor patient daily and write orders per [facility] inpatient glycemic control protocol. Thanks. * Please note that the plan above was derived based on current level of insulin resistance and hospital stress. These recommendations are appropriate for inpatient admission only. Plan of care upon discharge will need to be reassessed to avoid potential outpatient hypo/hyperglycemia.
--- NOTE | 2017-05-16 15:27 | DIAGNOSTIC IMAGING REPORT ---
ABD/PELVIS ORAL CONT ONLY CLINICAL HISTORY: 81 years-old Female presenting with ? SBO. TECHNIQUE: Multidetector CT of the abdomen and pelvis was performed after the administration of oral contrast only. IV contrast: None. A dose lowering technique was used consistent with the principles of ALARA (as low as reasonably achievable). COMPARISON: 05/14/2017. CT DOSE (mGy.cm): The estimated cumulative dose is 485.62 mGy.cm. FINDINGS: Power [employer]ing [employer] Operator topogram: Gaseous distention of bowel. Surgical clips in the right pelvis and right abdomen. Lung bases: Fluid collection in the posterior third of the lateral right breast likely seroma. Adjacent surgical clips. Several solid pulmonary nodules evident as on prior exam, which have been marked on the images and measure up to 4 mm. These are unchanged. Additional bandlike opacities likely atelectasis or scarring. Normal heart size. Coronary artery calcification. No pericardial or pleural effusion. Liver: Normal morphology. Density consistent with hepatic steatosis. Numerous parenchymal calcification suggest prior granulomatous infection. Biliary: No gross biliary ductal dilatation allowing for noncontrast technique. Gallbladder contains gallstones. Pancreas: Moderate parenchymal atrophy. Spleen: Parenchymal calcification suggest prior granulomatous infection. Adrenal glands: Normal noncontrast appearance. Kidneys and ureters: Parenchymal atrophy with extensive renal vascular calcification. Metallic foreign bodies noted medial to the right kidney. No nephrolithiasis. No hydronephrosis. Left ureter normal. Right ureter poorly visualized. Bladder: Incompletely evaluated secondary to underdistention. Pelvic organs: Normal noncontrast appearance. Bowel: Evidence of abdominoperineal resection with total proctocolectomy. Right mid abdominal ileostomy. Small bowel is diffusely distended. Oral contrast has not yet transited to the ostomy. Small bowel measures up to nearly 5 cm in diameter. There is smooth tapering to the more distal small bowel without a focal transition point identified apart from extensive fecal material in the distal most small bowel to the level of the ostomy. Peritoneal cavity: Small amount of pelvic ascites or presacral fluid, which may be loculated and is unchanged from prior. No free intraperitoneal gas. Lymph nodes: No gross lymphadenopathy allowing for noncontrast technique. Vasculature: Atherosclerosis of the normal caliber abdominal aorta. Abdominal wall: Diastasis of the rectus abdominis. Postsurgical changes of the periumbilical region with skin thickening and infiltration. No associated fluid or inflammatory change at the right mid abdominal ostomy. Musculoskeletal: Degenerative changes of the spine. IMPRESSION: 1. Extensive fecal material in the distal small bowel to the level of the right mid abdominal ileostomy. This could suggest partial functional or mechanical obstruction due to feces. These or is felt to be less likely given the extended segment of involvement. No other focal transition point. 2. Small amount of loculated ascites versus small amount of presacral fluid, which may be postsurgical. 3. Post surgical changes of total proctocolectomy and abdominoperineal resection. 4. Evidence of old granulomatous infection. 5. Seroma in the right breast. 6. Multiple nonspecific solid pulmonary nodules. Electronically signed by: Mau Nunez M.D. 05/16/2017 3:26 PM Dictated Date/Time: 05/16/2017 3:11 PM
[2017-05-17] VITALS (11 sets, daily range): BP systolic 129–147; BP diastolic 50–76; PULSE 68–91; TEMP 36.5–37.1; O2SAT 92–96
[2017-05-17] MEDS: METOPROLOL TARTRATE 1 MG/ML VIAL IV. SCH ×3 (00:13→12:27)
[2017-05-17] MEDS: ONDANSETRON INJ 2 MG/ML 2 ML VIAL IV PRN ×2 (00:13→21:34)
[2017-05-17] MEDS ORDERED: ONDANSETRON 4MG OD TAB PO STA (04:49)
[2017-05-17] MEDS ORDERED: PROCHLORPERAZINE INJ 5 MG in SYRINGE 4 ML IV STA (05:33)
[2017-05-17 05:55] LABS: HEMATOCRIT 39.7 % (37-47); HEMOGLOBIN 13.3 g/dL (12.0-16.0); MEAN CORPUSCULAR HEMOGLOBIN 33.2 pg (25-34); MEAN CORPUSCULAR HGB CONC 33.5 g/dl (32-36); MEAN PLATELET VOLUME 9.2 fL (7.4-10.4); PLATELET COUNT 231 K/uL (130-400); RED CELL DISTRIBUTION WIDTH CV 15.9 % (11.5-14.5); RED CELL DISTRIBUTION WIDTH SD 57.7 fL (36.4-46.3)
[2017-05-17] MEDS: HEPARIN SOD 5000 UNIT/0.5 ML CARP SQ SCH ×3 (06:10→21:31)
[2017-05-17 06:55] LABS: ALBUMIN 3.7 gm/dl (3.4-5.0); CREATININE 7.32 mg/dl (0.60-1.20); PHOSPHORUS 8.4 mg/dl (2.5-4.9)
--- NOTE | 2017-05-17 07:14 | Surgery Progress Note ---
Surgery Progress Note Date of Service May 17, 2017. Subjective improved output from ileostomy- initially firm stool Objective Vital Signs: Date Time Temp Pulse Resp B/P (MAP) Pulse Ox O2 Delivery O2 Flow Rate FiO2 05/17/17 06:08 84 05/17/17 04:00 92 Room Air 05/17/17 03:52 37.1 82 20 131/56 (81) 92 Room Air 05/17/17 00:13 88 114/45 05/16/17 23:59 90 Room Air 05/16/17 23:33 37.4 90 18 114/45 (68) 90 Room Air 05/16/17 20:00 37.1 92 20 136/61 (86) 92 Room Air 05/16/17 20:00 92 Room Air 05/16/17 17:53 86 05/16/17 16:00 92 Room Air 05/16/17 15:46 36.8 86 20 124/55 (78) 92 Room Air 05/16/17 14:20 36.5 77 120/52 (74) 05/16/17 13:30 81 100/53 05/16/17 13:22 86 05/16/17 13:19 82 109/49 05/16/17 13:15 85 85/59 05/16/17 13:00 82 103/51 05/16/17 12:45 87 94/52 05/16/17 12:30 84 92/46 05/16/17 12:15 85 101/50 05/16/17 12:00 84 103/47 05/16/17 11:45 84 107/52 05/16/17 11:42 95 Room Air 05/16/17 11:36 36.5 83 16 107/53 (71) 95 Room Air 05/16/17 11:30 83 116/51 05/16/17 11:15 86 90/52 05/16/17 11:00 84 101/53 05/16/17 10:45 83 107/53 05/16/17 10:30 83 92/51 05/16/17 10:15 84 92/43 05/16/17 10:02 75 123/54 05/16/17 09:50 37.0 77 125/54 (77) 05/16/17 08:00 Room Air General Appearance: no apparent distress Respiratory/Chest: no respiratory distress Abdomen: soft Laboratory Results: Results Past 24 Hours Test 05/16/17 09:02 05/16/17 14:01 05/16/17 17:47 05/16/17 21:05 Range/Units Bedside Glucose 83 65 91 121 70-90 mg/dl Test 05/17/17 05:38 Range/Units White Blood Count 5.50 4.8-10.8 K/uL Red Blood Count 4.01 4.2-5.4 M/uL Hemoglobin 13.3 12.0-16.0 g/dL Hematocrit 39.7 37-47 % Mean Corpuscular Volume 99.0 80-100 fL Mean Corpuscular Hemoglobin 33.2 25-34 pg Mean Corpuscular Hemoglobin Concent 33.5 32-36 g/dl RDW Standard Deviation 57.7 36.4-46.3 fL RDW Coefficient of Variation 15.9 11.5-14.5 % Platelet Count 231 130-400 K/uL Mean Platelet Volume 9.2 7.4-10.4 fL Sodium Level 133 136-145 mmol/L Potassium Level 5.0 3.5-5.1 mmol/L Chloride Level 92 98-107 mmol/L Carbon Dioxide Level 23 21-32 mmol/L Anion Gap 18.0 3-11 mmol/L Blood Urea Nitrogen 50 7-18 mg/dl Creatinine 7.32 0.60-1.20 mg/dl Est Creatinine Clear Calc Drug Dose 5.4 ml/min Estimated GFR () 5.4 Estimated GFR (Non- 4.7 BUN/Creatinine Ratio 6.9 10-20 Random Glucose 176 70-99 mg/dl Calcium Level 9.0 8.5-10.1 mg/dl Phosphorus Level 8.4 2.5-4.9 mg/dl Albumin 3.7 3.4-5.0 gm/dl Assessment & Plan 05/17/17- improved GI function- obstructed from high fiber protein bars and general debilitation. advance diet as tolerated 05/16/17- will try to irrigate/ intubate ileostomy- suspect obstructive site at ileostomy and just proximal. I'm not encouraged she will resolve this without surgery- she refuses NG but may not resolve even with NG. Will likely be more difficult operation than normal, if necessary, because of prior significant surgery and wound vac. Will ask GI to see- Ileostomy endo ? 05/15/17- called Elizabeth (sister) [phone] and Robinson (daughter)-[phone]- she lives in [place] discussed current situation- potential for surgery - will keep them informed. 05/16/17- will try to irrigate/ intubate ileostomy- suspect obstructive site at ileostomy and just proximal. I'm not encouraged she will resolve this without surgery- she refuses NG but may not resolve even with NG. Will likely be more difficult operation than normal, if necessary, because of prior significant surgery and wound vac. Will ask GI to see- Ileostomy endo ? 05/15/17- called Elizabeth (sister) [phone] and Robinson (daughter)-[phone]- she lives in [place] discussed current situation- potential for surgery - will keep them informed.
[2017-05-17] MEDS: INSULIN ASPART 100 UNITS/ML 3 ML PEN SC SCH ×4 (08:51→21:00)
[2017-05-17] MEDS ORDERED: INSULIN HUMAN NPH SC SCH (09:00)
--- NOTE | 2017-05-17 09:05 | Nephrology Progress Note ---
Nephrology Progress Note Date of Service May 17, 2017. Chief Complaint ESRD, hyperkalemia Subjective Bethany is less despondent this morning. She is breathing comfortably. Ostomy output increased. Bethany developed obstruction attributed to protein bars. Abdominal distention is improving. Some nausea persists. Clear liquid diet this morning. Tolerated HD well yesterday, net UF 600 ml. Review of Systems A complete review of systems was performed. Pertinent positives are noted above. All other systems are negative. Vital Signs Last 8 Hrs Date Time Temp Pulse Resp B/P (MAP) Pulse Ox O2 Delivery O2 Flow Rate FiO2 05/17/17 08:26 37.0 91 18 129/50 (76) 96 05/17/17 06:08 84 05/17/17 04:00 92 Room Air 05/17/17 03:52 37.1 82 20 131/56 (81) 92 Room Air Last Recorded Weight Weight (Kilograms): 70.800 Physical Exam General Appearance: no apparent distress, + pertinent finding (frail) Head: normocephalic, atraumatic Eyes: normal inspection, sclerae normal ENT: normal ENT inspection, pharynx normal, + pertinent finding (oral mucosa slightly dry) Neck: supple, no JVD Respiratory/Chest: lungs clear, no respiratory distress, no accessory muscle use, + rales (few basilar) Cardiovascular: regular rate, rhythm, no gallop Abdomen/GI: non tender, + distended, + pertinent finding (+ bowel sounds) Extremities/Musculoskelatal: normal inspection, no pedal edema, + pertinent finding (LUE AVF with thrill and bruit) Neurologic/Psych: alert, normal mood/affect Family History Diabetes mellitus Hypertension Social History Drug Use: none Marital Status: Occupation: retired Laboratory Results Past 24 Hours 05/17/17 05:38 05/17/17 05:38 Test 05/16/17 09:02 05/16/17 14:01 05/16/17 17:47 05/16/17 21:05 Bedside Glucose 83 mg/dl (70-90) 65 mg/dl (70-90) 91 mg/dl (70-90) 121 mg/dl (70-90) Test 05/17/17 05:38 05/17/17 06:52 Red Blood Count 4.01 M/uL (4.2-5.4) Mean Corpuscular Volume 99.0 fL (80-100) Mean Corpuscular Hemoglobin 33.2 pg (25-34) Mean Corpuscular Hemoglobin Concent 33.5 g/dl (32-36) RDW Standard Deviation 57.7 fL (36.4-46.3) RDW Coefficient of Variation 15.9 % (11.5-14.5) Mean Platelet Volume 9.2 fL (7.4-10.4) Anion Gap 18.0 mmol/L (3-11) Est Creatinine Clear Calc Drug Dose 5.4 ml/min Estimated GFR () 5.4 Estimated GFR (Non- 4.7 BUN/Creatinine Ratio 6.9 (10-20) Calcium Level 9.0 mg/dl (8.5-10.1) Phosphorus Level 8.4 mg/dl (2.5-4.9) Albumin 3.7 gm/dl (3.4-5.0) Bedside Glucose 178 mg/dl (70-90) Allergies Coded Allergies: No Known Allergies (Unverified , 05/10/17) Medications Current Inpatient Medications Medications (Trade) Dose Ordered Sig/Camilo Route Start Time Stop Time Status Last Admin Dose Admin Allopurinol (Zyloprim Tab) 100 mg QAM PO 05/14/17 09:00 06/13/17 08:59 Future Hold Amlodipine Besylate (Norvasc Tab) 5 mg QAM PO 05/14/17 09:00 06/13/17 08:59 Future Hold Anastrozole (Arimidex Tab) 1 mg QAM PO 05/14/17 09:00 06/13/17 08:59 Future Hold Aspirin (Ecotrin Tab) 81 mg QAM PO 05/14/17 09:00 06/13/17 08:59 Future Hold Vitamin B Complex/ Vit C/Folic Acid (Nephrocaps) 1 cap QAM PO 05/14/17 09:00 06/13/17 08:59 Future Hold Calcium Acetate (Phoslo Cap) 667 mg TIDM PO 05/14/17 11:30 06/13/17 11:29 Future Hold Ferrous Sulfate (Feosol Tab) 325 mg TIDM PO 05/14/17 11:30 06/13/17 11:29 Future Hold Labetalol HCl (Normodyne Tab) 200 mg TID PO 05/14/17 14:00 06/13/17 13:59 Future Hold 05/14/17 20:47 200 MG Ondansetron HCl (Zofran Tab) 8 mg Q6H PRN PO 05/14/17 08:15 06/13/17 08:14 Future Hold 05/14/17 20:56 8 MG Pantoprazole Sodium (Protonix Tab) 40 mg QAM PO 05/14/17 09:00 06/13/17 08:59 Future Hold 05/14/17 13:14 40 MG Simvastatin (Zocor Tab) 40 mg QPM PO 05/14/17 21:00 06/13/17 20:59 Future Hold 05/14/17 20:47 40 MG Cholecalciferol (Vitamin D Tab) 5,000 inter.unit DAILY PO 05/14/17 11:00 06/13/17 10:59 Future Hold Multivitamins/ Minerals (Multivitamin W/ Minerals Tab) 1 tab BID PO 05/15/17 11:30 06/14/17 11:29 Future Hold Glucose (Glucose 40% Gel) 15-30 GRAMS 15 GRAMS... UD PRN PO 05/14/17 11:45 06/13/17 11:44 Glucose (Glucose Chew Tab) 4-8 Tablets 4 Tabl... UD PRN PO 05/14/17 11:45 06/13/17 11:44 Dextrose (Dextrose 50% 50ML Syringe) 25-50ML OF 50% DW IV FOR... UD PRN IV 05/14/17 11:45 06/13/17 11:44 Glucagon (Glucagon Inj) 1 mg UD PRN SQ 05/14/17 11:45 06/13/17 11:44 Miscellaneous Information (Consult Glycemic Management Pharmacy) 1 ea UD PRN N/A 05/15/17 08:21 06/14/17 08:20 Heparin Sodium (Porcine) (Heparin Sq 5000 Unit/0.5ml) 5,000 unit Q8 SQ 05/15/17 14:00 06/14/17 13:59 05/17/17 06:10 5,000 UNIT Pantoprazole Sodium 40 mg/ Syringe 10 ml @ 5 mls/min DAILY@11 IV 05/15/17 11:00 06/14/17 10:59 05/16/17 13:21 5 MLS/MIN Metoprolol Tartrate (Lopressor Iv) 2.5 mg Q6 IV. 05/15/17 12:00 06/14/17 11:59 05/17/17 06:08 2.5 MG Hydralazine HCl (HydrALAZINE INJ) 10 mg Q6H PRN IV. 05/15/17 10:00 06/14/17 09:59 Ondansetron HCl (Zofran Inj) 4 mg Q6H PRN IV 05/16/17 07:45 06/15/17 07:44 05/17/17 00:13 4 MG Insulin Aspart (novoLOG ASPART) SLIDING SCALE ACHS SC 05/16/17 21:00 06/15/17 20:59 05/17/17 08:51 2 UNITS Insulin Human NPH (novoLIN-N NPH) 20 units BID SC 05/17/17 09:00 06/16/17 08:59 05/17/17 08:50 20 UNITS Impression (1) ESRD on dialysis (2) Diabetes (3) Anemia (4) Partial small bowel obstruction Bethany is an 81 year-old female with adult onset diabetes mellitus, hypertension , hyperlipidemia, diastolic CHF, history of nephrolithiasis and ulcerative colitis status post total colectomy with permanent ileostomy, 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 She is on HD MWF. 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 Bethany presented with nausea and vomiting. She had hyperkalemia requiring emergent dialysis (patient had missed her scheduled treatment the day prior). Evaluation notable for SBO and pulmonary nodules. Recommendations ESRD: -- HD TTS schedule -- Blood pressure, volume status and metabolic profile are acceptable -- Protect AVF -- Low K diet Anemia: -- Hgb acceptable, no need for EPO at this time CKD/MBD: -- Hold CaAcetate Hypertension: -- Resume amlodipine when able to tolerate PO medications Partial SBO: -- GI and surgical consult reviewed -- Clinically improving -- Potentially related to high fiber protein bars, patient advised to stop
--- NOTE | 2017-05-17 09:54 | Gastroenterology Progress Note ---
Progress Note Date of Service: May 17, 2017 Subjective Pt evaluation today including: conversation w/ patient, physical exam, chart review, lab review, review of studies, review of inpatient medication list Ms. Farr is an 81 yr old female admitted with partial SBO with hx of UC S/P distant permanent ileostomy. On shift manager decreased output and gagging/nausea. Relief with Phenergan. On day shift, now > 1 liter of thick brown stool in the bag and "feel(s) better. " No further nausea. Tolerated a clear liquid breakfast. Review of Systems Constitutional: + fatigue, No fever ENT: No hearing loss Respiratory: No cough Cardiac: No chest pain Abdomen: + see HPI, + pain (improved) Female : No dysuria Neuro: No memory loss Psych: No depression symptoms Heme: No abnormal bleeding/bruising Endo: + fatigue Skin: No rash, No jaundice Medications Current Inpatient Medications Medications (Trade) Dose Ordered Sig/Camilo Route Start Time Stop Time Status Last Admin Dose Admin Allopurinol (Zyloprim Tab) 100 mg QAM PO 05/14/17 09:00 06/13/17 08:59 Future Hold Amlodipine Besylate (Norvasc Tab) 5 mg QAM PO 05/14/17 09:00 06/13/17 08:59 Future Hold Anastrozole (Arimidex Tab) 1 mg QAM PO 05/14/17 09:00 06/13/17 08:59 Future Hold Aspirin (Ecotrin Tab) 81 mg QAM PO 05/14/17 09:00 06/13/17 08:59 Future Hold Vitamin B Complex/ Vit C/Folic Acid (Nephrocaps) 1 cap QAM PO 05/14/17 09:00 06/13/17 08:59 Future Hold Calcium Acetate (Phoslo Cap) 667 mg TIDM PO 05/14/17 11:30 06/13/17 11:29 Future Hold Ferrous Sulfate (Feosol Tab) 325 mg TIDM PO 05/14/17 11:30 06/13/17 11:29 Future Hold Labetalol HCl (Normodyne Tab) 200 mg TID PO 05/14/17 14:00 06/13/17 13:59 Future Hold 05/14/17 20:47 200 MG Ondansetron HCl (Zofran Tab) 8 mg Q6H PRN PO 05/14/17 08:15 06/13/17 08:14 Future Hold 05/14/17 20:56 8 MG Pantoprazole Sodium (Protonix Tab) 40 mg QAM PO 05/14/17 09:00 06/13/17 08:59 Future Hold 05/14/17 13:14 40 MG Simvastatin (Zocor Tab) 40 mg QPM PO 05/14/17 21:00 06/13/17 20:59 Future Hold 05/14/17 20:47 40 MG Cholecalciferol (Vitamin D Tab) 5,000 inter.unit DAILY PO 05/14/17 11:00 06/13/17 10:59 Future Hold Multivitamins/ Minerals (Multivitamin W/ Minerals Tab) 1 tab BID PO 05/15/17 11:30 06/14/17 11:29 Future Hold Glucose (Glucose 40% Gel) 15-30 GRAMS 15 GRAMS... UD PRN PO 05/14/17 11:45 06/13/17 11:44 Glucose (Glucose Chew Tab) 4-8 Tablets 4 Tabl... UD PRN PO 05/14/17 11:45 06/13/17 11:44 Dextrose (Dextrose 50% 50ML Syringe) 25-50ML OF 50% DW IV FOR... UD PRN IV 05/14/17 11:45 06/13/17 11:44 Glucagon (Glucagon Inj) 1 mg UD PRN SQ 05/14/17 11:45 06/13/17 11:44 Miscellaneous Information (Consult Glycemic Management Pharmacy) 1 ea UD PRN N/A 05/15/17 08:21 06/14/17 08:20 Heparin Sodium (Porcine) (Heparin Sq 5000 Unit/0.5ml) 5,000 unit Q8 SQ 05/15/17 14:00 06/14/17 13:59 05/17/17 06:10 5,000 UNIT Pantoprazole Sodium 40 mg/ Syringe 10 ml @ 5 mls/min DAILY@11 IV 05/15/17 11:00 06/14/17 10:59 05/16/17 13:21 5 MLS/MIN Metoprolol Tartrate (Lopressor Iv) 2.5 mg Q6 IV. 05/15/17 12:00 06/14/17 11:59 05/17/17 06:08 2.5 MG Hydralazine HCl (HydrALAZINE INJ) 10 mg Q6H PRN IV. 05/15/17 10:00 06/14/17 09:59 Ondansetron HCl (Zofran Inj) 4 mg Q6H PRN IV 05/16/17 07:45 06/15/17 07:44 05/17/17 00:13 4 MG Insulin Aspart (novoLOG ASPART) SLIDING SCALE ACHS SC 05/16/17 21:00 06/15/17 20:59 05/17/17 08:51 2 UNITS Insulin Human NPH (novoLIN-N NPH) 20 units BID SC 05/17/17 09:00 06/16/17 08:59 05/17/17 08:50 20 UNITS Objective Vital Signs Date Time Temp Pulse Resp B/P (MAP) Pulse Ox O2 Delivery O2 Flow Rate FiO2 05/17/17 08:26 37.0 91 18 129/50 (76) 96 05/17/17 06:08 84 05/17/17 04:00 92 Room Air 05/17/17 03:52 37.1 82 20 131/56 (81) 92 Room Air 05/17/17 00:13 88 114/45 05/16/17 23:59 90 Room Air 05/16/17 23:33 37.4 90 18 114/45 (68) 90 Room Air 05/16/17 20:00 37.1 92 20 136/61 (86) 92 Room Air 05/16/17 20:00 92 Room Air 05/16/17 17:53 86 05/16/17 16:00 92 Room Air 05/16/17 15:46 36.8 86 20 124/55 (78) 92 Room Air 05/16/17 14:20 36.5 77 120/52 (74) 05/16/17 13:30 81 100/53 05/16/17 13:22 86 05/16/17 13:19 82 109/49 05/16/17 13:15 85 85/59 05/16/17 13:00 82 103/51 05/16/17 12:45 87 94/52 05/16/17 12:30 84 92/46 05/16/17 12:15 85 101/50 05/16/17 12:00 84 103/47 05/16/17 11:45 84 107/52 05/16/17 11:42 95 Room Air 05/16/17 11:36 36.5 83 16 107/53 (71) 95 Room Air 05/16/17 11:30 83 116/51 05/16/17 11:15 86 90/52 05/16/17 11:00 84 101/53 05/16/17 10:45 83 107/53 05/16/17 10:30 83 92/51 05/16/17 10:15 84 92/43 05/16/17 10:02 75 123/54 05/16/17 09:50 37.0 77 125/54 (77) Physical Exam General Appearance: no apparent distress Neck: no adenopathy, no JVD Respiratory/Chest: lungs clear Cardiovascular: regular rate, rhythm, + systolic murmur (2/6) Abdomen: + abnormal bowel sounds (increased BS, though not tympanic), + distended (mild) Extremities: non-tender Neurologic/Psych: alert, normal mood/affect, oriented x 3 Skin: normal color, no jaundice Laboratory Results Last 24 Hours Test 05/16/17 14:01 05/16/17 17:47 05/16/17 21:05 05/17/17 05:38 Bedside Glucose 65 mg/dl 91 mg/dl 121 mg/dl White Blood Count 5.50 K/uL Red Blood Count 4.01 M/uL Hemoglobin 13.3 g/dL Hematocrit 39.7 % Mean Corpuscular Volume 99.0 fL Mean Corpuscular Hemoglobin 33.2 pg Mean Corpuscular Hemoglobin Concent 33.5 g/dl RDW Standard Deviation 57.7 fL RDW Coefficient of Variation 15.9 % Platelet Count 231 K/uL Mean Platelet Volume 9.2 fL Sodium Level 133 mmol/L Potassium Level 5.0 mmol/L Chloride Level 92 mmol/L Carbon Dioxide Level 23 mmol/L Anion Gap 18.0 mmol/L Blood Urea Nitrogen 50 mg/dl Creatinine 7.32 mg/dl Est Creatinine Clear Calc Drug Dose 5.4 ml/min Estimated GFR () 5.4 Estimated GFR (Non- 4.7 BUN/Creatinine Ratio 6.9 Random Glucose 176 mg/dl Calcium Level 9.0 mg/dl Phosphorus Level 8.4 mg/dl Albumin 3.7 gm/dl Test 05/17/17 06:52 Bedside Glucose 178 mg/dl Assessment and Plan Ms. Farr is an 81 yr old female with a hx of ileostomy for UC, also with hx of adhesive disease who was admitted with a partial SBO. Ileostomy now draining a large amt of stool and she has improvement in symptoms. Plan: 1. Recommend Miralax daily. 2. Clear liquid diet for now. Would advance slowly and would always avoid high fiber. 3. No indication for endoscopy at this time as no mucosal abnormalities on CT with oral contrast. I have seen , examined and agree with the plan as outlined by ADRIAN Goldman as above. -exam reveals soft abd -Dramatically improved, given low risk of Crohn's given history, and no evidence of mucosal pathology, appears to have obstruction/ileus from obstipation that has improved and now ostomy is functioning. -Daily bowel regimen
--- NOTE | 2017-05-17 10:02 | Hospitalist Progress Note ---
Hospitalist Progress Note Date of Service May 17, 2017. Subjective Pt evaluation today including: conversation w/ patient, physical exam, chart review, lab review, review of studies, conversation w/ product consultant, review of inpatient medication list Pain: None PO Intake: Some N/V with clears last night, tolerated breakfast Voiding: no voiding problems The patient reports feeling better overall. She was started on a clear liquid diet yesterday. She did develop nausea with a small amount of emesis last night. She states she did eat her breakfast, which she is tolerating so far. She denies any nausea, vomiting, or abdominal pain currently. She does report feeling weak and fatigued. Following irrigation of her ostomy yesterday, she began to have stool output into her ostomy bag. She continues to have stool in the bag. The patient denies fevers, chills, sweats, chest pain, palpitations, claudication, cough, wheezing, shortness of breath, abdominal pain, dysuria, hematuria, urinary retention, paralysis, focal motor weakness, numbness and tingling. Additional Comments: See HPI for pertinent positives and negatives. All other systems reviewed and negative. Objective Vital Signs Date Time Temp Pulse Resp B/P (MAP) Pulse Ox O2 Delivery O2 Flow Rate FiO2 05/17/17 08:26 37.0 91 18 129/50 (76) 96 05/17/17 06:08 84 05/17/17 04:00 92 Room Air 05/17/17 03:52 37.1 82 20 131/56 (81) 92 Room Air 05/17/17 00:13 88 114/45 05/16/17 23:59 90 Room Air 05/16/17 23:33 37.4 90 18 114/45 (68) 90 Room Air 05/16/17 20:00 37.1 92 20 136/61 (86) 92 Room Air 05/16/17 20:00 92 Room Air 05/16/17 17:53 86 05/16/17 16:00 92 Room Air 05/16/17 15:46 36.8 86 20 124/55 (78) 92 Room Air 05/16/17 14:20 36.5 77 120/52 (74) 05/16/17 13:30 81 100/53 05/16/17 13:22 86 05/16/17 13:19 82 109/49 05/16/17 13:15 85 85/59 05/16/17 13:00 82 103/51 05/16/17 12:45 87 94/52 05/16/17 12:30 84 92/46 05/16/17 12:15 85 101/50 05/16/17 12:00 84 103/47 05/16/17 11:45 84 107/52 05/16/17 11:42 95 Room Air 05/16/17 11:36 36.5 83 16 107/53 (71) 95 Room Air 05/16/17 11:30 83 116/51 05/16/17 11:15 86 90/52 05/16/17 11:00 84 101/53 05/16/17 10:45 83 107/53 05/16/17 10:30 83 92/51 05/16/17 10:15 84 92/43 05/16/17 10:02 75 123/54 Physical Exam Notes: General appearance: Well-developed, well-nourished, no apparent distress Head: Normocephalic, atraumatic Eyes: Normal inspection, PERRL, EOMI ENT: Normal ENT inspection, hearing grossly normal, pharynx normal Neck: Supple, no JVD, trachea midline Respiratory/Chest: Lungs clear to auscultation, normal breath sounds, no respiratory distress Cardiovascular: +Systolic murmur. Regular rate & rhythm, no gallop Abdomen/GI: +Remains distended. Ileostomy in RLQ now with soft, brown stool. Normal bowel sounds. Extremities/Musculoskeletal: Normal inspection, no calf tenderness, no pedal edema Neurological/Psych: Alert, normal mood/affect, oriented x 3 Skin: Normal color, warm/dry, no rash Laboratory Results Last 24 Hours Test 05/16/17 14:01 05/16/17 17:47 05/16/17 21:05 05/17/17 05:38 Bedside Glucose 65 mg/dl 91 mg/dl 121 mg/dl White Blood Count 5.50 K/uL Red Blood Count 4.01 M/uL Hemoglobin 13.3 g/dL Hematocrit 39.7 % Mean Corpuscular Volume 99.0 fL Mean Corpuscular Hemoglobin 33.2 pg Mean Corpuscular Hemoglobin Concent 33.5 g/dl RDW Standard Deviation 57.7 fL RDW Coefficient of Variation 15.9 % Platelet Count 231 K/uL Mean Platelet Volume 9.2 fL Sodium Level 133 mmol/L Potassium Level 5.0 mmol/L Chloride Level 92 mmol/L Carbon Dioxide Level 23 mmol/L Anion Gap 18.0 mmol/L Blood Urea Nitrogen 50 mg/dl Creatinine 7.32 mg/dl Est Creatinine Clear Calc Drug Dose 5.4 ml/min Estimated GFR () 5.4 Estimated GFR (Non- 4.7 BUN/Creatinine Ratio 6.9 Random Glucose 176 mg/dl Calcium Level 9.0 mg/dl Phosphorus Level 8.4 mg/dl Albumin 3.7 gm/dl Test 05/17/17 06:52 Bedside Glucose 178 mg/dl Diagnostic Results Reviewed the following studies and agree with interpretation as follows: ABD/PELVIS ORAL CONT ONLY CLINICAL HISTORY: 81 years-old Female presenting with ? SBO. TECHNIQUE: Multidetector CT of the abdomen and pelvis was performed after the administration of oral contrast only. IV contrast: None. A dose lowering technique was used consistent with the principles of ALARA (as low as reasonably achievable). COMPARISON: 05/14/2017. CT DOSE (mGy.cm): The estimated cumulative dose is 485.62 mGy.cm. FINDINGS: Pony Rougher topogram: Gaseous distention of bowel. Surgical clips in the right pelvis and right abdomen. Lung bases: Fluid collection in the posterior third of the lateral right breast likely seroma. Adjacent surgical clips. Several solid pulmonary nodules evident as on prior exam, which have been marked on the images and measure up to 4 mm. These are unchanged. Additional bandlike opacities likely atelectasis or scarring. Normal heart size. Coronary artery calcification. No pericardial or pleural effusion. Liver: Normal morphology. Density consistent with hepatic steatosis. Numerous parenchymal calcification suggest prior granulomatous infection. Biliary: No gross biliary ductal dilatation allowing for noncontrast technique. Gallbladder contains gallstones. Pancreas: Moderate parenchymal atrophy. Spleen: Parenchymal calcification suggest prior granulomatous infection. Adrenal glands: Normal noncontrast appearance. Kidneys and ureters: Parenchymal atrophy with extensive renal vascular calcification. Metallic foreign bodies noted medial to the right kidney. No nephrolithiasis. No hydronephrosis. Left ureter normal. Right ureter poorly visualized. Bladder: Incompletely evaluated secondary to underdistention. Pelvic organs: Normal noncontrast appearance. Bowel: Evidence of abdominoperineal resection with total proctocolectomy. Right mid abdominal ileostomy. Small bowel is diffusely distended. Oral contrast has not yet transited to the ostomy. Small bowel measures up to nearly 5 cm in diameter. There is smooth tapering to the more distal small bowel without a focal transition point identified apart from extensive fecal material in the distal most small bowel to the level of the ostomy. Peritoneal cavity: Small amount of pelvic ascites or presacral fluid, which may be loculated and is unchanged from prior. No free intraperitoneal gas. Lymph nodes: No gross lymphadenopathy allowing for noncontrast technique. Vasculature: Atherosclerosis of the normal caliber abdominal aorta. Abdominal wall: Diastasis of the rectus abdominis. Postsurgical changes of the periumbilical region with skin thickening and infiltration. No associated fluid or inflammatory change at the right mid abdominal ostomy. Musculoskeletal: Degenerative changes of the spine. IMPRESSION: 1. Extensive fecal material in the distal small bowel to the level of the right mid abdominal ileostomy. This could suggest partial functional or mechanical obstruction due to feces. These or is felt to be less likely given the extended segment of involvement. No other focal transition point. 2. Small amount of loculated ascites versus small amount of presacral fluid, which may be postsurgical. 3. Post surgical changes of total proctocolectomy and abdominoperineal resection. 4. Evidence of old granulomatous infection. 5. Seroma in the right breast. 6. Multiple nonspecific solid pulmonary nodules. Assessment and Plan 81 y/o female with a history of HTN, HLD, chronic diastolic CHF, DM II, ESRD on HD, ulcerative colitis s/p total colectomy w/ileostomy, and h/o ductal stage I breast cancer who presents to the ED on 05/14 w/nausea, vomiting, weakness and fatigue. Pt had missed dialysis session 05/13, found to be hyperkalemic on admission Hyperkalemia, ESRD on HD--improving -Admitted to ICU. Stable, transferred to [facility]. No acute events overnight. Pt in SR with HR 80s -Received insulin+dextrose, calcium, Kayexalate -Emergent dialysis 05/14 -Potassium 5.0 on 05/17, continue HD schedule -Nephrology consulted, appreciate recs: Continue amlodipine when able to tolerate PO meds. Partial small bowel obstruction--improving -Attempted NGT placement, pt refuses further attempts. Aware of risks -General surgery consulted, appreciate recs: Advance diet as tolerated -GI consulted, appreciate recs: Spoke with Atilio Huff. Will continue clears for now. Now with ostomy output, will not repeat KUB at this time as suspect improvement. -Pt with N/V last night, continue clear liquid diet for now -If patient tolerating clears, can restart home PO meds and move off tele ( currently on IV Lopressor) -Wound care/ostomy nurse consulted for ileostomy irrigation, pt now with ostomy output HTN, HLD--stable -Home PO meds held -Lopressor 2.5 mg IV q6h -Cover with hydralazine 10 mg IV q6h prn SBP >170 Chronic diastolic CHF--stable, no exacerbation -For dialysis today -Beta courtney as above DM II--stable -On 70/30 at home -NPH 19 units SC BID -Insulin sliding scale q6h while NPO -Check BSGs q6h while NPO Dispo -Pt from home, lives w/daughter -PT/OT evaluate and treat, complains of weakness/fatigue
[2017-05-17] MEDS: PANTOprazole INJ 40 MG in SYRINGE 0 ML IV SCH (11:17)
--- NOTE | 2017-05-17 13:45 | Pharmacy Progress Note ---
Glycemic: Assessment & Plan Date of Service May 17, 2017. Assessment & Plan The patient received no insulin yesterday due to low blood sugars. This has much improved this morning. Of note the patient also started a clear liquid diet. BSGs ranging 65 - 178 mg/dl over the past 24hrs. I gave a larger dose of 20 units of NPH this morning given lack of basal insulin over the last 24 hours and will schedule a dose of 10 units of NPH for tonight. Tomorrow will plan for a fixed dose of NPH 15 units BID. * Basal insulin: 20 units NPH this morning, 10 units NPH tonight * Correctional Insulin: Novolog Correction per scale ACHS Goal Range: Low 120 mg/dL - High 160 mg/dL Correction Factor: 15 mg/dL/unit * Prandial insulin: Per carb ratio of 1 unit per 6 grams CHO consumed Pharmacy will continue to monitor patient daily and write orders per [facility] inpatient glycemic control protocol. Thanks. * Please note that the plan above was derived based on current level of insulin resistance and hospital stress. These recommendations are appropriate for inpatient admission only. Plan of care upon discharge will need to be reassessed to avoid potential outpatient hypo/hyperglycemia.
[2017-05-17] MEDS: CALCIUM ACETATE 667MG GELCAP PO SCH (18:10)
[2017-05-17] MEDS: FERROUS SULFATE 325 MG TAB PO SCH (18:10)
[2017-05-17] MEDS ORDERED: INSULIN HUMAN NPH SC ONE (21:00)
[2017-05-17] MEDS: SIMVASTATIN 40 MG TAB PO SCH (22:13)
[2017-05-17] MEDS: LABETALOL HCL 200 MG TAB PO SCH (22:31)
[2017-05-17] MEDS: CEROVITE ADV FORMULA TAB PO SCH (22:31)
[2017-05-18] VITALS (22 sets, daily range): BP systolic 89–126; BP diastolic 42–62; PULSE 74–83; TEMP 36.4–37; O2SAT 93–95
[2017-05-18] MEDS ORDERED: ONDANSETRON 4MG OD TAB PO PRN (00:30)
[2017-05-18] MEDS: HEPARIN SOD 5000 UNIT/0.5 ML CARP SQ SCH ×3 (06:15→22:25)
[2017-05-18] MEDS: INSULIN ASPART 100 UNITS/ML 3 ML PEN SC SCH ×4 (06:30→22:21)
[2017-05-18] MEDS: LABETALOL HCL 200 MG TAB PO SCH ×3 (07:25→22:21)
[2017-05-18 07:48] LABS: HEMATOCRIT 39.5 % (37-47); HEMOGLOBIN 13.2 g/dL (12.0-16.0); MEAN CORPUSCULAR HEMOGLOBIN 32.8 pg (25-34); MEAN CORPUSCULAR HGB CONC 33.4 g/dl (32-36); MEAN PLATELET VOLUME 9.5 fL (7.4-10.4); PLATELET COUNT 231 K/uL (130-400); RED CELL DISTRIBUTION WIDTH CV 15.7 % (11.5-14.5); RED CELL DISTRIBUTION WIDTH SD 56.5 fL (36.4-46.3); WHITE BLOOD COUNT 6.86 K/uL (4.8-10.8)
[2017-05-18] MEDS: FERROUS SULFATE 325 MG TAB PO SCH ×3 (07:50→17:27)
[2017-05-18] MEDS: CALCIUM ACETATE 667MG GELCAP PO SCH ×3 (07:50→17:27)
[2017-05-18] MEDS: POLYETHYLENE (MIRALAX) 17 GM PACK PO SCH (07:50)
--- NOTE | 2017-05-18 08:06 | Surgery Progress Note ---
Surgery Progress Note Date of Service May 18, 2017. Subjective good GI function Objective Vital Signs: Date Time Temp Pulse Resp B/P (MAP) Pulse Ox O2 Delivery O2 Flow Rate FiO2 05/18/17 07:21 36.4 80 18 119/61 (80) 94 Room Air 05/18/17 00:00 Room Air 05/17/17 23:47 36.8 82 20 144/71 (95) 92 Room Air 05/17/17 16:00 96 Room Air 05/17/17 15:35 36.5 78 20 135/68 (90) 96 Room Air 05/17/17 14:39 Room Air 05/17/17 14:30 36.7 81 16 92 05/17/17 14:25 36.7 81 16 147/69 (95) 92 Room Air 05/17/17 12:27 84 139/76 05/17/17 12:00 92 Room Air 05/17/17 11:54 36.5 84 20 139/76 (97) 96 05/17/17 08:26 37.0 91 18 129/50 (76) 96 Laboratory Results: Results Past 24 Hours Test 05/17/17 11:28 05/17/17 16:29 05/17/17 20:26 05/18/17 07:17 Range/Units Bedside Glucose 145 126 149 70-90 mg/dl White Blood Count 6.86 4.8-10.8 K/uL Red Blood Count 4.03 4.2-5.4 M/uL Hemoglobin 13.2 12.0-16.0 g/dL Hematocrit 39.5 37-47 % Mean Corpuscular Volume 98.0 80-100 fL Mean Corpuscular Hemoglobin 32.8 25-34 pg Mean Corpuscular Hemoglobin Concent 33.4 32-36 g/dl RDW Standard Deviation 56.5 36.4-46.3 fL RDW Coefficient of Variation 15.7 11.5-14.5 % Platelet Count 231 130-400 K/uL Mean Platelet Volume 9.5 7.4-10.4 fL Test 05/18/17 07:30 Range/Units Bedside Glucose 109 70-90 mg/dl Assessment & Plan 05/18/17- no surgical intervention needed- advance diet as tolerated 05/17/17- improved GI function- obstructed from high fiber protein bars and general debilitation. advance diet as tolerated 05/16/17- will try to irrigate/ intubate ileostomy- suspect obstructive site at ileostomy and just proximal. I'm not encouraged she will resolve this without surgery- she refuses NG but may not resolve even with NG. Will likely be more difficult operation than normal, if necessary, because of prior significant surgery and wound vac. Will ask GI to see- Ileostomy endo ? 05/15/17- called Elizabeth (sister) [phone] and Robinson (daughter)-[phone]- she lives in [place] discussed current situation- potential for surgery - will keep them informed. 05/17/17- improved GI function- obstructed from high fiber protein bars and general debilitation. advance diet as tolerated 05/16/17- will try to irrigate/ intubate ileostomy- suspect obstructive site at ileostomy and just proximal. I'm not encouraged she will resolve this without surgery- she refuses NG but may not resolve even with NG. Will likely be more difficult operation than normal, if necessary, because of prior significant surgery and wound vac. Will ask GI to see- Ileostomy endo ? 05/15/17- called Elizabeth (sister) [phone] and Robinson (daughter)-[phone]- she lives in [place] discussed current situation- potential for surgery - will keep them informed.
[2017-05-18] MEDS: CEROVITE ADV FORMULA TAB PO SCH ×2 (08:31→22:21)
[2017-05-18 08:38] LABS: ALBUMIN 3.8 gm/dl (3.4-5.0); CALCIUM 9.4 mg/dl (8.5-10.1); CREATININE 10.5 mg/dl (0.60-1.20); POTASSIUM 5.4 mmol/L (3.5-5.1)
[2017-05-18 09:00] LABS: PHOSPHORUS 11.7 mg/dl (2.5-4.9)
[2017-05-18] MEDS: AMLODIPINE BESYLATE 5 MG TAB PO SCH (09:00)
[2017-05-18] MEDS ORDERED: INSULIN HUMAN NPH SC SCH ×3 (09:00→22:00)
--- NOTE | 2017-05-18 10:49 | Pharmacy Progress Note ---
Pharmacy Glycemic Short Note 2 Date of Service May 18, 2017. OUTPATIENT ANTIDIABETIC REGIMEN: * Relion 70/30: 60 units qAM and 35 units qPM ASSESSMENT: * 81 yr old female admitted with nausea, vomiting, and weakness. BSGs have been well controlled this admission. * Patient received 32 units of SQ insulin on 05/17: * 30 units of basal insulin * 2 units of bolus insulin * BSGs: 178, 145, 126, 149, 109 * Fasting BSG of 109 mg/dL is at goal. BSG is trending downward throughout the day despite little to no bolus insulin, therefore I will decreased basal insulin by 20%. * Post-prandial BSGs are also at goal - pt received only 2 units of bolus insulin yesterday. Diet is being advanced from clear liquids to full liquids today, therefore I anticipate bolus doses to increase. No changes today. PLAN FOR INPATIENT GLYCEMIC CONTROL: * Basal insulin * NPH 12 units SQ BID * Bolus insulin * NovoLog per scale ACHS or Q6hrs while NPO * Goal Range: Low 120 mg/dL - High 160 mg/dL * Correction Factor: 15 mg/dL/unit * Nutritional / Prandial insulin per carb ratio of 1 unit per 6 grams CHO consumed PLAN FOR DISCHARGE: * A1c not ordered due to h/o ESRD on HD * Outpatient regimen can be resumed on discharge as long as patient does not report frequent hypo- or hyperglycemia at home.
--- NOTE | 2017-05-18 12:09 | Nephrology Progress Note ---
Nephrology Progress Note Date of Service May 18, 2017. Chief Complaint ESRD, hyperkalemia Subjective Bethany was seen and evaluated during hemodialysis this morning. Blood pressure slightly low but patient tolerating procedure well. Blood flow is at goal. Bethany denies any complaints or concerns. She noted difficulty sleeping overnight. She also noted some new pain in her left wrist. The joint is mildly tender. There is no swelling or erythema. Ostomy output has increased. Nausea is improving. She is tolerating clear liquid diet. Review of Systems A complete review of systems was performed. Pertinent positives are noted above. All other systems are negative. Vital Signs Last 8 Hrs Date Time Temp Pulse Resp B/P (MAP) Pulse Ox O2 Delivery O2 Flow Rate FiO2 05/18/17 11:45 77 112/47 05/18/17 11:30 81 94/52 05/18/17 11:15 75 104/48 05/18/17 11:00 78 97/51 05/18/17 10:45 81 103/42 05/18/17 10:30 75 91/46 05/18/17 10:15 79 96/42 05/18/17 10:00 81 100/47 05/18/17 09:45 78 93/50 05/18/17 09:30 78 94/48 05/18/17 09:15 75 103/48 05/18/17 09:00 75 111/51 05/18/17 08:41 75 124/53 05/18/17 08:00 94 Room Air 05/18/17 07:21 36.4 80 18 119/61 (80) 94 Room Air Last Recorded Weight Weight (Kilograms): 69.300 Physical Exam General Appearance: no apparent distress, + pertinent finding (frail) Head: normocephalic, atraumatic Eyes: normal inspection, sclerae normal ENT: normal ENT inspection, pharynx normal, + pertinent finding (oral mucosa dry) Neck: supple, no JVD Respiratory/Chest: lungs clear, no respiratory distress, no accessory muscle use Cardiovascular: regular rate, rhythm, no gallop Abdomen/GI: soft, + distended (improving), + pertinent finding (ostomy with liquid stool in bag) Extremities/Musculoskelatal: normal inspection, no pedal edema, + pertinent finding (left wrist is tender but not swollen, no erythema) Neurologic/Psych: alert, normal mood/affect Family History Diabetes mellitus Hypertension Social History Drug Use: none Marital Status: Occupation: retired Laboratory Results Past 24 Hours 05/18/17 07:17 05/18/17 07:17 Test 05/17/17 16:29 05/17/17 20:26 05/18/17 07:17 05/18/17 07:30 Bedside Glucose 126 mg/dl (70-90) 149 mg/dl (70-90) 109 mg/dl (70-90) Red Blood Count 4.03 M/uL (4.2-5.4) Mean Corpuscular Volume 98.0 fL (80-100) Mean Corpuscular Hemoglobin 32.8 pg (25-34) Mean Corpuscular Hemoglobin Concent 33.4 g/dl (32-36) RDW Standard Deviation 56.5 fL (36.4-46.3) RDW Coefficient of Variation 15.7 % (11.5-14.5) Mean Platelet Volume 9.5 fL (7.4-10.4) Anion Gap 19.0 mmol/L (3-11) Est Creatinine Clear Calc Drug Dose 3.7 ml/min Estimated GFR () 3.5 Estimated GFR (Non- 3.0 BUN/Creatinine Ratio 6.8 (10-20) Calcium Level 9.4 mg/dl (8.5-10.1) Phosphorus Level 11.7 mg/dl (2.5-4.9) Albumin 3.8 gm/dl (3.4-5.0) Allergies Coded Allergies: No Known Allergies (Unverified , 05/10/17) Medications Current Inpatient Medications Medications (Trade) Dose Ordered Sig/Camilo Route Start Time Stop Time Status Last Admin Dose Admin Allopurinol (Zyloprim Tab) 100 mg QAM PO 05/14/17 09:00 06/13/17 08:59 Future hold Amlodipine Besylate (Norvasc Tab) 5 mg QAM PO 05/14/17 09:00 06/13/17 08:59 Future hold Anastrozole (Arimidex Tab) 1 mg QAM PO 05/14/17 09:00 06/13/17 08:59 Future hold Aspirin (Ecotrin Tab) 81 mg QAM PO 05/14/17 09:00 06/13/17 08:59 Future hold Vitamin B Complex/ Vit C/Folic Acid (Nephrocaps) 1 cap QAM PO 05/14/17 09:00 06/13/17 08:59 Future hold Calcium Acetate (Phoslo Cap) 667 mg TIDM PO 05/14/17 11:30 06/13/17 11:29 Future hold 05/18/17 07:50 667 MG Ferrous Sulfate (Feosol Tab) 325 mg TIDM PO 05/14/17 11:30 06/13/17 11:29 Future hold 05/18/17 07:50 325 MG Labetalol HCl (Normodyne Tab) 200 mg TID PO 05/14/17 14:00 06/13/17 13:59 Future hold 05/17/17 22:31 200 MG Ondansetron HCl (Zofran Tab) 8 mg Q6H PRN PO 05/14/17 08:15 06/13/17 08:14 Future Hold 05/14/17 20:56 8 MG Pantoprazole Sodium (Protonix Tab) 40 mg QAM PO 05/14/17 09:00 06/13/17 08:59 Future hold 05/14/17 13:14 40 MG Simvastatin (Zocor Tab) 40 mg QPM PO 05/14/17 21:00 06/13/17 20:59 Future hold 05/14/17 20:47 40 MG Cholecalciferol (Vitamin D Tab) 5,000 inter.unit DAILY PO 05/14/17 11:00 06/13/17 10:59 Future hold Multivitamins/ Minerals (Multivitamin W/ Minerals Tab) 1 tab BID PO 05/15/17 11:30 06/14/17 11:29 Future hold 05/18/17 08:31 1 TAB Glucose (Glucose 40% Gel) 15-30 GRAMS 15 GRAMS... UD PRN PO 05/14/17 11:45 06/13/17 11:44 Glucose (Glucose Chew Tab) 4-8 Tablets 4 Tabl... UD PRN PO 05/14/17 11:45 06/13/17 11:44 Dextrose (Dextrose 50% 50ML Syringe) 25-50ML OF 50% DW IV FOR... UD PRN IV 05/14/17 11:45 06/13/17 11:44 Glucagon (Glucagon Inj) 1 mg UD PRN SQ 05/14/17 11:45 06/13/17 11:44 Miscellaneous Information (Consult Glycemic Management Pharmacy) 1 ea UD PRN N/A 05/15/17 08:21 06/14/17 08:20 Heparin Sodium (Porcine) (Heparin Sq 5000 Unit/0.5ml) 5,000 unit Q8 SQ 05/15/17 14:00 06/14/17 13:59 05/18/17 06:15 5,000 UNIT Hydralazine HCl (HydrALAZINE INJ) 10 mg Q6H PRN IV. 05/15/17 10:00 06/14/17 09:59 Ondansetron HCl (Zofran Inj) 4 mg Q6H PRN IV 05/16/17 07:45 06/15/17 07:44 05/17/17 21:34 4 MG Insulin Aspart (novoLOG ASPART) SLIDING SCALE ACHS SC 05/16/17 21:00 06/15/17 20:59 05/17/17 08:51 2 UNITS Polyethylene (Miralax Powder Packet) 17 gm DAILY PO 05/18/17 09:00 06/17/17 08:59 Insulin Human NPH (novoLIN-N NPH) 15 units BID SC 05/18/17 09:00 06/17/17 08:59 05/18/17 08:15 15 UNITS Ondansetron HCl (Zofran Odt) 4 mg Q8H PRN PO 05/18/17 00:30 06/17/17 00:29 05/18/17 00:41 4 MG Impression (1) ESRD on dialysis (2) Diabetes (3) Anemia (4) Partial small bowel obstruction Bethany is an 81 year-old female with adult onset diabetes mellitus, hypertension , hyperlipidemia, diastolic CHF, history of nephrolithiasis and ulcerative colitis status post total colectomy with permanent ileostomy, 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 She is on HD MWF. 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 Bethany presented with nausea and vomiting. She had hyperkalemia requiring emergent dialysis (patient had missed her scheduled treatment the day prior). Evaluation notable for partial SBO. Bowel obstruction attributed to high fiber protein bars. This is improving. Recommendations ESRD: -- HD today per TTS schedule -- Orders entered into EMR and discussed with HD nurse -- Patient was evaluated during treatment -- She is tolerating HD well, minimal UF -- Blood pressure, volume status and metabolic profile are acceptable -- Protect AVF -- Low K diet Anemia: -- Hgb acceptable, no need for EPO at this time CKD/MBD: -- Hold CaAcetate Hypertension: -- Resume amlodipine when able to tolerate PO medications Partial SBO: -- GI and surgical consult following -- Clinically improving -- Potentially related to high fiber protein bars, patient advised to stop
[2017-05-18] MEDS ORDERED: COLCHICINE 0.6 MG TAB PO ONE (12:30)
[2017-05-18] MEDS: PANTOprazole SOD 40 MG TAB PO SCH (13:30)
[2017-05-18] MEDS: CHOLECALCIFEROL 1000 INTER.UNIT TAB PO SCH (13:30)
[2017-05-18] MEDS: ASPIRIN 81 MG ECTAB PO SCH (13:30)
[2017-05-18] MEDS: ALLOPURINOL 100 MG TAB PO SCH (13:30)
[2017-05-18] MEDS: NEPHROCAPS PO SCH (13:31)
[2017-05-18] MEDS: ANASTROZOLE 1 MG TAB PO SCH (13:41)
--- NOTE | 2017-05-18 14:31 | Hospitalist Progress Note ---
Hospitalist Progress Note Date of Service May 18, 2017. Subjective Pt evaluation today including: conversation w/ patient, physical exam, chart review, lab review, review of inpatient medication list The patient reports feeling well. She has been tolerating her diet so far today. She denies any abdominal pain, nausea, or vomiting. She does complain of a left wrist pain that just started this morning. She is resting it on ice during my visit and states that is helping to alleviate the pain. The patient denies fevers, chills, sweats, chest pain, palpitations, claudication, cough, wheezing, shortness of breath, nausea, vomiting, abdominal pain, dysuria, hematuria, urinary retention, paralysis, weakness, numbness and tingling. Additional Comments: See HPI for pertinent positives and negatives. All other systems reviewed and negative. Objective Vital Signs Date Time Temp Pulse Resp B/P (MAP) Pulse Ox O2 Delivery O2 Flow Rate FiO2 05/18/17 12:15 78 96/45 05/18/17 12:00 77 94/46 05/18/17 11:45 77 112/47 05/18/17 11:30 81 94/52 05/18/17 11:15 75 104/48 05/18/17 11:00 78 97/51 05/18/17 10:45 81 103/42 05/18/17 10:30 75 91/46 05/18/17 10:15 79 96/42 05/18/17 10:00 81 100/47 05/18/17 09:45 78 93/50 05/18/17 09:30 78 94/48 05/18/17 09:15 75 103/48 05/18/17 09:00 75 111/51 05/18/17 08:41 75 124/53 05/18/17 08:00 94 Room Air 05/18/17 07:21 36.4 80 18 119/61 (80) 94 Room Air 05/18/17 00:00 Room Air 05/17/17 23:47 36.8 82 20 144/71 (95) 92 Room Air 05/17/17 16:00 96 Room Air 05/17/17 15:35 36.5 78 20 135/68 (90) 96 Room Air 05/17/17 14:39 Room Air 05/17/17 14:30 36.7 81 16 92 05/17/17 14:25 36.7 81 16 147/69 (95) 92 Room Air Physical Exam Notes: General appearance: Well-developed, well-nourished, no apparent distress Head: Normocephalic, atraumatic Eyes: Normal inspection, PERRL, EOMI ENT: Normal ENT inspection, hearing grossly normal, pharynx normal Neck: Supple, no JVD, trachea midline Respiratory/Chest: Lungs clear to auscultation, normal breath sounds, no respiratory distress Cardiovascular: +Systolic murmur. Regular rate & rhythm, no gallop Abdomen/GI: +Less distended, softer today. Ileostomy in RLQ w/stool. Normal bowel sounds. Extremities/Musculoskeletal: +Left wrist TTP. Pain with all ROM of wrist and flexion of fingers. No warmth or erythema. Normal inspection, no calf tenderness, no pedal edema Neurological/Psych: Alert, normal mood/affect, oriented x 3 Skin: Normal color, warm/dry, no rash Laboratory Results Last 24 Hours Test 05/17/17 16:29 05/17/17 20:26 05/18/17 07:17 05/18/17 07:30 Bedside Glucose 126 mg/dl 149 mg/dl 109 mg/dl White Blood Count 6.86 K/uL Red Blood Count 4.03 M/uL Hemoglobin 13.2 g/dL Hematocrit 39.5 % Mean Corpuscular Volume 98.0 fL Mean Corpuscular Hemoglobin 32.8 pg Mean Corpuscular Hemoglobin Concent 33.4 g/dl RDW Standard Deviation 56.5 fL RDW Coefficient of Variation 15.7 % Platelet Count 231 K/uL Mean Platelet Volume 9.5 fL Sodium Level 130 mmol/L Potassium Level 5.4 mmol/L Chloride Level 97 mmol/L Carbon Dioxide Level 14 mmol/L Anion Gap 19.0 mmol/L Blood Urea Nitrogen 71 mg/dl Creatinine 10.50 mg/dl Est Creatinine Clear Calc Drug Dose 3.7 ml/min Estimated GFR () 3.5 Estimated GFR (Non- 3.0 BUN/Creatinine Ratio 6.8 Random Glucose 102 mg/dl Calcium Level 9.4 mg/dl Phosphorus Level 11.7 mg/dl Albumin 3.8 gm/dl Test 05/18/17 13:36 Bedside Glucose 83 mg/dl Assessment and Plan 81 y/o female with a history of HTN, HLD, chronic diastolic CHF, DM II, ESRD on HD, ulcerative colitis s/p total colectomy w/ileostomy, and h/o ductal stage I breast cancer who presents to the ED on 05/14 w/nausea, vomiting, weakness and fatigue. Pt had missed dialysis session 05/13, found to be hyperkalemic on admission Hyperkalemia, ESRD on HD--improving -Admitted to ICU. Stable, transferred to tele. Tele remained stable and now able to take PO meds, transferred to med/surg -Received insulin+dextrose, calcium, Kayexalate -Emergent dialysis 05/14 -Potassium 5.4 on 05/18, for dialysis today -Nephrology consulted, appreciate recs: Dialysis today. Hgb and BP acceptable Partial small bowel obstruction--resolving -Attempted NGT placement, pt refuses further attempts. Aware of risks -General surgery consulted, appreciate recs: Advance diet as tolerated -GI consulted, appreciate recs: Advance diet slowly -Tolerating clears, advanced to full liquids -Wound care/ostomy nurse consulted for ileostomy irrigation, pt now with ostomy output HTN, HLD--stable -Continue labetalol 200 mg PO TID, amlodipine 5 mg PO qd, simvastatin 40 mg PO hs Chronic diastolic CHF--stable, no exacerbation -For dialysis today -Beta courtney as above DM II--stable -On at home -NPH decreased to 12 units SC BID, pharmacy managing -Insulin sliding scale -Check BSGs qac and qhs Left wrist pain--worse w/any ROM, TTP. No h/o gout -1 dose colchicine 1.2 mg PO ordered per Dr. Juárez, will see if this improves -Continue to monitor Dispo -Pt from home, lives w/daughter -PT eval pending, OT cleared pt to return home w/family assistance -Anticipate discharge in 1 day
--- NOTE | 2017-05-18 21:38 | Progress Note ---
Post ICU Progress Note Date & Time May 18, 2017 at 21:38 Vital Signs Vital Signs Past 12 Hours Date Time Temp Pulse Resp B/P (MAP) Pulse Ox O2 Delivery O2 Flow Rate FiO2 05/18/17 20:10 Room Air 05/18/17 18:00 36.8 83 20 98/62 (74) 95 Room Air 05/18/17 16:52 Room Air 05/18/17 13:10 36.5 74 103/43 (63) 05/18/17 12:30 78 89/46 05/18/17 12:15 78 96/45 05/18/17 12:00 77 94/46 05/18/17 11:45 77 112/47 05/18/17 11:30 81 94/52 05/18/17 11:15 75 104/48 05/18/17 11:00 78 97/51 05/18/17 10:45 81 103/42 05/18/17 10:30 75 91/46 05/18/17 10:15 79 96/42 05/18/17 10:00 81 100/47 05/18/17 09:45 78 93/50 Notes Mental Status: alert / awake Nausea / Vomiting: adequately controlled Pain: adequately controlled Airway Patency, RR, SpO2: stable & adequate BP & HR: stable & adequate Patient is an 81-year-old female who was initially admitted to the intensive care unit on 05/14 secondary to hyperkalemia and need for emergent hemodialysis. Patient is hemodialysis dependent on Mondays/Wednesdays/Fridays. She did miss a day of hemodialysis secondary to feeling poorly. She had developed weakness with associated nausea and vomiting. Subsequently, during her stay, the patient developed an ileus with poor output from her ileostomy. She did not tolerate NG tube placement, however eventually she did improve with bowel rest and lavage of her ileostomy. Her hyperkalemia has been well and check with serial dialysis treatments. She has had progression of her diet and has recently tolerated soups and broth without issue. On evaluation today, the patient is resting comfortably in her room. She reports feeling markedly better at this time. She does report a moderate amount of output from her ileostomy. She denies any abdominal pain or distention. She has had no nausea or vomiting. She reports that she still feels somewhat weak, however she is uncertain whether this is equated to her recent dialysis treatments which tend to wear her out. Otherwise, the patient offers no other complaints at this time. Consider outpatient follow up in 1 to 2 weeks with: Continue HD per Nephro, PCP Repeat imaging needed: Per surgical team, however bowel function has seemed to greatly improve. Follow up cultures: None at this time. Reviewed progress notes, labs, and inpatient medication list Continue current management Additional recommendations: No further recommendations at this time. Patient has show great improvement from initial presentation. Thank you for allowing us to participate in the care of this patient. At this time, Critical Care Services will sign off on this patient. Please feel free to reconsult as needed Consults & Procedures Consultants: Dr. Juárez - Nephrology Dr. Finch - General Surgery ADRIAN Isbell/Dr. Barton - Gastroenterology [facility] [place] - Primary Service
[2017-05-18] MEDS: SIMVASTATIN 40 MG TAB PO SCH (22:21)
[2017-05-19] MEDS: HEPARIN SOD 5000 UNIT/0.5 ML CARP SQ SCH ×2 (06:30→13:20)
[2017-05-19 07:17] LABS: HEMATOCRIT 39.2 % (37-47); HEMOGLOBIN 13.4 g/dL (12.0-16.0); MEAN CELL VOLUME 96.6 fL (80-100); MEAN CORPUSCULAR HGB CONC 34.2 g/dl (32-36); MEAN PLATELET VOLUME 9.2 fL (7.4-10.4); PLATELET COUNT 186 K/uL (130-400); RED CELL DISTRIBUTION WIDTH CV 15.4 % (11.5-14.5); RED CELL DISTRIBUTION WIDTH SD 54.2 fL (36.4-46.3); WHITE BLOOD COUNT 7.39 K/uL (4.8-10.8)
[2017-05-19] MEDS: CALCIUM ACETATE 667MG GELCAP PO SCH ×2 (07:42→11:55)
[2017-05-19] MEDS: LABETALOL HCL 200 MG TAB PO SCH ×2 (07:43→14:00)
[2017-05-19] MEDS: FERROUS SULFATE 325 MG TAB PO SCH ×2 (07:43→11:55)
[2017-05-19] MEDS: CHOLECALCIFEROL 1000 INTER.UNIT TAB PO SCH (07:43)
[2017-05-19] MEDS: NEPHROCAPS PO SCH (07:44)
[2017-05-19] MEDS: CEROVITE ADV FORMULA TAB PO SCH (07:44)
[2017-05-19] MEDS: ALLOPURINOL 100 MG TAB PO SCH (07:44)
[2017-05-19] MEDS: ASPIRIN 81 MG ECTAB PO SCH (07:44)
[2017-05-19] MEDS: AMLODIPINE BESYLATE 5 MG TAB PO SCH (07:44)
[2017-05-19] MEDS: PANTOprazole SOD 40 MG TAB PO SCH (07:44)
[2017-05-19 07:51] VITALS: BP 120/74; PULSE 70; TEMP 36.6; O2SAT 92
[2017-05-19] MEDS: POLYETHYLENE (MIRALAX) 17 GM PACK PO SCH (07:52)
[2017-05-19 08:00] VITALS: O2SAT 92
[2017-05-19 08:06] LABS: ALBUMIN 3.4 gm/dl (3.4-5.0); CREATININE 7.9 mg/dl (0.60-1.20); POTASSIUM 4.1 mmol/L (3.5-5.1)
[2017-05-19 08:24] LABS: PHOSPHORUS 8.2 mg/dl (2.5-4.9)
[2017-05-19] MEDS: INSULIN ASPART 100 UNITS/ML 3 ML PEN SC SCH ×2 (08:29→12:52)
[2017-05-19] MEDS: ANASTROZOLE 1 MG TAB PO SCH (08:29)
--- NOTE | 2017-05-19 08:30 | Pharmacy Progress Note ---
Pharmacy Glycemic Short Note 2 Date of Service May 19, 2017. OUTPATIENT ANTIDIABETIC REGIMEN: * Relion 70/30: 60 units qAM and 35 units qPM ASSESSMENT: * 81 yr old female admitted with nausea, vomiting, and weakness. BSGs have been well controlled this admission. * Patient received 33 units of SQ insulin on 05/18: * 25 units of basal insulin * 8 units of bolus insulin * BSGs: [id number] * Fasting BSG of 95 mg/dL is below goal. This is trending downwards from yesterday's blood sugar of 109 mg/dL. Decreased basal insulin by 20% to 20 units daily or 10 units twice daily. Have a slightly higher dose available in case blood sugars trend upwards. * Post-prandial BSGs are also at goal. Blood sugar did trend down yesterday from dinner to bedtime BUT today blood sugars were trending upwards. Had loosened Novolog for breakfast but will tighten again. PLAN FOR INPATIENT GLYCEMIC CONTROL: * Basal insulin * NPH 10-12 units SQ BID * Bolus insulin * NovoLog per scale ACHS or Q6hrs while NPO * Goal Range: Low 120 mg/dL - High 160 mg/dL * Correction Factor: 20 mg/dL/unit * Nutritional / Prandial insulin per carb ratio of 1 unit per 6 grams CHO consumed PLAN FOR DISCHARGE: * A1c not ordered due to h/o ESRD on HD ... currently her control of her type 2 diabetes is unknown. Recommend monitoring at home with a blood glucose log. * Outpatient regimen can be resumed on discharge as long as patient does not report frequent hypo- or hyperglycemia at home.
[2017-05-19] MEDS ORDERED: INSULIN HUMAN NPH SC SCH ×2 (09:00→21:00)
[2017-05-19] MEDS ORDERED: COLCHICINE 0.6 MG TAB PO ONE ×2 (10:15)
[2017-05-19] MEDS ORDERED: ACETAMINOPHEN 325 MG TAB PO ONE (10:16)
[2017-05-19] MEDS ORDERED: ACETAMINOPHEN 325 MG TAB ONE (10:17)
--- NOTE | 2017-05-19 10:23 | Nephrology Progress Note ---
Nephrology Progress Note Date of Service May 19, 2017. Chief Complaint ESRD, hyperkalemia Subjective No acute events overnight. Bethany is resting comfortably in bed this morning. Her daughter (Kelsea) is at the bedside. Bethany feels well. She continues to have some left wrist pain. She denies any trauma or injury. There was slight improvement with 1 dose of colchicine yesterday. Ostomy output has increased. Appetite is improving. Bethany is tolerating full liquids. Bethany tolerated HD well yesterday without complications. Review of Systems A complete review of systems was performed. Pertinent positives are noted above. All other systems are negative. Vital Signs Last 8 Hrs Date Time Temp Pulse Resp B/P (MAP) Pulse Ox O2 Delivery O2 Flow Rate FiO2 05/19/17 08:00 92 Room Air 05/19/17 07:51 36.6 70 18 120/74 (89) 92 Room Air Last Recorded Weight Weight (Kilograms): 69.100 Physical Exam General Appearance: no apparent distress, + pertinent finding (frail, elderly) Head: normocephalic, atraumatic Eyes: normal inspection, sclerae normal ENT: normal ENT inspection, pharynx normal, + pertinent finding (oral mucosa dry) Neck: supple, no JVD Respiratory/Chest: lungs clear, no respiratory distress, no accessory muscle use Cardiovascular: regular rate, rhythm, no gallop Abdomen/GI: soft, + distended (improving, +bowel sounds) Extremities/Musculoskelatal: normal inspection, no pedal edema Neurologic/Psych: alert, normal mood/affect Family History Diabetes mellitus Hypertension Social History Drug Use: none Marital Status: Occupation: retired Laboratory Results Past 24 Hours 05/19/17 06:51 05/19/17 06:51 Test 05/18/17 13:36 05/18/17 16:30 05/18/17 20:30 05/19/17 06:51 Bedside Glucose 83 mg/dl (70-90) 119 mg/dl (70-90) 100 mg/dl (70-90) Red Blood Count 4.06 M/uL (4.2-5.4) Mean Corpuscular Volume 96.6 fL (80-100) Mean Corpuscular Hemoglobin 33.0 pg (25-34) Mean Corpuscular Hemoglobin Concent 34.2 g/dl (32-36) RDW Standard Deviation 54.2 fL (36.4-46.3) RDW Coefficient of Variation 15.4 % (11.5-14.5) Mean Platelet Volume 9.2 fL (7.4-10.4) Anion Gap 15.0 mmol/L (3-11) Est Creatinine Clear Calc Drug Dose 4.9 ml/min Estimated GFR () 5.0 Estimated GFR (Non- 4.3 BUN/Creatinine Ratio 5.0 (10-20) Calcium Level 9.0 mg/dl (8.5-10.1) Phosphorus Level 8.2 mg/dl (2.5-4.9) Albumin 3.4 gm/dl (3.4-5.0) Test 05/19/17 07:38 Bedside Glucose 95 mg/dl (70-90) Allergies Coded Allergies: No Known Allergies (Unverified , 05/10/17) Medications Current Inpatient Medications Medications (Trade) Dose Ordered Sig/Camilo Route Start Time Stop Time Status Last Admin Dose Admin Allopurinol (Zyloprim Tab) 100 mg QAM PO 05/14/17 09:00 06/13/17 08:59 Future hold 05/19/17 07:44 100 MG Amlodipine Besylate (Norvasc Tab) 5 mg QAM PO 05/14/17 09:00 06/13/17 08:59 Future hold 05/19/17 07:44 5 MG Anastrozole (Arimidex Tab) 1 mg QAM PO 05/14/17 09:00 06/13/17 08:59 Future hold 05/19/17 08:29 1 MG Aspirin (Ecotrin Tab) 81 mg QAM PO 05/14/17 09:00 06/13/17 08:59 Future hold 05/19/17 07:44 81 MG Vitamin B Complex/ Vit C/Folic Acid (Nephrocaps) 1 cap QAM PO 05/14/17 09:00 06/13/17 08:59 Future hold 05/19/17 07:44 1 CAP Calcium Acetate (Phoslo Cap) 667 mg TIDM PO 05/14/17 11:30 06/13/17 11:29 Future hold 05/19/17 07:42 667 MG Ferrous Sulfate (Feosol Tab) 325 mg TIDM PO 05/14/17 11:30 06/13/17 11:29 Future hold 05/19/17 07:43 325 MG Labetalol HCl (Normodyne Tab) 200 mg TID PO 05/14/17 14:00 06/13/17 13:59 Future hold 05/19/17 07:43 200 MG Ondansetron HCl (Zofran Tab) 8 mg Q6H PRN PO 05/14/17 08:15 06/13/17 08:14 Future Hold 05/14/17 20:56 8 MG Pantoprazole Sodium (Protonix Tab) 40 mg QAM PO 05/14/17 09:00 06/13/17 08:59 Future hold 05/19/17 07:44 40 MG Simvastatin (Zocor Tab) 40 mg QPM PO 05/14/17 21:00 06/13/17 20:59 Future hold 05/14/17 20:47 40 MG Cholecalciferol (Vitamin D Tab) 5,000 inter.unit DAILY PO 05/14/17 11:00 06/13/17 10:59 Future hold 05/19/17 07:43 5,000 INTER.UNIT Multivitamins/ Minerals (Multivitamin W/ Minerals Tab) 1 tab BID PO 05/15/17 11:30 06/14/17 11:29 Future hold 05/19/17 07:44 1 TAB Glucose (Glucose 40% Gel) 15-30 GRAMS 15 GRAMS... UD PRN PO 05/14/17 11:45 06/13/17 11:44 Glucose (Glucose Chew Tab) 4-8 Tablets 4 Tabl... UD PRN PO 05/14/17 11:45 06/13/17 11:44 Dextrose (Dextrose 50% 50ML Syringe) 25-50ML OF 50% DW IV FOR... UD PRN IV 05/14/17 11:45 06/13/17 11:44 Glucagon (Glucagon Inj) 1 mg UD PRN SQ 05/14/17 11:45 06/13/17 11:44 Miscellaneous Information (Consult Glycemic Management Pharmacy) 1 ea UD PRN N/A 05/15/17 08:21 06/14/17 08:20 Heparin Sodium (Porcine) (Heparin Sq 5000 Unit/0.5ml) 5,000 unit Q8 SQ 05/15/17 14:00 06/14/17 13:59 05/19/17 06:30 5,000 UNIT Hydralazine HCl (HydrALAZINE INJ) 10 mg Q6H PRN IV. 05/15/17 10:00 06/14/17 09:59 Ondansetron HCl (Zofran Inj) 4 mg Q6H PRN IV 05/16/17 07:45 06/15/17 07:44 05/17/17 21:34 4 MG Insulin Aspart (novoLOG ASPART) SLIDING SCALE ACHS SC 05/16/17 21:00 06/15/17 20:59 05/19/17 08:29 3 UNITS Polyethylene (Miralax Powder Packet) 17 gm DAILY PO 05/18/17 09:00 06/17/17 08:59 05/19/17 07:52 17 GM Ondansetron HCl (Zofran Odt) 4 mg Q8H PRN PO 05/18/17 00:30 06/17/17 00:29 05/18/17 00:41 4 MG Insulin Human NPH (novoLIN-N NPH) 10 units BID SC 05/19/17 09:00 06/18/17 08:59 05/19/17 08:28 10 UNITS Impression (1) ESRD on dialysis (2) Diabetes (3) Anemia (4) Partial small bowel obstruction Bethany is an 81 year-old female with adult onset diabetes mellitus, hypertension , hyperlipidemia, diastolic CHF, history of nephrolithiasis and ulcerative colitis status post total colectomy with permanent ileostomy, 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 She is on HD MWF. 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 Bethany presented with nausea and vomiting. She had hyperkalemia requiring emergent dialysis (patient had missed her scheduled treatment the day prior). Evaluation notable for partial SBO. Bowel obstruction attributed to high fiber protein bars. This continues improving. Recommendations ESRD: -- HD MWF -- Blood pressure, volume status and metabolic profile are acceptable -- Protect AVF -- Low K diet -- Patient scheduled for HD as outpatient tomorrow. Her daughter expressed that she will drive Bethany to and from dialysis if discharged home today Anemia: -- Hgb acceptable, no need for EPO at this time CKD/MBD: -- Hold CaAcetate Hypertension: -- BP remains low, hold amlodipine Partial SBO: -- Clinically improving -- Potentially related to high fiber protein bars, patient advised to stop and educated on ostomy appropriate diet
[2017-05-19] MEDS ORDERED: MRLP17 PO (10:25)
[2017-05-19] MEDS ORDERED: ACETAMINOPHEN 325 MG TAB PO PRN (10:30)
[2017-05-19] MEDS ORDERED: PRD10 PO (10:32)
[2017-05-19] MEDS ORDERED: COLC0.6T54 PO (10:32)
--- NOTE | 2017-05-19 10:33 | Discharge Instructions ---
Discharge Instructions Date of Service May 19, 2017. Admission Reason for Admission: Esrd On Dialysis Discharge Discharge Diagnosis / Problem: Hyperkalemia, partial small bowel obstruction Discharge Goals Goal(s): Decrease discomfort, Improve function, Diagnostic testing, Therapeutic intervention Activity Recommendations Activity Limitations: resume your previous activity (as tolerated) . Instructions / Follow-Up Instructions / Follow-Up You were admitted to the hospital with nausea, vomiting. Due to your illness and missing a dialysis session, you were found to have an elevated potassium level requiring emergent dialysis. Your potassium is now back in normal range. You were found to have a partial small bowel obstruction. After having some bowel rest, IV fluids, and your ileostomy irrigated, this is now resolved. Prior to your discharge, it appears that you may be having an acute gouty attack with pain in both wrists. You have been started on some medications to treat this. Medications: *Please take Miralax 17 grams daily. This is a laxative. AVOID A HIGH FIBER DIET to prevent future obstructions. *Please take prednisone 10 mg daily for 5 days. This is a steroid which may help with gout. Please note that this may elevate your blood sugars. *Please take colchicine 0.6 mg daily for 2 days. This is also a medication for acute gout. *Continue your other home medications. Follow up: *You will be scheduled to follow up with your primary care provider, Dr. Demar Ryan, within 1 week of discharge. Please seek medical attention if you experience fevers, chills, sweats, dizziness/lightheadedness, loss of consciousness, chest pain, shortness of breath, nausea, vomiting, numbness or tingling. Current Hospital Diet Patient's current hospital diet: Low Fiber Diet, Diabetes Type 2 Diet Discharge Diet Recommended Diet: Diabetes Type 2 Diet, Low Fiber Diet Pending Studies Studies pending at discharge: no Medical Emergencies . Who to Call and When: Medical Emergencies: If at any time you feel your situation is an emergency, please call 911 immediately. . Non-Emergent Contact Non-Emergency issues call your: Primary Care Provider, Wastewater Operator Call Non-Emergent contact if: you have a fever, your pain is not controlled, your pain is worsening, your pain is unusual for you, your pain is concerning you, you have any medication questions . Past History Medical & Surgical History: (1) Partial small bowel obstruction (2) Hyperkalemia . "Provider Documentation" section prepared by Sara Pimentel. .
--- NOTE | 2017-05-19 10:41 | Discharge Summary ---
Discharge Summary Date of Service May 19, 2017. Discharge Summary Admission Date: May 14, 2017 at 08:05 Discharge Date: May 19, 2017 Discharge Disposition: Home Principal Diagnosis: Hyperkalemia, partial small bowel obstruction Problems/Secondary Diagnoses: HTN, HLD, chronic diastolic CHF, DM II, ESRD on HD, ulcerative colitis s/p total colectomy w/ileostomy, gout, h/o ductal stage I breast cancer Immunizations: Have You Had Influenza Vaccine: Yes History of Tetanus Vaccine?: Unknown History of Pneumococcal: Yes History of Hepatitis B Vaccine: Unknown Procedures: ABD/PELVIS ORAL CONT ONLY CLINICAL HISTORY: 81 years-old Female presenting with ? SBO. TECHNIQUE: Multidetector CT of the abdomen and pelvis was performed after the administration of oral contrast only. IV contrast: None. A dose lowering technique was used consistent with the principles of ALARA (as low as reasonably achievable). COMPARISON: 05/14/2017. CT DOSE (mGy.cm): The estimated cumulative dose is 485.62 mGy.cm. FINDINGS: Drawbench Operator Helper topogram: Gaseous distention of bowel. Surgical clips in the right pelvis and right abdomen. Lung bases: Fluid collection in the posterior third of the lateral right breast likely seroma. Adjacent surgical clips. Several solid pulmonary nodules evident as on prior exam, which have been marked on the images and measure up to 4 mm. These are unchanged. Additional bandlike opacities likely atelectasis or scarring. Normal heart size. Coronary artery calcification. No pericardial or pleural effusion. Liver: Normal morphology. Density consistent with hepatic steatosis. Numerous parenchymal calcification suggest prior granulomatous infection. Biliary: No gross biliary ductal dilatation allowing for noncontrast technique. Gallbladder contains gallstones. Pancreas: Moderate parenchymal atrophy. Spleen: Parenchymal calcification suggest prior granulomatous infection. Adrenal glands: Normal noncontrast appearance. Kidneys and ureters: Parenchymal atrophy with extensive renal vascular calcification. Metallic foreign bodies noted medial to the right kidney. No nephrolithiasis. No hydronephrosis. Left ureter normal. Right ureter poorly visualized. Bladder: Incompletely evaluated secondary to underdistention. Pelvic organs: Normal noncontrast appearance. Bowel: Evidence of abdominoperineal resection with total proctocolectomy. Right mid abdominal ileostomy. Small bowel is diffusely distended. Oral contrast has not yet transited to the ostomy. Small bowel measures up to nearly 5 cm in diameter. There is smooth tapering to the more distal small bowel without a focal transition point identified apart from extensive fecal material in the distal most small bowel to the level of the ostomy. Peritoneal cavity: Small amount of pelvic ascites or presacral fluid, which may be loculated and is unchanged from prior. No free intraperitoneal gas. Lymph nodes: No gross lymphadenopathy allowing for noncontrast technique. Vasculature: Atherosclerosis of the normal caliber abdominal aorta. Abdominal wall: Diastasis of the rectus abdominis. Postsurgical changes of the periumbilical region with skin thickening and infiltration. No associated fluid or inflammatory change at the right mid abdominal ostomy. Musculoskeletal: Degenerative changes of the spine. IMPRESSION: 1. Extensive fecal material in the distal small bowel to the level of the right mid abdominal ileostomy. This could suggest partial functional or mechanical obstruction due to feces. These or is felt to be less likely given the extended segment of involvement. No other focal transition point. 2. Small amount of loculated ascites versus small amount of presacral fluid, which may be postsurgical. 3. Post surgical changes of total proctocolectomy and abdominoperineal resection. 4. Evidence of old granulomatous infection. 5. Seroma in the right breast. 6. Multiple nonspecific solid pulmonary nodules. Consultations: Tubing Machine Operator Nephrology Gastroenterology General surgery Medication Reconciliation New Medications: Colchicine (Colchicine) 0.6 Mg Tab 0.6 MG PO DAILY for 2 Days, #2 TAB Start this medication on Tuesday, 05/20 Prednisone (Prednisone) 10 Mg Tab 10 MG PO QD for 5 Days, #5 TABS Polyethylene (Miralax) 17 Gm Pow 17 GM PO DAILY for 30 Days, #30 DOSE Continued Medications: Allopurinol (Allopurinol) 100 Mg Tab 100 MG PO QAM Amlodipine Besylate (Norvasc) 5 Mg Tab 5 MG PO QAM, TAB Anastrozole (Anastrozole) 1 Mg Tab 1 MG PO QAM Aspirin (Aspirin Ec) 81 Mg Tab 81 MG PO QAM B-Complex W/ C & Folic Acid (Gianni Caps) 1 Cap Cap 1 TAB PO QAM Calcium Acetate (Phoslo 667 Mg) 667 Mg Cap 1 CAP PO TIDM, CAP Cholecalciferol (Vitamin D3) 5,000 Unit Tab 5000 UNITS PO DAILY Ferrous Sulfate (Ferrous Sulfate) 325 Mg Tab 325 MG PO TIDM Insulin Isophane & Reg (Human) (Novolin 70/30 Relion) 1 Inj Inj 60 UNITS SQ QAM Insulin Isophane & Reg (Human) (Novolin 70/30 Relion) 1 Inj Inj 35 UNITS SQ QPM Labetalol HCl (Labetalol HCl) 200 Mg Tab 200 MG PO TID Multiple Vitamins W/ Minerals (Centrum Multigummies Adul) 1 Chw Chw 1 TAB PO QAM Multiple Vitamins W/ Minerals (Preservision Areds 2) 1 Cap Cap 1 CAP PO BID Ondansetron Hcl (Zofran) 8 Mg Tab 8 MG PO Q6H PRN for Nausea, TAB Pantoprazole (Pantoprazole Sodium) 40 Mg Tab 40 MG PO QAM Simvastatin (Simvastatin) 40 Mg Tab 40 MG PO QPM Discharge Exam Patient reports feeling well. She states she is tolerating her diet without any abdominal pain, nausea or vomiting. She is still having stool output in her ostomy bag. She does complain of left and now also right wrist pain. She states her left wrist is an 8/10 and her right wrist is a 5/10 pain that is worse with range of motion and palpation. The patient denies fevers, chills, sweats, chest pain, palpitations, claudication, cough, wheezing, shortness of breath, nausea, vomiting, abdominal pain, dysuria, hematuria, urinary retention , paralysis, weakness, numbness and tingling. Constitutional: No fever, No chills, No sweats Eyes: No worsening of vision, No eye pain, No diplopia ENT: No hearing loss, No nasal symptoms, No trouble swallowing Respiratory: No cough, No wheezing, No shortness of breath Cardiovascular: No chest pain, No claudication, No palpitations Abdomen: No pain, No nausea, No vomiting Musculoskeletal: +Bilateral wrist pain, L>R. No muscle pain, No swelling Genitourinary - Female: No dysuria, No urinary retention, No hematuria Neurologic: No paralysis, No weakness, No numbness/tingling Integumentary: No rash, No itch, No color change General appearance: Well-developed, well-nourished, no apparent distress Head: Normocephalic, atraumatic Eyes: Normal inspection, PERRL, EOMI ENT: Normal ENT inspection, hearing grossly normal, pharynx normal Neck: Supple, no JVD, trachea midline Respiratory/Chest: Lungs clear to auscultation, normal breath sounds, no respiratory distress Cardiovascular: +Systolic murmur. Regular rate & rhythm, no gallop Abdomen/GI: +Ileostomy in RLQ w/stool. Normal bowel sounds, soft Extremities/Musculoskeletal: +Left wrist and right wrist TTP, L>R. Pain with all ROM of wrist and flexion of fingers. No warmth or erythema. Normal inspection, no calf tenderness, no pedal edema Neurological/Psych: Alert, normal mood/affect, oriented x 3 Skin: Normal color, warm/dry, no rash Hospital Course 81 y/o female with a history of HTN, HLD, chronic diastolic CHF, DM II, ESRD on HD, ulcerative colitis s/p total colectomy w/ileostomy, and h/o ductal stage I breast cancer who presents to the ED on 05/14 w/nausea, vomiting, weakness and fatigue. Pt had missed dialysis session 05/13, found to be hyperkalemic on admission Hyperkalemia, ESRD on HD--resolved -Admitted to ICU. Stable, transferred to tele. Tele remained stable and now able to take PO meds, transferred to med/surg -Received insulin+dextrose, calcium, Kayexalate -Emergent dialysis 04/16. Continue previous M// schedule -Potassium 4.1 on 05/19 -Nephrology consulted, appreciate recs: Try colchicine for possible gout attack. Partial small bowel obstruction--resolving -Attempted NGT placement, pt refuses further attempts. Aware of risks -General surgery consulted, appreciate recs: Advance diet as tolerated -GI consulted, appreciate recs: Advance diet slowly -Low fiber diet -Wound care/ostomy nurse consulted for ileostomy irrigation, pt now with ostomy output HTN, HLD--stable -Continue labetalol 200 mg PO TID, amlodipine 5 mg PO qd, simvastatin 40 mg PO hs Chronic diastolic CHF--stable, no exacerbation -Beta courtney as above DM II--stable -On 70/30 at home -NPH decreased to 10 units SC BID, pharmacy managing -Insulin sliding scale -Check BSGs qac and qhs B/l wrist pain, likely acute gouty attack--pt denies h/o gout to me but is taking allopurinol -1 time dose colchicine 1.2 mg PO ordered per Dr. Franck -D/C with prednisone 10 mg PO qd x 5 days and colchicine 0.6 mg PO qd x 2 days -Continue allopurinol 100 mg PO qd -F/u with PCP Dispo -Pt from home, lives w/daughter Total Time Spent: Greater than 30 minutes This includes examination of the patient, discharge planning, medication reconciliation, and communication with other providers. Discharge Instructions Please refer to the electronic Patient Visit Report (Discharge Instructions) for additional information. Additional Copies To Danielito Henley M.D.
[2017-05-19 10:42] VITALS: BP 120/74; PULSE 70; TEMP 36.6; O2SAT 92
[2017-05-19] MEDS ORDERED: COLCHICINE 0.6 MG TAB PO PRN (12:00)
== END 2017-05-19 14:40 | disposition home or self-care (01) | DRG 388 ==
LOC: C.EDA 05:33 → EDBD 05:33 → C.MSICU 08:05 → ENRESERV 08:36 → C.2E 05-15 13:27 → ENRESERV 05-17 13:11 → C.MS2W 05-17 14:15
PROVIDERS: ADMIT Internal Medicine Sports Medicine; ATTEND Internal Medicine
PROC: 5A1D70Z Performance of Urinary Filtration, Intermittent, Less than 6 Hours Per Day (ICD-10-PCS; principal; 2017-05-14)
DX: K56.600 Partial intestinal obstruction, unspecified as to cause (principal); K51.90 Ulcerative colitis, unspecified, without complications; N18.6 End stage renal disease; I13.2 Hypertensive heart and chronic kidney disease with heart failure and with stage 5 chronic kidney disease, or end stage renal disease; I50.32 Chronic diastolic (congestive) heart failure; Z99.2 Dependence on renal dialysis; Z93.2 Ileostomy status; Z85.3 Personal history of malignant neoplasm of breast; E11.21 Type 2 diabetes mellitus with diabetic nephropathy; Z86.73 Personal history of transient ischemic attack (TIA), and cerebral infarction without residual deficits; E87.5 Hyperkalemia; Z79.4 Long term (current) use of insulin; E78.5 Hyperlipidemia, unspecified; I48.0 Paroxysmal atrial fibrillation; D64.9 Anemia, unspecified; Z92.3 Personal history of irradiation

== ENCOUNTER 2017-07-01 07:03 | Day surgery (SDC) | payer OTHER, BC ==
[2017-06-16 11:59] VITALS: Ht 157.5 cm; Wt 70.5 kg
--- NOTE | 2017-06-16 12:38 | PAT Medication Instructions ---
Service Date June 16, 2017. Current Home Medication List Allopurinol (Allopurinol), 100 MG PO QAM Amlodipine Besylate (Norvasc), 5 MG PO QAM Anastrozole (Anastrozole), 1 MG PO QAM Aspirin (Aspirin Ec), 81 MG PO QAM B-Complex W/ C & Folic Acid (Gianni Caps), 1 TAB PO QDD Calcium Acetate (Phoslo 667 Mg), 1 CAP PO TIDM Insulin Isophane & Reg (Human) (Novolin 70/30 Relion), 60 UNITS SQ QAM Insulin Isophane & Reg (Human) (Novolin 70/30 Relion), 35 UNITS SQ QPM Labetalol (Normodyne), 200 MG PO 4XWK Labetalol HCl (Labetalol HCl), 200 MG PO 3XWK Multiple Vitamins W/ Minerals (Centrum Multigummies Adul), 1 TAB PO QAM Multiple Vitamins W/ Minerals (Preservision Areds 2), 1 CAP PO BID Ondansetron Hcl (Zofran), 8 MG PO Q6H PRN for Nausea Pantoprazole (Pantoprazole Sodium), 40 MG PO QAM Polyethylene (Miralax), 17 GM PO DAILY Prednisone (Prednisone), 10 MG PO QD Simvastatin (Simvastatin), 40 MG PO QPM [Shots Eyes ], Unknown Dose UD Medication Instructions For Your Scheduled Surgery -Check with your surgeon and Dr. Torres for instructions for: Aspirin (Aspirin Ec), 81 MG PO QAM -Continue as directed: [Shots Eyes ], Unknown Dose UD - Hold the following medications the morning of surgery: Calcium Acetate (Phoslo 667 Mg), 1 CAP PO TIDM Multiple Vitamins W/ Minerals (Centrum Multigummies Adul), 1 TAB PO QAM Multiple Vitamins W/ Minerals (Preservision Areds 2), 1 CAP PO BID Polyethylene (Miralax), 17 GM PO DAILY - Take the following medications the morning of surgery with a sip of water: Allopurinol (Allopurinol), 100 MG PO QAM Amlodipine Besylate (Norvasc), 5 MG PO QAM Anastrozole (Anastrozole), 1 MG PO QAM Labetalol (Normodyne), 200 MG PO 4XWK Ondansetron Hcl (Zofran), 8 MG PO Q6H PRN for Nausea (if needed) Pantoprazole (Pantoprazole Sodium), 40 MG PO QAM - Take the following medications as scheduled the night before surgery: B-Complex W/ C & Folic Acid ([place] Caps), 1 TAB PO QDD Calcium Acetate (Phoslo 667 Mg), 1 CAP PO TIDM Insulin Isophane & Reg (Human) (Novolin 70/30 Relion), 35 UNITS SQ QPM Labetalol HCl (Labetalol HCl), 200 MG PO 3XWK Multiple Vitamins W/ Minerals (Preservision Areds 2), 1 CAP PO BID Ondansetron Hcl (Zofran), 8 MG PO Q6H PRN for Nausea (if needed) Simvastatin (Simvastatin), 40 MG PO QPM - For Insulin Dependent Diabetic patients: Test blood sugar A.M. of surgery. - If BLOOD SUGAR IS GREATER THAN 150, take half of your regular dose of: Insulin Isophane & Reg (Human) (Novolin 70/30 Relion) -- TAKE 30 UNITS - If BLOOD SUGAR IS LESS THAN 150, do not take any: Insulin Isophane & Reg (Human) (Novolin 70/30 Relion) If you have any questions please call us at [phone] or [phone] or [phone]
[2017-06-16 13:19] LABS: BASO % 0.7 %; BASO ABS # 0.05 K/uL (0-0.2); EOS ABS # 0.15 K/uL (0-0.5); HEMATOCRIT 30.6 % (37-47); HEMOGLOBIN 9.7 g/dL (12.0-16.0); IG# 0.16 K/uL (0.00-0.02); LYMPH % 14.8 %; LYMPH ABS # 1.14 K/uL (1.2-3.4); MEAN CORPUSCULAR HEMOGLOBIN 31.4 pg (25-34); MEAN CORPUSCULAR HGB CONC 31.7 g/dl (32-36); MEAN PLATELET VOLUME 9.5 fL (7.4-10.4); MONO % 7.9 %; MONO ABS # 0.61 K/uL (0.11-0.59); NEUT % 72.5 %; NEUT ABS # 5.57 K/uL (1.4-6.5); PLATELET COUNT 156 K/uL (130-400); RED CELL DISTRIBUTION WIDTH CV 15.6 % (11.5-14.5); WHITE BLOOD COUNT 7.68 K/uL (4.8-10.8)
[2017-06-16 15:24] LABS: CREATININE 5.91 mg/dl (0.60-1.20)
[~2017-07-01] VITALS: Ht 157.5 cm; Wt 70.5 kg
[~2017-07-01 07:03] MED LIST changes: -FERR325T5 PO; +LABE1TAB28 PO; +MRLP17 PO; +ONDA-170 PO; +PRD10 PO; +SODIUM CHLORIDE 0.9% 1000ML 1,000 ML IV SCH; +[UNRECOGNIZED DRUG - REMARK]
[2017-07-01 07:39] VITALS: BP 117/53; PULSE 78; TEMP 36.4; O2SAT 93
[2017-07-01 08:11] LABS: CALCIUM 9.3 mg/dl (8.5-10.1); CREATININE 7.49 mg/dl (0.60-1.20)
[2017-07-01] MEDS ORDERED: NovoLIN-R INSULIN PER UNIT CHARGE ONE (08:13)
[2017-07-01] MEDS ORDERED: NovoLIN-R INSULIN PER UNIT CHARGE IV ONE (08:15)
[2017-07-01] MEDS ORDERED: ONDANSETRON INJ 2 MG/ML 2 ML VIAL IV PRN ×2 (08:30→11:15)
[2017-07-01] MEDS ORDERED: HYDROmorphone INJ 2 MG/ML SYR/VIAL IV PRN (08:30)
[2017-07-01] MEDS ORDERED: EpHEDrine SULFATE INJ 50 MG/ML AMP IV PRN (08:30)
[2017-07-01] MEDS ORDERED: FLUMAZENIL 0.1 MG/1 ML 10 ML VIAL IV PRN (08:30)
[2017-07-01] MEDS ORDERED: LABETALOL HCL IV 5 MG/ML 20ML IV PRN (08:30)
[2017-07-01] MEDS ORDERED: FENTANYL CITRATE INJ 50 MCG/1 ML 2 ML VIAL IV PRN (08:30)
[2017-07-01] MEDS ORDERED: PHENYLEPHRINE 100MCG/ML 5ML SYR IV PRN (08:30)
[2017-07-01] MEDS ORDERED: MEPERIDINE HCL 25 MG/ML CARP IV PRN (08:30)
[2017-07-01] MEDS ORDERED: NALOXONE HCL 0.4 MG/1 ML VIAL/CARP IV PRN (08:30)
[2017-07-01] MEDS ORDERED: ATROPINE SULFATE 0.1 MG/ML 5ML SYR IV PRN (08:30)
[2017-07-01] MEDS ORDERED: FENTANYL CITRATE INJ 50 MCG/1 ML 2 ML VIAL ONE ×2 (09:22→09:31)
[2017-07-01] MEDS ORDERED: DEXAMETHASONE SOD INJ 4 MG/ML VIAL ONE (09:22)
[2017-07-01] MEDS ORDERED: ONDANSETRON INJ 2 MG/ML 2 ML VIAL ONE ×2 (09:22→10:37)
[2017-07-01] MEDS ORDERED: LIDOCAINE HCL 2% 2 ML VIAL (20MG/ML) ONE ×2 (09:22→10:37)
[2017-07-01] MEDS ORDERED: PROPOFOL IV EMULSION 10 MG/ML 20 ML VIAL ONE ×2 (09:22→10:37)
[2017-07-01] MEDS ORDERED: GLYCOPYRROLATE INJ 0.2 MG/ML VIAL ONE (10:37)
[2017-07-01] MEDS ORDERED: VASOPRESSIN 20 UNIT/ML VIAL ONE (10:45)
[2017-07-01] MEDS ORDERED: SODIUM CHLORIDE 0.9% 1000ML 1,000 ML IV SCH (11:09)
--- NOTE | 2017-07-01 11:09 | [facility] Post Operative Brief Note ---
Immediate Operative Summary Operative Date July 01, 2017. Pre-Operative Diagnosis Post menopausal bleeding. Endrometrial polyps Post-Operative Diagnosis Same as preoperative diagnosis Procedure(s) Performed Hysteroscopy, polypectomy Surgeon Dr. Malcolm Fruit Loader Machine Operator Surgeon(s) None Estimated Blood Loss 5 ml Findings Consistent with Post-Op Diagnosis Fluids (cc crystalloids) 350 Specimens A. Uterine Polyps Drains None Anesthesia Type General Complication(s) none Disposition Accompanied Pt To Recover: yes Disposition: Recovery Room / PACU
--- NOTE | 2017-07-01 11:14 | Discharge Instructions ---
Discharge Instructions Date of Service July 01, 2017. Visit Reason for Visit: Endometrial Polyp, Endometrial Thickening On Ultra Discharge Discharge Diagnosis / Problem: endometrial polyp Discharge Goals Goal(s): Therapeutic intervention Activity Recommendations Activity Limitations: per Instructions/Follow-up section Anesthesia . Post Anesthesia Instructions: If you have had General Anesthesia or IV Sedation: * Do not drive today. * Resume driving when surgeon permits. * Do not make important decisions or sign legal documents today. * Call surgeon for: 1. Temperature elevations greater than 101 degrees F. 2. Uncontrollable pain. 3. Excessive bleeding. 4. Persistent nausea and vomiting. 5. Medication intolerance (nausea, vomiting or rash). * For nausea and vomiting use only clear liquids such as: tea, soda, bouillon until nausea subsides, then gradually increase diet as tolerated. * If you have any concerns or questions, call your surgeon's office. If physician is unavailable and it is an emergency, call 911 or go to the nearest emergency room. . Instructions / Follow-Up Instructions / Follow-Up ACTIVITY RECOMMENDATIONS: * Avoid tampons, douching, hot tubs, pools, and intercourse until bleeding has stopped. * May shower as usual. * No strenuous activity for 24-48 hours. After 24-48 hours, you may do anything you feel like doing (driving and sports are okay). SPECIAL CARE INSTRUCTIONS: Special Diet: * Mild nausea may occur in the immediate post-operative period. * Take clear liquids such as tea, cola or bouillon until all nausea has subsided; you may then resume your normal diet. Special Care: * Light bleeding and vaginal spotting can last from a few days to 3-4 weeks. Call your doctor if bleeding becomes heavier than the heaviest part of your period. * Check your temperature twice a day for one week. If it goes above 100.4 degrees Fahrenheit (38.0 Celsius), notify your doctor. * Call your doctor's office for an appointment for 6 weeks after your surgery. FOLLOW-UP VISIT: Call your doctor's office for an appointment for 6 weeks after your surgery. Diet Recommendations Recommended Home Diet: resume previous diet Procedures Procedures Performed: Hysteroscopy, polypectomy Pending Studies Studies pending at discharge: no Medical Emergencies . Who to Call and When: Medical Emergencies: If at any time you feel your situation is an emergency, please call 911 immediately. . Non-Emergent Contact Non-Emergency issues call your: Primary Care Provider, Hall Manager . . "Provider Documentation" section prepared by Pauline King .
[2017-07-01] MEDS ORDERED: ACETAMINOPHEN 325 MG TAB PO PRN (11:15)
[2017-07-01] MEDS ORDERED: PROMETHAZINE HCL INJ 25 MG in SODIUM CHLORIDE 0.9% 50ML 50 ML IV PRN (11:15)
[2017-07-01] MEDS ORDERED: OXYCODONE/ACETAMINOPHEN 5-325 TAB PO PRN (11:15)
--- NOTE | 2017-07-01 11:52 | Anesthesiology Progress Note ---
Anesthesia Post Op Note Date & Time July 01, 2017 at 11:51 Vital Signs Pain Intensity: 0 Vital Signs Past 12 Hours Date Time Temp Pulse Resp B/P (MAP) Pulse Ox O2 Delivery O2 Flow Rate FiO2 07/01/17 11:40 36.5 81 24 104/37 (72) 94 Room Air 07/01/17 11:30 85 23 100/42 (74) 97 Oxymask 10 07/01/17 11:20 83 16 120/49 99 Oxymask 10 07/01/17 11:13 36.7 82 12 100/40 (68) 100 Oxymask 10 07/01/17 07:39 36.4 78 20 117/53 (74) 93 Room Air Notes Mental Status: alert / awake / arousable, participated in evaluation Pt Amnestic to Procedure: Yes Nausea / Vomiting: adequately controlled Pain: adequately controlled Airway Patency, RR, SpO2: stable & adequate BP & HR: stable & adequate Hydration State: stable & adequate Anesthetic Complications: no major complications apparent
[2017-07-01 11:58] VITALS: BP 101/55; PULSE 82; TEMP 36.3; O2SAT 94
[2017-07-01 12:30] VITALS: BP 126/43; PULSE 82; O2SAT 93
[2017-07-01 12:55] VITALS: BP 124/53; PULSE 88; TEMP 36.8; O2SAT 94
--- NOTE | 2017-07-01 13:21 | OPERATIVE REPORT ---
DATE OF OPERATION: 07/01/2017 SURGEON: Pauline Torres MD PREOPERATIVE DIAGNOSES: Postmenopausal bleeding and endometrial polyps on ultrasound. POSTOPERATIVE DIAGNOSES: Same. PROCEDURES: Hysteroscopy and polypectomy. ANESTHESIA: General. BLOOD LOSS: 5 mL. HISTORY: The patient is an 81-year-old white female with end-stage renal disease on dialysis and a colectomy, who presented with postmenopausal bleeding. There was one episode of bright red bleeding. She has been having brown discharge off and on since then. On ultrasound, it was suspicious for an endometrial polyp. A hysterosonogram was attempted but because of the axial nature of her uterus, this could not be performed, however, ultrasound at that time also showed that there was fluid around the endometrial polyps and they could be easily ascertained. She is now scheduled for a hysteroscopy and polypectomy. The patient understands the risks of procedure and is willing to proceed. GROSS FINDINGS: Vagina is markedly atrophic and cervix is shortened and atrophic as well. The uterus is small and mobile, although anteverted and anteflexed severely. The weighted speculum could not fit in the vagina; therefore, the vaginal retractors were used to identify the cervix. It was then grasped with an Allis clamp. The cervix was then dilated to a #25 Hanks dilator. The hysteroscope was inserted. There was a large amount of fluid coming back out of the uterus. Normal saline was the expanding medium, 4500 mL were used with a 1350 mL deficit. The uterine cavity was identified and the right tubal os could be seen, however, the left tubal os was obscured by the large endometrial polyp. The MyoSure was used to remove the polyp in its entirety. Post-polypectomy hysteroscopy showed that there was no further polyp present. The remaining lining appeared to be very atrophic. Again, there was a lot of normal saline fluid underneath the patient and on the floor at the end of the case. The amount could not be quantified because it is absorbed into the jordan and drapes underneath the patient and on to the floor mat. The large amount of tissue was removed from the uterus appeared to be somewhat gelatinous. The Allis clamp was removed from the cervix, bleeding at the Allis clamp site was controlled with pressure. At the end of the case, there was excellent hemostasis of the cervix. The patient tolerated the procedure well and was in stable condition upon arrival in recovery room. I attest to the content of the Intraoperative Record and any orders documented therein. Any exceptions are noted below. MTDD
== END 2017-07-01 13:05 | disposition home or self-care (01) ==
LOC: C.ACU 07:03
PROVIDERS: ATTEND Obstetrics & Gynecology
DX: C54.1 Malignant neoplasm of endometrium (principal); N95.0 Postmenopausal bleeding; N84.0 Polyp of corpus uteri; C50.911 Malignant neoplasm of unspecified site of right female breast; I13.2 Hypertensive heart and chronic kidney disease with heart failure and with stage 5 chronic kidney disease, or end stage renal disease; D64.9 Anemia, unspecified; I50.9 Heart failure, unspecified; N18.6 End stage renal disease; E11.22 Type 2 diabetes mellitus with diabetic chronic kidney disease; E11.21 Type 2 diabetes mellitus with diabetic nephropathy; E11.40 Type 2 diabetes mellitus with diabetic neuropathy, unspecified; E11.319 Type 2 diabetes mellitus with unspecified diabetic retinopathy without macular edema; M10.9 Gout, unspecified; E78.5 Hyperlipidemia, unspecified; H35.30 Unspecified macular degeneration; N25.81 Secondary hyperparathyroidism of renal origin; Z82.49 Family history of ischemic heart disease and other diseases of the circulatory system; Z83.3 Family history of diabetes mellitus; Z79.82 Long term (current) use of aspirin; Z79.899 Other long term (current) drug therapy; Z79.4 Long term (current) use of insulin; Z79.02 Long term (current) use of antithrombotics/antiplatelets

== ENCOUNTER 2018-02-10 20:53 | Inpatient (IN) ==
[2018-02-10] MEDS ORDERED: SODIUM CHLORIDE 0.9% 1000ML 1,000 ML IV STA (21:49)
[2018-02-10 22:15] LABS: Basophils # (auto) 0.01 K/uL (0-0.2); Basophils % (auto) 0.2 %; Eosinophils # (auto) 0.06 K/uL (0-0.5); Eosinophils % (auto) 1.3 %; Hematocrit (blood only) 33.1 % (37-47); Hemoglobin 10.2 g/dL (12.0-16.0); Immature Granulocytes # (auto) 0.01 K/uL (0.00-0.02); Immature Granulocytes % (auto) 0.2 %; Lymphocytes # (auto) 0.31 K/uL (1.2-3.4); Lymphocytes % (auto) 6.8 %; Mean Corpuscular Hgb Conc 30.8 g/dL (32-36); Mean Corpuscular Volume 104.4 fL (80-100); Mean Platelet Volume 9.3 fL (7.4-10.4); Monocytes # (auto) 0.82 K/uL (0.11-0.59); Monocytes % (auto) 17.9 %; Neutrophils # (auto) 3.36 K/uL (1.4-6.5); Neutrophils % (auto) 73.6 %; Platelet Count 178 K/uL (130-400); RDW Standard Deviation 68.4 fL (36.4-46.3); Red Blood Count 3.17 M/uL (4.2-5.4); White Blood Count 4.57 K/uL (4.8-10.8)
--- NOTE | 2018-02-10 22:40 | CT Scan Report ---
ABDOMEN AND PELVIS CT WITHOUT CONTRAST CT DOSE: 515.09 mGy.cm HISTORY: Acute abdominal distention with prior proctocolectomy and right lower quadrant ileostomy. Hi story of endometrial carcinoma. eval for obstruction TECHNIQUE: Multiaxial CT images of the abdomen and pelvis were performed without contrast. A dose lo wering technique was utilized adhering to the principles of ALARA. COMPARISON STUDY: PET CT 12/21/2017, CT abdomen and pelvis 05/16/2017 FINDINGS: Subsegmental groundglass opacities suggest atelectasis/scarring. Solid nodules of the lung bases are seen measuring up to 5 mm, unchanged from comparison. No pneumatosis or pneumoperitoneum. Study is mi ldly motion degraded. Imaged inferior cardiac chambers are mildly enlarged. Coronary arterial calcifi cations are noted. Scattered calcific granulomata about the liver and spleen. Gallbladder, pancreas and right adrenal gl and are unremarkable. Mild thickening of the left adrenal gland. Cortical thinning with mild atrophy about the bilateral kidneys, unchanged. Mild bilateral perinephric stranding. No renal calculi or obs tructive uropathy. Bilateral renal vascular calcifications are noted. Surgical clips are noted with a djacent stranding medial to the right kidney, unchanged. Surgical clips seen about the right adnexum. Unchanged appearance of the uterus. Persistent presacral soft tissue stranding with mild free pelvic fluid. Decompressed urinary bladder. No aortic aneurysm. Calcification of the abdominal aorta. Postoperative changes from total proctocole ctomy with right lower quadrant ileostomy. Dilated small bowel loops measure up to 4.8 cm transversel y and are noted with associated air-fluid levels. Fecal material throughout the small bowel is also n oted. Central mesenteric edema is noted about the lower abdomen and pelvis. Decompressed loops of sma ll bowel are noted about the abdominal right lower quadrant and lower pelvis without discrete transit ion point identified. Partially imaged chronic stroma about the right breast, 1.5 x 2.2 cm, unchanged. Soft tissues are oth erwise unremarkable. Bones appear intact. No suspicious lytic or blastic bony lesions. Schmorl's node formation noted at L3. Grade 1 anterolisthesis L4 on L5, likely degenerative. Diastases recti. IMPRESSION: 1. Postoperative changes from total proctocolectomy with right lower quadrant ileostomy. 2. Dilated fluid-filled loops of small bowel with decompressed small bowel noted about the lower pelv is and abdominal right lower quadrant are suspicious for a low-grade small bowel obstruction without discrete transition point identified. 3. Mild associated reactive mesenteric edema. 4. Chronic changes of the uterus, pelvic cul-de-sac and presacral tissues with associated postsurgica l changes. 5. Additional findings as above. Electronically signed by: Bright Márquez M.D. 02/10/2018 10:37 PM
[2018-02-10 22:48] LABS: Albumin Globulin Ratio 0.9 (0.9-2); Albumin Level 3.6 gm/dl (3.4-5.0); BUN Creatinine Ratio 2.9 (10-20); Bilirubin,Total 0.5 mg/dl (0.1-1); Creatinine Clr Calc Pharmacy 7.8 ml/min; Est GFR (African American) 8.3; Est GFR (Non-African American) 7.1; Globulin 4.1 gm/dl (2.5-4.0); Potassium 4.4 mmol/L (3.5-5.1); Total Protein 7.7 gm/dl (6.4-8.2)
--- NOTE | 2018-02-11 00:10 | Emergency Department Note ---
Entered by Maeve De Oliveira acting as a scribe for Noel Grissom MD ED Provider Note CHIEF COMPLAINT: Abdominal pain HISTORY OF PRESENT ILLNESS: The patient is a 82 year old female who presents to the Emergency Room with complaints of now resolved abdominal pain that began 3 days prior to arrival. The patient describes this pain as cramping. The patient states that she has had nausea and vomiting during this time. She states that she has also had increased output through her ileostomy bag during this time that she describes as "watery". The patient states that she has lost a lot of fluid because of this increased output. The patient states that she changed her ileostomy bag at 1900, 3 hours ago, and states that her bag is now full again. The patient states that her symptoms are similar to prior episodes of blockages. The patient states that her blockages have been previously removed without surgery. The patient states that she was given increased fluids during her dialysis today because of her recent loss of fluids. She states that she vomited in the ambulance on the way to the ED, and states that she was then given Zofran which relieved her nausea. She states that vomiting resolved her abdominal pain. Pt denies LOC, headache, fevers, chills, diaphoresis, visual changes, neck pain , chest pain, breathing difficulties, back pain, melena, hematochezia, urinary symptoms, numbness, weakness, lymphadenopathy, rash, or other complaints. REVIEW OF SYSTEMS: See HPI for pertinent positives and negatives. A total of ten systems were reviewed and were otherwise negative. PMHx/PSHx: Chronic ulcerative colitis Diabetes Breast cancer Endometrial cancer SOCIAL HISTORY: Patient lives at home. PHYSICAL EXAM: GENERAL: Awake, alert, uncomfortable-appearing, in no distress HENT: Normocephalic, atraumatic. Oropharynx unremarkable. EYES: Normal conjunctiva. Sclera non-icteric. NECK: Supple. No nuchal rigidity. FROM. No masses. RESPIRATORY: Clear to auscultation. No wheezes. No rales. Normal respiratory effort. CARDIAC: Normal rate. Normal rhythm. No murmurs. No rubs. Extremities warm and well perfused. Pulses equal. No JVD. AV fistula in the left arm. GI: Soft. Distended. Mild diffuse tenderness. No rebound or guarding. No masses. Ostomy in the RLQ. RECTAL: Deferred. MUSCULOSKELETAL: Atraumatic. Chest examination reveals no tenderness. The back is symmetrical on inspection without obvious abnormality. There is no CVA tenderness to palpation. No joint edema. LOWER EXTREMITIES: Calves are equal size bilaterally and non-tender. No edema. No discoloration. NEURO: Normal sensorium. No sensory or motor deficits noted. SKIN: No rash or jaundice noted. EMERGENCY DEPARTMENT COURSE: 2145: Past medical records reviewed. The patient was evaluated in room B10, and a complete history and physical examination were performed. 2323: I checked on the patient and updated her on the results. 0015: [facility] the patient. MEDICAL DECISION MAKING: Prior records/ancillary studies reviewed. Triage Nursing notes reviewed and agree them. Additional history obtained from family. The patient's history was concerning for abdominal pain. Differential diagnosis: Etiologies such as obstruction, PUD, biliary pathology, UTI, pancreatitis, mesenteric ischemia, aortic pathology, infections, inflammatory bowel disease, renal colic, as well as others were entertained. Physical examination findings: As above. ER treatment provided: Normal saline hydration Patient declined analgesia. On reassessment the patient felt better. The patient did not want an NG tube. She states her last structure was treated without NG tube placement. Diagnostics interpreted by me: ECG: Negative for acute ischemia The labs revealed An unremarkable CBC and chemistry panel except for elevated creatinine consistent with chronic renal failure. Imaging studies: CT scan consistent with bowel obstruction. Consultation: A consultation was placed with the [facility]. The case was discussed and diagnostics were reviewed. The patient was evaluated in the ER for further treatment. IMPRESSION: Bowel Obstruction PLAN: Admit Impression & Plan Bowel obstruction Past Med/Surg History Medical History Chronic ulcerative colitis (Chronic) Diabetes (Chronic) Breast cancer History of ileostomy (Acute) Endometrial cancer (Acute 07/01/17) "Postmenopausal vaginal bleeding. 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 She received 5940 cGy." Family History Other No significant family history Social History Feels Safe at Home: Yes Smoking Status: Never smoker Preferred Language: Argentine Results & Data Vital Signs Vital Signs - 24 hr 02/10/18 20:53 02/10/18 23:15 02/10/18 23:33 Temperature 37.3 C Temperature Source Oral Sepsis Recent Fever Within 48 Hours No Sepsis New/Unexplained Change in Mental Status No Sepsis Action Taken by Nursing No Action Required Pulse Rate 92 H 81 Pulse Rate [Right Finger] 88 Pulse Rhythm Regular Regular Pulse Rhythm [Right Finger] Regular Pulse Strength [Right Finger] Normal Respiratory Rate 18 18 18 Respiratory Effort / Characteristics Non-Labored Respiratory Depth Normal Normal Respiratory Pattern Regular Blood Pressure 135/54 L Blood Pressure [Right Arm] 170/59 H Blood Pressure Mean 81 Blood Pressure Mean [Right Arm] 96 Pulse Oximetry 92 93 94 Oxygen Delivery Method Room Air Room Air Room Air Home Medications Current Medication List: was personally reviewed by me Laboratory Data Attestation: I reviewed the patient's lab results. Result diagrams: 02/10/18 22:00 02/10/18 22:00 Lab Results 02/10/18 02/10/18 Range/Units 22:00 22:00 WBC 4.57 L (4.8-10.8) K/uL RBC 3.17 L (4.2-5.4) M/uL Hgb 10.2 L (12.0-16.0) g/dL Hct 33.1 L (37-47) % MCV 104.4 H (80-100) fL MCH 32.2 (25-34) pg MCHC 30.8 L (32-36) g/dL RDW Std Deviation 68.4 H (36.4-46.3) fL RDW Coeff of Aparna 18.0 H (11.5-14.5) % Plt Count 178 (130-400) K/uL MPV 9.3 (7.4-10.4) fL Immature Gran % (Auto) 0.2 % Neut % (Auto) 73.6 % Lymph % (Auto) 6.8 % Ramsey % (Auto) 17.9 % Eos % (Auto) 1.3 % Baso % (Auto) 0.2 % Immature Gran # (Auto) 0.01 (0.00-0.02) K/uL Neut # (Auto) 3.36 (1.4-6.5) K/uL Lymph # (Auto) 0.31 L (1.2-3.4) K/uL Ramsey # (Auto) 0.82 H (0.11-0.59) K/uL Eos # (Auto) 0.06 (0-0.5) K/uL Baso # (Auto) 0.01 (0-0.2) K/uL Sodium 134 L (136-145) mmol/L Potassium 4.4 (3.5-5.1) mmol/L Chloride 96 L (98-107) mmol/L Carbon Dioxide 30 (21-32) mmol/L Anion Gap 8.0 (3-11) BUN 15 (7-18) mg/dl Creatinine 5.14 H* (0.6-1.2) mg/dl Est Cr Clr Drug Dosing 7.8 ml/min Est GFR ( Amer) 8.3 Est GFR (Non-Af Amer) 7.1 BUN/Creatinine Ratio 2.9 L (10-20) Glucose 126 H (70-99) mg/dl Calcium 9.0 (8.5-10.1) mg/dl Total Bilirubin 0.5 (0.1-1) mg/dl AST 13 L (15-37) U/L ALT 15 (12-78) U/L Alkaline Phosphatase 74 (45-117) U/L Total Protein 7.7 (6.4-8.2) gm/dl Albumin 3.6 (3.4-5.0) gm/dl Globulin 4.1 H (2.5-4.0) gm/dl Albumin/Globulin Ratio 0.9 (0.9-2) Lipase 153 (73-393) U/L Administered Medications Sodium Chloride (Nss 1000ml) 1,000 mls @ 125 mls/hr IV .Q8H STA Stop: 02/11/18 05:48 Last Admin: 02/10/18 22:05 Dose: 125 mls/hr Imaging Data Radiologist's Impression: Radiology results as stated below per my review and the radiologist's interpretation: ABDOMEN AND PELVIS CT WITHOUT CONTRAST CT DOSE: 515.09 mGy.cm HISTORY: Acute abdominal distention with prior proctocolectomy and right lower quadrant ileostomy. History of endometrial carcinoma. eval for obstruction TECHNIQUE: Multiaxial CT images of the abdomen and pelvis were performed without contrast. A dose lowering technique was utilized adhering to the principles of ALARA. COMPARISON STUDY: PET CT 12/21/2017, CT abdomen and pelvis 05/16/2017 FINDINGS: Subsegmental groundglass opacities suggest atelectasis/scarring. Solid nodules of the lung bases are seen measuring up to 5 mm, unchanged from comparison. No pneumatosis or pneumoperitoneum. Study is mildly motion degraded. Imaged inferior cardiac chambers are mildly enlarged. Coronary arterial calcifications are noted. Scattered calcific granulomata about the liver and spleen. Gallbladder, pancreas and right adrenal gland are unremarkable. Mild thickening of the left adrenal gland. Cortical thinning with mild atrophy about the bilateral kidneys, unchanged. Mild bilateral perinephric stranding. No renal calculi or obstructive uropathy. Bilateral renal vascular calcifications are noted. Surgical clips are noted with adjacent stranding medial to the right kidney, unchanged. Surgical clips seen about the right adnexum. Unchanged appearance of the uterus. Persistent presacral soft tissue stranding with mild free pelvic fluid. Decompressed urinary bladder. No aortic aneurysm. Calcification of the abdominal aorta. Postoperative changes from total proctocolectomy with right lower quadrant ileostomy. Dilated small bowel loops measure up to 4.8 cm transversely and are noted with associated air- fluid levels. Fecal material throughout the small bowel is also noted. Central mesenteric edema is noted about the lower abdomen and pelvis. Decompressed loops of small bowel are noted about the abdominal right lower quadrant and lower pelvis without discrete transition point identified. Partially imaged chronic stroma about the right breast, 1.5 x 2.2 cm, unchanged. Soft tissues are otherwise unremarkable. Bones appear intact. No suspicious lytic or blastic bony lesions. Schmorl's node formation noted at L3. Grade 1 anterolisthesis L4 on L5, likely degenerative. Diastases recti. IMPRESSION: 1. Postoperative changes from total proctocolectomy with right lower quadrant ileostomy. 2. Dilated fluid-filled loops of small bowel with decompressed small bowel noted about the lower pelvis and abdominal right lower quadrant are suspicious for a low-grade small bowel obstruction without discrete transition point identified. 3. Mild associated reactive mesenteric edema. 4. Chronic changes of the uterus, pelvic cul-de-sac and presacral tissues with associated postsurgical changes. 5. Additional findings as above. Electronically signed by: Bright Márquez M.D. 02/10/2018 10:37 PM ECG Data Attestation: I personally reviewed and interpreted this ECG as follows: Indication: abdominal pain Rate (beats per minute): 88 Rhythm: sinus rhythm Findings: + other (poor R wave progression), + PAC and + T-wave inversion ( lateral) Comparison ECG Date: from (05/14/17) Change: no significant change (T wave inversions are old ) Blood Pressure Blood Pressure Findings: Elevated blood pressure Blood Pressure Disposition: further management by hospitalist Discharge Plan Visit Data Chief Complaint: Abdominal Pain Stated Complaint: AB PAIN ED Provider: Noel Grissom Discharge Problem: Bowel obstruction Patient Disposition: Being Evaluated by Hospitalist Forms Stand Alone Forms: My [facility] Prescriptions Prescriptions: No Action multivitamin Tablet 1 tab PO DAILY RF: 0 anastrozole [Arimidex] 1 mg tablet 1 mg PO DAILY RF: 0 ondansetron HCl 8 mg Tablet 8 mg PO TID PRN (Reason: Nausea) RF: 0 insulin NPH and regular human [Novolin 70/30 U-100 Insulin] 100 unit/mL (70-30 ) suspension 68 unit subcut QAM RF: 0 insulin NPH and regular human [Humulin 70/30 U-100 Insulin] 100 unit/mL (70-30 ) suspension 42 unit subcut QPM RF: 0 amlodipine [Norvasc] 5 mg tablet 5 mg PO DAILY RF: 0 allopurinol [Zyloprim] 100 mg tablet 100 mg PO DAILY RF: 0 simvastatin [Zocor] 40 mg tablet 40 mg PO QPM RF: 0 pantoprazole [Protonix] 40 mg tablet,delayed release (DR/EC) 40 mg PO QAM RF: 0 calcium acetate 667 mg capsule PO TIDM RF: 0 vitamin B comp and C no.3 14-76-71-5-300 mg Capsule 1 cap PO DAILY RF: 0 vit C,F-Ma-phsgl-lutein-zeaxan [PreserVision AREDS-2] 291-354-73-1 mg-unit-mg- mg Capsule 1 tab PO BID RF: 0 Iron Infusion 1 dose IV 3XWK RF: 0 Referrals Referrals: Danielito Rojas MD [Primary Care Provider] - The scribe's documentation has been prepared under my direction and personally reviewed by me in its entirety. I confirm that the note above accurately reflects all work, treatment, procedures, and medical decision making performed by me.
--- NOTE | 2018-02-11 00:15 | History & Physical Report ---
Date of Service February 11, 2018 Assessment & Plan (1) Bowel obstruction: As noted on CT - NPO - IVF NSS @ 50cc/hr x 1 bag (gentle hydration in view of ESRD on HD) - No NGT given absence of emesis, can insert if emesis starts - Gen surg consulted - IV Tylenol and/or IV morphine PRN pain - IV ondansetron PRN nausea - No abx initiated at this time, monitor vitals and CBC. (2) History of ileostomy: -Monitor output. (3) ESRD on dialysis: HD on M/W/F, except for this week due to holidays she is scheduled for HD on [facility] -Nephrology consulted to help schedule dialysis if still inpatient (4) Diabetes: Hold home regimen Lantus at lower dose than home given NPO status ISS with BSG checks q6h (5) Breast cancer: Continue anastrozole (6) Endometrial cancer: Continue anastrozole (7) Gout: Continue allopurinol (8) GERD (gastroesophageal reflux disease): Continue IV instead of PO pantoprazole (9) HTN (hypertension): Hold amlodipine IV hydralazine as needed SBP > 170 (10) HLD (hyperlipidemia): Hold simvastatin (11) DVT prophylaxis: -SCDs History of Present Illness Primary Care Provider: Danielito Rojas MD 82yo F w/ pMHx of DM II, ESRD on HD, ulcerative colitis s/p total colectomy w/ ileostomy, dCHF, HTN, HLD, gout, h/o ductal stage I breast cancer presents to the ED with 3-day history of worsening abdominal cramping and nausea. She describes anorexia and one episode of nonbloody emesis prior to arrival. She states she has been trying to maintain water intake. At baseline she does not have flatus or have bowel movements. However, she notes increased liquid output from her ileostomy despite limited PO intake, including increased gaseous feeling of her ileostomy bags. She has been admitted once for SBO earlier in April of this year, however in the past her home nurse has cannulated her ileostomy to relieve similar cramping symptoms. Patient denies fevers, headaches, vision changes, chest pain, dyspnea. Her nausea improved with ondansetron she took prior to arrival. In the ED the patient received IV fluids. Allergies Allergy/AdvReac Type Severity Reaction Status Date / Time No Known Allergies Allergy Mild Verified 02/10/18 21:23 Home Medications Home Medications Medication Instructions Recorded Confirmed Type Iron Infusion 1 dose IV 3XWK 02/10/18 02/10/18 History allopurinol [Zyloprim] 100 mg PO DAILY 02/10/18 02/10/18 History amlodipine [Norvasc] 5 mg PO DAILY 02/10/18 02/10/18 History anastrozole [Arimidex] 1 mg PO DAILY 02/10/18 02/10/18 History calcium acetate 0 mg PO TIDM 02/10/18 02/10/18 History insulin NPH and regular human 42 unit SUBCUT QPM 02/10/18 02/10/18 History [Humulin 70/30 U-100 Insulin] insulin NPH and regular human 68 unit SUBCUT QAM 02/10/18 02/10/18 History [Novolin 70/30 U-100 Insulin] multivitamin 1 tab PO DAILY 02/10/18 02/10/18 History ondansetron HCl 8 mg PO TID PRN 02/10/18 02/10/18 History pantoprazole [Protonix] 40 mg PO QAM 02/10/18 02/10/18 History simvastatin [Zocor] 40 mg PO QPM 02/10/18 02/10/18 History vit C,J-Pq-yaasy-lutein-zeaxan 1 tab PO BID 02/10/18 02/10/18 History [PreserVision AREDS-2] vitamin B comp and C no.3 1 cap PO DAILY 02/10/18 02/10/18 History Past Med/Surg History Medical History GERD (gastroesophageal reflux disease) HLD (hyperlipidemia) HTN (hypertension) Gout Chronic ulcerative colitis (Chronic) Diabetes (Chronic) Breast cancer Secondary hyperparathyroidism of renal origin History of ileostomy (Acute) ESRD on dialysis Endometrial cancer (Acute 07/01/17) "Postmenopausal vaginal bleeding. 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 She received 5940 cGy." Family History Other No significant family history Social History Current Living Situation: Family Feels Safe at Home: Yes Safety Concerns: Feels Safe At This Time Smoking Status: Never smoker Hx Alcohol Use: No Hx Substance Use: No Beliefs That Will Affect Care: None Preferred Language: Kinyarwanda Communication Ability: Effective Review of Systems All systems reviewed & are unremarkable except as noted in HPI & below Physical Exam 2 Vital Signs (Past 24 Hours): Last Vital Signs Temp 37.3 C 02/10/18 20:53 Pulse 81 02/10/18 23:33 Resp 18 02/10/18 23:33 BP 170/59 H 02/10/18 23:15 Pulse Ox 94 02/10/18 23:33 Constitutional: WD/WN, vitals as above average body habitus; no acute distress Eyes: PERRL, conjunctivae normal, anicteric sclerae ENMT: external ear and nose normal, oropharynx normal Mouth: no oral mucosal abnormality Neck: normal visual inspection Respiratory: normal respiratory effort, lungs clear to auscultation no cough Auscultation: no crackles and no wheezes Cardiovascular: RRR, no murmur, no edema Extremities: no calf tenderness and no edema Gastrointestinal (Abdomen): Inspection/Auscultation: + abdomen distended; + abnormal bowel sounds (Tinkling bowel sounds appreciated) Percussion/ Palpation: + abdomen tender (Minimal around the site of ileostomy) and abdomen soft; no guarding Ileostomy bag attached to RLQ Musculoskeletal: Head/Neck/Chest: normocephalic, head atraumatic and neck supple Extremities: extremities normal to inspection (Except AV fistula on left upper extremity) Skin: no rashes, warm and dry Healed abdominal scars noted. Neurologic: normal touch/pain/proprioception and moves all extremities; no focal motor deficits Psychiatric: A+Ox3, euthymic affect Speech: normal rate/rhythm/volume of speech Results & Data Laboratory Results Laboratory Results - last 24 hr 02/10/18 02/10/18 02/11/18 22:00 22:00 02:18 WBC 4.57 L RBC 3.17 L Hgb 10.2 L Hct 33.1 L MCV 104.4 H MCH 32.2 MCHC 30.8 L RDW Std Deviation 68.4 H RDW Coeff of Aparna 18.0 H Plt Count 178 MPV 9.3 Immature Gran % (Auto) 0.2 Neut % (Auto) 73.6 Lymph % (Auto) 6.8 Geary % (Auto) 17.9 Eos % (Auto) 1.3 Baso % (Auto) 0.2 Immature Gran # (Auto) 0.01 Neut # (Auto) 3.36 Lymph # (Auto) 0.31 L Geary # (Auto) 0.82 H Eos # (Auto) 0.06 Baso # (Auto) 0.01 Sodium 134 L Potassium 4.4 Chloride 96 L Carbon Dioxide 30 Anion Gap 8.0 BUN 15 Creatinine 5.14 H* Est Cr Clr Drug Dosing 7.8 Est GFR ( Amer) 8.3 Est GFR (Non-Af Amer) 7.1 BUN/Creatinine Ratio 2.9 L Glucose 126 H POC Glucose 145 H Calcium 9.0 Total Bilirubin 0.5 AST 13 L ALT 15 Alkaline Phosphatase 74 Total Protein 7.7 Albumin 3.6 Globulin 4.1 H Albumin/Globulin Ratio 0.9 Lipase 153 Diagnostic Findings ABDOMEN AND PELVIS CT WITHOUT CONTRAST CT DOSE: 515.09 mGy.cm HISTORY: Acute abdominal distention with prior proctocolectomy and right lower quadrant ileostomy. History of endometrial carcinoma. eval for obstruction TECHNIQUE: Multiaxial CT images of the abdomen and pelvis were performed without contrast. A dose lowering technique was utilized adhering to the principles of ALARA. COMPARISON STUDY: PET CT 12/21/2017, CT abdomen and pelvis 05/16/2017 FINDINGS: Subsegmental groundglass opacities suggest atelectasis/scarring. Solid nodules of the lung bases are seen measuring up to 5 mm, unchanged from comparison. No pneumatosis or pneumoperitoneum. Study is mildly motion degraded. Imaged inferior cardiac chambers are mildly enlarged. Coronary arterial calcifications are noted. Scattered calcific granulomata about the liver and spleen. Gallbladder, pancreas and right adrenal gland are unremarkable. Mild thickening of the left adrenal gland. Cortical thinning with mild atrophy about the bilateral kidneys, unchanged. Mild bilateral perinephric stranding. No renal calculi or obstructive uropathy. Bilateral renal vascular calcifications are noted. Surgical clips are noted with adjacent stranding medial to the right kidney, unchanged. Surgical clips seen about the right adnexum. Unchanged appearance of the uterus. Persistent presacral soft tissue stranding with mild free pelvic fluid. Decompressed urinary bladder. No aortic aneurysm. Calcification of the abdominal aorta. Postoperative changes from total proctocolectomy with right lower quadrant ileostomy. Dilated small bowel loops measure up to 4.8 cm transversely and are noted with associated air- fluid levels. Fecal material throughout the small bowel is also noted. Central mesenteric edema is noted about the lower abdomen and pelvis. Decompressed loops of small bowel are noted about the abdominal right lower quadrant and lower pelvis without discrete transition point identified. Partially imaged chronic stroma about the right breast, 1.5 x 2.2 cm, unchanged. Soft tissues are otherwise unremarkable. Bones appear intact. No suspicious lytic or blastic bony lesions. Schmorl's node formation noted at L3. Grade 1 anterolisthesis L4 on L5, likely degenerative. Diastases recti. IMPRESSION: 1. Postoperative changes from total proctocolectomy with right lower quadrant ileostomy. 2. Dilated fluid-filled loops of small bowel with decompressed small bowel noted about the lower pelvis and abdominal right lower quadrant are suspicious for a low-grade small bowel obstruction without discrete transition point identified. 3. Mild associated reactive mesenteric edema. 4. Chronic changes of the uterus, pelvic cul-de-sac and presacral tissues with associated postsurgical changes. 5. Additional findings as above. Code Status & VTE Plan Code Status Full code VTE Prophylaxis Plan VTE Prophylaxis will be ordered: Yes Supervising Physician Co-Signing Physician Notes Attending addendum: I have physically seen this patient, have supervised the medical residents activities, and agree with the H&P unless as otherwise noted. Assessment and Plan: Low-grade small bowel obstruction/status post proctocolectomy/status post right lower quadrant ileostomy- Admit to nonmonitored bed on medical surgical floor. NPO. NSS at 50 mils per hour. Pantoprazole 40 mg IV daily. Zofran 4 mg IV every 6 hours as needed Acetaminophen 1 g IV every 8 hours as needed mild pain or temperature. Morphine sulfate 2 mg IV every 4 hours as needed moderate to severe pain. Consult ostomy nurse. Consult surgery. Remainder of orders and notations as noted. Resident Activity Tracking Resident Involvement: Resident Care Provided Care Provided: [facility] Medicine _ (1) Bowel obstruction Intestinal obstruction extent: partial Intestinal obstruction type: unspecified Qualified Code(s): K56.600 - Partial intestinal obstruction, unspecified as to cause
[2018-02-11] MEDS ORDERED: MoRPHine SULFATE 2 MG/ML CARP IV PRN (01:29)
[2018-02-11] MEDS ORDERED: MAGNESIUM HYDROXIDE SUSP 30 ML UDC PO PRN (02:14)
[2018-02-11] MEDS ORDERED: GLUCAGON FOR INJ 1 MG VIAL SQ PRN (02:14)
[2018-02-11] MEDS ORDERED: ONDANSETRON INJ 2 MG/ML 2 ML VIAL IV PRN (02:14)
[2018-02-11] MEDS ORDERED: GLUCOSE 10 TABS/TUBE PO PRN (02:14)
[2018-02-11] MEDS ORDERED: HydrALAZINE HCL 20 MG/ML VIAL IV PRN (02:14)
[2018-02-11] MEDS ORDERED: ALUMINUM/MAGNESIUM SUSP 30 ML UDC PO PRN (02:14)
[2018-02-11] MEDS ORDERED: CARBOHYDRATES FOR HYPOGLYCEMIA PO PRN (02:14)
[2018-02-11] MEDS ORDERED: DEXTROSE 50% 50 ML SYRINGE IV PRN (02:14)
[2018-02-11] MEDS ORDERED: GLUCOSE 40% GEL 15 GM TUBE PO PRN (02:14)
[2018-02-11] MEDS: ACETAMINOPHEN 1,000 MG/100 ML VIAL IV SCH ×2 (02:29→11:48)
[2018-02-11] MEDS ORDERED: Nursing to Pharmacy Communication ONE ×2 (02:35→12:08)
[2018-02-11] MEDS ORDERED: SODIUM CHLORIDE 0.9% 500 ML IV SCH (05:00)
[2018-02-11] MEDS: INSULIN ASPART 100 UNITS/ML 3 ML PEN SC SCH ×2 (05:32→14:02)
[2018-02-11 06:28] LABS: Basophils # (auto) 0.02 K/uL (0-0.2); Basophils % (auto) 0.6 %; Eosinophils # (auto) 0.15 K/uL (0-0.5); Eosinophils % (auto) 4.7 %; Hematocrit (blood only) 31.2 % (37-47); Hemoglobin 9.7 g/dL (12.0-16.0); Lymphocytes # (auto) 0.63 K/uL (1.2-3.4); Lymphocytes % (auto) 19.8 %; Mean Corpuscular Hgb Conc 31.1 g/dL (32-36); Mean Corpuscular Volume 105.1 fL (80-100); Mean Platelet Volume 9.3 fL (7.4-10.4); Monocytes # (auto) 0.75 K/uL (0.11-0.59); Monocytes % (auto) 23.6 %; Neutrophils # (auto) 1.63 K/uL (1.4-6.5); Neutrophils % (auto) 51.3 %; Platelet Count 184 K/uL (130-400); RDW Coefficient of Variation 18.3 % (11.5-14.5); RDW Standard Deviation 68.9 fL (36.4-46.3); Red Blood Count 2.97 M/uL (4.2-5.4); White Blood Count 3.18 K/uL (4.8-10.8)
[2018-02-11 07:26] LABS: BUN Creatinine Ratio 3.3 (10-20); Calcium 8.6 mg/dl (8.5-10.1); Creatinine Clr Calc Pharmacy 6.5 ml/min; Est GFR (African American) 6.9; Est GFR (Non-African American) 5.9; Potassium 4.6 mmol/L (3.5-5.1)
[2018-02-11] MEDS ORDERED: INSULIN ASPART 100 UNITS/ML 3 ML PEN SC SCH ×2 (07:30→11:30)
[2018-02-11] MEDS ORDERED: INSULIN GLARGINE SOLOSTAR 100 UNITS/ML 3 ML PEN SC SCH (09:00)
[2018-02-11] MEDS ORDERED: ANASTROZOLE 1 MG TAB PO SCH (09:00)
[2018-02-11] MEDS ORDERED: ALLOPURINOL 100 MG TAB PO SCH (09:00)
--- NOTE | 2018-02-11 10:14 | Nephrology Consultation ---
Date of Consultation February 11, 2018 Assessment & Plan (1) ESRD on dialysis: Ms. 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 She dialyzes MWF at [facility] ( 4 hr, 2K 2.5Ca, F 160NR, EDW 75.5kg). Her medical history is significant for Crohn's disease w/ ileostomy. She was admitted w/ a partial SBO -- Volume status and electrolyte balance are acceptable. No acute indication for HD today -- Will schedule next HD for tomorrow due to the New 's Holiday ( outpatient units are dialyzing Tuesday patients on Tuesday due the Holiday) (2) Anemia: -- Will provide HANS w/ HD (3) Bowel obstruction: -- Subjectively improved. Consider liquid diet and ambulation (4) Chronic ulcerative colitis: (5) Diabetes: (6) Endometrial cancer: History of Present Illness Reason for Consultation: ESRD on IHD Attending Physician: Angela Reilly MD History of Present Illness Ms. Farr is an 82 year old white female who is seen at the request of Dr. Reilly to provide inpatient HD. 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 She has been on IHD since 11/30. Her primary Electronic Device Repairer is Dr. Juárez. She dialyzes MWF at [facility] (4 hr, 2K 2.5Ca, F 160NR, EDW 75.5kg). Ms. Farr's medical history is also significant for Crohn's disease w/ ileostomy. She was last hospitalized 04/27 due to partial SBO associated w/ protein bar supplements. She has since stopped the protein bars but notes that she has maintained a high fiber diet. Three days ago she developed abdominal pain and distention. This was associated w/ liquid stool but no formed BM. Last night she presented to the ED and abdominal CT revealed a low grade SBO. Ms. Farr has been NPO overnight and reports that her abdominal discomfort is improved this am. Allergies Allergy/AdvReac Type Severity Reaction Status Date / Time No Known Allergies Allergy Mild Verified 02/10/18 21:23 Home Medications Home Medications Medication Instructions Recorded Confirmed Type Iron Infusion 1 dose IV 3XWK 02/10/18 02/10/18 History allopurinol [Zyloprim] 100 mg PO DAILY 02/10/18 02/10/18 History amlodipine [Norvasc] 5 mg PO DAILY 02/10/18 02/10/18 History anastrozole [Arimidex] 1 mg PO DAILY 02/10/18 02/10/18 History calcium acetate 0 mg PO TIDM 02/10/18 02/10/18 History insulin NPH and regular human 42 unit SUBCUT QPM 02/10/18 02/10/18 History [Humulin 70/30 U-100 Insulin] insulin NPH and regular human 68 unit SUBCUT QAM 02/10/18 02/10/18 History [Novolin 70/30 U-100 Insulin] multivitamin 1 tab PO DAILY 02/10/18 02/10/18 History ondansetron HCl 8 mg PO TID PRN 02/10/18 02/10/18 History pantoprazole [Protonix] 40 mg PO QAM 02/10/18 02/10/18 History simvastatin [Zocor] 40 mg PO QPM 02/10/18 02/10/18 History vit C,G-Kc-yjmwb-lutein-zeaxan 1 tab PO BID 02/10/18 02/10/18 History [PreserVision AREDS-2] vitamin B comp and C no.3 1 cap PO DAILY 02/10/18 02/10/18 History Patient History Medical History GERD (gastroesophageal reflux disease) HLD (hyperlipidemia) HTN (hypertension) Gout Chronic ulcerative colitis (Chronic) Diabetes (Chronic) Breast cancer Secondary hyperparathyroidism of renal origin History of ileostomy (Acute) ESRD on dialysis Endometrial cancer (Acute 07/01/17) "Postmenopausal vaginal bleeding. 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 She received 5940 cGy." Family History Other No significant family history Social History Current Living Situation: Family Feels Safe at Home: Yes Safety Concerns: Feels Safe At This Time Smoking Status: Never smoker Hx Alcohol Use: No Hx Substance Use: No Beliefs That Will Affect Care: None Preferred Language: Austrian Communication Ability: Effective Review of Systems Constitutional: no fever Respiratory: no dyspnea Cardiovascular: no chest pain Gastrointestinal: + bloating; no vomiting Physical Exam 2 Vital Signs (Past 24 Hours): Last Vital Signs Temp 36.9 C 02/11/18 06:56 Pulse 82 02/11/18 06:56 Resp 18 02/11/18 06:56 BP 115/58 L 02/11/18 06:56 Pulse Ox 94 02/11/18 06:56 Constitutional: no acute distress Eyes: PERRL, conjunctivae normal, anicteric sclerae Neck: trachea midline, no thyromegaly Respiratory: normal respiratory effort, lungs clear to auscultation Cardiovascular: RRR, no murmur, no edema AVF + bruit Gastrointestinal (Abdomen): Inspection/Auscultation: normal bowel sounds Percussion/Palpation: abdomen soft; abdomen nontender ostomy bag w/ liquid stool Results & Data Laboratory Results Laboratory Tests 02/11/18 02/11/18 05:48 05:48 WBC 3.18 L Hgb 9.7 L Hct 31.2 L Plt Count 184 Sodium 135 L Potassium 4.6 Chloride 97 L Carbon Dioxide 27 BUN 20 H Creatinine 6.01 H* D Glucose 132 H Calcium 8.6 _ (1) Bowel obstruction Intestinal obstruction extent: partial Intestinal obstruction type: unspecified Qualified Code(s): K56.600 - Partial intestinal obstruction, unspecified as to cause
--- NOTE | 2018-02-11 10:48 | Surgery Consultation ---
Date of Consultation February 11, 2018 Assessment & Plan (1) Bowel obstruction: -history consistent with ileus from viral illness -ostomy working -all GI symptoms resolved -regular diet and discharge per medical team Present on Admission?: Yes History of Present Illness Attending Physician: Angela Reilly MD History of Present Illness 82yo F w/ pMHx of DM II, ESRD on HD, ulcerative colitis s/p total colectomy w/ ileostomy, dCHF, HTN, HLD, gout, h/o ductal stage I breast cancer presents to the ED with 3-day history of worsening abdominal cramping and nausea. She describes anorexia and one episode of non-bloody emesis prior to arrival. She states she has been trying to maintain water intake. She has had movements from her end ileostomy. Currently she denies pain and the symptoms have resolved. I was asked to see her because of a questionable SBO on CT scan. Clinically she likely has ileus associated with a viral illness. Patient denies fevers, headaches, vision changes, chest pain, dyspnea. Allergies Allergy/AdvReac Type Severity Reaction Status Date / Time No Known Allergies Allergy Mild Verified 02/10/18 21:23 Home Medications Home Medications Medication Instructions Recorded Confirmed Type Iron Infusion 1 dose IV 3XWK 02/10/18 02/10/18 History allopurinol [Zyloprim] 100 mg PO DAILY 02/10/18 02/10/18 History amlodipine [Norvasc] 5 mg PO DAILY 02/10/18 02/10/18 History anastrozole [Arimidex] 1 mg PO DAILY 02/10/18 02/10/18 History calcium acetate 0 mg PO TIDM 02/10/18 02/10/18 History insulin NPH and regular human 42 unit SUBCUT QPM 02/10/18 02/10/18 History [Humulin 70/30 U-100 Insulin] insulin NPH and regular human 68 unit SUBCUT QAM 02/10/18 02/10/18 History [Novolin 70/30 U-100 Insulin] multivitamin 1 tab PO DAILY 02/10/18 02/10/18 History ondansetron HCl 8 mg PO TID PRN 02/10/18 02/10/18 History pantoprazole [Protonix] 40 mg PO QAM 02/10/18 02/10/18 History simvastatin [Zocor] 40 mg PO QPM 02/10/18 02/10/18 History vit C,J-At-txlwf-lutein-zeaxan 1 tab PO BID 02/10/18 02/10/18 History [PreserVision AREDS-2] vitamin B comp and C no.3 1 cap PO DAILY 02/10/18 02/10/18 History Patient History Medical History GERD (gastroesophageal reflux disease) HLD (hyperlipidemia) HTN (hypertension) Gout Chronic ulcerative colitis (Chronic) Diabetes (Chronic) Breast cancer Secondary hyperparathyroidism of renal origin History of ileostomy (Acute) ESRD on dialysis Endometrial cancer (Acute 07/01/17) "Postmenopausal vaginal bleeding. 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 She received 5940 cGy." Family History Other No significant family history Social History Current Living Situation: Family Feels Safe at Home: Yes Safety Concerns: Feels Safe At This Time Smoking Status: Never smoker Hx Alcohol Use: No Hx Substance Use: No Beliefs That Will Affect Care: None Preferred Language: Khmer Communication Ability: Effective Review of Systems Constitutional: no fever and no sweats Respiratory: no cough, no chest congestion, no dyspnea and no dyspnea on exertion Cardiovascular: no chest pain, no dyspnea and no dyspnea on exertion Gastrointestinal: + change in bowel habits; no abdominal pain, no nausea and no vomiting ileostomy functioning well Musculoskeletal: no back pain, no neck pain, no loss of height and no joint pain Integumentary: no rash and no changing lesions Neurologic: no localized weakness and no generalized weakness Psychiatric: no problem reported Endocrine: no problem reported Hematologic / Lymphatic: no problem reported Allergy / Immunological: no problem reported Physical Exam 2 Vital Signs (Past 24 Hours): Last Vital Signs Temp 36.9 C 02/11/18 06:56 Pulse 82 02/11/18 06:56 Resp 18 02/11/18 06:56 BP 115/58 L 02/11/18 06:56 Pulse Ox 94 02/11/18 06:56 Constitutional: well developed and well nourished Eyes: PERRL, conjunctivae normal, anicteric sclerae Neck: trachea midline, no thyromegaly Respiratory: normal respiratory effort, lungs clear to auscultation Cardiovascular: RRR, no murmur, no edema Gastrointestinal (Abdomen): normal bowel sounds, soft, nontender, no hepatosplenomegaly ileostomy working well Musculoskeletal: Head/Neck/Chest: normocephalic and head atraumatic Skin: no rashes, warm and dry Neurologic: PERRL, EOMI, accommodation nl, no face palsy, no dysarthria Results & Data Diagnostic Findings ABDOMEN AND PELVIS CT WITHOUT CONTRAST CT DOSE: 515.09 mGy.cm HISTORY: Acute abdominal distention with prior proctocolectomy and right lower quadrant ileostomy. History of endometrial carcinoma. eval for obstruction TECHNIQUE: Multiaxial CT images of the abdomen and pelvis were performed without contrast. A dose lowering technique was utilized adhering to the principles of ALARA. COMPARISON STUDY: PET CT 12/21/2017, CT abdomen and pelvis 05/16/2017 FINDINGS: Subsegmental groundglass opacities suggest atelectasis/scarring. Solid nodules of the lung bases are seen measuring up to 5 mm, unchanged from comparison. No pneumatosis or pneumoperitoneum. Study is mildly motion degraded. Imaged inferior cardiac chambers are mildly enlarged. Coronary arterial calcifications are noted. Scattered calcific granulomata about the liver and spleen. Gallbladder, pancreas and right adrenal gland are unremarkable. Mild thickening of the left adrenal gland. Cortical thinning with mild atrophy about the bilateral kidneys, unchanged. Mild bilateral perinephric stranding. No renal calculi or obstructive uropathy. Bilateral renal vascular calcifications are noted. Surgical clips are noted with adjacent stranding medial to the right kidney, unchanged. Surgical clips seen about the right adnexum. Unchanged appearance of the uterus. Persistent presacral soft tissue stranding with mild free pelvic fluid. Decompressed urinary bladder. No aortic aneurysm. Calcification of the abdominal aorta. Postoperative changes from total proctocolectomy with right lower quadrant ileostomy. Dilated small bowel loops measure up to 4.8 cm transversely and are noted with associated air- fluid levels. Fecal material throughout the small bowel is also noted. Central mesenteric edema is noted about the lower abdomen and pelvis. Decompressed loops of small bowel are noted about the abdominal right lower quadrant and lower pelvis without discrete transition point identified. Partially imaged chronic stroma about the right breast, 1.5 x 2.2 cm, unchanged. Soft tissues are otherwise unremarkable. Bones appear intact. No suspicious lytic or blastic bony lesions. Schmorl's node formation noted at L3. Grade 1 anterolisthesis L4 on L5, likely degenerative. Diastases recti. IMPRESSION: 1. Postoperative changes from total proctocolectomy with right lower quadrant ileostomy. 2. Dilated fluid-filled loops of small bowel with decompressed small bowel noted about the lower pelvis and abdominal right lower quadrant are suspicious for a low-grade small bowel obstruction without discrete transition point identified. 3. Mild associated reactive mesenteric edema. 4. Chronic changes of the uterus, pelvic cul-de-sac and presacral tissues with associated postsurgical changes. 5. Additional findings as above. _ (1) Bowel obstruction Intestinal obstruction extent: partial Intestinal obstruction type: unspecified Qualified Code(s): K56.600 - Partial intestinal obstruction, unspecified as to cause
[2018-02-11] MEDS ORDERED: PANTOprazole 40 MG in SYRINGE 0 ML IV SCH (11:00)
--- NOTE | 2018-02-11 12:42 | Discharge Summary ---
Date of Service February 11, 2018 Admission HPI Per Admitting Provider 82yo F w/ pMHx of DM II, ESRD on HD, ulcerative colitis s/p total colectomy w/ ileostomy, dCHF, HTN, HLD, gout, h/o ductal stage I breast cancer presents to the ED with 3-day history of worsening abdominal cramping and nausea. She describes anorexia and one episode of nonbloody emesis prior to arrival. She states she has been trying to maintain water intake. At baseline she does not have flatus or have bowel movements. However, she notes increased liquid output from her ileostomy despite limited PO intake, including increased gaseous feeling of her ileostomy bags. She has been admitted once for SBO earlier in April of this year, however in the past her home nurse has cannulated her ileostomy to relieve similar cramping symptoms. Patient denies fevers, headaches, vision changes, chest pain, dyspnea. Her nausea improved with ondansetron she took prior to arrival. In the ED the patient received IV fluids. Admission Exam Per Admitting Provider WD/WN, vitals as above average body habitus; no acute distress Eyes: PERRL, conjunctivae normal, anicteric sclerae ENMT: external ear and nose normal, oropharynx normal Mouth: no oral mucosal abnormality Neck: normal visual inspection Respiratory: normal respiratory effort, lungs clear to auscultation no cough Auscultation: no crackles and no wheezes Cardiovascular: RRR, no murmur, no edema Extremities: no calf tenderness and no edema Gastrointestinal (Abdomen): Inspection/Auscultation: + abdomen distended; + abnormal bowel sounds (Tinkling bowel sounds appreciated) Percussion/Palpation : + abdomen tender (Minimal around the site of ileostomy) and abdomen soft; no guarding Ileostomy bag attached to RLQ Musculoskeletal: Head/Neck/Chest: normocephalic, head atraumatic and neck supple Extremities: extremities normal to inspection (Except AV fistula on left upper extremity) Skin: no rashes, warm and dry Healed abdominal scars noted. Neurologic: normal touch/pain/proprioception and moves all extremities; no focal motor deficits Psychiatric: A+Ox3, euthymic affect Speech: normal rate/rhythm/volume of speech Principal Diagnosis Partial small bowel obstruction Discharge Exam Constitutional WD/WN, vitals as above Eyes PERRL, conjunctivae normal, anicteric sclerae ENMT external ear and nose normal, oropharynx normal Neck trachea midline, no thyromegaly Respiratory normal respiratory effort, lungs clear to auscultation Cardiovascular Rate/Rhythm: regular rate and regular rhythm Heart Sounds: + murmur (2/6 at the LLSB) Extremities: + AV fistula (In the left upper extremity in the upper arm); no edema Gastrointestinal (Abdomen) normal bowel sounds, soft, nontender, no hepatosplenomegaly (With ileostomy bag in place with gas and stool) Musculoskeletal Extremities: extremities normal to inspection; no cyanosis and no clubbing Skin no rashes, warm and dry Neurologic moves all extremities and awake; no focal motor deficits Psychiatric A+Ox3, euthymic affect Discharge Data Allergies Allergy/AdvReac Type Severity Reaction Status Date / Time No Known Allergies Allergy Mild Verified 02/10/18 21:23 Consultations General Surgery Nephrology Ordered Studies 02/10/18 21:48 CT abd pelvis wo con Stat Hospital Course (1) Bowel obstruction: As noted on CT, resolved very quickly and without intervention. Was likely a partial small bowel obstruction Was seen by general surgery here and thought to be ileus from a recent viral gastroenteritis. She was tolerating regular diet and having no abdominal pain and no She did receive gentle IV fluids She had output in her ostomy on the day of discharge. She is stable for discharge to home (2) History of ileostomy: Secondary to total colectomy for ulcerative colitis -Functioning well at this time (3) ESRD on dialysis: HD on //, except for this week due to holidays she is scheduled for HD on Tuesday-she will keep this appointment -Nephrology consulted but did not require inpatient dialysis (4) Diabetes: Due to her n.p.o. status initially, her home regimen of insulin was held She was given Lantus 10 units twice a day -As she is tolerating her usual diet, she can return to her home dosing of insulin upon discharge (5) Breast cancer: History of breast cancer status post treatment Continue anastrozole -Continue routine follow-up with oncology (6) Endometrial cancer: Diagnosed earlier in 2017, treated with radiation Patient is in remission at this time as per recent PET scan in 12/2017 -Continue routine follow-up with oncology (7) Gout: No acute issues Continue allopurinol for prophylaxis (8) GERD (gastroesophageal reflux disease): Continue PPI (9) HTN (hypertension): Blood pressures were stable -She can continue amlodipine upon discharge (10) HLD (hyperlipidemia): -Continue simvastatin upon discharge (11) Anemia: Fairly new in onset since June 2017. Was found to be iron deficient and is receiving IV iron infusions with dialysis as well as erythropoietin as needed. She is also B12 deficient with a B12 level of 225 and 12/2017. Her anemia is macrocytic. Her folate was normal at that time. She is taking some B vitamin complex and her Nephrocaps. -Would recommend the addition of vitamin B12 1000 mcg p.o. once daily (12) DVT prophylaxis: -SCDs were provided Disposition-she is stable for discharge to home Total Time Total Time Spent Total Time Spent (In Minutes): Greater than 30 minutes Total Time Includes: Examination of the Patient, Discharge Planning, Medication Reconciliation and Communication With Other Providers (Nephrology) Discharge Plan Discharge Items Patient Disposition: Home - Self-Care Reason For Visit: SBO, INCREASED ILEOSTOMY OUTPUT Discharge Diagnosis: Partial small bowel obstruction Condition: Good Discharge Goals: Decrease discomfort, Diagnostic testing, Improve disease control and Learn about illness Activity: Resume your previous activity Bathing: No limitations Exercise/Sports: As tolerated Non-emergency contact: Primary Care Provider Call non-emergency contact if: you have any medication questions, your symptoms worsen, your pain is not controlled, your pain is worsening, your pain is unusual for you, your pain is concerning for you and your temperature is above 100.5 Follow-up/Referrals: Danielito Rojas MD [Primary Care Provider] - None (Keep your appointment on Tuesday as scheduled.) Diet: Carb Consistent or DM2 and Dialysis Renal Addtl Provider Instructions: You were admitted with a partial small bowel obstruction thought to be due to a gastroenteritis. You had resolution of your symptoms and were tolerating a regular diet prior to discharge. If you have return of nausea, severe abdominal pain, or no output in your ostomy bag, please return to the hospital. Please keep your appointment with your doctor on Tuesday as scheduled. Please call the dialysis center and let them know that you will be coming to dialysis on Tuesday. Prescriptions: New cyanocobalamin (vitamin B-12) 1,000 mcg capsule 1,000 mcg PO DAILY Qty: 30 RF: 0 Continue multivitamin Tablet 1 tab PO DAILY RF: 0 anastrozole [Arimidex] 1 mg tablet 1 mg PO DAILY RF: 0 ondansetron HCl 8 mg Tablet 8 mg PO TID PRN (Reason: Nausea) RF: 0 insulin NPH and regular human [Novolin 70/30 U-100 Insulin] 100 unit/mL (70-30 ) suspension 68 unit subcut QAM RF: 0 insulin NPH and regular human [Humulin 70/30 U-100 Insulin] 100 unit/mL (70-30 ) suspension 42 unit subcut QPM RF: 0 amlodipine [Norvasc] 5 mg tablet 5 mg PO DAILY RF: 0 allopurinol [Zyloprim] 100 mg tablet 100 mg PO DAILY RF: 0 simvastatin [Zocor] 40 mg tablet 40 mg PO QPM RF: 0 pantoprazole [Protonix] 40 mg tablet,delayed release (DR/EC) 40 mg PO QAM RF: 0 calcium acetate 667 mg capsule PO TIDM RF: 0 vitamin B comp and C no.3 93-21-86-5-300 mg Capsule 1 cap PO DAILY RF: 0 vit C,I-Bg-gvlpl-lutein-zeaxan [PreserVision AREDS-2] 029-993-85-1 mg-unit-mg- mg Capsule 1 tab PO BID RF: 0 Iron Infusion 1 dose IV 3XWK RF: 0 Visit Report Forms: [facility] Stand-Alone Forms: [facility] Discharge Orders: Discharge Order (Routine); Ordered 02/11/18 Ordered By: Angela Reilly Admission Data Admit Date/Time: 02/11/18 01:41 Attending Provider: Angela Reilly Admit Provider: Swapna Sheikh Primary Care Provider: Danielito Rojas Other Providers: Azeem Molina ; Silver Lezama ; Andrew Juárez Service: Surgical Services Other Pending Studies at Discharge: No
[2018-02-12] MEDS ORDERED: HEPARIN SOD (PORCINE) 1000 UNIT/ML 10 ML VIAL IV ONE (06:00)
[2018-02-12] MEDS ORDERED: HEPARIN SOD (PORCINE) 1000 UNIT/ML 10 ML VIAL IV SCH (06:00)
[2018-02-12] MEDS ORDERED: EPOETIN ALFA 10,000 UNITS/ML VIAL IV ONE (06:00)
[2018-02-12] MEDS ORDERED: SODIUM CHLORIDE 0.9% 1000ML 1,000 ML IV PRN (06:00)
== END 2018-02-11 14:55 | disposition home or self-care (01) | DRG 388 ==
LOC: 3W 20:53 → ED 20:53 → SUATTDRO 02-11 01:41 → 3W 02-11 01:55

== ENCOUNTER 2018-08-19 14:36 | Inpatient (IN) ==
[2018-08-19] MEDS ORDERED: ONDANSETRON INJ 2 MG/ML 2 ML VIAL IV STA (15:10)
[2018-08-19] MEDS ORDERED: SODIUM CHLORIDE 0.9% 250 ML IV ONE (15:10)
[2018-08-19 15:23] LABS: Basophils # (auto) 0.03 K/uL (0-0.2); Basophils % (auto) 0.8 %; Eosinophils # (auto) 0.03 K/uL (0-0.5); Eosinophils % (auto) 0.8 %; Hematocrit (blood only) 29.6 % (37-47); Hemoglobin 8.9 g/dL (12.0-16.0); Immature Granulocytes # (auto) 0.06 K/uL (0.00-0.02); Immature Granulocytes % (auto) 1.6 %; Lymphocytes # (auto) 0.39 K/uL (1.2-3.4); Lymphocytes % (auto) 10.2 %; Mean Corpuscular Hgb Conc 30.1 g/dL (32-36); Mean Corpuscular Volume 93.1 fL (80-100); Monocytes # (auto) 0.67 K/uL (0.11-0.59); Monocytes % (auto) 17.5 %; Neutrophils # (auto) 2.65 K/uL (1.4-6.5); Neutrophils % (auto) 69.1 %; Nucleated RBC # (auto) 0.02 K/uL (0-0); Nucleated RBC % (auto) 0.6 %; Platelet Count 346 K/uL (130-400); RDW Coefficient of Variation 17.4 % (11.5-14.5); RDW Standard Deviation 58.7 fL (36.4-46.3); Red Blood Count 3.18 M/uL (4.2-5.4); White Blood Count 3.83 K/uL (4.8-10.8)
--- NOTE | 2018-08-19 16:05 | XRay Report ---
XR abdomen 2V w PA chest HISTORY: 82 years-old Female vomitting eval for obstruction acute vomiting with weakness COMPARISON: Chest radiograph 07/27/2018, chest radiograph 05/29/2018, PET CT 12/21/2017 TECHNIQUE: PA view of the chest with left lateral decubitus and supine views of the abdomen FINDINGS: Cardiac silhouette is enlarged, unchanged. Calcification of the thoracic aortic arch. Biapical pleura l thickening redemonstrated. There is no pneumothorax, pleural effusion, focal airspace consolidation or overt pulmonary edema. Ill-defined sclerosis about the anterior right fifth rib is noted within t he area of remote fracture as noted on comparison PET/CT. Mild right hemidiaphragm elevation. Degener ative changes of the shoulders and spine. No pneumatosis or pneumoperitoneum. Air-filled mildly dilated loops of small bowel are noted about th e abdominal left lower quadrant measuring up to 3.4 cm without proximal dilation. Air is noted within the rectum. Vascular calcifications are noted. Surgical clips of the right upper abdomen. No definit e urolith. IMPRESSION: 1. No acute process of the chest. 2. No pneumatosis or pneumoperitoneum. 3. Mildly dilated air-filled loops of small bowel within the abdominal left lower quadrant without pr oximal distention suggests ileus versus developing small bowel obstruction. Correlate clinically. The above report was generated using voice recognition software. It may contain grammatical, syntax o r spelling errors. Electronically signed by: Bright Márquez M.D. 08/19/2018 4:04 PM
[2018-08-19 16:09] LABS: Est GFR (African American) 8.1
[2018-08-19 16:10] LABS: Alanine Aminotransferase < 6 U/L (12-78); Albumin Globulin Ratio 0.6 (0.9-2); Albumin Level 2.5 gm/dl (3.4-5.0); Alkaline Phosphatase 87 U/L (45-117); Aspartate Aminotransferase 9 U/L (15-37); BUN Creatinine Ratio 3.1 (10-20); Bilirubin,Total 0.5 mg/dl (0.2-1); Blood Urea Nitrogen 17 mg/dl (7-18); Calcium 9.1 mg/dl (8.5-10.1); Carbon Dioxide 31 mmol/L (21-32); Chloride 92 mmol/L (98-107); Globulin 4.5 gm/dl (2.5-4.0); Glucose 209 mg/dl (70-99); Magnesium 1.9 mg/dl (1.8-2.4); Potassium 4.6 mmol/L (3.5-5.1); Sodium 131 mmol/L (136-145); Troponin I < 0.015 ng/ml (0-0.045)
--- NOTE | 2018-08-19 19:33 | CT Scan Report ---
ABDOMEN AND PELVIS CT WITH ORAL CONTRAST CT DOSE: 355.42 mGy.cm HISTORY: Acute abdominal pain with vomiting and clinical concern for bowel obstruction. Operative rizwana nges from prior proctocolectomy with right lower quadrant ileostomy. vomiting eval for obstruciton TECHNIQUE: Multiaxial CT images of the abdomen and pelvis were performed following the use of oral co ntrast. A dose lowering technique was utilized adhering to the principles of ALARA. COMPARISON STUDY: CT abdomen and pelvis 07/27/2018. FINDINGS: Limited study without the use of IV contrast. Mild subsegmental dependent bibasilar atelectasis. No p neumatosis or pneumoperitoneum. Coronary arterial calcifications are noted. Imaged inferior cardiac c hambers are enlarged. Scattered calcified granulomata noted about the liver and spleen. No focal hepa tic mass lesion. No biliary ductal dilation. Spleen is otherwise unremarkable. Moderate generalized p arenchymal atrophy of the pancreas. Normal right adrenal gland. Unchanged moderate left adrenal gland thickening. Bilateral parenchymal atrophy with cortical thinning of the kidneys extensive renal vasc ular calcifications redemonstrated. No renal or ureteral calculi or obstructive uropathy. Partial dis tention of the urinary bladder with wall thickening and perivesicular stranding. The uterus. Prominen t. Low attenuating soft tissue material posterior to the uterus redemonstrated. Postoperative changes from prior proctocolectomy with right lower quadrant ileostomy. Dilated loops o f small bowel are again noted within the upper pelvis measuring up to 4.0 cm transversely. There is a loop of small bowel within the central lower pelvis which demonstrates circumferential wall thickeni ng and a transition point to decompressed small bowel (for example image 340 series 3). With enteric contrast progresses only minimally passed this area. No extension of enteric contrast into the right lower quadrant ileostomy. Decompressed loops of small bowel are seen within the abdominal right lower quadrant. No obstructing lesion identified. Subcutaneous stranding of the anterior abdominal wall wi th the kidneys are suggestive of additional injection site. No drainable fluid collection. Prominent lymph nodes of the central mesentery. Extensive calcification of the abdominal aorta. Additionally, s tranding of the central mesentery appears unchanged. Demineralized appearance of the bones. Multileve l spondylitic spurring with facet arthrosis. Bilateral sacral insufficiency fractures appear subacute without displacement. IMPRESSION: 1. Postoperative changes compatible with prior proctocolectomy with right lower quadrant ileostomy. E nteric contrast does not progress past a loop of pelvic small bowel which demonstrates moderate circu mferential wall thickening with perienteric stranding. Additionally, there is dilated small bowel pro ximal to this loop with decompressed bowel distally suggestive of bowel obstruction. 2. No pneumatosis or pneumoperitoneum. 3. Subacute appearing nondisplaced bilateral sacral insufficiency fractures. 4. Suggested cystitis. Correlate with urinalysis. 5. Additional chronic findings as above. Electronically signed by: Bright Márquez M.D. 08/19/2018 7:30 PM
--- NOTE | 2018-08-19 20:49 | History & Physical Report ---
Date of Service August 19, 2018 Assessment & Plan (1) Bowel obstruction: Patient presenting with SBO most likely secondary to intraabdominal adhesions. She is presently without pain or nausea, abdomen is soft and nondistended with normoactive bowel sounds. Ileostomy in place with liquid output. Patient does not wish to have surgery. -Admit to medical floor -NPO -Gentle IVF - NSS at 75mL/hr x 1 liter -Optimize electrolytes where needed -Zofran and Morphine PRN -Cautious use of narcotics -Will hold off on NGT for now. Patient does not wish to have one placed. Discussed placement should her symptoms worsen. She reports that her ileostomy has been accessed before and flushed during a similar admission which led to resolution of the SBO. Will consult Ostomy nurse to assist Present on Admission?: Yes (2) Adult failure to thrive: Overall patient describes 5 months of functional decline, poor appetite, weight loss and decreased mobility. She is presently living with one daughter, other daughter resides in [place], [place]. They express desire to have some in-home assistance -PT/OT and CM consultation for home health needs. Appreciate assistance with this case Present on Admission?: Yes (3) Anemia: Patient reports longstanding history of vaginal bleeding in setting of endometrial CA. She [place] Dr. Torres as [place] [facility] [place]. She has been transfused with 2u PRBCs appx 2 weeks ago. States that she has not had bleeding for the last 4 weeks. -Continue to monitor for vaginal bleeding -Will avoid chemoprophylaxis for DVT -Followup with Dr. Torres as scheduled - discussion for possible uterine artery embolization should her bleeding continue Present on Admission?: Yes (4) End stage renal disease: Patient with ESRD on HD q M/W/. Received a full treatment yesterday. Follows with Dr. Arreaga. She has minimal UOP -Monitor electrolytes, metabolic panel -ESRD/HD dosing where appropriate -Holding PO medications for now, PhosLo and Renal caps, will resume when SBO resolves -Patient will need Nephrology consultation for HD on Tuesday Present on Admission?: Yes (5) Diabetes: Blood sugar presently elevated at 209. Last HgAIC=7.4 in November, -Patient NPO, will hold Novolin 70/30 -Lantus 5u BID, ISS -Continue to monitor Present on Admission?: Yes (6) GERD (gastroesophageal reflux disease): Chronic. Stable -Holding PO medications, Protonix -Resume Protonix when SBO resolves -Will avoid IV Pepcid due to possible complications in ESRD, MS changes Present on Admission?: Yes (7) HLD (hyperlipidemia): Chronic. Stable -Hold Simvastatin for now Present on Admission?: Yes (8) HTN (hypertension): Blood pressure presently stable -Hold Amlodipine for now -Continue to monitor Present on Admission?: Yes (9) Gout: Chronic. Stable -Holding Allopurinol for now while NPO, resume when SBO resolves F/E/N - NSS at 75mL/hr x 1 liter, monitor electrolytes and replete as needed, NPO for now Ppx - SCDs and TEDs to bilateral LEs Code - Full Dispo - Admit to medical floor Present on Admission?: Yes History of Present Illness Chief Complaint: SBO Primary Care Provider: Danielito Rojas MD Bethany Farr is an 82yo C female presenting with possible SBO. Patient with hi story of Ulcerative colitis s/p proctocolectomy with ileostomy placement in 1973. She had a bowel obstruction approximately 5 years ago which required surgical intervention. Per family, the surgery was prolonged due to large amount of intraabdominal adhesions and it was recommended to her that she never have abdominal surgery again. She has since been hospitalized multiple times for recurrence of SBO. Today she presents with intermittent lower abdominal and back discomfort and nausea, mild abdominal distention. She has occasional episode of non-bloody vomiting. She has had decreased output from her ostomy and reports that it is largely liquid (is typically somewhat formed) and a lot of air. Also with decreased appetite and poor PO intake. She states that this feels similar to her prior SBOs. Overall the patient reports significant functional decline since March. She has ESRD and receives HD three times weekly (//). She reports that she is extremely fatigued with no energy and no appetite. She had an episode last week after returning home from HD where she was unable to walk into her home from the car due to weakness. She sat on her driveway and EMS was contacted to assist with moving her into her home. She sustained a recent L2 fracture and was recently diagnosed with sacral insufficiency fractures (3 weeks ago). She ambulates at home with a walker but reports she is having a lot of difficulty doing so. She Patient lives with her daughter. Her other daughter has been visiting from [place], [place] and is scheduled to return home tomorrow. ER Course: Zofran, NSS x 250mL Allergies Allergy/AdvReac Type Severity Reaction Status Date / Time No Known Allergies Allergy Mild Verified 08/19/18 16:21 Home Medications Home Medications Medication Instructions Recorded Confirmed Type Novolin 70/30 U-100 Insulin 60 unit SUBCUT QAM 02/10/18 08/19/18 History allopurinol [Zyloprim] 100 mg PO QAM 02/10/18 08/19/18 History anastrozole [Arimidex] 1 mg PO QAM 02/10/18 08/19/18 History ondansetron HCl 8 mg PO TID PRN 02/10/18 08/19/18 History pantoprazole [Protonix] 40 mg PO QAM 02/10/18 08/19/18 History Renal Caps 1 cap PO PM 05/29/18 08/19/18 History Novolin 70/30 U-100 Insulin 35 unit SUBCUT QPM 07/04/18 08/19/18 History amlodipine 2.5 mg PO QAM 07/04/18 08/19/18 History aspirin [Aspir-81] 81 mg PO QAM 07/04/18 08/19/18 History simvastatin 40 mg PO PM 07/20/18 08/19/18 History PreserVision AREDS 1 tab PO BID 07/27/18 08/19/18 History acetaminophen [Tylenol Extra 500 mg PO Q6H PRN 07/27/18 08/19/18 History Strength] cyanocobalamin (vitamin B-12) 1,000 mcg PO PM 07/27/18 08/19/18 History oxycodone 5 mg PO Q4H #15 tab 07/27/18 08/19/18 Rx calcium acetate [Phoslyra] 1,331 mg PO QPM 08/16/18 08/19/18 History Past Med/Surg History Medical History GERD (gastroesophageal reflux disease) HLD (hyperlipidemia) HTN (hypertension) Gout Chronic ulcerative colitis (Chronic) Secondary hyperparathyroidism of renal origin ESRD on dialysis TUESDAY/TUE/TUESDAY [place] Endometrial cancer (Chronic 07/01/17) "Postmenopausal vaginal bleeding. 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 She received 5940 cGy." A-V fistula RT ARM Breast cancer Cancer SKIN CANCER UTERINE CANCER BREAST CANCER Diabetes mellitus, type 2 Kidney stones Macular edema RECIEVES SHOTS Osteoarthritis Peripheral neuropathy Surgical History H/O partial mastectomy RT SIDE History of bowel resection History of breast biopsy BENIGN History of colonoscopy History of ileostomy History of tonsillectomy History of tooth extraction S/P Mohs surgery for basal cell carcinoma NOSE Tumor UTERINE TUMOR REMOVED (RADIATION THERAPY) Family History Mother Family history of diabetes mellitus Social History Preferred Language: Greek Communication Ability: Effective Beliefs That Will Affect Care: None Current Living Situation: Family Current Living Situation Comment: lives with daughter Feels Safe at Home: Yes Smoking Status: Never smoker Second Hand Exposure: No Hx Alcohol Use: No Hx Substance Use: No Review of Systems Review of Systems: All systems reviewed & are unremarkable except as noted in HPI & below +weakness, fatigue, poor appetite +weight loss, 25# unintentional (62.5kg today, was 76 kg in 01/2018) +chronic back pain +Nausea, vomiting +left hand numbness Physical Exam Physical Exam: General: frail, elderly female resting comfortably, NAD, non- toxic in appearance, AA&O x 4 Skin: warm, dry, intact, no rashes or lesions HEENT: NC/AT, PERRL, EOMI, anicteric sclera, conjunctiva without injection, external ear normal to inspection and nontender, nares patent, moist mucus membranes, dentition intact, no oropharyngeal lesions, neck supple, trachea midline, no LAD, no thyromegaly, no JVD Heart: +S1/S2, regular, no m/r/g Lungs: equal air entry bilaterally, no rales/rhonchi/wheezes Abd: +BS, soft, mildly tender with deep palpation, no rebound/guarding/peritoneal signs, ND, no masses/organomegaly/ascites, ileostomy in place with normal tissue, liquid output Ext: warm, 2+ pulses in UE/LE bilaterally, no clubbing/cyanosis or edema, fistula in left forearm with palpable thrill Neuro: nonfocal, patient AA&O x 4, speech intact, no facial droop, moving all extremities on command with equal strength 5/5 Results & Data Vital Signs (Past 12 Hours) Vital Signs Temp Pulse Pulse Resp BP BP Pulse Ox 08/19/18 19:09 81 18 134/56 L 93 08/19/18 17:49 68 18 151/54 H 93 08/19/18 15:13 91 08/19/18 14:42 37.0 C 85 19 120/50 L 92 Laboratory Results Lab Results 08/19/18 08/19/18 08/19/18 Range/Units 15:04 15:20 15:20 WBC 3.83 L (4.8-10.8) K/uL RBC 3.18 L (4.2-5.4) M/uL Hgb 8.9 L (12.0-16.0) g/dL Hct 29.6 L (37-47) % MCV 93.1 (80-100) fL MCH 28.0 (25-34) pg MCHC 30.1 L (32-36) g/dL RDW Std Deviation 58.7 H (36.4-46.3) fL RDW Coeff of Aparna 17.4 H (11.5-14.5) % Plt Count 346 (130-400) K/uL MPV 9.0 (7.4-10.4) fL Immature Gran % (Auto) 1.6 % Neut % (Auto) 69.1 % Lymph % (Auto) 10.2 % Lucas % (Auto) 17.5 % Eos % (Auto) 0.8 % Baso % (Auto) 0.8 % Immature Gran # (Auto) 0.06 H (0.00-0.02) K/uL Neut # (Auto) 2.65 (1.4-6.5) K/uL Lymph # (Auto) 0.39 L (1.2-3.4) K/uL Lucas # (Auto) 0.67 H (0.11-0.59) K/uL Eos # (Auto) 0.03 (0-0.5) K/uL Baso # (Auto) 0.03 (0-0.2) K/uL Absolute Nucleated RBC 0.02 H (0-0) K/uL Nucleated RBC % (auto) 0.6 % Sodium 131 L (136-145) mmol/L Potassium 4.6 (3.5-5.1) mmol/L Chloride 92 L (98-107) mmol/L Carbon Dioxide 31 (21-32) mmol/L Anion Gap 8.0 (3-11) BUN 17 (7-18) mg/dl Creatinine 5.21 H* (0.6-1.2) mg/dl Est Cr Clr Drug Dosing 7.0 ml/min Est GFR ( Amer) 8.1 Est GFR (Non-Af Amer) 7.0 BUN/Creatinine Ratio 3.1 L (10-20) Glucose 209 H (70-99) mg/dl POC Glucose 216 H (70-99) Calcium 9.1 (8.5-10.1) mg/dl Magnesium 1.9 (1.8-2.4) mg/dl Total Bilirubin 0.5 (0.2-1) mg/dl AST 9 L (15-37) U/L ALT < 6 L (12-78) U/L Alkaline Phosphatase 87 (45-117) U/L Troponin I < 0.015 (0-0.045) ng/ml Total Protein 7.0 (6.4-8.2) gm/dl Albumin 2.5 L (3.4-5.0) gm/dl Globulin 4.5 H (2.5-4.0) gm/dl Albumin/Globulin Ratio 0.6 L (0.9-2) TSH 2.960 (0.300-4.500) uIu/ml Diagnostic Findings ABDOMEN AND PELVIS CT WITH ORAL CONTRAST CT DOSE: 355.42 mGy.cm HISTORY: Acute abdominal pain with vomiting and clinical concern for bowel obstruction. Operative changes from prior proctocolectomy with right lower quadrant ileostomy. vomiting eval for obstruciton TECHNIQUE: Multiaxial CT images of the abdomen and pelvis were performed following the use of oral contrast. A dose lowering technique was utilized adhering to the principles of ALARA. COMPARISON STUDY: CT abdomen and pelvis 07/27/2018. FINDINGS: Limited study without the use of IV contrast. Mild subsegmental dependent bibasilar atelectasis. No pneumatosis or pneumoperitoneum. Coronary arterial calcifications are noted. Imaged inferior cardiac chambers are enlarged. Scattered calcified granulomata noted about the liver and spleen. No focal hepatic mass lesion. No biliary ductal dilation. Spleen is otherwise unremarkable. Moderate generalized parenchymal atrophy of the pancreas. Normal right adrenal gland. Unchanged moderate left adrenal gland thickening. Bilateral parenchymal atrophy with cortical thinning of the kidneys extensive renal vascular calcifications redemonstrated. No renal or ureteral calculi or obstructive uropathy. Partial distention of the urinary bladder with wall thickening and perivesicular stranding. The uterus. Prominent. Low attenuating soft tissue material posterior to the uterus redemonstrated. Postoperative changes from prior proctocolectomy with right lower quadrant ileostomy. Dilated loops of small bowel are again noted within the upper pelvis measuring up to 4.0 cm transversely. There is a loop of small bowel within the central lower pelvis which demonstrates circumferential wall thickening and a transition point to decompressed small bowel (for example image 340 series 3). With enteric contrast progresses only minimally passed this area. No extension of enteric contrast into the right lower quadrant ileostomy. Decompressed loops of small bowel are seen within the abdominal right lower quadrant. No obstructing lesion identified. Subcutaneous stranding of the anterior abdominal wall with the kidneys are suggestive of additional injection site. No drainable fluid collection. Prominent lymph nodes of the central mesentery. Extensive calcification of the abdominal aorta. Additionally, stranding of the central mesentery appears unchanged. Demineralized appearance of the bones. Multilevel spondylitic spurring with facet arthrosis. Bilateral sacral insufficiency fractures appear subacute without displacement. IMPRESSION: 1. Postoperative changes compatible with prior proctocolectomy with right lower quadrant ileostomy. Enteric contrast does not progress past a loop of pelvic small bowel which demonstrates moderate circumferential wall thickening with perienteric stranding. Additionally, there is dilated small bowel proximal to this loop with decompressed bowel distally suggestive of bowel obstruction. 2. No pneumatosis or pneumoperitoneum. 3. Subacute appearing nondisplaced bilateral sacral insufficiency fractures. 4. Suggested cystitis. Correlate with urinalysis. 5. Additional chronic findings as above. Electronically signed by: Bright Márquez M.D. 08/19/2018 7:30 PM Dictated: 08/19/181918 Transcribed: 08/19/181918 # ################################################################################ ####################################################################### XR abdomen 2V w PA chest HISTORY: 82 years-old Female vomitting eval for obstruction acute vomiting with weakness COMPARISON: Chest radiograph 07/27/2018, chest radiograph 05/29/2018, PET CT 12/21/2017 TECHNIQUE: PA view of the chest with left lateral decubitus and supine views of the abdomen FINDINGS: Cardiac silhouette is enlarged, unchanged. Calcification of the thoracic aortic arch. Biapical pleural thickening redemonstrated. There is no pneumothorax, pleural effusion, focal airspace consolidation or overt pulmonary edema. Ill- defined sclerosis about the anterior right fifth rib is noted within the area of remote fracture as noted on comparison PET/CT. Mild right hemidiaphragm elevation. Degenerative changes of the shoulders and spine. No pneumatosis or pneumoperitoneum. Air-filled mildly dilated loops of small bowel are noted about the abdominal left lower quadrant measuring up to 3.4 cm without proximal dilation. Air is noted within the rectum. Vascular calcifications are noted. Surgical clips of the right upper abdomen. No definite urolith. IMPRESSION: 1. No acute process of the chest. 2. No pneumatosis or pneumoperitoneum. 3. Mildly dilated air-filled loops of small bowel within the abdominal left lower quadrant without proximal distention suggests ileus versus developing small bowel obstruction. Correlate clinically. The above report was generated using voice recognition software. It may contain grammatical, syntax or spelling errors. Electronically signed by: Bright Márquez M.D. 08/19/2018 4:04 PM Dictated: 08/19/18 1600 Transcribed: 08/19/18 1600 ECG Additional Comments: NSR at 88bpm, normal axis, JT=432, QRS=90, RYl=623, no acute ST-T changes suggestive of ischemia Code Status & VTE Plan Code Status Full VTE Prophylaxis Plan VTE Prophylaxis will be ordered: Yes PG Care Time/CCT Total # of Minutes Spent Total Time Spent with Patient: Total time spent is greater than 50% in coordination of care (as documented) at patient's floor/unit and/or counseling patient: (1) Bowel obstruction Intestinal obstruction type: unspecified Intestinal obstruction extent: unspecified extent Qualified Code(s): K56.609 - Unspecified intestinal obstruction, unspecified as to partial versus complete obstruction (2) Anemia Anemia type: unspecified type Qualified Code(s): D64.9 - Anemia, unspecified (3) Diabetes Diabetes mellitus type: type 2 Diabetes mellitus terminal superintendent insulin use: with terminal superintendent use Diabetes mellitus complication status: with kidney complications Diabetes mellitus complication detail: with chronic kidney disease Chronic kidney disease stage: on chronic dialysis Qualified Code(s): E11.22 - Type 2 diabetes mellitus with diabetic chronic kidney disease; N18.6 - End stage renal disease; Z79.4 - termite technician (current) use of insulin; Z99.2 - Dependence on renal dialysis (4) GERD (gastroesophageal reflux disease) Esophagitis presence: esophagitis presence not specified Qualified Code(s): K21.9 - Gastro-esophageal reflux disease without esophagitis (5) HLD (hyperlipidemia) Hyperlipidemia type: unspecified Qualified Code(s): E78.5 - Hyperlipidemia, unspecified (6) HTN (hypertension) Hypertension type: essential hypertension Qualified Code(s): I10 - Essential (primary) hypertension
[2018-08-19] MEDS ORDERED: DEXTROSE 50% 50 ML SYRINGE IV PRN (21:40)
[2018-08-19] MEDS ORDERED: CARBOHYDRATES FOR HYPOGLYCEMIA PO PRN (21:40)
[2018-08-19] MEDS ORDERED: GLUCOSE 40% GEL 15 GM TUBE PO PRN (21:40)
[2018-08-19] MEDS ORDERED: GLUCOSE 10 TABS/TUBE PO PRN (21:40)
[2018-08-19] MEDS ORDERED: GLUCAGON FOR INJ 1 MG VIAL SQ PRN (21:40)
--- NOTE | 2018-08-19 21:42 | Emergency Department Note ---
Entered by Aida Rene acting as a scribe for History of Present Illness General Chief complaint: Weakness Stated complaint: weakness/nausea Source: patient Mode of arrival: wheelchair Limitations: no limitations History of Present Illness Onset (ago): day(s) 5 Location: head Radiation: non-radiation Pain Consistency: + constant Relieved By: + none Exacerbated By: + other (on days when she is dialyzed) Associated symptoms: + nausea/vomiting (+nausea, -vomiting), + shortness of breath and + other (+abdominal pain, -urinary symptoms, +vaginal bleeding, - hematochezia, -melena); no chest pain and no fever/chills Treatments prior to arrival: none The patient is an 82 year old female who presents to the ED with complaints of weakness for the past several days. She states she is unable to get up out of a chair because she is so weak. She has been unable to eat normally due to nausea for the past 1 week. Zofran has provided no relief. She notes the weakness is worse on days when she is dialyzed. She last had dialysis yesterday. Her family states her BSG was 80 when she left dialysis yesterday and she "almost passed out" after the appointment. The paramedics were called who checked her blood sugar and it was 79. She felt better after drinking and did not want to go back to the hospital. This morning the patient felt worse, so she decided to come to the ED. She denies any recent fevers, chest pain or urinary symptoms. She is short of breath on exertion. She does complain of intermittent abdominal pain for the past "several weeks". She has experienced intermittent vaginal bleeding for the past 2 weeks and is under the care of her java performance engineer. She denies any recent hematochezia or melena in her ostomy bag. The output in her ileostomy has been very liquidy. She had radiation last summer for a history of endometrial cancer. She has a an AV fistula in her left arm. She does not have any pain other than her hand hurts sometimes since Dr. Torres put the stents in her AV fistula. It gets better when she moves her hand around. Home Medications Home Medications Medication Instructions Recorded Confirmed Type Novolin 70/30 U-100 Insulin 60 unit SUBCUT QAM 02/10/18 08/19/18 History allopurinol [Zyloprim] 100 mg PO QAM 02/10/18 08/19/18 History anastrozole [Arimidex] 1 mg PO QAM 02/10/18 08/19/18 History ondansetron HCl 8 mg PO TID PRN 02/10/18 08/19/18 History pantoprazole [Protonix] 40 mg PO QAM 02/10/18 08/19/18 History Renal Caps 1 cap PO PM 05/29/18 08/19/18 History Novolin 70/30 U-100 Insulin 35 unit SUBCUT QPM 07/04/18 08/19/18 History amlodipine 2.5 mg PO QAM 07/04/18 08/19/18 History aspirin [Aspir-81] 81 mg PO QAM 07/04/18 08/19/18 History simvastatin 40 mg PO PM 07/20/18 08/19/18 History PreserVision AREDS 1 tab PO BID 07/27/18 08/19/18 History acetaminophen [Tylenol Extra 500 mg PO Q6H PRN 07/27/18 08/19/18 History Strength] cyanocobalamin (vitamin B-12) 1,000 mcg PO PM 07/27/18 08/19/18 History oxycodone 5 mg PO Q4H #15 tab 07/27/18 08/19/18 Rx calcium acetate [Phoslyra] 1,331 mg PO QPM 08/16/18 08/19/18 History Allergies Allergy/AdvReac Type Severity Reaction Status Date / Time No Known Allergies Allergy Mild Verified 08/19/18 16:21 Past Med/Surg History Medical History GERD (gastroesophageal reflux disease) HLD (hyperlipidemia) HTN (hypertension) Gout Chronic ulcerative colitis (Chronic) Secondary hyperparathyroidism of renal origin ESRD on dialysis TUESDAY/TUE/TUESDAY BELVA Endometrial cancer (Chronic 07/01/17) "Postmenopausal vaginal bleeding. 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 She received 5940 cGy." A-V fistula RT ARM Breast cancer Cancer SKIN CANCER UTERINE CANCER BREAST CANCER Diabetes mellitus, type 2 Kidney stones Macular edema RECIEVES SHOTS Osteoarthritis Peripheral neuropathy Surgical History H/O partial mastectomy RT SIDE History of bowel resection History of breast biopsy BENIGN History of colonoscopy History of ileostomy History of tonsillectomy History of tooth extraction S/P Mohs surgery for basal cell carcinoma NOSE Tumor UTERINE TUMOR REMOVED (RADIATION THERAPY) Family History Mother Family history of diabetes mellitus Social History Preferred Language: Wolof Communication Ability: Effective Beliefs That Will Affect Care: None Current Living Situation: Family Current Living Situation Comment: lives with daughter Feels Safe at Home: Yes Smoking Status: Never smoker Second Hand Exposure: No Hx Alcohol Use: No Hx Substance Use: No Review of Systems See HPI for pertinent positives & negatives. and A total of 10 systems reviewed and were otherwise negative Physical Exam Vital Signs Vital Signs - 24 hr 08/19/18 14:42 08/19/18 15:13 08/19/18 15:21 Temperature 37.0 C Temperature Source Oral Sepsis Recent Fever Within 48 Hours No Sepsis Action Taken by Nursing No Action Required Pulse Rate - Lying 84 Pulse Rate - Sitting 93 H Pulse Rate - Standing 105 H Pulse Rate 85 Pulse Rate [Finger] Respiratory Rate 19 Respiratory Effort / Characteristics Respiratory Depth Normal Respiratory Pattern Blood Pressure - Lying 128/50 L Blood Pressure - Sitting 131/53 L Blood Pressure- Standing 99/41 L Blood Pressure 120/50 L Blood Pressure [Right Arm] Blood Pressure Mean 73 Blood Pressure Mean [Right Arm] Blood Pressure Position [Right Arm] Pulse Oximetry 92 91 Oxygen Delivery Method Room Air Room Air 08/19/18 17:49 08/19/18 19:09 Temperature Temperature Source Sepsis Recent Fever Within 48 Hours Sepsis Action Taken by Nursing Pulse Rate - Lying Pulse Rate - Sitting Pulse Rate - Standing Pulse Rate Pulse Rate [Finger] 68 81 Respiratory Rate 18 18 Respiratory Effort / Characteristics Non-Labored Spontaneous Respiratory Depth Normal Respiratory Pattern Regular Blood Pressure - Lying Blood Pressure - Sitting Blood Pressure- Standing Blood Pressure Blood Pressure [Right Arm] 151/54 H 134/56 L Blood Pressure Mean Blood Pressure Mean [Right Arm] 86 82 Blood Pressure Position [Right Arm] Lying Pulse Oximetry 93 93 Oxygen Delivery Method Room Air Room Air Constitutional: Vital signs reviewed. Eyes: Pupils are equal round reactive to light. Conjunctiva are noninjected. ENT: Pharynx is clear without erythema or exudate. Mucous membranes are dry. Neck supple without meningeal signs. Respiratory: Clear to auscultation bilaterally. Breath sounds are equal bilaterally. Cardiovascular: Regular rate and rhythm. No rubs or gallops. GI: Soft, nondistended and nontender. Ileostomy in RLQ with liquid brown stool. Bowel sounds are present. Musculoskeletal: Left arm AV fistula, palpable thrill, distal capillary refill is less than 2 seconds in left hand. Integumentary: No cyanosis. Neurological: The patient is awake and alert. No focal deficits. Psychiatric: Normal affect. Course 145: The patient was evaluated in room B9 and a complete history and physical were performed. 1624: I discussed her test results and she is agreeable to CT. She has had partial obstructions in the past. 1951: I reevaluated the patient. I discussed her test results and recommendation she remain in the hospital for further evaluation and management. She has been told that she is not a surgical candidate anymore and OPERATIONS MANAGEMENT TRAINEE would not do a hysterectomy on her previously even though she needed it. She was told by surgery that she could not have surgery performed. 1953: I discussed the patients case with Johanne Coy Hospitalist. The patient will be further evaluated. Consultations Consultation #1: I discussed the patients case with Johanne Coy [facility]. The patient will be further evaluated. Time: 19:54 Administered Medications Discontinued Medications Sodium Chloride (Nss) 250 mls @ 999 mls/hr IV .Q16M ONE Stop: 08/19/18 15:25 Last Infusion: 08/19/18 15:38 Dose: 0 mls/hr Documented by: [id number] Admin: 08/19/18 15:21 Dose: 999 mls/hr Documented by: [id number] Ondansetron HCl (Zofran) 4 mg IV NOW STA Stop: 08/19/18 15:11 Last Admin: 08/19/18 15:28 Dose: 4 mg Documented by: [id number] Medical Decision Making Differential Diagnosis Differential Diagnoses considered include anemia, dehydration, bowel obstruction, malnutrition, orthostatic hypotension. Medical Records Attestation: I reviewed the patient's medical records. I did perform a limited focused review of portions of the patient's old chart on the electronic medical record. The patient was seen here on August 16, 2017 for near syncope and hypoglycemia. Home Medications Current Medication List: was personally reviewed by me Laboratory Data Attestation: I reviewed the patient's lab results. Result diagrams: 08/19/18 15:20 08/19/18 15:20 Lab Results 08/19/18 08/19/18 08/19/18 Range/Units 15:04 15:20 15:20 WBC 3.83 L (4.8-10.8) K/uL RBC 3.18 L (4.2-5.4) M/uL Hgb 8.9 L (12.0-16.0) g/dL Hct 29.6 L (37-47) % MCV 93.1 (80-100) fL MCH 28.0 (25-34) pg MCHC 30.1 L (32-36) g/dL RDW Std Deviation 58.7 H (36.4-46.3) fL RDW Coeff of Aparna 17.4 H (11.5-14.5) % Plt Count 346 (130-400) K/uL MPV 9.0 (7.4-10.4) fL Immature Gran % (Auto) 1.6 % Neut % (Auto) 69.1 % Lymph % (Auto) 10.2 % [place] % (Auto) 17.5 % Eos % (Auto) 0.8 % Baso % (Auto) 0.8 % Immature Gran # (Auto) 0.06 H (0.00-0.02) K/uL Neut # (Auto) 2.65 (1.4-6.5) K/uL Lymph # (Auto) 0.39 L (1.2-3.4) K/uL [place] # (Auto) 0.67 H (0.11-0.59) K/uL Eos # (Auto) 0.03 (0-0.5) K/uL Baso # (Auto) 0.03 (0-0.2) K/uL Absolute Nucleated RBC 0.02 H (0-0) K/uL Nucleated RBC % (auto) 0.6 % Sodium 131 L (136-145) mmol/L Potassium 4.6 (3.5-5.1) mmol/L Chloride 92 L (98-107) mmol/L Carbon Dioxide 31 (21-32) mmol/L Anion Gap 8.0 (3-11) BUN 17 (7-18) mg/dl Creatinine 5.21 H* (0.6-1.2) mg/dl Est Cr Clr Drug Dosing 7.0 ml/min Est GFR ( Amer) 8.1 Est GFR (Non-Af Amer) 7.0 BUN/Creatinine Ratio 3.1 L (10-20) Glucose 209 H (70-99) mg/dl POC Glucose 216 H (70-99) Calcium 9.1 (8.5-10.1) mg/dl Magnesium 1.9 (1.8-2.4) mg/dl Total Bilirubin 0.5 (0.2-1) mg/dl AST 9 L (15-37) U/L ALT < 6 L (12-78) U/L Alkaline Phosphatase 87 (45-117) U/L Troponin I < 0.015 (0-0.045) ng/ml Total Protein 7.0 (6.4-8.2) gm/dl Albumin 2.5 L (3.4-5.0) gm/dl Globulin 4.5 H (2.5-4.0) gm/dl Albumin/Globulin Ratio 0.6 L (0.9-2) TSH 2.960 (0.300-4.500) uIu/ml Imaging Data Radiologist's Impression: Radiology results as stated below per my review and the radiologist's interpretation: XR abdomen 2V w PA chest HISTORY: 82 years-old Female vomitting eval for obstruction acute vomiting with weakness COMPARISON: Chest radiograph 07/27/2018, chest radiograph 05/29/2018, PET CT 12/21/2017 TECHNIQUE: PA view of the chest with left lateral decubitus and supine views of the abdomen FINDINGS: Cardiac silhouette is enlarged, unchanged. Calcification of the thoracic aortic arch. Biapical pleural thickening redemonstrated. There is no pneumothorax, pleural effusion, focal airspace consolidation or overt pulmonary edema. Ill- defined sclerosis about the anterior right fifth rib is noted within the area of remote fracture as noted on comparison PET/CT. Mild right hemidiaphragm elevation. Degenerative changes of the shoulders and spine. No pneumatosis or pneumoperitoneum. Air-filled mildly dilated loops of small bowel are noted about the abdominal left lower quadrant measuring up to 3.4 cm without proximal dilation. Air is noted within the rectum. Vascular calcifications are noted. Surgical clips of the right upper abdomen. No definite urolith. IMPRESSION: 1. No acute process of the chest. 2. No pneumatosis or pneumoperitoneum. 3. Mildly dilated air-filled loops of small bowel within the abdominal left lower quadrant without proximal distention suggests ileus versus developing small bowel obstruction. Correlate clinically. The above report was generated using voice recognition software. It may contain grammatical, syntax or spelling errors. Electronically signed by: Bright Márquez M.D. 08/19/2018 4:04 PM ABDOMEN AND PELVIS CT WITH ORAL CONTRAST CT DOSE: 355.42 mGy.cm HISTORY: Acute abdominal pain with vomiting and clinical concern for bowel obstruction. Operative changes from prior proctocolectomy with right lower quadrant ileostomy. vomiting eval for obstruciton TECHNIQUE: Multiaxial CT images of the abdomen and pelvis were performed following the use of oral contrast. A dose lowering technique was utilized adhering to the principles of ALARA. COMPARISON STUDY: CT abdomen and pelvis 07/27/2018. FINDINGS: Limited study without the use of IV contrast. Mild subsegmental dependent bibasilar atelectasis. No pneumatosis or pneumoperitoneum. Coronary arterial calcifications are noted. Imaged inferior cardiac chambers are enlarged. Scattered calcified granulomata noted about the liver and spleen. No focal hepatic mass lesion. No biliary ductal dilation. Spleen is otherwise unremarkable. Moderate generalized parenchymal atrophy of the pancreas. Normal right adrenal gland. Unchanged moderate left adrenal gland thickening. Bilateral parenchymal atrophy with cortical thinning of the kidneys extensive renal vascular calcifications redemonstrated. No renal or ureteral calculi or obstructive uropathy. Partial distention of the urinary bladder with wall thickening and perivesicular stranding. The uterus. Prominent. Low attenuating soft tissue material posterior to the uterus redemonstrated. Postoperative changes from prior proctocolectomy with right lower quadrant ileostomy. Dilated loops of small bowel are again noted within the upper pelvis measuring up to 4.0 cm transversely. There is a loop of small bowel within the central lower pelvis which demonstrates circumferential wall thickening and a transition point to decompressed small bowel (for example image 340 series 3). With enteric contrast progresses only minimally passed this area. No extension of enteric contrast into the right lower quadrant ileostomy. Decompressed loops of small bowel are seen within the abdominal right lower quadrant. No obstructing lesion identified. Subcutaneous stranding of the anterior abdominal wall with the kidneys are suggestive of additional injection site. No drainable fluid collection. Prominent lymph nodes of the central mesentery. Extensive calcification of the abdominal aorta. Additionally, stranding of the central mesentery appears unchanged. Demineralized appearance of the bones. Multilevel spondylitic spurring with facet arthrosis. Bilateral sacral insufficiency fractures appear subacute without displacement. IMPRESSION: 1. Postoperative changes compatible with prior proctocolectomy with right lower quadrant ileostomy. Enteric contrast does not progress past a loop of pelvic small bowel which demonstrates moderate circumferential wall thickening with perienteric stranding. Additionally, there is dilated small bowel proximal to this loop with decompressed bowel distally suggestive of bowel obstruction. 2. No pneumatosis or pneumoperitoneum. 3. Subacute appearing nondisplaced bilateral sacral insufficiency fractures. 4. Suggested cystitis. Correlate with urinalysis. 5. Additional chronic findings as above. Electronically signed by: Bright Márquez M.D. 08/19/2018 7:30 PM ECG Data Attestation: I personally reviewed and interpreted this ECG as follows: Indication: weakness Rate (beats per minute): 88 Rhythm: normal sinus Findings: no PVC and no ST elevation Blood Pressure Blood Pressure Findings: Normal blood pressure Blood Pressure Disposition: did not require urgent referral MDM Narrative I did evaluate the patient as noted above. The patient is presenting with generalized weakness. She has had several bouts of hypoglycemia after dialysis and was recently seen here. She came in today because she is having continued weakness and could not stand up today. She does complain of intermittent abdominal pain but has no tenderness on examination. She states she is very nauseous and has not and occasionally vomits. She was prescribed Zofran by her doctor which is not effective. IV access was established. The patient was placed on a continuous cafeteria monitor. I did order and personally review the patient's 12-lead EKG as described above. There is no evidence of acute ischemic changes. I did order and personally reviewed the images of the patient's abdominal/chest x-ray as described above. She has evidence of dilated bowel concerning for partial obstruction versus ileus. I did order and review the patient's blood work as noted in the electronic medical record. Her white count is 3.8. She is anemic. Her creatinine is 5.2 and her potassium 4.6. Sodium is 131 and she is hyperglycemic. I did discuss the test results with the patient. She was given a small bolus of normal saline IV. I did recommend a CT scan to evaluate for obstruction. I did order a CT of the abdomen and pelvis. I did review the images myself as well as the radiology report as described above. The CAT scan does show an obstruction. I did discuss the test results with the patient and her family. I did discuss the case with the hospitalist and behavioral health case manager. Impression & Plan Bowel obstruction, Anemia, End stage renal disease, Acute hyponatremia Discharge Plan Visit Data *Final* Discharge Date/Time: 08/19/18 21:18 Chief Complaint: Weakness Stated Complaint: weakness/nausea ED Provider: Refugio Ko Discharge Problem: Bowel obstruction, Anemia, End stage renal disease, Acute hyponatremia Patient Disposition: Admitted As Inpatient Discharge Instructions Interventions: ED Discharge Assessment Last Done: 08/19/18 21:18 Discharge Problem: Bowel obstruction Qualifiers: Intestinal obstruction type: unspecified Intestinal obstruction extent: unspec ified extent Qualified Code(s): K56.609 - Unspecified intestinal obstruction, unspecified as to partial versus complete obstruction Anemia Qualifiers: Anemia type: unspecified type Qualified Code(s): D64.9 - Anemia, unspecified The scribe's documentation has been prepared under my direction and personally reviewed by me in its entirety. I confirm that the note above accurately reflects all work, treatment, procedures, and medical decision making performed by me.
[2018-08-19] MEDS ORDERED: SODIUM CHLORIDE 0.9% 1000ML 1,000 ML IV SCH (22:15)
[2018-08-19] MEDS ORDERED: INSULIN ASPART 100 UNITS/ML 3 ML PEN SC SCH (22:30)
[2018-08-19] MEDS: INSULIN GLARGINE SOLOSTAR 100 UNITS/ML 3 ML PEN SC SCH (22:55)
[2018-08-20] MEDS ORDERED: Nursing to Pharmacy Communication ONE ×2 (01:39→19:11)
[2018-08-20] MEDS: INSULIN ASPART 100 UNITS/ML 3 ML PEN SC SCH ×4 (06:06→21:36)
[2018-08-20 06:27] LABS: BUN Creatinine Ratio 3.3 (10-20); Calcium 8.9 mg/dl (8.5-10.1); Creatinine Clr Calc Pharmacy 5.9 ml/min; Est GFR (African American) 6.6; Est GFR (Non-African American) 5.7; Potassium 4.2 mmol/L (3.5-5.1)
[2018-08-20] MEDS: ANASTROZOLE 1 MG TAB PO SCH (08:43)
[2018-08-20] MEDS: INSULIN GLARGINE SOLOSTAR 100 UNITS/ML 3 ML PEN SC SCH ×2 (08:44→21:35)
--- NOTE | 2018-08-20 09:35 | Hospitalist Progress Note ---
Date of Service August 20, 2018 Assessment & Plan (1) Bowel obstruction: Patient presenting with SBO most likely secondary to intraabdominal adhesions. She is presently without pain or nausea, abdomen is soft and nondistended with normoactive bowel sounds. Ileostomy in place with liquid output increased since yesterday. Patient does not wish to have surgery. -Pt NPO today, but continued to have increased ostomy output, and feeling well. Advanced to a clear liquid diet for dinner. -Continue gentle IVF - Reduce NSS to 50mL/hr -Zofran and Morphine PRN -Cautious use of narcotics -Continue to hold off on NGT for now as clinically improving. (2) Adult failure to thrive: Overall patient describes 5 months of functional decline, poor appetite, weight loss and decreased mobility. She is presently living with one daughter, other daughter resides in [place], [place]. They express desire to have some in-home assistance -PT/OT and CM consultation for home health needs. Appreciate assistance with this case - Pt's daughter states today that she is not opposed to her mother being referred to SNF or rehab facility for a period if eligible. (3) Anemia: Patient reports longstanding history of vaginal bleeding in setting of endometrial CA. She follows with Dr. Torres as well as [facility] [place] for this. She has been transfused with 2u PRBCs appx 2 weeks ago. States that she has not had bleeding for the last 4 weeks. -She reports pink vaginal discharge today. - H&H noted to be 8.9 and 29.6 this morning. Will repeat in AM. -Will avoid chemoprophylaxis for DVT -Followup with Dr. Torres as scheduled in the next 1-2 weeks - discussion for possible uterine artery embolization should her bleeding continue (4) End stage renal disease: Patient with ESRD on HD q M/W/F. Received a full treatment Tuesday08-18-28. Follows with Dr. Juárez. She has minimal UOP -Monitor electrolytes, metabolic panel -ESRD/HD dosing where appropriate -Holding PO medications for now, PhosLo and Renal caps, will resume when SBO resolves -Nephrology consultation for HD tomorrow. (5) Diabetes: Blood sugar presently 120. Lantus held this morning. -Patient NPO, will hold Novolin 70/30 -Continue Lantus 5u BID, ISS -Continue to monitor (6) GERD (gastroesophageal reflux disease): Chronic. Stable -Holding PO medications, Protonix -Resume Protonix when SBO resolves -Will avoid IV Pepcid due to possible complications in ESRD, MS changes (7) HLD (hyperlipidemia): Chronic. Stable -Hold Simvastatin for now (8) HTN (hypertension): Blood pressure presently stable -Hold Amlodipine for now -Continue to monitor (9) Gout: Chronic. Stable -Holding Allopurinol for now while NPO, resume when SBO resolves Ppx - SCDs and TEDs to bilateral LEs Code - Full Dispo - Discharge when SBO resolved. Supervising Physician Co-Signing Physician Notes TALENT ACQUISITION PROJECT MANAGER Supervision note: I have personally seen and examined the patient and discussed and verified the marques points of the history and physical along with the plan with ADRIAN Mitchell with the following exceptions and/or additions: Pt was advanced to clears later in the day and was doing well. Ok to dc IVFs given she is a HD patient. Plan for HD tomorrow Will restart home po meds If continues to do well, will advance diet to regular in the AM and plan for discharge to home tomorrow Subjective 82 yo female admitted with SBO. Pt reports increased output from her ileostomy today. She states she filled the bag this morning, and emptied it. She denies any nausea or vomiting. Denies abdominal pain. States she is feeling well. Denies any gross vaginal bleeding, but continues to have some pink discharge. Review of Systems Constitutional: no fever and no chills Eyes: no worsening vision Ear, Nose, Mouth, Throat: no dizziness Respiratory: no dyspnea Cardiovascular: no chest pain Gastrointestinal: no nausea and no vomiting Genitourinary: + vaginal discharge (Pt continues to have pink vaginal discharge, but no significant gross bleeding. ) Integumentary: no rash Psychiatric: no anxiety and no confusion Physical Exam Physical Exam: Pt is afebrile. Vital signs stable. Constitutional: + overweight; no acute distress ENMT: Ears: no hearing impairment Neck: normal visual inspection Respiratory: normal respiratory effort, lungs clear to auscultation Cardiovascular: RRR, no murmur, no edema Gastrointestinal (Abdomen): Inspection/Auscultation: normal bowel sounds Percussion/Palpation: abdomen soft; abdomen nontender Ostomy is pink and viable. ~100ml of brown liquid noted in ostomy bag. Skin: normal turgor; no rashes Psychiatric: A+Ox3, euthymic affect Results & Data Vital Signs (Past 12 Hours) Vital Signs Temp Pulse Resp BP Pulse Ox 08/20/18 07:24 36.6 C 78 16 148/69 H 92 08/19/18 23:14 36.8 C 76 18 155/53 H 93 08/19/18 21:41 36.6 C 85 16 150/66 H 93 08/19/18 21:30 36.6 C 85 16 150/66 H 93 Patient is afebrile. Vital signs stable. PG Care Time/CCT Total # of Minutes Spent Total Time Spent with Patient: Total time spent is greater than 50% in coordination of care (as documented) at patient's floor/unit and/or counseling patient: (1) Diabetes Chronic kidney disease stage: on chronic dialysis Diabetes mellitus complication detail: with chronic kidney disease Diabetes mellitus complication status: with kidney complications Diabetes mellitus custodial insulin use: with lobsterman use Diabetes mellitus type: type 2 Qualified Code(s): E11.22 - Type 2 diabetes mellitus with diabetic chronic kidney disease; N18.6 - End stage renal disease; Z79.4 - MCC (current) use of insulin; Z99.2 - Dependence on renal dialysis (2) Anemia Anemia type: unspecified type Qualified Code(s): D64.9 - Anemia, unspecified (3) HLD (hyperlipidemia) Hyperlipidemia type: unspecified Qualified Code(s): E78.5 - Hyperlipidemia, unspecified (4) Bowel obstruction Intestinal obstruction extent: unspecified extent Intestinal obstruction type: unspecified Qualified Code(s): K56.609 - Unspecified intestinal obstruction, unspecified as to partial versus complete obstruction (5) GERD (gastroesophageal reflux disease) Esophagitis presence: esophagitis presence not specified Qualified Code(s): K21.9 - Gastro-esophageal reflux disease without esophagitis (6) HTN (hypertension) Hypertension type: essential hypertension Qualified Code(s): I10 - Essential (primary) hypertension
--- NOTE | 2018-08-20 11:12 | Nephrology Consultation ---
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 Fistula recently had intervention with stent currently working well. Last dialysis was Tuesday as her regular schedule. Currently volume status, electrolyte acceptable. Admitted to the hospital with a week history of fatigue, weakness, nausea, loss of appetite and weight loss and 2 episodes of near-syncope. Recent diagnosis of endometrial cancer, vaginal bleeding stopped. On admission CT scan suggestive of small-bowel obstruction. Patient prefer not to have any surgical intervention at this time, refused NG tube. Currently kept on NPO, IV fluid Hemoglobin relatively stable at her baseline. --continue to monitor clinically with conservative management for small bowel obstruction as per patient wish --plan for hemodialysis tomorrow for 3 hours 15 minutes as her outpatient prescription. UF as tolerated to reach her dry weight --okay to continue on IV fluid while she is NPO --will give HANS 61340 units with HD tomorrow --dose medications for GFR less than 10 Will follow Thank you for allowing me to participate in your patient's care. It was a pleasure to see Bethany (2) Anemia: (3) Near syncope: (4) Secondary hyperparathyroidism of renal origin: (5) HTN (hypertension): (6) Diabetes: History of Present Illness Reason for Consultation: End-stage renal disease on hemodialysis. Attending Physician: Angela Reilly MD History of Present Illness Bethany Farr is a 82-year-old female past medical history significant for end- stage renal disease on hemodialysis, hypertension, diabetes, recent history of uterine cancer, history of Crohn's disease status post ileostomy admitted to the hospital with small bowel obstruction. Nephrology consult was requested to manage dialysis while in hospital. Bethany has end-stage renal disease secondary to hypertensive and diabetic nephropathy, has been on dialysis Tuesday, Tuesday, Tuesday at [facility]. She has been having dialysis regularly. She has left brachiocephalic AV fistula, had a fistulogram and stent placed almost 10 days ago. Over last 4 5 days she has been feeling unwell, appetite has been low, feeling tired and had 2 episodes of near syncope and eventually presented to the emergency room for further evaluation. ED CT abdomen pelvis was concerning for small bowel obstruction. She has history of ileostomy done in 1973 for Crohn's disease. She refused any surgical intervention or NG tube at this time. She has been NPO and continued on IV normal saline at 75 hour. Has been having liquid output from ileostomy. She was recently diagnosed with uterine cancer, following with gynecology. Has been having off and on vaginal bleeding, hemoglobin dropped recently and r eceived blood transfusion almost 3 weeks ago. Vaginal bleeding currently stopped and hemoglobin is stable at 8.5 2.6. She continues to feel fatigued and has been losing weight over last few weeks. Denies shortness of breath or chest pain. Blood pressure has been stable. Allergies Allergy/AdvReac Type Severity Reaction Status Date / Time No Known Allergies Allergy Mild Verified 08/19/18 16:21 Home Medications Home Medications Medication Instructions Recorded Confirmed Type Novolin 70/30 U-100 Insulin 60 unit SUBCUT QAM 02/10/18 08/19/18 History allopurinol [Zyloprim] 100 mg PO QAM 02/10/18 08/19/18 History anastrozole [Arimidex] 1 mg PO QAM 02/10/18 08/19/18 History ondansetron HCl 8 mg PO TID PRN 02/10/18 08/19/18 History pantoprazole [Protonix] 40 mg PO QAM 02/10/18 08/19/18 History Renal Caps 1 cap PO PM 05/29/18 08/19/18 History Novolin 70/30 U-100 Insulin 35 unit SUBCUT QPM 07/04/18 08/19/18 History amlodipine 2.5 mg PO QAM 07/04/18 08/19/18 History aspirin [Aspir-81] 81 mg PO QAM 07/04/18 08/19/18 History simvastatin 40 mg PO PM 07/20/18 08/19/18 History PreserVision AREDS 1 tab PO BID 07/27/18 08/19/18 History acetaminophen [Tylenol Extra 500 mg PO Q6H PRN 07/27/18 08/19/18 History Strength] cyanocobalamin (vitamin B-12) 1,000 mcg PO PM 07/27/18 08/19/18 History oxycodone 5 mg PO Q4H #15 tab 07/27/18 08/19/18 Rx calcium acetate [Phoslyra] 1,331 mg PO QPM 08/16/18 08/19/18 History Patient History Medical History GERD (gastroesophageal reflux disease) HLD (hyperlipidemia) HTN (hypertension) Gout Chronic ulcerative colitis (Chronic) Secondary hyperparathyroidism of renal origin ESRD on dialysis TUESDAY/TUE/TUESDAY SIRISHA Endometrial cancer (Chronic 07/01/17) "Postmenopausal vaginal bleeding. 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 She received 5940 cGy." A-V fistula RT ARM Breast cancer Cancer SKIN CANCER UTERINE CANCER BREAST CANCER Diabetes mellitus, type 2 Kidney stones Macular edema RECIEVES SHOTS Osteoarthritis Peripheral neuropathy Surgical History H/O partial mastectomy RT SIDE History of bowel resection History of breast biopsy BENIGN History of colonoscopy History of ileostomy History of tonsillectomy History of tooth extraction S/P Mohs surgery for basal cell carcinoma NOSE Tumor UTERINE TUMOR REMOVED (RADIATION THERAPY) Family History Mother Family history of diabetes mellitus Social History Preferred Language: Kazakh Communication Ability: Effective Beliefs That Will Affect Care: None Current Living Situation: Family Current Living Situation Comment: lives with daughter Feels Safe at Home: Yes Smoking Status: Never smoker Second Hand Exposure: No Hx Alcohol Use: No Hx Substance Use: No Review of Systems Review of Systems: All systems reviewed & are unremarkable except as noted in HPI & below Physical Exam Physical Exam: GENERAL: Elderly female, AAA x 3, pleasant, ill -appearing, pale, not in any distress. HEENT: Atraumatic, normocephalic. NECK: Supple, no JVD, no carotid bruit appreciated. ENT: No sinus tenderness MOUTH and THROAT: Moist oral mucosa, RESPIRATORY: Normal breathing efforts, clear to auscultation bilaterally, no wheezes or rales. CARDIOVASCULAR: S1, S2 normal, rate rhythm regular. ABDOMEN: Soft, nontender, positive bowel sound. Ileostomy in place. MUSCULOSKELETAL: No joint swelling, erythema or tenderness. Normal range of deja on. SKIN: No skin rash EXTREMITY: No lower extremity edema ACCESS: Left brachiocephalic AV fistula thrill and bruit NEURO: No gross focal neurological deficit, speech fluent. PSYCHIATRY: Normal mood and judgment Results & Data Vital Signs (Past 12 Hours) Vital Signs Temp Pulse Resp BP Pulse Ox 08/20/18 07:24 36.6 C 78 16 148/69 H 92 08/19/18 23:14 36.8 C 76 18 155/53 H 93 (1) Anemia Anemia type: unspecified type Qualified Code(s): D64.9 - Anemia, unspecified (2) HTN (hypertension) Hypertension type: essential hypertension Qualified Code(s): I10 - Essential (primary) hypertension (3) Diabetes Diabetes mellitus type: type 2 Diabetes mellitus jail insulin use: with terminal operations supervisor use Diabetes mellitus complication status: with kidney complications Diabetes mellitus complication detail: with chronic kidney disease Chronic kidney disease stage: on chronic dialysis Qualified Code(s): E11.22 - Type 2 diabetes mellitus with diabetic chronic kidney disease; N18.6 - End stage renal disease; Z79.4 - senior care (current) use of insulin; Z99.2 - Dependence on renal dialysis
[2018-08-20] MEDS ORDERED: SODIUM CHLORIDE 0.9% 1000ML 1,000 ML IV SCH (12:30)
[2018-08-20] MEDS: ACETAMINOPHEN 65 ML IV PRN (20:11)
[2018-08-21 06:34] LABS: Basophils # (auto) 0.05 K/uL (0-0.2); Basophils % (auto) 1.1 %; Eosinophils # (auto) 0.12 K/uL (0-0.5); Eosinophils % (auto) 2.6 %; Hemoglobin 8.6 g/dL (12.0-16.0); Immature Granulocytes # (auto) 0.13 K/uL (0.00-0.02); Immature Granulocytes % (auto) 2.8 %; Lymphocytes % (auto) 10.7 %; Mean Corpuscular Hgb Conc 29.7 g/dL (32-36); Mean Corpuscular Volume 93.2 fL (80-100); Mean Platelet Volume 8.8 fL (7.4-10.4); Monocytes # (auto) 0.58 K/uL (0.11-0.59); Monocytes % (auto) 12.4 %; Neutrophils % (auto) 70.4 %; Nucleated RBC # (auto) 0.02 K/uL (0-0); Nucleated RBC % (auto) 0.5 %; Platelet Count 288 K/uL (130-400); RDW Coefficient of Variation 17.7 % (11.5-14.5); RDW Standard Deviation 59.6 fL (36.4-46.3); Red Blood Count 3.11 M/uL (4.2-5.4); White Blood Count 4.68 K/uL (4.8-10.8)
[2018-08-21] MEDS ORDERED: SODIUM CHLORIDE 0.9% 1000ML 1,000 ML IV PRN (07:00)
[2018-08-21] MEDS ORDERED: EPOETIN ALFA 10,000 UNITS/ML VIAL IV SCH (07:00)
[2018-08-21 07:12] LABS: BUN Creatinine Ratio 3.8 (10-20); Calcium 8.8 mg/dl (8.5-10.1); Creatinine Clr Calc Pharmacy 4.4 ml/min; Est GFR (African American) 4.7; Est GFR (Non-African American) 4.1
[2018-08-21] MEDS: ASPIRIN 81 MG ECTAB PO SCH (08:44)
[2018-08-21] MEDS: ANASTROZOLE 1 MG TAB PO SCH (08:44)
[2018-08-21] MEDS: PANTOprazole 40 MG TAB PO SCH (08:45)
[2018-08-21] MEDS: ALLOPURINOL 100 MG TAB PO SCH (08:45)
[2018-08-21] MEDS: INSULIN GLARGINE SOLOSTAR 100 UNITS/ML 3 ML PEN SC SCH ×2 (08:55→22:14)
[2018-08-21] MEDS: INSULIN ASPART 100 UNITS/ML 3 ML PEN SC SCH ×4 (08:56→22:13)
[2018-08-21] MEDS: ACETAMINOPHEN 65 ML IV PRN ×2 (09:52→18:13)
[2018-08-21] MEDS ORDERED: SODIUM CHLORIDE 0.9% 250 ML IV PRN (10:10)
--- NOTE | 2018-08-21 10:19 | Nephrology Progress Note ---
Date of Service August 21, 2018 Assessment & Plan (1) ESRD on dialysis: -- HD MWF 3:15 hrs, UF goal 1-2 L -- Electrolytes and volume status acceptable -- Bethany is struggling with dialysis and end-of-life decisions; palliative care consultation has been requested for assistance -- Medications are acceptable for kidney function (2) Anemia: -- 1 u PRBC to be provided with HD today (3) Endometrial cancer: (4) Bowel obstruction: -- Clinically improving -- Tolerating clear liquid diet -- Opiates held -- Palliative care consult to assist with pain management Subjective No acute events overnight. Bethany and I had a long conversation today. She unfortunately is not doing well. She continues to struggle with persistent back pain. She denies significant vaginal bleeding but notes an intermittent pink discharge. Appetite is very poor. She denies abdominal pain. Ostomy output is liquid. Bethany is losing weight and her baseline activity tolerance has signif icantly declined. Bethany is talking about end of life planning but has significant concerns regarding being able to provide appropriate care and support for her daughter (Elizabeth). Elizabeth has multiple medical and developmental challenges. Bethany has discussed her concerns with her other daughter and her sisters. Review of Systems Review of Systems: All systems reviewed & are unremarkable except as noted in HPI & below Physical Exam Constitutional: + thin and + frail appearing Eyes: no scleral abnormality and no corneal abnormality ENMT: Mouth: no oral mucosal abnormality and oral mucous membranes not dry Neck: trachea midline Thyroid: normal thyroid Respiratory: no respiratory distress Auscultation: lungs clear to auscultation bilaterally Cardiovascular: Heart Sounds: normal S1, normal S2 and + murmur Extremities: + AV fistula Gastrointestinal (Abdomen): Percussion/Palpation: abdomen soft; abdomen nontender ostomy with liquid stool Musculoskeletal: Extremities: + cyanosis (left hand slightly cyanotic with decreased refill); no clubbing Skin: no rashes Neurologic: Motor/Sensory: no tremor and no asterixis Results & Data Vital Signs (Past 12 Hours) Vital Signs Temp Pulse Resp BP Pulse Ox 08/21/18 07:00 37.0 C 69 15 165/68 H 93 08/20/18 23:00 36.8 C 72 18 143/69 H 93 Laboratory Results Laboratory Results - last 24 hr 08/20/18 08/20/18 08/20/18 12:08 17:31 21:00 WBC RBC Hgb Hct MCV MCH MCHC RDW Std Deviation RDW Coeff of Aparna Plt Count MPV Immature Gran % (Auto) Neut % (Auto) Lymph % (Auto) [facility] % (Auto) Eos % (Auto) Baso % (Auto) Immature Gran # (Auto) Neut # (Auto) Lymph # (Auto) [facility] [place] [facility] # (Auto) Eos # (Auto) Baso # (Auto) Absolute Nucleated RBC Nucleated RBC % (auto) Sodium Potassium Chloride Carbon Dioxide Anion Gap BUN Creatinine Est Cr Clr Drug Dosing Est GFR ( Amer) Est GFR (Non-Af Amer) BUN/Creatinine Ratio Glucose POC Glucose 140 H 104 H 112 H Calcium Nasal Screen MRSA (PCR) 08/20/18 08/21/18 08/21/18 23:53 06:06 06:06 WBC 4.68 L RBC 3.11 L Hgb 8.6 L Hct 29.0 L MCV 93.2 MCH 27.7 MCHC 29.7 L RDW Std Deviation 59.6 H RDW Coeff of Aparna 17.7 H Plt Count 288 MPV 8.8 Immature Gran % (Auto) 2.8 Neut % (Auto) 70.4 Lymph % (Auto) 10.7 [facility] [place] [facility] % (Auto) 12.4 Eos % (Auto) 2.6 Baso % (Auto) 1.1 Immature Gran # (Auto) 0.13 H Neut # (Auto) 3.30 Lymph # (Auto) 0.[address] [place] [facility] # (Auto) 0.58 Eos # (Auto) 0.12 Baso # (Auto) 0.05 Absolute Nucleated RBC 0.02 H Nucleated RBC % (auto) 0.5 Sodium 136 Potassium 4.0 Chloride 98 Carbon Dioxide 31 Anion Gap 7.0 BUN 31 H Creatinine 8.19 H* D Est Cr Clr Drug Dosing 4.4 Est GFR ( Amer) 4.7 Est GFR (Non-Af Amer) 4.1 BUN/Creatinine Ratio 3.8 L Glucose 73 POC Glucose Calcium 8.8 Nasal Screen MRSA (PCR) Negative 08/21/18 08:07 WBC RBC Hgb Hct MCV MCH MCHC RDW Std Deviation RDW Coeff of Aparna Plt Count MPV Immature Gran % (Auto) Neut % (Auto) Lymph % (Auto) [facility] [place] [facility] % (Auto) Eos % (Auto) Baso % (Auto) Immature Gran # (Auto) Neut # (Auto) Lymph # (Auto) [facility] # (Auto) Eos # (Auto) Baso # (Auto) Absolute Nucleated RBC Nucleated RBC % (auto) Sodium Potassium Chloride Carbon Dioxide Anion Gap BUN Creatinine Est Cr Clr Drug Dosing Est GFR ( Amer) Est GFR (Non-Af Amer) BUN/Creatinine Ratio Glucose POC Glucose 85 Calcium Nasal Screen MRSA (PCR) (1) Anemia Anemia type: unspecified type Qualified Code(s): D64.9 - Anemia, unspecified (2) Bowel obstruction Intestinal obstruction extent: unspecified extent Intestinal obstruction type: unspecified Qualified Code(s): K56.609 - Unspecified intestinal obstruction, unspecified as to partial versus complete obstruction
--- NOTE | 2018-08-21 10:49 | Hospitalist Progress Note ---
Date of Service August 21, 2018 Assessment & Plan (1) Bowel obstruction: Patient presenting with SBO most likely secondary to intraabdominal adhesions. She is presently without pain or nausea, abdomen is soft and nondistended with normoactive bowel sounds. Ileostomy in place with liquid output, continues to improve. Patient does not wish to have surgery. -tolerating clear liquid diet, she would like to eat more prior to discharge advance to diabetic diet -stop fluids as her intake is improved -Zofran and Morphine PRN -Cautious use of narcotics possible d/c home in 24-48 hours (2) Adult failure to thrive: Overall patient describes 5 months of functional decline, poor appetite, weight loss and decreased mobility. She is presently living with one daughter, other daughter resides in [place], [place]. They express desire to have some in-home assistance -PT/OT and CM consultation for home health needs. Appreciate assistance with this case not much of an appetite, unsure if this will improve she would like to discuss with hospice/palliative care consult placed for palliative today (3) Anemia: Patient reports longstanding history of vaginal bleeding in setting of endometrial CA. She follows with Dr. Torres as well as [facility] for this. She has been transfused with 2u PRBCs appx 2 weeks ago. States that she has not had bleeding for the last 4 weeks. -She reports pink vaginal discharge today. - H&H noted to be 8.6 today, one unit of PRBC transfused after HD -Will avoid chemoprophylaxis for DVT -Followup with Dr. Torres as scheduled in the next 1-2 weeks - discussion for possible uterine artery embolization should her bleeding continue (4) End stage renal disease: Patient with ESRD on HD q M/W/. Received a full treatment Tuesday08-18-28. Follows with Dr. Juárez. She has minimal UOP - HD today per Dr. Juárez - resume Nephrocaps and PhosLo on discharge (5) Diabetes: -Continue Lantus 5u BID, ISS -Continue to monitor for hypoglycemia will resume home regimen once she is eating more and ready for d/c (6) GERD (gastroesophageal reflux disease): Chronic. Stable -Resume Protonix when SBO resolves (7) HLD (hyperlipidemia): Chronic. Stable -Hold Simvastatin for now (8) HTN (hypertension): Blood pressure presently stable -Hold Amlodipine for now -Continue to monitor (9) Gout: Chronic. Stable -Holding Allopurinol for now while NPO, resume when SBO resolves Ppx - SCDs and TEDs to bilateral LEs Code - Full Dispo - Discharge when SBO resolved. possible in 24-48 hours Subjective patient feeling better overall since admission tolerating clear liquid diet, drank her broth, juice and frozen ice today ostomy functioning well, making liquid stool and gas abdomen is no longer distended like it was on admission, mild intermittent pain only reviewed labs, needs HD today patient had a long talk with Dr. Juárez today, she has concerns about overall health last few weeks have not been good, losing weight, back pain, decreased mobility her primary concerns are about her daughter who is 61, she has some general needs in terms of care her other daughter lives in [place] and unfortunately her daughter refuses to go to live with her looking into home health, aides patient is open to discussing plans of care with palliative care, they have been consulted she would like to be eating more prior to going home, will advance diet Review of Systems Review of Systems: All systems reviewed & are unremarkable except as noted in HPI & below Constitutional: + fatigue, + weakness and + weight loss; no fever, no chills and no sweats Respiratory: no cough and no dyspnea Cardiovascular: no chest pain Gastrointestinal: + abdominal pain (mild, better with Tylenol); no bloating, no nausea, no vomiting, no constipation and no diarrhea/loose stools Physical Exam Constitutional: WD/WN, vitals as above Eyes: PERRL, conjunctivae normal, anicteric sclerae ENMT: external ear and nose normal, oropharynx normal Neck: trachea midline, no thyromegaly Respiratory: normal respiratory effort, lungs clear to auscultation Cardiovascular: RRR, no murmur, no edema Gastrointestinal (Abdomen): Inspection/Auscultation: abdomen normal to inspection (ostomy in place) and normal bowel sounds; abdomen not distended Percussion/Palpation: abdomen soft; abdomen nontender, no guarding and abdomen not rigid Musculoskeletal: no cyanosis or clubbing, extremities motor strength 5/5 Skin: no rashes, warm and dry Neurologic: patellar DTR's 2+ bilat, sensation intact and PERRL, EOMI, accommodation nl, no face palsy, no dysarthria Psychiatric: A+Ox3, euthymic affect Lymphatic: no cervical or axillary lymphadenopathy Results & Data Vital Signs (Past 12 Hours) Vital Signs Temp Pulse Resp BP Pulse Ox 08/21/18 07:00 37.0 C 69 15 165/68 H 93 08/20/18 23:00 36.8 C 72 18 143/69 H 93 Laboratory Results Laboratory Results - last 24 hr 08/20/18 08/20/18 08/20/18 12:08 17:31 21:00 WBC RBC Hgb Hct MCV MCH MCHC RDW Std Deviation RDW Coeff of Aparna Plt Count MPV Immature Gran % (Auto) Neut % (Auto) Lymph % (Auto) Norman % (Auto) Eos % (Auto) Baso % (Auto) Immature Gran # (Auto) Neut # (Auto) Lymph # (Auto) Norman # (Auto) Eos # (Auto) Baso # (Auto) Absolute Nucleated RBC Nucleated RBC % (auto) Sodium Potassium Chloride Carbon Dioxide Anion Gap BUN Creatinine Est Cr Clr Drug Dosing Est GFR ( Amer) Est GFR (Non-Af Amer) BUN/Creatinine Ratio Glucose POC Glucose 140 H 104 H 112 H Calcium Nasal Screen MRSA (PCR) Blood Type Antibody Screen Crossmatch 08/20/18 08/21/18 08/21/18 23:53 06:06 06:06 WBC 4.68 L RBC 3.11 L Hgb 8.6 L Hct 29.0 L MCV 93.2 MCH 27.7 MCHC 29.7 L RDW Std Deviation 59.6 H RDW Coeff of Aparna 17.7 H Plt Count 288 MPV 8.8 Immature Gran % (Auto) 2.8 Neut % (Auto) 70.4 Lymph % (Auto) 10.7 Norman % (Auto) 12.4 Eos % (Auto) 2.6 Baso % (Auto) 1.1 Immature Gran # (Auto) 0.13 H Neut # (Auto) 3.30 Lymph # (Auto) 0.50 L Norman # (Auto) 0.58 Eos # (Auto) 0.12 Baso # (Auto) 0.05 Absolute Nucleated RBC 0.02 H Nucleated RBC % (auto) 0.5 Sodium 136 Potassium 4.0 Chloride 98 Carbon Dioxide 31 Anion Gap 7.0 BUN 31 H Creatinine 8.19 H* D Est Cr Clr Drug Dosing 4.4 Est GFR ( Amer) 4.7 Est GFR (Non-Af Amer) 4.1 BUN/Creatinine Ratio 3.8 L Glucose 73 POC Glucose Calcium 8.8 Nasal Screen MRSA (PCR) Negative Blood Type Antibody Screen Crossmatch 08/21/18 08/21/18 08:07 10:22 WBC RBC Hgb Hct MCV MCH MCHC RDW Std Deviation RDW Coeff of Aparna Plt Count MPV Immature Gran % (Auto) Neut % (Auto) Lymph % (Auto) Norman % (Auto) Eos % (Auto) Baso % (Auto) Immature Gran # (Auto) Neut # (Auto) Lymph # (Auto) Norman # (Auto) Eos # (Auto) Baso # (Auto) Absolute Nucleated RBC Nucleated RBC % (auto) Sodium Potassium Chloride Carbon Dioxide Anion Gap BUN Creatinine Est Cr Clr Drug Dosing Est GFR ( Amer) Est GFR (Non-Af Amer) BUN/Creatinine Ratio Glucose POC Glucose 85 Calcium Nasal Screen MRSA (PCR) Blood Type Pending Antibody Screen Pending Crossmatch See Detail Medications Administered Current Inpatient Medications [facility] Stop: 09/20/18 08:59 Last Admin: 08/21/18 08:45 Dose: 100 mg Documented by: Amlodipine Besylate (Norvasc) [facility] Stop: 09/20/18 08:59 Anastrozole (Arimidex) 1 mg PO QAM [facility] Stop: 09/19/18 08:59 Last Admin: 08/21/18 08:44 Dose: 1 mg Documented by: Aspirin (Ecotrin Ectab) [facility] Stop: 09/20/18 08:59 Last Admin: 08/21/18 08:44 Dose: 81 mg Documented by: Calcium Acetate (Phoslo) 1,334 mg PO 1700 [facility] Stop: 09/20/18 16:59 Cyanocobalamin (Vitamin B-12) 1,000 mcg PO 1700 [facility] Stop: 09/20/18 16:59 Dextrose (Dextrose 50%) 25 - 50 ml IV UD PRN; Protocol PRN Reason: Hypoglycemia Protocol Stop: 09/18/18 21:39 Epoetin Migue (Procrit) 10,000 units IV 0700 [facility] Stop: 08/21/18 16:00 Glucagon (Glucagen) 1 mg SQ UD PRN; Protocol PRN Reason: Hypoglycemia Protocol Stop: 09/18/18 21:39 Glucose (Glucose 40%) 15 - 30 gm PO UD PRN; Protocol PRN Reason: Hypoglycemia Protocol Stop: 09/18/18 21:39 Glucose (Dex4 Glucose) 4 - 8 tabs PO UD PRN; Protocol PRN Reason: Hypoglycemia Protocol Stop: 09/18/18 21:39 Acetaminophen (Ofirmev) 65 mls @ 200 mls/hr IV Q8H PRN PRN Reason: pain Stop: 09/18/18 21:39 Last Infusion: 08/21/18 10:22 Dose: Infused Documented by: Sodium Chloride (Nss 1000ml) 1,000 mls @ 0 mls/hr IV .Q0M PRN PRN Reason: For Hemodialysis Use ONLY Stop: 08/21/18 12:59 Sodium Chloride (Nss) 250 mls @ 15 mls/hr IV .[id number] PRN PRN Reason: For Transfusion Stop: 09/20/18 10:09 Insulin Aspart (Novolog Flexpen) 0 units SC ACHS YG Stop: 09/19/18 20:59 Last Admin: 08/21/18 08:56 Dose: 2 units Documented by: Insulin Glargine (Lantus Solostar Pen) 5 units SC BID YG Stop: 09/18/18 22:29 Last Admin: 08/21/18 08:55 Dose: 5 units Documented by: Miscellaneous (Carbohydrates For Hypoglycemia) 15 - 30 gm PO UD PRN PRN Reason: Hypoglycemia Treatment Stop: 09/18/18 21:39 Morphine Sulfate (Morphine Sulfate) 0.5 mg IV Q4H PRN PRN Reason: Pain Stop: 09/02/18 21:39 Ondansetron HCl (Zofran) 4 mg IV Q6H PRN PRN Reason: Nausea Stop: 09/18/18 21:39 Pantoprazole Sodium (Protonix) 40 mg PO QAM YG Stop: 09/20/18 08:59 Last Admin: 08/21/18 08:45 Dose: 40 mg Documented by: Simvastatin (Zocor) 40 mg PO PM YG Stop: 09/20/18 20:59 Vitamin B Complex/Folic Acid (Nephrocaps) 1 cap PO PM YG Stop: 09/20/18 20:59 PG Care Time/CCT Total # of Minutes Spent Total Time Spent with Patient: Total time spent is greater than 50% in coordination of care (as documented) at patient's floor/unit and/or counseling patient: (1) Diabetes Chronic kidney disease stage: on chronic dialysis Diabetes mellitus complication detail: with chronic kidney disease Diabetes mellitus complication status: with kidney complications 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 use: with laundry or dry cleaners counter clerk use Diabetes mellitus type: type 2 Qualified Code(s): E11.22 - Type 2 diabetes mellitus with diabetic chronic kidney disease; N18.6 - End stage renal disease; Z79.4 - intermediate (current) use of insulin; Z99.2 - Dependence on renal dialysis (2) Anemia Anemia type: unspecified type Qualified Code(s): D64.9 - Anemia, unspecified (3) HLD (hyperlipidemia) Hyperlipidemia type: unspecified Qualified Code(s): E78.5 - Hyperlipidemia, unspecified (4) Bowel obstruction Intestinal obstruction extent: unspecified extent Intestinal obstruction type: unspecified Qualified Code(s): K56.609 - Unspecified intestinal obstruction, unspecified as to partial versus complete obstruction (5) GERD (gastroesophageal reflux disease) Esophagitis presence: esophagitis presence not specified Qualified Code(s): K21.9 - Gastro-esophageal reflux disease without esophagitis (6) HTN (hypertension) Hypertension type: essential hypertension Qualified Code(s): I10 - Essential (primary) hypertension
[2018-08-21] MEDS: AMLODIPINE BESYLATE 5 MG TAB PO SCH (13:46)
--- NOTE | 2018-08-21 15:14 | Palliative Care Consultation ---
Date of Consultation August 21, 2018 Assessment & Plan (1) Palliative care encounter: This is an 82 year old female patient who resides at home. Patient presented to the hospital with symptoms that were confirmed to be a SBO which is likely secondary to intraabdominal adhesions and she declined any surgical intervention. The patient does have endometrial cancer for which she is followed by Dr. Torres. Additional complicating PMH includes ESRD for which she receives HD M/W/F and is a patient of Dr. Juárez. Additional PMH includes DM2, HLD, HTN, gout, and GERD. Palliative Care was consulted to discuss goals of care. -I met with patient in room 385-2. No family at the bedside. -Patient expressed that she 'has some decisions to make'. The patient went on to discuss her daughter, Kelsea who lives with her and she has to make sure she is comfortable with all decisions. -The patient stated that she knows she has multiple comorbidities and has to start thinking about the future. The patient did go off on a lengthy tangent about home repairs that she would like to do prior to downsizing. She lives in a ranch home with 3 bedrooms and 1.5 bathrooms. the patient did appear to 'shy away' from overall goal discussions, but she did say she has a living will that she needs to update because she and her decesased did a will years ago when they were very healthy. -The patient has been a Nephrology patient for the last year and a half and she expressed she is getting weaker, but stated "I am nowhere near ready to give up HD" and just has to take it easy on HD days. -The patient explained her gynecological history and expressed that last year she received 31 radiation treatments for her uterine ca, but did not use any chemotherapy. The patient sees Dr. Torres. -The patient expressed she would be very willing and eager to hear about more home health options once discharged. She has been tolerating her clear liquid diet and feels like she overall is improving. -We did discuss her code status and I explained CPR, intubation etc. She did express that she would like to be a DNR which I changed in the computer. -The patient does not have any pain needs at this time. She did express that her first priority when discharged is updating her living will. Her daughter, Magda, who lives in [place], is her POA. The patient is of sound decision making at this time. -At this time, the patient did express that she is very willing to have us come back and talk to her tomorrow to further talk and she will create some questions for us to answer for her as she needs time to 'formulate her thoughts'. -PPS: 50% (2) Adult failure to thrive: (3) End stage renal disease: (4) Bowel obstruction: Intestinal obstruction extent: unspecified extent Intestinal obstruction type: unspecified Qualified Code(s): K56.609 - Unspecified intestinal obstruction, unspecified as to partial versus complete obstruction (5) Malignant neoplasm of upper-outer quadrant of right breast in female, estrogen receptor positive: History of Present Illness Reason for Consultation: goals of care Requesting Physician: Dr. Juárez Attending Physician: Dewayne Huff, History of Present Illness This is an 82 year old female patient who resides at home. Patient presented to the hospital with symptoms that were confirmed to be a SBO which is likely secondary to intraabdominal adhesions and she declined any surgical intervention. The patient does have endometrial cancer for which she is followed by Dr. Torres. Additional complicating PMH includes ESRD for which she receives HD M/W/F and is a patient of Dr. Juárez. Additional PMH includes DM2, HLD, HTN, gout, and GERD. Palliative Care was consulted to discuss goals of care. Please see A/P for further details. Thank you kindly for involving palliative care with this patient. We will follow to continue to assist with decision making. Allergies Allergy/AdvReac Type Severity Reaction Status Date / Time No Known Allergies Allergy Mild Verified 08/19/18 16:21 Home Medications Home Medications Medication Instructions Recorded Confirmed Type Novolin 70/30 U-100 Insulin 60 unit SUBCUT QAM 02/10/18 08/19/18 History allopurinol [Zyloprim] 100 mg PO QAM 02/10/18 08/19/18 History anastrozole [Arimidex] 1 mg PO QAM 02/10/18 08/19/18 History ondansetron HCl 8 mg PO TID PRN 02/10/18 08/19/18 History pantoprazole [Protonix] 40 mg PO QAM 02/10/18 08/19/18 History Renal Caps 1 cap PO PM 05/29/18 08/19/18 History Novolin 70/30 U-100 Insulin 35 unit SUBCUT QPM 07/04/18 08/19/18 History amlodipine 2.5 mg PO QAM 07/04/18 08/19/18 History aspirin [Aspir-81] 81 mg PO QAM 07/04/18 08/19/18 History simvastatin 40 mg PO PM 07/20/18 08/19/18 History PreserVision AREDS 1 tab PO BID 07/27/18 08/19/18 History acetaminophen [Tylenol Extra 500 mg PO Q6H PRN 07/27/18 08/19/18 History Strength] cyanocobalamin (vitamin B-12) 1,000 mcg PO PM 07/27/18 08/19/18 History oxycodone 5 mg PO Q4H #15 tab 07/27/18 08/19/18 Rx calcium acetate [Phoslyra] 1,331 mg PO QPM 08/16/18 08/19/18 History Patient History Medical History GERD (gastroesophageal reflux disease) HLD (hyperlipidemia) HTN (hypertension) Gout Chronic ulcerative colitis (Chronic) ESRD on dialysis TUESDAY/TUE/TUESDAY AMBLER Endometrial cancer (Chronic 07/01/17) "Postmenopausal vaginal bleeding. 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 She received 5940 cGy." A-V fistula RT ARM Breast cancer Cancer SKIN CANCER UTERINE CANCER BREAST CANCER Diabetes mellitus, type 2 Kidney stones Macular edema RECIEVES SHOTS Osteoarthritis Peripheral neuropathy Surgical History H/O partial mastectomy RT SIDE History of bowel resection History of breast biopsy BENIGN History of colonoscopy History of ileostomy History of tonsillectomy History of tooth extraction S/P Mohs surgery for basal cell carcinoma NOSE Tumor UTERINE TUMOR REMOVED (RADIATION THERAPY) Family History Mother Family history of diabetes mellitus Social History Preferred Language: Tongan Communication Ability: Effective Beliefs That Will Affect Care: None Current Living Situation: Family Current Living Situation Comment: lives with daughter Feels Safe at Home: Yes Smoking Status: Never smoker Second Hand Exposure: No Hx Alcohol Use: No Hx Substance Use: No Review of Systems Review of Systems: All systems reviewed & are unremarkable except as noted in HPI & below Physical Exam Constitutional: well developed, well nourished, + well hydrated and healthy appearing Eyes: PERRL, conjunctivae normal, anicteric sclerae ENMT: external ear and nose normal, oropharynx normal Respiratory: no respiratory distress and no labored breathing Auscultation: + diminished lung sounds Cardiovascular: Rate/Rhythm: regular rate and regular rhythm Vessels: no JVD Extremities: normal capillary refill and + AV fistula (left upper arm (+) bruit and (+) thrill) Gastrointestinal (Abdomen): normal bowel sounds, soft, nontender, no hepatosplenomegaly LLQ ostomy green liquid output. Stoma healthy-appearing and red. Skin: no rashes, warm and dry normal turgor Psychiatric: A+Ox3, euthymic affect Insight: good insight Judgement: good judgement Lymphatic: no cervical or axillary lymphadenopathy Results & Data Vital Signs (Past 12 Hours) Vital Signs Temp Pulse Resp BP Pulse Ox 08/21/18 15:02 36.5 C 83 17 114/64 97 08/21/18 07:00 37.0 C 69 15 165/68 H 93 PG Care Time/CCT Total # of Minutes Spent Total Time Spent with Patient: Total time spent is greater than 50% in coordination of care (as documented) at patient's floor/unit and/or counseling patient: 70 Time Spent Midlevel Total time spent 70 minutes with > 50% of that time spent assessing the patient, discussing goals of care, including code status and discussing with IDT.
[2018-08-21] MEDS: CALCIUM ACETATE 667 MG CAP PO SCH (17:51)
[2018-08-21] MEDS: NEPHROCAPS PO SCH (22:12)
[2018-08-21] MEDS: CYANOCOBALAMIN 500 MCG TABLET (VITAMIN B-12) PO SCH (22:12)
[2018-08-21] MEDS: SIMVASTATIN 40 MG TAB PO SCH (22:13)
[2018-08-22] MEDS: ACETAMINOPHEN 65 ML IV PRN ×2 (03:35→12:30)
[2018-08-22 06:51] LABS: Hematocrit (blood only) 36.1 % (37-47); Hemoglobin 11.1 g/dL (12.0-16.0); Mean Corpuscular Hgb Conc 30.7 g/dL (32-36); Mean Corpuscular Volume 89.6 fL (80-100); Mean Platelet Volume 8.7 fL (7.4-10.4); Nucleated RBC # (auto) 0.04 K/uL (0-0); Platelet Count 250 K/uL (130-400); RDW Coefficient of Variation 18.1 % (11.5-14.5); RDW Standard Deviation 58.3 fL (36.4-46.3); Red Blood Count 4.03 M/uL (4.2-5.4); White Blood Count 4.24 K/uL (4.8-10.8)
[2018-08-22 07:11] LABS: Anisocytosis Present; Basophils # (auto) 0.06 K/uL (0-0.2); Basophils % (auto) 1.4 %; Eosinophils % (auto) 2.4 %; Immature Granulocytes # (auto) 0.25 K/uL (0.00-0.02); Immature Granulocytes % (auto) 5.9 %; Lymphocytes # (auto) 0.48 K/uL (1.2-3.4); Lymphocytes % (auto) 11.3 %; Monocytes # (auto) 0.61 K/uL (0.11-0.59); Monocytes % (auto) 14.4 %; Neutrophils # (auto) 2.74 K/uL (1.4-6.5); Neutrophils % (auto) 64.6 %; Polychromasia 1+; Toxic Granulation 2+
[2018-08-22 07:33] LABS: BUN Creatinine Ratio 2.7 (10-20); Creatinine Clr Calc Pharmacy 6.6 ml/min; Est GFR (African American) 7.7; Est GFR (Non-African American) 6.6; Potassium 3.8 mmol/L (3.5-5.1)
[2018-08-22] MEDS: PANTOprazole 40 MG TAB PO SCH (08:41)
[2018-08-22] MEDS: ALLOPURINOL 100 MG TAB PO SCH (08:41)
[2018-08-22] MEDS: ASPIRIN 81 MG ECTAB PO SCH (08:41)
[2018-08-22] MEDS: AMLODIPINE BESYLATE 5 MG TAB PO SCH (08:41)
[2018-08-22] MEDS: INSULIN GLARGINE SOLOSTAR 100 UNITS/ML 3 ML PEN SC SCH ×2 (08:42→21:10)
[2018-08-22] MEDS: ANASTROZOLE 1 MG TAB PO SCH (08:42)
[2018-08-22] MEDS: INSULIN ASPART 100 UNITS/ML 3 ML PEN SC SCH ×4 (08:43→21:11)
[2018-08-22] MEDS ORDERED: EPOETIN ALFA 10,000 UNITS/ML VIAL IV SCH (10:30)
--- NOTE | 2018-08-22 10:32 | Progress Note ---
DATE: 08/22/2018 RENAL PROGRESS NOTE SUBJECTIVE: Mrs. Farr says that she is feeling relatively well today. However, she does recognize that she has become increasingly weak and lethargic over the course of the past month. Her history is well documented. She has a colostomy. She also has a history of uterine cancer. Apparently, because of her comorbidities, she was felt not to be a surgical candidate, but did undergo radiation therapy. She had some chronic uterine bleeding, but says that she has not bled for about the past 4 weeks. She tolerated her dialysis yesterday. She did get 1 unit of packed cells and her hemoglobin is higher. She is uncertain as to whether or not she feels significantly better. She denies shortness of breath. She is eating, but says that her appetite is not particularly good. She has had occasional nausea, but has not had any vomiting of late. She was admitted with her fatigue as well as abdominal pain. There was question as to whether or not she had a partial small-bowel obstruction. However, her colostomy is now functional after it has been irrigated. However, she continues to have some mild left lower quadrant abdominal pain. She denies chest pain. She denies significant shortness of breath at rest. She does get a bit orthostatic with lightheadedness when she gets out of bed. OBJECTIVE: GENERAL: On physical exam when seen by me, she appeared to be perfectly comfortable lying in bed, although she was somewhat chronically ill in appearance. VITAL SIGNS: Her blood pressure 156/67 supine. Her pulse 77 and basically regular but with an occasional extrasystole. Respiratory rate was 16, her pulse ox 93% on room air, her temperature was 37.1 degrees centigrade. SKIN: Shows a slight decrease in skin turgor. She has a left upper arm AV fistula which is functional. She has a lower abdominal colostomy as well as a lower midline scar. There is no rash or infiltrative skin disease. LYMPHATICS: Show no palpable lymphadenopathy. HEAD: Normal. EYES: Grossly normal. She is not icteric. Conjunctivae are minimally pale. Pupils are equal and reactive to light. The fundi were not examined. EARS, NOSE, MOUTH AND THROAT: Unremarkable. Her oral mucous membranes are moist. Her papilla seemed to be somewhat flattened on her tongue. NECK: Supple. She has no jugular venous distention, carotid bruit or thyromegaly. CHEST: Clear to auscultation. She has no wheezes, rales or rhonchi. CARDIAC: Shows a basically regular rhythm. She does have an occasional extrasystole. S1 and S2 are normal. She has a systolic murmur at the left sternal border and base. ABDOMEN: Soft. She has some mild left lower quadrant abdominal tenderness. She has the ostomy noted above. I cannot feel any masses. Bowel sounds are normal. I hear no bruits. EXTREMITIES: Showed no cyanosis, clubbing or peripheral edema. Peripheral pulses are diminished in her feet, but they are palpable. She has a left upper arm AV fistula. NEUROLOGIC: Shows no lateralizing changes. She has no asterixis. PERTINENT LABORATORY WORK: From today shows a white count of 4240 with an essentially normal differential. Her hemoglobin is 11.1 (status post transfusion of 1 unit of packed cells yesterday). Her hematocrit 36.1. Her platelet count is 250,000. Clinical chemistries from today show a sodium of 137 mmol/L, potassium 3.8 mmol/L, chloride is 97 mmol/L, and CO2 content 34 mmol/L. Her BUN is 15 and her creatinine 5.48 after her dialysis yesterday. Her random blood sugar was 85. Her serum calcium 9.0. ASSESSMENT: Mrs. Farr appears to be doing reasonably well regarding her acute symptomatology. She is continuing to have some low back pain. She is not short of breath, but she is minimally orthostatic. Her hemoglobin has risen. Nonetheless, she remains somewhat fatigued. Her appetite is not particularly good, but that is multifactorial. PLAN: No changes for now. She can be certainly discharged if she feels well enough to go home. Assuming, however, that she stays in the hospital, dialysis orders are written for tomorrow. Dr. Juárez who is her primary epic cupid analyst will return tomorrow.
[2018-08-22] MEDS: ONDANSETRON INJ 2 MG/ML 2 ML VIAL IV PRN ×2 (12:29→18:10)
--- NOTE | 2018-08-22 12:37 | Consultation ---
Date of Consultation August 22, 2018 Assessment & Plan (1) End stage renal disease: Pt approx 10 days s/p LUE fistulagram and c/o L hand weakness, numbness, and pain. Sx and appearance consistent with possible vascular steal syndrome, although unlikely d/t age of AVF. Will obtain US of AVF as well as arterial to further eval. If steal syndrome is present, will likely require surgical intervention with possible DRIL procedure. Patient was seen, examined, and chart reviewed. Agree with exam and treatment plan of the Vascular PA. Present on Admission?: Yes History of Present Illness Reason for Consultation: LUE hand pain, numbness Attending Physician: Dewayne Huff, DO History of Present Illness 82 yo f with multiple medical problems, including ESRD on HD, admitted with partial SBO, seen in consultation today for L hand numbness/pain that began after her recent LUE fistulagram on 08/11. Pt states that despite having her AVF created almost 2 years ago, she has never experienced L hand pain or numbness prior to her recent fistulagram. Her AVF is running well since procedure, per pt. Pt admits weakness of L hand and numbness and pain that begins in distal forearm to fingers. Pain is worst distal fingertips. No imaging performed. Allergies Allergy/AdvReac Type Severity Reaction Status Date / Time No Known Allergies Allergy Mild Verified 08/19/18 16:21 Home Medications Home Medications Medication Instructions Recorded Confirmed Type Novolin 70/30 U-100 Insulin 60 unit SUBCUT QAM 02/10/18 08/19/18 History allopurinol [Zyloprim] 100 mg PO QAM 02/10/18 08/19/18 History anastrozole [Arimidex] 1 mg PO QAM 02/10/18 08/19/18 History ondansetron HCl 8 mg PO TID PRN 02/10/18 08/19/18 History pantoprazole [Protonix] 40 mg PO QAM 02/10/18 08/19/18 History Renal Caps 1 cap PO PM 05/29/18 08/19/18 History Novolin 70/30 U-100 Insulin 35 unit SUBCUT QPM 07/04/18 08/19/18 History amlodipine 2.5 mg PO QAM 07/04/18 08/19/18 History aspirin [Aspir-81] 81 mg PO QAM 07/04/18 08/19/18 History simvastatin 40 mg PO PM 07/20/18 08/19/18 History PreserVision AREDS 1 tab PO BID 07/27/18 08/19/18 History acetaminophen [Tylenol Extra 500 mg PO Q6H PRN 07/27/18 08/19/18 History Strength] cyanocobalamin (vitamin B-12) 1,000 mcg PO PM 07/27/18 08/19/18 History oxycodone 5 mg PO Q4H #15 tab 07/27/18 08/19/18 Rx calcium acetate [Phoslyra] 1,331 mg PO QPM 08/16/18 08/19/18 History Patient History Medical History GERD (gastroesophageal reflux disease) HLD (hyperlipidemia) HTN (hypertension) Gout Chronic ulcerative colitis (Chronic) ESRD on dialysis TUESDAY/TUE/TUESDAY [place] Endometrial cancer (Chronic 07/01/17) "Postmenopausal vaginal bleeding. 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 She received 5940 cGy." A-V fistula RT ARM Breast cancer Cancer SKIN CANCER UTERINE CANCER BREAST CANCER Diabetes mellitus, type 2 Kidney stones Macular edema RECIEVES SHOTS Osteoarthritis Peripheral neuropathy Surgical History H/O partial mastectomy RT SIDE History of bowel resection History of breast biopsy BENIGN History of colonoscopy History of ileostomy History of tonsillectomy History of tooth extraction S/P Mohs surgery for basal cell carcinoma NOSE Tumor UTERINE TUMOR REMOVED (RADIATION THERAPY) Family History Mother Family history of diabetes mellitus Social History Preferred Language: Turkmen Communication Ability: Effective Beliefs That Will Affect Care: None Current Living Situation: Family Current Living Situation Comment: lives with daughter Feels Safe at Home: Yes Smoking Status: Never smoker Second Hand Exposure: No Hx Alcohol Use: No Hx Substance Use: No Review of Systems Review of Systems: All systems reviewed & are unremarkable except as noted in HPI & below Physical Exam Constitutional: WD/WN, vitals as above well developed, well nourished, + ill appearing (chronically), + thin, + frail appearing, well groomed, cooperative and comfortable; not in distress and not combative Eyes: PERRL, conjunctivae normal, anicteric sclerae EOM intact bilaterally ENMT: external ear and nose normal, oropharynx normal Ears: no hearing impairment Nose: no nasal discharge Throat: no posterior oropharynx abnormality Neck: trachea midline, no thyromegaly no tracheal deviation and neck nontender Respiratory: normal respiratory effort, lungs clear to auscultation able to speak in complete sentences; no cough Auscultation: lungs clear to auscultation bilaterally and + diminished lung sounds; no rhonchi and no wheezes Cardiovascular: Rate/Rhythm: regular rate and regular rhythm Heart Sounds: no gallop and no murmur Vessels: femoral pulses present, posterior tibial pulses present, dorsalis pedis pulses present, brachial pulses present and radial pulses present (+ with doppler L); no carotid bruit, no femoral bruit and + abnormal peripheral pulses Extremities: + AV fistula (LUE with + thrill/bruit); + abnormal capillary refill (delayed l fingers) and no edema Gastrointestinal (Abdomen): normal bowel sounds, soft, nontender, no hepatosplenomegaly Inspection/Auscultation: abdomen normal to inspection and normal bowel sounds; abdomen not distended Percussion/Palpation: abdomen soft; abdomen nontender, no guarding and abdomen not rigid Musculoskeletal: Head/Neck/Chest: normocephalic, head atraumatic and neck supple Extremities: + extremities abnormal to inspection (L fingers pale, waxy, + cap refill, weak patient escort, tender), full ROM of extremities and no clubbing Skin: no rashes, warm and dry normal turgor; no rashes, no lesions, no ulcers, no erythema and no eschar Neurologic: moves all extremities and awake; no focal motor deficits and not confused Speech / Cognition: no expressive aphasia and no receptive aphasia Motor/Sensory: + sensory deficit (L fingers); no tremor Cranial Nerves: EOM intact bilaterally, normal facial strength and tongue midline Psychiatric: Orientation: alert, oriented x 3 and cooperative Apperance: appropriately dressed and appropriately groomed Affect: + depressed affect and + flat affect Thought Process: goal directed thought process, linear/logical thought process and clear/coherent thought process Cognition: recent memory grossly intact, remote memory grossly intact, attention grossly intact and language grossly intact Estimated Intelligence: average estimated intelligence
--- NOTE | 2018-08-22 14:19 | Ultrasound Report ---
US hemodialysis access CLINICAL HISTORY: possible vascular steal syndrome COMPARISON STUDY: No previous studies for comparison. TECHNIQUE: Grayscale and color and duplex Doppler sonography of the left upper extremity AV fistula w as performed. FINDINGS: The left upper extremity AV fistula is patent. Peak systolic velocity is 373 cm/s. No throm bus is identified. There is no adjacent hematoma. Please note that the left upper extremity arterial Doppler ultrasound will be reported separately. IMPRESSION: Patent left upper extremity AV fistula. Electronically signed by: Pardeep Barth M.D. 08/22/2018 2:18 PM
--- NOTE | 2018-08-22 14:53 | Ultrasound Report ---
US arterial duplex UE LT CLINICAL HISTORY: LUE AVF, hand pain/weakness COMPARISON STUDY: None. FINDINGS: Elevated peak systolic velocities within the left brachial artery of 419 cm/s as well as th e left subclavian artery of 207 cm/s. However, no stenosis identified on the provided images. The lef t axillary artery is patent with a peak systolic velocity of 193 cm/s. Low velocity waveforms seen wi thin the left ulnar and radial artery measuring 57 and 29 cm/s, respectively. IMPRESSION: Low velocities within the left ulnar and radial arteries compared to the proximal arteri es as described above. This is concerning for a steal syndrome. Electronically signed by: Mitesh Puga M.D. 08/22/2018 2:52 PM
--- NOTE | 2018-08-22 16:18 | Hospitalist Progress Note ---
Date of Service August 22, 2018 Assessment & Plan (1) Bowel obstruction: Patient presenting with SBO most likely secondary to intraabdominal adhesions. She is presently without pain or nausea, abdomen is soft and nondistended with normoactive bowel sounds. Ileostomy in place with liquid output, continues to improve. Patient does not wish to have surgery. -tolerating diabetic diet, no vomiting, ostomy functioning likely could consider the SBO resolved by tomorrow morning -stop fluids as her intake is improved -Zofran and Morphine PRN -Cautious use of narcotics possible d/c to rehab in 24 hours (2) Adult failure to thrive: Overall patient describes 5 months of functional decline, poor appetite, weight loss and decreased mobility. She is presently living with one daughter, other daughter resides in [place], [place]. They express desire to have some in-home assistance -PT/OT and CM consultation for home health needs. Appreciate assistance with this case not much of an appetite, unsure if this will improve she would like to discuss with hospice/palliative care consult placed for palliative today, appreciate their assistance changed to DNR plan to go to rehab, would be ready tomorrow (3) Anemia: Patient reports longstanding history of vaginal bleeding in setting of endometrial CA. She follows with Dr. Torres as well as [facility] [place]. She has been transfused with 2u PRBCs appx 2 weeks ago. States that she has not had bleeding for the last 4 weeks. -She reports pink vaginal discharge intermittently - H&H noted to be 8.6 yesterday, up to 11.1 after one unit of PRBC with HD yesterday -Will avoid chemoprophylaxis for DVT -Followup with Dr. Torres as scheduled in the next 1-2 weeks - discussion for possible uterine artery embolization should her bleeding continue (4) End stage renal disease: Patient with ESRD on HD q M/W/. Received a full treatment Tuesday08-18-28. Follows with Dr. Juárez. She has minimal UOP - HD 08/[address] Juárez - resume Nephrocaps and PhosLo on discharge plan for HD tomorrow (5) Diabetes: -Continue Lantus 5u BID, ISS -Continue to monitor for hypoglycemia will resume home regimen once she is eating more and ready for d/c (6) GERD (gastroesophageal reflux disease): Chronic. Stable -Resume Protonix when SBO resolves (7) HLD (hyperlipidemia): Chronic. Stable -Hold Simvastatin for now (8) HTN (hypertension): Blood pressure presently stable -Hold Amlodipine for now -Continue to monitor (9) Gout: Chronic. Stable -Holding Allopurinol for now while NPO, resume when SBO resolves Ppx - SCDs and TEDs to bilateral LEs Code - Full Dispo - Discharge when SBO resolved. 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 side, related to fistula plan for angiogram on Tuesday, could come back and have it done as outpatient updated family at the bedside Review of Systems Review of Systems: All systems reviewed & are unremarkable except as noted in HPI & below Physical Exam Constitutional: WD/WN, vitals as above Eyes: PERRL, conjunctivae normal, anicteric sclerae ENMT: external ear and nose normal, oropharynx normal Neck: trachea midline, no thyromegaly Respiratory: normal respiratory effort, lungs clear to auscultation Cardiovascular: RRR, no murmur, no edema Gastrointestinal (Abdomen): Inspection/Auscultation: abdomen normal to inspection (ostomy in place) and normal bowel sounds; abdomen not distended Percussion/Palpation: abdomen soft; abdomen nontender, no guarding and abdomen not rigid Musculoskeletal: no cyanosis or clubbing, extremities motor strength 5/5 Skin: no rashes, warm and dry Neurologic: patellar DTR's 2+ bilat, sensation intact and PERRL, EOMI, accommodation nl, no face palsy, no dysarthria Psychiatric: A+Ox3, euthymic affect Lymphatic: no cervical or axillary lymphadenopathy Results & Data Vital Signs (Past 12 Hours) Vital Signs Temp Pulse Resp BP Pulse Ox 08/22/18 15:51 36.5 C 79 17 131/58 L 94 Laboratory Results Laboratory Results - last 24 hr 08/21/18 08/21/18 08/21/18 10:22 17:18 22:00 WBC RBC Hgb Hct MCV MCH MCHC RDW Std Deviation RDW Coeff of Aparna Plt Count MPV Immature Gran % (Auto) Neut % (Auto) Lymph % (Auto) [place] % (Auto) Eos % (Auto) Baso % (Auto) Immature Gran # (Auto) Neut # (Auto) Lymph # (Auto) [place] # (Auto) Eos # (Auto) Baso # (Auto) Absolute Nucleated RBC Nucleated RBC % (auto) Toxic Granulation Polychromasia Anisocytosis Sodium Potassium Chloride Carbon Dioxide Anion Gap BUN Creatinine Est Cr Clr Drug Dosing Est GFR ( Amer) Est GFR (Non-Af Amer) BUN/Creatinine Ratio Glucose POC Glucose 118 H 150 H Calcium Blood Type A Positive Antibody Screen NEGATIVE Crossmatch See Detail 08/21/18 08/22/18 08/22/18 22:01 06:25 06:25 WBC 4.24 L RBC 4.03 L Hgb 11.1 L Hct 36.1 L MCV 89.6 MCH 27.5 MCHC 30.7 L RDW Std Deviation 58.3 H RDW Coeff of Aparna 18.1 H Plt Count 250 MPV 8.7 Immature Gran % (Auto) 5.9 Neut % (Auto) 64.6 Lymph % (Auto) 11.3 [place] % (Auto) 14.4 Eos % (Auto) 2.4 Baso % (Auto) 1.4 Immature Gran # (Auto) 0.25 H Neut # (Auto) 2.74 Lymph # (Auto) 0.48 L [place] # (Auto) 0.61 H Eos # (Auto) 0.10 Baso # (Auto) 0.06 Absolute Nucleated RBC 0.04 H Nucleated RBC % (auto) 1.0 Toxic Granulation 2+ Polychromasia 1+ Anisocytosis Present Sodium 137 Potassium 3.8 Chloride 97 L Carbon Dioxide 34 H Anion Gap 6.0 BUN 15 D Creatinine 5.48 H* D Est Cr Clr Drug Dosing 6.6 Est GFR ( Amer) 7.7 Est GFR (Non-Af Amer) 6.6 BUN/Creatinine Ratio 2.7 L Glucose 85 POC Glucose 135 H Calcium 9.0 Blood Type Antibody Screen Crossmatch 08/22/18 08/22/18 08:11 11:56 WBC RBC Hgb Hct MCV MCH MCHC RDW Std Deviation RDW Coeff of Aparna Plt Count MPV Immature Gran % (Auto) Neut % (Auto) Lymph % (Auto) [place] % (Auto) Eos % (Auto) Baso % (Auto) Immature Gran # (Auto) Neut # (Auto) Lymph # (Auto) [place] # (Auto) Eos # (Auto) Baso # (Auto) Absolute Nucleated RBC Nucleated RBC % (auto) Toxic Granulation Polychromasia Anisocytosis Sodium Potassium Chloride Carbon Dioxide Anion Gap BUN Creatinine Est Cr Clr Drug Dosing Est GFR ( Amer) Est GFR (Non-Af Amer) BUN/Creatinine Ratio Glucose POC Glucose 102 H 147 H Calcium Blood Type Antibody Screen Crossmatch Medications Administered Current Inpatient Medications Allopurinol (Zyloprim) 100 mg PO QAM [facility] Stop: 09/20/18 08:59 Last Admin: 08/22/18 08:41 Dose: 100 mg Documented by: Amlodipine Besylate (Norvasc) 2.5 mg PO QAM [facility] Stop: 09/20/18 08:59 Last Admin: 08/22/18 08:41 Dose: 2.5 mg Documented by: Anastrozole (Arimidex) 1 mg PO QAM [facility] Stop: 09/19/18 08:59 Last Admin: 08/22/18 08:42 Dose: 1 mg Documented by: Aspirin (Ecotrin Ectab) 81 mg PO QAM [facility] Stop: 09/20/18 08:59 Last Admin: 08/22/18 08:41 Dose: 81 mg Documented by: Calcium Acetate (Phoslo) 1,334 mg PO 1700 [facility] Stop: 09/20/18 16:59 Last Admin: 08/21/18 17:51 Dose: 1,334 mg Documented by: Cyanocobalamin (Vitamin B-12) 1,000 mcg PO 1700 [facility] Stop: 09/20/18 16:59 Last Admin: 08/21/18 22:12 Dose: 1,000 mcg Documented by: Dextrose (Dextrose 50%) 25 - 50 ml IV UD PRN; Protocol PRN Reason: Hypoglycemia Protocol Stop: 09/18/18 21:39 Epoetin Migue (Procrit) 10,000 units IV TODAY@0700 [facility] Stop: 08/23/18 16:00 Glucagon (Glucagen) 1 mg SQ UD PRN; Protocol PRN Reason: Hypoglycemia Protocol Stop: 09/18/18 21:39 Glucose (Glucose 40%) 15 - 30 gm PO UD PRN; Protocol PRN Reason: Hypoglycemia Protocol Stop: 09/18/18 21:39 Glucose (Dex4 Glucose) 4 - 8 tabs PO UD PRN; Protocol PRN Reason: Hypoglycemia Protocol Stop: 09/18/18 21:39 Acetaminophen (Ofirmev) 65 mls @ 200 mls/hr IV Q8H PRN PRN Reason: pain Stop: 09/18/18 21:39 Last Infusion: 08/22/18 12:50 Dose: Infused Documented by: Sodium Chloride (Nss) 250 mls @ 15 mls/hr IV .[id number] PRN PRN Reason: For Transfusion Stop: 09/20/18 10:09 Sodium Chloride (Nss 1000ml) 1,000 mls @ 0 mls/hr IV .Q0M PRN PRN Reason: For Hemodialysis Use ONLY Stop: 08/23/18 12:59 Insulin Aspart (Novolog Flexpen) 0 units SC ACHS [facility] Stop: 09/19/18 20:59 Last Admin: 08/22/18 14:56 Dose: 1 units Documented by: Insulin Glargine (Lantus Solostar Pen) 5 units SC BID [facility] Stop: 09/18/18 22:29 Last Admin: 08/22/18 08:42 Dose: 5 units Documented by: Miscellaneous (Carbohydrates For Hypoglycemia) 15 - 30 gm PO UD PRN PRN Reason: Hypoglycemia Treatment Stop: 09/18/18 21:39 Miscellaneous (No Heparin In Dialysis) 1 ea N/A ONE ONE Stop: 08/23/18 07:01 Morphine Sulfate (Morphine Sulfate) 0.5 mg IV Q4H PRN PRN Reason: Pain Stop: 09/02/18 21:39 Ondansetron HCl (Zofran) 4 mg IV Q6H PRN PRN Reason: Nausea Stop: 09/18/18 21:39 Last Admin: 08/22/18 12:29 Dose: 4 mg Documented by: Pantoprazole Sodium (Protonix) 40 mg PO QAM YG Stop: 09/20/18 08:59 Last Admin: 08/22/18 08:41 Dose: 40 mg Documented by: Simvastatin (Zocor) 40 mg PO PM YG Stop: 09/20/18 20:59 Last Admin: 08/21/18 22:13 Dose: 40 mg Documented by: Vitamin B Complex/Folic Acid (Nephrocaps) 1 cap PO PM YG Stop: 09/20/18 20:59 Last Admin: 08/21/18 22:12 Dose: 1 cap Documented by: PG Care Time/CCT Total # of Minutes Spent Total Time Spent with Patient: Total time spent is greater than 50% in coordination of care (as documented) at patient's floor/unit and/or counseling patient: (1) Diabetes Chronic kidney disease stage: on chronic dialysis Diabetes mellitus complication detail: with chronic kidney disease Diabetes mellitus complication status: with kidney complications Diabetes mellitus jail insulin use: with terminal worker use Diabetes mellitus type: type 2 Qualified Code(s): E11.22 - Type 2 diabetes mellitus with diabetic chronic kidney disease; N18.6 - End stage renal disease; Z79.4 - shelter (current) use of insulin; Z99.2 - Dependence on renal dialysis (2) Anemia Anemia type: unspecified type Qualified Code(s): D64.9 - Anemia, unspecified (3) HLD (hyperlipidemia) Hyperlipidemia type: unspecified Qualified Code(s): E78.5 - Hyperlipidemia, unspecified (4) Bowel obstruction Intestinal obstruction extent: unspecified extent Intestinal obstruction type: unspecified Qualified Code(s): K56.609 - Unspecified intestinal obstruction, unspecified as to partial versus complete obstruction (5) GERD (gastroesophageal reflux disease) Esophagitis presence: esophagitis presence not specified Qualified Code(s): K21.9 - Gastro-esophageal reflux disease without esophagitis (6) HTN (hypertension) Hypertension type: essential hypertension Qualified Code(s): I10 - Essential (primary) hypertension
[2018-08-22] MEDS: CYANOCOBALAMIN 500 MCG TABLET (VITAMIN B-12) PO SCH (18:57)
[2018-08-22] MEDS: CALCIUM ACETATE 667 MG CAP PO SCH (18:57)
[2018-08-22] MEDS: MoRPHine SULFATE 2 MG/ML CARP IV PRN (20:05)
[2018-08-22] MEDS: NEPHROCAPS PO SCH (21:06)
[2018-08-22] MEDS: SIMVASTATIN 40 MG TAB PO SCH (21:07)
[2018-08-23] MEDS: ACETAMINOPHEN 65 ML IV PRN ×3 (01:43→18:57)
[2018-08-23 06:51] LABS: Basophils # (auto) 0.04 K/uL (0-0.2); Eosinophils # (auto) 0.07 K/uL (0-0.5); Eosinophils % (auto) 1.8 %; Hematocrit (blood only) 35.7 % (37-47); Hemoglobin 10.8 g/dL (12.0-16.0); Immature Granulocytes % (auto) 2.6 %; Mean Corpuscular Hgb Conc 30.3 g/dL (32-36); Mean Corpuscular Volume 89.9 fL (80-100); Monocytes # (auto) 0.56 K/uL (0.11-0.59); Monocytes % (auto) 14.7 %; Neutrophils # (auto) 2.24 K/uL (1.4-6.5); Neutrophils % (auto) 58.9 %; Nucleated RBC # (auto) 0.03 K/uL (0-0); Nucleated RBC % (auto) 0.7 %; Platelet Count 236 K/uL (130-400); RDW Coefficient of Variation 18.1 % (11.5-14.5); RDW Standard Deviation 58.6 fL (36.4-46.3); Red Blood Count 3.97 M/uL (4.2-5.4); White Blood Count 3.81 K/uL (4.8-10.8)
[2018-08-23] MEDS ORDERED: EPOETIN ALFA 10,000 UNITS/ML VIAL IV SCH (07:00)
[2018-08-23] MEDS ORDERED: SODIUM CHLORIDE 0.9% 1000ML 1,000 ML IV PRN (07:00)
[2018-08-23 07:34] LABS: BUN Creatinine Ratio 3.4 (10-20); Calcium 9.2 mg/dl (8.5-10.1); Creatinine Clr Calc Pharmacy 4.9 ml/min; Est GFR (African American) 5.3; Est GFR (Non-African American) 4.6
[2018-08-23 07:58] LABS: Potassium 4.4 mmol/L (3.5-5.1)
[2018-08-23] MEDS: ASPIRIN 81 MG ECTAB PO SCH (08:30)
[2018-08-23] MEDS: ANASTROZOLE 1 MG TAB PO SCH (08:30)
[2018-08-23] MEDS: AMLODIPINE BESYLATE 5 MG TAB PO SCH (08:30)
[2018-08-23] MEDS: PANTOprazole 40 MG TAB PO SCH (08:30)
[2018-08-23] MEDS: ALLOPURINOL 100 MG TAB PO SCH (08:48)
[2018-08-23] MEDS: INSULIN GLARGINE SOLOSTAR 100 UNITS/ML 3 ML PEN SC SCH ×2 (08:49→21:58)
[2018-08-23] MEDS: INSULIN ASPART 100 UNITS/ML 3 ML PEN SC SCH ×4 (08:49→21:59)
[2018-08-23] MEDS: MoRPHine SULFATE 2 MG/ML CARP IV PRN (11:23)
--- NOTE | 2018-08-23 12:21 | Nephrology Progress Note ---
Date of Service August 23, 2018 Assessment & Plan (1) ESRD on dialysis: -- HD MWF 3:15 hrs, UF goal 1-2 L -- Electrolytes and volume status acceptable -- Bethany is tolerating HD reasonably well -- Goals of care reviewed and updated -- Medications are acceptable for kidney function -- Duplex consistent with steal syndrome, symptoms tolerable at this time; vascular following for possible surgery on Tuesday (2) Anemia: -- 1 u PRBC to be provided with HD 08/21/18 -- Aranesp provided with HD (3) Endometrial cancer: (4) Bowel obstruction: -- Clinically improved Subjective No acute events overnight. Bethany was seen and evaluated during HD today. She describes mild back pain and some discomfort in her right hand. Appetite fair. Weakness persists. Tolerating HD reasonably well. Hopeful that she can go to [facility] within the next day or two. Review of Systems Review of Systems: All systems reviewed & are unremarkable except as noted in HPI & below Physical Exam Constitutional: + thin and + frail appearing Eyes: no scleral abnormality and no corneal abnormality ENMT: Mouth: no oral mucosal abnormality and oral mucous membranes not dry Neck: trachea midline Thyroid: normal thyroid Respiratory: no respiratory distress Auscultation: lungs clear to auscultation bilaterally Cardiovascular: Heart Sounds: normal S1, normal S2 and + murmur Extremities: + AV fistula Gastrointestinal (Abdomen): Percussion/Palpation: abdomen soft; abdomen nontender Musculoskeletal: Extremities: + cyanosis (left hand slightly cyanotic with decreased refill); no clubbing Skin: no rashes Neurologic: Motor/Sensory: no tremor and no asterixis Results & Data Vital Signs (Past 12 Hours) Vital Signs Temp Pulse Pulse Pulse Resp BP BP 08/23/18 10:19 83 133/62 08/23/18 10:00 83 133/62 08/23/18 09:40 74 138/67 08/23/18 08:55 36.7 C 76 08/23/18 07:09 36.6 C 69 20 122/78 Pulse Ox 08/23/18 10:19 08/23/18 10:00 08/23/18 09:40 08/23/18 08:55 08/23/18 07:09 97 Laboratory Results Laboratory Results - last 24 hr 08/22/18 08/22/18 08/23/18 17:30 20:23 06:35 WBC 3.81 L RBC 3.97 L Hgb 10.8 L Hct 35.7 L MCV 89.9 MCH 27.2 MCHC 30.3 L RDW Std Deviation 58.6 H RDW Coeff of Aparna 18.1 H Plt Count 236 MPV 9.0 Immature Gran % (Auto) 2.6 Neut % (Auto) 58.9 Lymph % (Auto) 21.0 [place] % (Auto) 14.7 Eos % (Auto) 1.8 Baso % (Auto) 1.0 Immature Gran # (Auto) 0.10 H Neut # (Auto) 2.24 Lymph # (Auto) 0.80 L [place] # (Auto) 0.56 Eos # (Auto) 0.07 Baso # (Auto) 0.04 Absolute Nucleated RBC 0.03 H Nucleated RBC % (auto) 0.7 Sodium Potassium Chloride Carbon Dioxide Anion Gap BUN Creatinine Est Cr Clr Drug Dosing Est GFR ( Amer) Est GFR (Non-Af Amer) BUN/Creatinine Ratio Glucose POC Glucose 150 H 145 H Calcium 08/23/18 08/23/18 08/23/18 06:35 08:10 11:50 WBC RBC Hgb Hct MCV MCH MCHC RDW Std Deviation RDW Coeff of Aparna Plt Count MPV Immature Gran % (Auto) Neut % (Auto) Lymph % (Auto) [place] % (Auto) Eos % (Auto) Baso % (Auto) Immature Gran # (Auto) Neut # (Auto) Lymph # (Auto) [place] # (Auto) Eos # (Auto) Baso # (Auto) Absolute Nucleated RBC Nucleated RBC % (auto) Sodium 136 Potassium 4.4 D Chloride 97 L Carbon Dioxide 31 Anion Gap 7.0 BUN 25 H D Creatinine 7.38 H* D Est Cr Clr Drug Dosing 4.9 Est GFR ( Amer) 5.3 Est GFR (Non-Af Amer) 4.6 BUN/Creatinine Ratio 3.4 L Glucose 106 H POC Glucose 119 H 180 H Calcium 9.2 (1) Anemia Anemia type: unspecified type Qualified Code(s): D64.9 - Anemia, unspecified (2) Bowel obstruction Intestinal obstruction extent: unspecified extent Intestinal obstruction type: unspecified Qualified Code(s): K56.609 - Unspecified intestinal obstruction, unspecified as to partial versus complete obstruction
[2018-08-23] MEDS: ONDANSETRON INJ 2 MG/ML 2 ML VIAL IV PRN (12:50)
--- NOTE | 2018-08-23 13:35 | Discharge Summary ---
Date of Service August 24, 2018 Admission HPI Per Admitting Provider Bethany Farr is an 82yo C female presenting with possible SBO. Patient with history of Ulcerative colitis s/p proctocolectomy with ileostomy placement in 1973. She had a bowel obstruction approximately 5 years ago which required surgical intervention. Per family, the surgery was prolonged due to large amount of intraabdominal adhesions and it was recommended to her that she never have abdominal surgery again. She has since been hospitalized multiple times for recurrence of SBO. Today she presents with intermittent lower abdominal and back discomfort and nausea, mild abdominal distention. She has occasional ep isode of non-bloody vomiting. She has had decreased output from her ostomy and reports that it is largely liquid (is typically somewhat formed) and a lot of air. Also with decreased appetite and poor PO intake. She states that this feels similar to her prior SBOs. Overall the patient reports significant functional decline since March. She has ESRD and receives HD three times weekly (//). She reports that she is extremely fatigued with no energy and no appetite. She had an episode last week after returning home from HD where she was unable to walk into her home from the car due to weakness. She sat on her driveway and EMS was contacted to assist with moving her into her home. She sustained a recent L2 fracture and was recently diagnosed with sacral insufficiency fractures (3 weeks ago). She ambulates at home with a walker but reports she is having a lot of difficulty doing so. She Patient lives with her daughter. Her other daughter has been visiting from [place], [place] and is scheduled to return home tomorrow. ER Course: Zofran, NSS x 250mL Principal Diagnosis Partial small bowel obstruction Discharge Exam Constitutional WD/WN, vitals as above Eyes PERRL, conjunctivae normal, anicteric sclerae ENMT external ear and nose normal, oropharynx normal Neck trachea midline, no thyromegaly Respiratory normal respiratory effort, lungs clear to auscultation Cardiovascular RRR, no murmur, no edema Gastrointestinal (Abdomen) Inspection/Auscultation: abdomen normal to inspection (ostomy in place) and normal bowel sounds; abdomen not distended Percussion/Palpation: abdomen soft; abdomen nontender, no guarding and abdomen not rigid Musculoskeletal no cyanosis or clubbing, extremities motor strength 5/5 Skin no rashes, warm and dry Neurologic patellar DTR's 2+ bilat, sensation intact and PERRL, EOMI, accommodation nl, no face palsy, no dysarthria Psychiatric A+Ox3, euthymic affect Lymphatic no cervical or axillary lymphadenopathy Discharge Data Allergies Allergy/AdvReac Type Severity Reaction Status Date / Time No Known Allergies Allergy Mild Verified 08/29/18 11:42 Consultations 08/19/18 19:56 ED Decision to Admit Stat 08/19/18 21:40 Consult Case Management - Discharge Planning Routine 08/21/18 07:37 Consult Nephrology Routine 08/21/18 10:11 Consult Palliative Care Routine 08/22/18 11:42 Consult Vascular Surgery Routine Ordered Studies 08/19/18 16:23 CT abd pelvis oral con only Stat 08/22/18 10:48 US hemodialysis access Routine 08/22/18 11:23 US arterial duplex UE LT Routine Hospital Course (1) Bowel obstruction: Patient presenting with SBO most likely secondary to intraabdominal adhesions. She is presently without pain or nausea, abdomen is soft and nondistended with normoactive bowel sounds. Ileostomy in place with liquid output, continues to improve. Patient does not wish to have surgery. -tolerating diabetic diet, no vomiting, ostomy functioning likely could consider the SBO resolved -stop fluids as her intake is improved -Zofran and Morphine PRN -Cautious use of narcotics d/c to rehab (2) Adult failure to thrive: Overall patient describes 5 months of functional decline, poor appetite, weight loss and decreased mobility. She is presently living with one daughter, other daughter resides in [place], [place]. They express desire to have some in-home assistance -PT/OT and CM consultation for home health needs. Appreciate assistance with this case not much of an appetite, unsure if this will improve she would like to discuss with hospice/palliative care consult placed for palliative, appreciate their assistance changed to DNR plan to go to rehab, would be ready tomorrow continue to try to eat but if she continues to decline she would be open to hospice her primary concern is her daughter's well being (3) Anemia: Patient reports longstanding history of vaginal bleeding in setting of endometrial CA. She follows with Dr. Torres as well [place] [facility] [place]. She has been transfused with 2u PRBCs appx 2 weeks ago. States that she has not had bleeding for the last 4 weeks. -She reports pink vaginal discharge intermittently - H&H noted to be 8.6 08/22, up to 11.1 after one unit of PRBC with HD on 08/22 -Will avoid chemoprophylaxis for DVT -Followup with Dr. Torres as scheduled in the next 1-2 weeks - discussion for possible uterine artery embolization should her bleeding continue (4) End stage renal disease: Patient with ESRD on HD q M/W/. Received a full treatment Tuesday08-18-28. Follows with Dr. Juárez. She has minimal UOP - HD 08/[address] Juárez - resume Nephrocaps and PhosLo on discharge HD on 08/23, tolerated well, fatigued (5) Diabetes: will resume home regimen on discharge (6) GERD (gastroesophageal reflux disease): Chronic. Stable -Resume Protonix when SBO resolves (7) HLD (hyperlipidemia): Chronic. Stable -Hold Simvastatin for now (8) HTN (hypertension): Blood pressure presently stable -Hold Amlodipine for now -Continue to monitor (9) Gout: Chronic. Stable -Holding Allopurinol for now while NPO, resume when SBO resolves Ppx - SCDs and TEDs to bilateral LEs Code - Full Dispo - Discharge when SBO resolved. possible in 24-48 hours Total Time Total Time Spent Total Time Spent (In Minutes): 35 minutes Total Time Includes: Examination of the Patient, Discharge Planning, Medication Reconciliation and Communication With Other Providers Discharge Plan Discharge Items Patient Disposition: Transfer Inpatient Rehab Fac Reason For Visit: BOWEL OBSTRUCTION Discharge Diagnosis: Small bowel obstruction, resolved ESRD on HD Condition: Good Discharge Goals: Improve function and Increase independence Activity: Resume your previous activity Non-emergency contact: Primary Care Provider and Tool Procurement Coordinator Call non-emergency contact if: you have any medication questions, your symptoms worsen and your pain is not controlled Follow-up/Referrals: Danielito Rojas MD [Primary Care Provider] - 08/29/18 2:45 pm (Please, follow up with Dr. Demar Ryan on TuesdayAugust 29 at 2:45 pm. *If you need to change this appointment, call the office at [phone].) Diet: Carb Consistent or DM2 and Dialysis Renal Addtl Provider Instructions: Medications: OXYCODONE: take as needed for pain, best when taken by 6-630am to help with pain in the morning and help control pain during therapy and dialysis Small bowel obstruction: resolved with conservative care, bowel rest initially slowly increased diet to regular consistency, diabetic diet no nausea or vomiting, ostomy functioning well continue to stay well hydrated ESRD on HD MWF received HD on 08/23, tolerated well some concerns about steal syndrome in left arm with the fistula Dr Torres, vascular surgery, has planned to perform angiogram on Friday 08/25 please have patient return to the hospital for the procedure, can be outpatient, go back to rehab Failure to thrive ongoing difficulty eating, some weight loss discussed her goals of care with palliative care she is a DNR/DNI she would like to continue with current care her primary concern is well being of her daughter who lives with her services will be provided once she is back home FOLLOW UP - physician at [facility] this week - Dr. Demar Ryan after d/c from rehab Prescriptions: Continued anastrozole [Arimidex] 1 mg tablet 1 mg PO QAM RF: 0 ondansetron HCl 8 mg Tablet 8 mg PO TID PRN (Reason: Nausea) RF: 0 allopurinol [Zyloprim] 100 mg tablet 100 mg PO QAM RF: 0 pantoprazole [Protonix] 40 mg tablet,delayed release (DR/EC) 40 mg PO QAM RF: 0 Renal Caps 1 mg Capsule 1 cap PO PM RF: 0 amlodipine 2.5 mg Tablet 2.5 mg PO QAM RF: 0 aspirin [Aspir-81] 81 mg Tablet,Delayed Release (Dr/Ec) 81 mg PO QAM RF: 0 acetaminophen [Tylenol Extra Strength] 500 mg Tablet 500 mg PO Q6H PRN (Reason: Pain) RF: 0 PreserVision AREDS [id number] Tablet 1 tab PO BID RF: 0 cyanocobalamin (vitamin B-12) 1,000 mcg capsule 1,000 mcg PO PM RF: 0 Discontinued oxycodone 5 mg tablet 5 mg PO Q4H Qty: 15 RF: 0 No Action atorvastatin 20 mg Tablet 20 mg PO HS RF: 0 polyethylene glycol 3350 [Miralax] 17 gram Powder In Packet 17 g PO DAILY PRN (Reason: Constipation) RF: 0 sennosides-docusate sodium [Senokot-S] 8.6-50 mg Tablet 1 tab PO DAILYBL PRN (Reason: Constipation) RF: 0 calcium acetate 667 mg Tablet 1,334 mg PO HS RF: 0 tramadol 50 mg Tablet 50 mg PO Q12H PRN (Reason: Pain) RF: 0 Novolog U-100 Insulin aspart 100 unit/mL Solution 1 sliding scale dose SUBCUT USEASDIRECTD RF: 0 bisacodyl 10 mg Suppository 10 mg PA DAILY PRN (Reason: Constipation) RF: 0 glucagon (human recombinant) 1 mg Recon Soln 1 mg subcut DAILY PRN (Reason: Hypoglycemia) RF: 0 docusate sodium [Colace] 100 mg Capsule 100 mg PO BID RF: 0 oxycodone 5 mg Tablet 5 mg PO Q4 PRN (Reason: Pain) RF: 0 Lantus Solostar U-100 Insulin 100 unit/mL (3 mL) Insulin Pen 5 unit subcut Q12 RF: 0 Stand-Alone Forms: [facility] Discharge Orders: Discharge Order (Routine); Ordered 08/24/18 Ordered By: Dewayne Huff Skilled Items Patient informed of condition?: Yes DNR: Yes Discharge Level of Care: Acute rehab Communicable Disease: No Discharge Prognosis: Stable Admission Data Admit Date/Time: 08/19/18 20:42 Attending Provider: Dewayne Huff Admit Provider: Florinda Cadena Primary Care Provider: Danielito Rojas Other Providers: Annemarie Chris ; Figueroa Torres ; Ena De León Service: Medical Other Interventions: Discharge Summary Assessment (RN) Last Done: 08/24/18 10:25 DC Date/Time DO NOT enter until pt leaves facility: 08/24/18 12:25
--- NOTE | 2018-08-23 13:47 | Hospitalist Progress Note ---
Date of Service August 23, 2018 Assessment & Plan (1) Bowel obstruction: Patient presenting with SBO most likely secondary to intraabdominal adhesions. abdomen is soft and nondistended with normoactive bowel sounds. Ileostomy in place with liquid output, continues to improve. Patient does not wish to have surgery. -tolerating diabetic diet, no vomiting, ostomy functioning likely could consider the SBO resolved has some nausea this afternoon but ostomy functioning and she ate breakfast will see how she feels with dinner this evening -stop fluids as her intake is improved -Zofran and Morphine PRN -Cautious use of narcotics possible d/c to rehab tomorrow (2) Adult failure to thrive: Overall patient describes 5 months of functional decline, poor appetite, weight loss and decreased mobility. She is presently living with one daughter, other daughter resides in [place], [place]. They express desire to have some in-home assistance -PT/OT and CM consultation for home health needs. Appreciate assistance with this case not much of an appetite, unsure if this will improve she would like to discuss with hospice/palliative care consult placed for palliative today, appreciate their assistance changed to DNR plan to go to rehab, would be ready tomorrow (3) Anemia: Patient reports longstanding history of vaginal bleeding in setting of endometrial CA. She follows with Dr. Torres as well as [facility] for this. She has been transfused with 2u PRBCs appx 2 weeks ago. States that she has not had bleeding for the last 4 weeks. -She reports pink vaginal discharge intermittently - H&H noted to be 8.6 on 08/21, up to 11.1 after one unit of PRBC on 08/21 -Will avoid chemoprophylaxis for DVT -Followup with Dr. Torres as scheduled in the next 1-2 weeks - discussion for possible uterine artery embolization should her bleeding continue (4) End stage renal disease: Patient with ESRD on HD q M/W/. Received a full treatment Tuesday08-18-28. Follows with Dr. Juárez. She has minimal UOP - HD 08/[address] Juárez - resume Nephrocaps and PhosLo on discharge plan for HD tomorrow (5) Diabetes: -Continue Lantus 5u BID, ISS -Continue to monitor for hypoglycemia will resume home regimen once she is eating more and ready for d/c (6) GERD (gastroesophageal reflux disease): Chronic. Stable -Resume Protonix when SBO resolves (7) HLD (hyperlipidemia): Chronic. Stable -Hold Simvastatin for now (8) HTN (hypertension): Blood pressure presently stable -Hold Amlodipine for now -Continue to monitor (9) Gout: Chronic. Stable -Holding Allopurinol for now while NPO, resume when SBO resolves Ppx - SCDs and TEDs to bilateral LEs Code - Full Dispo - Discharge when SBO resolved. possible in 24-48 hours (10) Chronic low back pain: much worse today after hemodialysis could not get comfortable will give a dose of Dilaudid 0.5mg IV and look for relief Subjective patient reports that she felt well this morning, ate her breakfast went to HD at 9am, she did not get any pain medication said that she had severe pain in her lower back during HD she feels exhausted, has nausea, no abdominal pain her ostomy is functioning she is exhausted, feels like she cannot get up and go to rehab today discussed that we can wait asking for pain control, pain in back is severe will try Dilaudid 0.5mg Review of Systems Review of Systems: All systems reviewed & are unremarkable except as noted in HPI & below Constitutional: + body aches, + fatigue and + weakness; no fever and no chills Respiratory: no cough and no dyspnea Cardiovascular: no chest pain and no edema Gastrointestinal: + nausea and + diarrhea/loose stools; no abdominal pain, no vomiting and no constipation Musculoskeletal: + back pain (moderate to severe, low back) Physical Exam Constitutional: WD/WN, vitals as above + acute distress (mild distress, due to pain in back); + uncomfortable Eyes: PERRL, conjunctivae normal, anicteric sclerae ENMT: external ear and nose normal, oropharynx normal Neck: trachea midline, no thyromegaly Respiratory: normal respiratory effort, lungs clear to auscultation Cardiovascular: RRR, no murmur, no edema Gastrointestinal (Abdomen): Inspection/Auscultation: abdomen normal to inspection (ostomy in place) and normal bowel sounds; abdomen not distended Percussion/Palpation: abdomen soft; abdomen nontender, no guarding and abdomen not rigid Musculoskeletal: no cyanosis or clubbing, extremities motor strength 5/5 Skin: no rashes, warm and dry Neurologic: patellar DTR's 2+ bilat, sensation intact and PERRL, EOMI, accommodation nl, no face palsy, no dysarthria Psychiatric: A+Ox3, euthymic affect Lymphatic: no cervical or axillary lymphadenopathy Results & Data Vital Signs (Past 12 Hours) Vital Signs Temp Pulse Pulse Pulse Resp BP BP 08/23/18 10:19 83 133/62 08/23/18 10:00 83 133/62 08/23/18 09:40 74 138/67 08/23/18 08:55 36.7 C 76 08/23/18 07:09 36.6 C 69 20 122/78 Pulse Ox 08/23/18 10:19 08/23/18 10:00 08/23/18 09:40 08/23/18 08:55 08/23/18 07:09 97 Laboratory Results Laboratory Results - last 24 hr 08/22/18 08/22/18 08/23/18 17:30 20:23 06:35 WBC 3.81 L RBC 3.97 L Hgb 10.8 L Hct 35.7 L MCV 89.9 MCH 27.2 MCHC 30.3 L RDW Std Deviation 58.6 H RDW Coeff of Aparna 18.1 H Plt Count 236 MPV 9.0 Immature Gran % (Auto) 2.6 Neut % (Auto) 58.9 Lymph % (Auto) 21.0 Garrett % (Auto) 14.7 Eos % (Auto) 1.8 Baso % (Auto) 1.0 Immature Gran # (Auto) 0.10 H Neut # (Auto) 2.24 Lymph # (Auto) 0.80 L Garrett # (Auto) 0.56 Eos # (Auto) 0.07 Baso # (Auto) 0.04 Absolute Nucleated RBC 0.03 H Nucleated RBC % (auto) 0.7 Sodium Potassium Chloride Carbon Dioxide Anion Gap BUN Creatinine Est Cr Clr Drug Dosing Est GFR ( Amer) Est GFR (Non-Af Amer) BUN/Creatinine Ratio Glucose POC Glucose 150 H 145 H Calcium 08/23/18 08/23/18 08/23/18 06:35 08:10 11:50 WBC RBC Hgb Hct MCV MCH MCHC RDW Std Deviation RDW Coeff of Aparna Plt Count MPV Immature Gran % (Auto) Neut % (Auto) Lymph % (Auto) Garrett % (Auto) Eos % (Auto) Baso % (Auto) Immature Gran # (Auto) Neut # (Auto) Lymph # (Auto) Garrett # (Auto) Eos # (Auto) Baso # (Auto) Absolute Nucleated RBC Nucleated RBC % (auto) Sodium 136 Potassium 4.4 D Chloride 97 L Carbon Dioxide 31 Anion Gap 7.0 BUN 25 H D Creatinine 7.38 H* D Est Cr Clr Drug Dosing 4.9 Est GFR ( Amer) 5.3 Est GFR (Non-Af Amer) 4.6 BUN/Creatinine Ratio 3.4 L Glucose 106 H POC Glucose 119 H 180 H Calcium 9.2 Medications Administered Current Inpatient Medications Allopurinol (Zyloprim) 100 mg PO [facility] Stop: 09/20/18 08:59 Last Admin: 08/23/18 08:48 Dose: 100 mg Documented by: Amlodipine Besylate (Norvasc) 2.5 mg PO [facility] Stop: 09/20/18 08:59 Last Admin: 08/23/18 08:30 Dose: Not Given Documented by: Anastrozole (Arimidex) [facility] Stop: 09/19/18 08:59 Last Admin: 08/23/18 08:30 Dose: 1 mg Documented by: Aspirin (Ecotrin Ectab) 81 mg PO [facility] Stop: 09/20/18 08:59 Last Admin: 08/23/18 08:30 Dose: 81 mg Documented by: Calcium Acetate (Phoslo) 1,334 mg PO [facility]00 [facility] Stop: 09/20/18 16:59 Last Admin: 08/22/18 18:57 Dose: Not Given Documented by: Cyanocobalamin (Vitamin B-12) 1,000 mcg PO 1700 [facility] Stop: 09/20/18 16:59 Last Admin: 08/22/18 18:57 Dose: Not Given Documented by: Dextrose (Dextrose 50%) 25 - 50 ml IV UD PRN; Protocol PRN Reason: Hypoglycemia Protocol Stop: 09/18/18 21:39 Epoetin Migue (Procrit) 10,000 units IV TODAY@0700 [facility] Stop: 08/23/18 16:00 Last Admin: 08/23/18 10:56 Dose: 10,000 units Documented by: Glucagon (Glucagen) 1 mg SQ UD PRN; Protocol PRN Reason: Hypoglycemia Protocol Stop: 09/18/18 21:39 Glucose (Glucose 40%) 15 - 30 gm PO UD PRN; Protocol PRN Reason: Hypoglycemia Protocol Stop: 09/18/18 21:39 Glucose (Dex4 Glucose) 4 - 8 tabs PO UD PRN; Protocol PRN Reason: Hypoglycemia Protocol Stop: 09/18/18 21:39 Acetaminophen (Ofirmev) 65 mls @ 200 mls/hr IV Q8H PRN PRN Reason: pain Stop: 09/18/18 21:39 Last Infusion: 08/23/18 11:21 Dose: Infused Documented by: Sodium Chloride (Nss) 250 mls @ 15 mls/hr IV .[id number] PRN PRN Reason: For Transfusion Stop: 09/20/18 10:09 Insulin Aspart (Novolog Flexpen) 0 units SC ACHS YG Stop: 09/19/18 20:59 Last Admin: 08/23/18 12:46 Dose: 2 units Documented by: Insulin Glargine (Lantus Solostar Pen) 5 units SC BID YG Stop: 09/18/18 22:29 Last Admin: 08/23/18 08:49 Dose: 5 units Documented by: Miscellaneous (Carbohydrates For Hypoglycemia) 15 - 30 gm PO UD PRN PRN Reason: Hypoglycemia Treatment Stop: 09/18/18 21:39 Morphine Sulfate (Morphine Sulfate) 0.5 mg IV Q4H PRN PRN Reason: Pain Stop: 09/02/18 21:39 Last Admin: 08/23/18 11:23 Dose: 0.5 mg Documented by: Ondansetron HCl (Zofran) 4 mg IV Q6H PRN PRN Reason: Nausea Stop: 09/18/18 21:39 Last Admin: 08/23/18 12:50 Dose: 4 mg Documented by: Pantoprazole Sodium (Protonix) 40 mg PO QAM YG Stop: 09/20/18 08:59 Last Admin: 08/23/18 08:30 Dose: 40 mg Documented by: Simvastatin (Zocor) 40 mg PO PM YG Stop: 09/20/18 20:59 Last Admin: 08/22/18 21:07 Dose: Not Given Documented by: Vitamin B Complex/Folic Acid (Nephrocaps) 1 cap PO PM YG Stop: 09/20/18 20:59 Last Admin: 08/22/18 21:06 Dose: Not Given Documented by: PG Care Time/CCT Total # of Minutes Spent Total Time Spent with Patient: Total time spent is greater than 50% in coordination of care (as documented) at patient's floor/unit and/or counseling patient: (1) Diabetes Chronic kidney disease stage: on chronic dialysis Diabetes mellitus complication detail: with chronic kidney disease Diabetes mellitus complication status: with kidney complications Diabetes mellitus termite inspector insulin use: with prison use Diabetes mellitus type: type 2 Qualified Code(s): E11.22 - Type 2 diabetes mellitus with diabetic chronic kidney disease; N18.6 - End stage renal disease; Z79.4 - long term care administrator (current) use of insulin; Z99.2 - Dependence on renal dialysis (2) Anemia Anemia type: unspecified type Qualified Code(s): D64.9 - Anemia, unspecified (3) HLD (hyperlipidemia) Hyperlipidemia type: unspecified Qualified Code(s): E78.5 - Hyperlipidemia, unspecified (4) Bowel obstruction Intestinal obstruction extent: unspecified extent Intestinal obstruction type: unspecified Qualified Code(s): K56.609 - Unspecified intestinal obstruction, unspecified as to partial versus complete obstruction (5) GERD (gastroesophageal reflux disease) Esophagitis presence: esophagitis presence not specified Qualified Code(s): K21.9 - Gastro-esophageal reflux disease without esophagitis (6) HTN (hypertension) Hypertension type: essential hypertension Qualified Code(s): I10 - Essential (primary) hypertension
[2018-08-23] MEDS ORDERED: HYDROmorphone INJ 0.5 MG/0.5 ML SYR IV STA (13:49)
[2018-08-23] MEDS ORDERED: HYDROmorphone INJ 0.5 MG/0.5 ML SYR ONE (13:52)
[2018-08-23] MEDS: CYANOCOBALAMIN 500 MCG TABLET (VITAMIN B-12) PO SCH (18:05)
[2018-08-23] MEDS: CALCIUM ACETATE 667 MG CAP PO SCH (18:05)
[2018-08-23] MEDS: OXYCODONE HCL IR 5 MG TAB (IMMEDIATE RELEASE) PO PRN ×2 (18:05→21:59)
[2018-08-23] MEDS: SIMVASTATIN 40 MG TAB PO SCH (21:01)
[2018-08-23] MEDS: NEPHROCAPS PO SCH (21:01)
[2018-08-24] MEDS: OXYCODONE HCL IR 5 MG TAB (IMMEDIATE RELEASE) PO PRN ×2 (02:06→06:30)
[2018-08-24] MEDS: ACETAMINOPHEN 65 ML IV PRN (07:16)
[2018-08-24] MEDS: INSULIN ASPART 100 UNITS/ML 3 ML PEN SC SCH (09:00)
[2018-08-24] MEDS: ANASTROZOLE 1 MG TAB PO SCH (09:01)
[2018-08-24] MEDS: ASPIRIN 81 MG ECTAB PO SCH (09:01)
[2018-08-24] MEDS: AMLODIPINE BESYLATE 5 MG TAB PO SCH (09:01)
[2018-08-24] MEDS: ALLOPURINOL 100 MG TAB PO SCH (09:02)
[2018-08-24] MEDS: INSULIN GLARGINE SOLOSTAR 100 UNITS/ML 3 ML PEN SC SCH (09:02)
[2018-08-24] MEDS: PANTOprazole 40 MG TAB PO SCH (09:02)
--- NOTE | 2018-08-24 10:10 | Nephrology Progress Note ---
Date of Service August 24, 2018 Assessment & Plan (1) ESRD on dialysis: -- HD MWF 3:15 hrs -- Electrolytes and volume status acceptable -- No complications with HD yesterday -- Plan to continue current Rx at [facility] post discharge -- [facility]3] Wilbert updated yesterday regarding patient's progress and changes including DNR/DNI -- Medications are acceptable for kidney function -- Duplex consistent with steal syndrome, symptoms tolerable at this time; vascular following for possible surgery on Tuesday (2) Anemia: -- 1 u PRBC to be provided with HD 08/21/18 -- Aranesp provided with HD (3) Endometrial cancer: (4) Bowel obstruction: -- Clinically improved Subjective No acute events overnight. Bethany is feeling much better today. Pain control significantly improved. She was out of bed walking in the halls and notes that her activity tolerance was notably improved. Review of Systems Review of Systems: All systems reviewed & are unremarkable except as noted in HPI & below Physical Exam Constitutional: + thin and + frail appearing Eyes: no scleral abnormality and no corneal abnormality ENMT: Mouth: no oral mucosal abnormality and oral mucous membranes not dry Neck: trachea midline Thyroid: normal thyroid Respiratory: no respiratory distress Auscultation: lungs clear to auscultation bilaterally Cardiovascular: Heart Sounds: normal S1, normal S2 and + murmur Extremities: + AV fistula Gastrointestinal (Abdomen): Percussion/Palpation: abdomen soft; abdomen nontender Musculoskeletal: Extremities: + cyanosis (left hand slightly cyanotic with decreased refill); no clubbing Skin: no rashes Neurologic: Motor/Sensory: no tremor and no asterixis Results & Data Vital Signs (Past 12 Hours) Vital Signs Temp Pulse Pulse Resp BP Pulse Ox 08/24/18 07:36 36.7 C 78 16 127/60 94 08/23/18 23:11 36.7 C 83 18 114/55 L 93 Laboratory Results Laboratory Results - last 24 hr 08/23/18 08/23/18 08/23/18 11:50 17:16 21:06 POC Glucose 180 H 119 H 157 H 08/24/18 08:25 POC Glucose 132 H (1) Anemia Anemia type: unspecified type Qualified Code(s): D64.9 - Anemia, unspecified (2) Bowel obstruction Intestinal obstruction extent: unspecified extent Intestinal obstruction type: unspecified Qualified Code(s): K56.609 - Unspecified intestinal obstruction, unspecified as to partial versus complete obstruction
[2018-08-24] MEDS: ONDANSETRON INJ 2 MG/ML 2 ML VIAL IV PRN (11:53)
== END 2018-08-24 12:25 | DRG 388 ==
LOC: ED 14:36 → 3N 20:42 → SUATTDRO 20:42 → 3N 21:18